=== PATIENT | female | born 1935 | race Caucasian/White ===

== ENCOUNTER → 2016-08-12 | Outpatient (CLI) | payer OTHER ==
[~2016-08-12] MED LIST: ALBINS/ INH; ALBUAER2 PO; ALPOPS1510 OPB; ASPEC81 PO; ATV/1 PO; BIOT50006 PO; BRIM0.1S OPB; CHOL100010 PO; CICL0.7718 TOP; DILT120C68 PO; DLCSR180 PO; FERR1TAB13 PO; FERR27TA5 PO; FLUO10TA3 PO; FLUT0.15; GLC/500 PO; LEVO1TAB33 PO; LOSA1TAB PO; LOSA50TA6 PO; OXYB5TAB74 PO; PLV75 PO; PRED10TA PO; RIVA1.5T PO; RIVA1TAB4 PO; SIMV40TA2 PO; SYMIN160 INH; TIMO0.2527 OPB; TMPXEOPS OPB; TRIA0.1O12 TOP; TRIA37.5 PO; TRMCR130WC TOP; VNTHFA/IN INH
[2016-08-13 06:30] LABS: ESTIMATED AVERAGE GLUCOSE 197 mg/dl; HA1C FLAG Normal (Normal)
== END | disposition home or self-care (01) ==
LOC: C.LABBFT 10:21
PROVIDERS: ATTEND Internal Medicine
DX: E11.9 Type 2 diabetes mellitus without complications (principal)

== ENCOUNTER → 2016-08-12 | Outpatient (CLI) | payer OTHER ==
--- NOTE | 2016-08-12 16:22 | DIAGNOSTIC IMAGING REPORT ---
CHEST 2 VIEWS ROUTINE CLINICAL HISTORY: Acute bronchitis. COMPARISON STUDY: Chest radiograph February 19, 2016. FINDINGS: Lung volumes are normal. There is no pneumothorax or pleural effusion. Mild bibasilar opacities favor atelectasis. There is no consolidation. There is no evidence of pulmonary edema. Mild cardiomegaly is unchanged. IMPRESSION: 1. No acute cardiopulmonary findings. 2. Mild bibasilar opacities which likely reflect atelectasis. 3. Stable mild cardiomegaly without evidence of pulmonary edema. Electronically signed by: Sergio Ferguson M.D. 08/12/2016 4:20 PM Dictated Date/Time: 08/12/2016 4:19 PM
== END | disposition home or self-care (01) ==
LOC: C.RAD1850 15:57
PROVIDERS: ATTEND Internal Medicine
DX: J20.9 Acute bronchitis, unspecified (principal); I51.7 Cardiomegaly; E11.9 Type 2 diabetes mellitus without complications

== ENCOUNTER → 2016-08-13 | Outpatient (CLI) | payer OTHER | END | disposition home or self-care (01) | LOC: C.LAB 09:04 | PROVIDERS: ATTEND Internal Medicine | DX: E11.9 Type 2 diabetes mellitus without complications (principal); J20.9 Acute bronchitis, unspecified ==

== ENCOUNTER 2016-08-22 18:35 | Inpatient (IN) | payer OTHER ==
[~2016-08-22] VITALS: Ht 160 cm; Wt 59.5 kg
[~2016-08-22 18:35] MED LIST changes: -ALBINS/ INH; -ASPEC81 PO; -BRIM0.1S OPB; -DILT120C68 PO; -FERR27TA5 PO; -LEVO1TAB33 PO; -LOSA1TAB PO; -PLV75 PO; -PRED10TA PO; -RIVA1.5T PO; -TMPXEOPS OPB; -TRIA37.5 PO; -TRMCR130WC TOP; -VNTHFA/IN INH
[2016-08-22] MEDS ORDERED: SODIUM CHLORIDE 0.9% 1000ML 1,000 ML IV STA (19:00)
[2016-08-22 19:23] LABS: HEMATOCRIT 37.9 % (37-47); MEAN CORPUSCULAR HEMOGLOBIN 31.5 pg (25-34); MEAN CORPUSCULAR HGB CONC 33.5 g/dl (32-36); MEAN PLATELET VOLUME 10.4 fL (7.4-10.4); PLATELET COUNT 204 K/uL (130-400); RED BLOOD COUNT 4.03 M/uL (4.2-5.4); WHITE BLOOD COUNT 22.82 K/uL (4.8-10.8)
[2016-08-22] MEDS ORDERED: LEVO1TAB33 PO (19:25)
[2016-08-22] MEDS ORDERED: PRED10TA PO (19:25)
[2016-08-22 19:32] LABS: INR 1.2 (0.9-1.1); PROTHROMBIN TIME (PATIENT) 12.6 SECONDS (9.0-12.0)
[2016-08-22 19:40] LABS: BUN/CREATININE RATIO 20.6 (10-20); CALCIUM 9.2 mg/dl (8.5-10.1); CREATININE 1.7 mg/dl (0.60-1.20); POTASSIUM 4.4 mmol/L (3.5-5.1)
[2016-08-22 19:42] LABS: ACANTHOCYTES 1+; BASO % 0.1 %; BASO ABS # 0.02 K/uL (0-0.2); COMPLETE YES; ECHINOCYTES 1+; IG% 0.9 %; LYMPH % 4.5 %; LYMPH ABS # 1.03 K/uL (1.2-3.4); MONO % 5.7 %; NEUT % 88.8 %
[2016-08-22 19:50] LABS: BETA-HYDROXYBUTYRATE 1.67 mg/dL (0.2-2.81); THYROID STIMULATING HORMONE 1.39 uIu/ml (0.300-4.500)
--- NOTE | 2016-08-22 19:50 | DIAGNOSTIC IMAGING REPORT ---
CT OF THE HEAD WITHOUT CONTRAST CLINICAL HISTORY: Fall with head injury. Anticoagulation. COMPARISON STUDY: Head CT May 04, 2016. CT DOSE: 1246.96 mGy.cm TECHNIQUE: Helical axial images of the head were obtained without IV contrast. Automated exposure control was utilized for the study. FINDINGS: No acute intracranial hemorrhage, midline shift or mass effect is present. Ventricular system is stable. The basilar cisterns are patent. There are no extra-axial collections. Encephalomalacia within the anterior medial left frontal lobe is unchanged. Scattered old infarcts are again noted. The appearance of the brain is unchanged. There are no findings to suggest acute dural sinus thrombosis or acute territorial infarct. There is no calvarial fracture. IMPRESSION: 1. No acute intracranial findings. No change in appearance of the brain. Multiple old infarcts. 2. No calvarial fracture. Electronically signed by: Sergio Ferguson M.D. 08/22/2016 7:48 PM Dictated Date/Time: 08/22/2016 7:44 PM
--- NOTE | 2016-08-22 20:10 | DIAGNOSTIC IMAGING REPORT ---
CHEST ONE VIEW PORTABLE CLINICAL HISTORY: Weakness. Fall. COMPARISON STUDY: Chest radiograph August 12, 2016. FINDINGS: Lung volumes are normal. There is no pneumothorax or pleural effusion. Mild cardiomegaly is unchanged. There is no evidence of pulmonary edema. The appearance of the chest is unchanged. There may be minimal bibasilar atelectasis. IMPRESSION: No acute cardiopulmonary findings. Electronically signed by: Sergio Ferguson M.D. 08/22/2016 8:08 PM Dictated Date/Time: 08/22/2016 8:07 PM
[2016-08-22 22:06] LABS: MANUAL MICROSCOPIC REQUIRED? NO; REVIEW REQ? NO; URINE APPEARANCE CLEAR (CLEAR); URINE BILIRUBIN NEG (NEG); URINE COLOR YELLOW; URINE EPITHELIAL CELL AUTO 20-30 /lpf (0-5); URINE NITRITE NEG (NEG); URINE PH 5.5 (4.5-7.5); URINE SPECIFIC GRAVITY 1.014 (1.000-1.030); UROBILINOGEN NEG (NEG)
[2016-08-23] MEDS ORDERED: PHARMACIST DISCHARGE MED REC CONSULT PRN (00:15)
[2016-08-23] MEDS ORDERED: TRIAMCINOLONE ACET 0.1% OINT 15 GM TUBE TOP PRN (00:15)
--- NOTE | 2016-08-23 00:23 | History and Physical ---
History & Physical Date & Time of Service: Aug 23, 2016 at 00:14 Chief Complaint: Fell,Hit Head,Rt Leg Not Working Primary Care Physician: Nathan Nance M.D. History of Present Illness Source: patient 80 y/o F w/Hx CAD, AF, HTN, COPD, DM. Pt fell earlier in the day sustaining mild trauma to the back of her head. She takes Xarelto for AF. She had a nap and then per her daughter woke up w/RLE weakness and slight slurring of her speech. She could not independently ambulate due to weakness and was brought into the hospital for evaluation. Her leg weakness persists at the time of admission although it may have improved. She denies a MILLER, visual changes, CP, SOB, N/V or fevers. She is currently being treated for a bronchitis and COPD with antibiotics and steroids. She has had a productive cough for over one week which has not improved. Initial CT head did not reveal a CVA or ICH. Labs are notable for ARF and leukocytosis (in the context of steroid use). She is clinically dehydrated and appears profoundly weak. Past Medical/Surgical History Medical Problems: (1) A-fib Status: Chronic (2) COPD (chronic obstructive pulmonary disease) Status: Chronic (3) Diabetes Status: Chronic (4) Heart disease Status: Chronic (5) HTN (hypertension) Status: Chronic 6) Psoriasis 7) Polyneuropathy 8) Hyperlipidemia 9) Pulmonary nodule Family History Diabetes mellitus FH: cancer FH: heart disease Hypertension Social History Smoking Status: Former Smoker Drug Use: none Marital Status: Housing status: lives with family Occupational Status: retired Immunizations History of Influenza Vaccine: Yes Influenza Vaccine Date: Apr 02, 2011 History of Tetanus Vaccine?: No History of Pneumococcal: 2009 History of Hepatitis B Vaccine: No Multi-Drug Resistant Organisms History of MDRO: No Allergies Coded Allergies: Tramadol (Unverified Allergy, Intermediate, LETHARGIC, 08/22/16) Aminothiols (Verified Allergy, Unknown, UNKNOWN, 08/22/16) Aztreonam (Verified Allergy, Unknown, UNKNOWN, 08/22/16) Carbapenems (Unverified Allergy, Unknown, UNKNOWN, 08/22/16) Cefazolin (Unverified Allergy, Unknown, UNKNOWN, 08/22/16) Cephalosporins (Verified Allergy, Unknown, UNKN, 08/22/16) Clindamycin (Verified Allergy, Unknown, UNKN, 08/22/16) Iodinated Diagnostic Agents (Verified Allergy, Unknown, "GET REAL COLD", ) Macrolides (Verified Allergy, Unknown, PER ROUTINE PCU ORDER SET 06/24/10 ADMISSION, 08/22/16) Macrolides and Ketolides (Verified Allergy, Unknown, UNKNOWN, 08/22/16) Penicillins (Verified Allergy, Unknown, `, 08/22/16) Home Medications Scheduled Albuterol (Ventolin Hfa), 1 PUFF PO BID Biotin (Biotin), 5,000 MCG PO DAILY Brimonidine Tartrate 0.15% Oph (Alphagan P 0.15% Oph *), 1 DROP OPB BID Budesonide/Formoterol Fumarate (Symbicort 160/4.5 Inhaler), 2 PUFFS INH BID Cholecalciferol (Vitamin D), 2,000 UNITS PO QAM Ciclopirox Olamine (Loprox Ts Topical Susp 0.77%), 1 APPLN TOP BID Diltiazem Hcl Ext Rel (Dilacor Xr *), 180 MG PO DAILY Fluoxetine Hcl (Fluoxetine Hcl), 10 MG PO QAM Fluticasone Propionate (Nasal) (Flonase Allergy Relief), 100 NA QD Levofloxacin (Levaquin), 500 MG PO DAILY Losartan Potassium (Cozaar), 100 MG PO DAILY Metformin Hcl (Glucophage), 500 MG PO TID Oxybutynin Chloride (Ditropan), 5 MG PO BID Prednisone (Prednisone), 0 PO UD Rivaroxaban (Xarelto), 15 TAB PO DAILY Simvastatin (Zocor), 40 MG PO QPM Timolol Gfs 0.25% Oph (Timoptic-Xe 0.25% Oph), 1 DROP OPB Q12 Scheduled PRN Lorazepam (Ativan), 1 MG PO HS PRN for if needed Triamcinolone Acet (Kenelog 0.1% ), TOP BID PRN for Itching Review of Systems Constitutional: No chills, No fever, No sweats Eyes: No eye pain, No worsening of vision ENT: No hearing loss, No nasal symptoms, No unusual epistaxis Respiratory: + cough, No shortness of breath, No sputum, No wheezing Cardiovascular: No PND, No chest pain, No orthopnea Abdomen: No pain Musculoskeletal: No joint pain, No muscle pain Genitourinary - Female: No dysuria, No urinary frequency Neurologic: + problem reported (RLE weakness - slurred speech reported), No memory loss Psychiatric: No depression symptoms Endocrine: No fatigue Hematologic / Lymphatic: No abnormal bleeding/bruising Integumentary: No rash Allergic / Immunologic: No environmental allergies Physical Exam Vital Signs Date Time Temp Pulse Resp B/P Pulse Ox O2 Delivery O2 Flow Rate FiO2 08/22/16 21:42 76 21 180/80 96 Room Air 08/22/16 21:00 71 18 179/91 91 08/22/16 20:00 81 18 173/100 96 08/22/16 19:43 85 08/22/16 19:38 85 24 174/97 98 Room Air 08/22/16 19:36 98 Room Air 08/22/16 18:39 36.5 86 20 178/76 95 Room Air General Appearance: WD/WN, no apparent distress Head: normocephalic Eyes: normal inspection, PERRL, EOMI ENT: normal ENT inspection, pharynx normal Neck: supple, no adenopathy, thyroid normal, no JVD Respiratory/Chest: chest non-tender, lungs clear, no accessory muscle use Cardiovascular: regular rate, rhythm, no edema Abdomen/GI: normal bowel sounds, non tender, soft Back: normal inspection, no CVA tenderness Extremities/Musculoskelatal: normal inspection, no calf tenderness, normal capillary refill, no pedal edema, normal range of motion Neurologic/Psych: + pertinent finding (AAO x 3 - lethargic and globally weak - focal finding is limited to weakness of the proximal RLE at present - she is unable to ambulate without considerable assistance and cannot support er weight on the R side) Skin: normal color, warm/dry, no rash Diagnostics Laboratory Results Results Past 24 Hours Test 08/22/16 19:05 08/23/16 00:02 Range/Units White Blood Count 22.82 4.8-10.8 K/uL Red Blood Count 4.03 4.2-5.4 M/uL Hemoglobin 12.7 12.0-16.0 g/dL Hematocrit 37.9 37-47 % Mean Corpuscular Volume 94.0 80-100 fL Mean Corpuscular Hemoglobin 31.5 25-34 pg Mean Corpuscular Hemoglobin Concent 33.5 32-36 g/dl Platelet Count 204 130-400 K/uL Mean Platelet Volume 10.4 7.4-10.4 fL Neutrophils (%) (Auto) 88.8 % Lymphocytes (%) (Auto) 4.5 % Monocytes (%) (Auto) 5.7 % Eosinophils (%) (Auto) 0.0 % Basophils (%) (Auto) 0.1 % Neutrophils # (Auto) 20.24 1.4-6.5 K/uL Lymphocytes # (Auto) 1.03 1.2-3.4 K/uL Monocytes # (Auto) 1.31 0.11-0.59 K/uL Eosinophils # (Auto) 0.01 0-0.5 K/uL Basophils # (Auto) 0.02 0-0.2 K/uL RDW Standard Deviation 50.2 36.4-46.3 fL RDW Coefficient of Variation 14.7 11.5-14.5 % Immature Granulocyte % (Auto) 0.9 % Immature Granulocyte # (Auto) 0.21 0.00-0.02 K/uL Echinocytes 1+ Acanthocytes 1+ Prothrombin Time 12.6 9.0-12.0 SECONDS Prothromb Time International Ratio 1.2 0.9-1.1 Activated Partial Thromboplast Time 25.2 21.0-31.0 SECONDS Partial Thromboplastin Ratio 1.0 Sodium Level 138 136-145 mmol/L Potassium Level 4.4 3.5-5.1 mmol/L Chloride Level 100 98-107 mmol/L Carbon Dioxide Level 24 21-32 mmol/L Anion Gap 14.0 3-11 mmol/L Blood Urea Nitrogen 35 7-18 mg/dl Creatinine 1.70 0.60-1.20 mg/dl Est Creatinine Clear Calc Drug Dose 21.8 ml/min Estimated GFR () 32.4 Estimated GFR (Non- 28.0 BUN/Creatinine Ratio 20.6 10-20 Random Glucose 335 70-99 mg/dl Calcium Level 9.2 8.5-10.1 mg/dl Total Bilirubin 0.4 0.2-1 mg/dl Direct Bilirubin 0.2 0-0.2 mg/dl Aspartate Amino Transf (AST/SGOT) 11 15-37 U/L Alanine Aminotransferase (ALT/SGPT) 11 12-78 U/L Alkaline Phosphatase 53 45-117 U/L Total Protein 6.7 6.4-8.2 gm/dl Albumin 3.1 3.4-5.0 gm/dl Beta-Hydroxybutyric Acid 1.67 0.2-2.81 mg/dL Thyroid Stimulating Hormone (TSH) 1.390 0.300-4.500 uIu/ml Diagnostic Radiology CT head No acute intracranial findings. No change in appearance of the brain. Multiple old infarcts. No calvarial fracture. Impression Assessment and Plan 80 y/o F w/Hx CAD, AF, HTN, COPD, DM. Pt fell earlier in the day sustaining mild trauma to the back of her head. She takes Xarelto for AF. She had a nap and then per her daughter woke up w/RLE weakness and slight slurring of her speech. She could not independently ambulate and was brought inti the hospital for evaluation. Her leg weakness persists at the time of admission although it may have improved. She denies a MILLER, visual changes, CP, SB, N/V or fevers. She is currently being treated for a COPD exacerbation with antibiotics and steroids. 1) Weakness, Acute RLE weakness - slurred speech also reported but may be more related to generalized weakness. Her weakness is proximal on examination and focally limited so may represent a musculoskeletal issue rather than a CVA. She additionally is dehydrated w/ARF and has a persistent upper respiratory infection. A troponin has been ordered as she has documented CAD and we would want to r/o a silent event. We have admitted her with a CVA protocol however we will focus also on underlying causes for her weakness. She is anticoagulated with Xarelto and receives daily Zocor. As she suffered a fall and head trauma and the diagnosis is not definitive we will hold off on addition of ASA. She will be evaluated by neurology. Antihypertensives held. MRI pending 2) ARF - will provide IVF and trend BMP - obtain lytes and a nephrology consult if there is no improvement. 3) Fall, head trauma - No evidence of ICH on CT - frequent neurochecks - repeat CT with any changes - Xarelto held pending AM reevaluation 4) COPD/productive cough - she is currently on Levaquin and prednisone which we will continue - we have no evidence of PNM on CXR - she has leukocytosis which may be slightly higher than expected for a low dose of prednisone. Would consider a CT chest if there is no improvement. She has multiple allergies so that we may need to consult ID for expanded coverage. She had apparently had a few days of a different antibiotic prior to Levaquin which may not have agreed with her. 5) AF - rate controlled - will need monitoring as Diltiazem temporarily held - anticoagulated with Xarelto. 6) DM - poorly controlled possibly due to prednisone - placed on a SS and Lantus HS Full code - No additional prophylaxis Total time for this admit including review of records - labs, imaging, EKG - med rec - discussion with ER MD , PT/Family - 40 min Level of Care Telemetry Resuscitation Status FULL RESUSCITATION VTE Prophylaxis Given or contraindicated: Other Anticoagulation
[2016-08-23] MEDS ORDERED: INSULIN GLARGINE PER UNIT 10 UNITS in SYRINGE 0 ML SC STA (00:32)
--- NOTE | 2016-08-23 01:40 | EMERGENCY ROOM VISIT NOTE ---
History Report prepared by Jose: Amelia Garcia Under the Supervision of: Dr. Yousuf Franklin M.D. First contact with patient: 18:50 Chief Complaint: FALL Stated Complaint: FELL,HIT HEAD,RT LEG NOT WORKING History of Present Illness The patient is an 80 year old female who presents to the Emergency Room via daughter to be evaluated for an episode of a fall that occurred seven hours ago. The patient's daughter notes that the patient has been ill for about two weeks. Tomorrow is the patient's last dose of prednisone as she is being treated for bronchitis. The patient's blood sugar was 549 several days ago. Today, about seven hours ago, the patient fell. Her daughter notes that the patient developed a small bump on the back of her head as a result of the fall. The patient denies any pain as a result of the fall. After the fall, the patient used her walker today; she does not usually use a walker. The patient took a short nap this afternoon. After the nap, about three hours ago, she could almost not stand up. The patient was very weak. The patient's daughter noticed 2.5 hours ago that the patient's right leg seemed to be much weaker. The patient's daughter notes that the patient's speech seems to be "off." The patient's daughter states that her jaw seems to be more droopy on the right side. The patient states that she is tired. Pt denies LOC, headache, fevers, chills, diaphoresis, visual changes, neck pain, chest pain, breathing difficulties, nausea, vomiting, abdominal pain, back pain, melena, hematochezia , urinary symptoms, numbness, lymphadenopathy, rash, or other complaints. Additionally, the patient has a history of mini strokes. The patient takes blood thinners. Source of History: patient, family Onset: 7 hours ago Position: other (global ) Quality: other (fall) Timing: other (episode) Associated Symptoms: + fatigue, + weakness Note: After the nap, about three hours ago, she could almost not stand up. The patient 's daughter noticed 2.5 hours ago that the patient's right leg seemed to be much weaker. The patient's daughter notes that the patient's speech seems to be "off." The patient's daughter states that her jaw seems to be more droopy on the right side. Review of Systems See HPI for pertinent positives and negatives. A total of ten systems were reviewed and were otherwise negative. Past Medical & Surgical Medical Problems: (1) A-fib (2) COPD (chronic obstructive pulmonary disease) (3) Diabetes (4) Heart disease (5) HTN (hypertension) Family History Diabetes mellitus FH: cancer FH: heart disease Hypertension Social History Smoking Status: Former Smoker Alcohol Use: none Drug Use: none Marital Status: Housing Status: lives with family Occupation Status: retired Current/Historical Medications Scheduled Albuterol (Ventolin Hfa), 1 PUFF PO BID Biotin (Biotin), 5,000 MCG PO DAILY Brimonidine Tartrate 0.15% Oph (Alphagan P 0.15% Oph *), 1 DROP OPB BID Budesonide/Formoterol Fumarate (Symbicort 160/4.5 Inhaler), 2 PUFFS INH BID Cholecalciferol (Vitamin D), 2,000 UNITS PO QAM Ciclopirox Olamine (Loprox Ts Topical Susp 0.77%), 1 APPLN TOP BID Diltiazem Hcl Ext Rel (Dilacor Xr *), 180 MG PO DAILY Fluoxetine Hcl (Fluoxetine Hcl), 10 MG PO QAM Fluticasone Propionate (Nasal) (Flonase Allergy Relief), 100 NA QD Levofloxacin (Levaquin), 500 MG PO DAILY Losartan Potassium (Cozaar), 100 MG PO DAILY Metformin Hcl (Glucophage), 500 MG PO TID Oxybutynin Chloride (Ditropan), 5 MG PO BID Prednisone (Prednisone), 0 PO UD Rivaroxaban (Xarelto), 15 TAB PO DAILY Simvastatin (Zocor), 40 MG PO QPM Timolol Gfs 0.25% Oph (Timoptic-Xe 0.25% Oph), 1 DROP OPB Q12 Scheduled PRN Lorazepam (Ativan), 1 MG PO HS PRN for if needed Triamcinolone Acet (Kenelog 0.1% ), TOP BID PRN for Itching Allergies Coded Allergies: Tramadol (Unverified Allergy, Intermediate, LETHARGIC, 08/22/16) Aminothiols (Verified Allergy, Unknown, UNKNOWN, 08/22/16) Aztreonam (Verified Allergy, Unknown, UNKNOWN, 08/22/16) Carbapenems (Unverified Allergy, Unknown, UNKNOWN, 08/22/16) Cefazolin (Unverified Allergy, Unknown, UNKNOWN, 08/22/16) Cephalosporins (Verified Allergy, Unknown, UNKN, 08/22/16) Clindamycin (Verified Allergy, Unknown, UNKN, 08/22/16) Iodinated Diagnostic Agents (Verified Allergy, Unknown, "GET REAL COLD", ) Macrolides (Verified Allergy, Unknown, PER ROUTINE PCU ORDER SET 06/24/10 ADMISSION, 08/22/16) Macrolides and Ketolides (Verified Allergy, Unknown, UNKNOWN, 08/22/16) Penicillins (Verified Allergy, Unknown, `, 08/22/16) Physical Exam Vital Signs Date Time Temp Pulse Resp B/P Pulse Ox O2 Delivery O2 Flow Rate FiO2 08/23/16 01:00 74 23 166/82 95 08/23/16 00:30 83 22 08/23/16 00:00 74 21 158/87 93 08/22/16 23:30 82 22 160/94 95 08/22/16 23:00 88 19 168/89 91 08/22/16 22:30 80 22 173/100 96 08/22/16 22:00 73 19 95 08/22/16 21:42 76 21 180/80 96 Room Air 08/22/16 21:00 71 18 179/91 91 08/22/16 20:00 81 18 173/100 96 08/22/16 19:43 85 08/22/16 19:38 85 24 174/97 98 Room Air 08/22/16 19:36 98 Room Air 08/22/16 18:39 36.5 86 20 178/76 95 Room Air Physical Exam GENERAL: Awake, alert, well-appearing, in no distress HENT: Normocephalic, atraumatic. Oropharynx unremarkable. Slight right sided facial drooping. EYES: Normal conjunctiva. Sclera non-icteric. NECK: Supple. No nuchal rigidity. FROM. No JVD. RESPIRATORY: Rhonchi bilaterally, coarse cough bilaterally. CARDIAC: Regular rate, normal rhythm. Extremities warm and well perfused. Pulses equal. ABDOMEN: Soft, non-distended. No tenderness to palpation. No rebound or guarding. No masses. RECTAL: Deferred. MUSCULOSKELETAL: Chest examination reveals no tenderness. The back is symmetrical on inspection without obvious abnormality. There is no CVA tenderness to palpation. No joint edema. LOWER EXTREMITIES: Calves are equal size bilaterally and non-tender. No edema. No discoloration. Right sided leg weakness in the hip flexors. NEURO: Normal sensorium. No sensory or motor deficits noted. SKIN: No rash or jaundice noted. Medical Decision & Procedures ER Provider Diagnostic Interpretation: X ray results as stated below per my interpretation and radiologist interpretation. Other radiology results as stated below per my review and radiologist interpretation CHEST ONE VIEW PORTABLE CLINICAL HISTORY: Weakness. Fall. COMPARISON STUDY: Chest radiograph August 12, 2016. FINDINGS: Lung volumes are normal. There is no pneumothorax or pleural effusion. Mild cardiomegaly is unchanged. There is no evidence of pulmonary edema. The appearance of the chest is unchanged. There may be minimal bibasilar atelectasis. IMPRESSION: No acute cardiopulmonary findings. Electronically signed by: Sergio Ferguson M.D. 08/22/2016 8:08 PM Dictated Date/Time: 08/22/2016 8:[address] OF THE HEAD WITHOUT CONTRAST CLINICAL HISTORY: Fall with head injury. Anticoagulation. COMPARISON STUDY: Head CT May 04, 2016. CT DOSE: 1246.96 mGy.cm TECHNIQUE: Helical axial images of the head were obtained without IV contrast. Automated exposure control was utilized for the study. FINDINGS: No acute intracranial hemorrhage, midline shift or mass effect is present. Ventricular system is stable. The basilar cisterns are patent. There are no extra-axial collections. Encephalomalacia within the anterior medial left frontal lobe is unchanged. Scattered old infarcts are again noted. The appearance of the brain is unchanged. There are no findings to suggest acute dural sinus thrombosis or acute territorial infarct. There is no calvarial fracture. IMPRESSION: 1. No acute intracranial findings. No change in appearance of the brain. Multiple old infarcts. 2. No calvarial fracture. Electronically signed by: Sergio Ferguson M.D. 08/22/2016 7:48 PM Dictated Date/Time: 08/22/2016 7:44 PM Laboratory Results 08/22/16 19:05 Red Blood Count 4.03, Mean Corpuscular Volume 94.0, Mean Corpuscular Hemoglobin 31.5, Mean Corpuscular Hemoglobin Concent 33.5, Mean Platelet Volume 10.4, Neutrophils (%) (Auto) 88.8, Lymphocytes (%) (Auto) 4.5, Monocytes (%) (Auto) 5.7, Eosinophils (%) (Auto) 0.0, Basophils (%) (Auto) 0.1, Neutrophils # (Auto) 20.24, Lymphocytes # (Auto) 1.03, Monocytes # (Auto) 1.31, Eosinophils # (Auto) 0.01, Basophils # (Auto) 0.02 08/22/16 19:05 Test 08/22/16 00:00 08/22/16 19:05 08/23/16 00:02 08/23/16 01:02 Urine Color YELLOW Urine Appearance CLEAR (CLEAR) Urine pH 5.5 (4.5-7.5) Urine Specific [place] 1.014 (1.000-1.030) Urine Protein NEG (NEG) Urine Glucose (UA) 2+ (NEG) Urine Ketones NEG (NEG) Urine Occult Blood NEG (NEG) Urine Nitrite NEG (NEG) Urine Bilirubin NEG (NEG) Urine Urobilinogen NEG (NEG) Urine Leukocyte Esterase TRACE (NEG) Urine WBC (Auto) 1-5 /hpf (0-5) Urine RBC (Auto) 0-4 /hpf (0-4) Urine Hyaline Casts (Auto) 1-5 /lpf (0-5) Urine Epithelial Cells (Auto) 20-30 /lpf (0-5) Urine Bacteria (Auto) NEG (NEG) White Blood Count 22.82 K/uL (4.8-10.8) Red Blood Count 4.03 M/uL (4.2-5.4) Hemoglobin 12.7 g/dL (12.0-16.0) Hematocrit 37.9 % (37-47) Mean Corpuscular Volume 94.0 fL (80-100) Mean Corpuscular Hemoglobin 31.5 pg (25-34) Mean Corpuscular Hemoglobin Concent 33.5 g/dl (32-36) Platelet Count 204 K/uL (130-400) Mean Platelet Volume 10.4 fL (7.4-10.4) Neutrophils (%) (Auto) 88.8 % Lymphocytes (%) (Auto) 4.5 % Monocytes (%) (Auto) 5.7 % Eosinophils (%) (Auto) 0.0 % Basophils (%) (Auto) 0.1 % Neutrophils # (Auto) 20.24 K/uL (1.4-6.5) Lymphocytes # (Auto) 1.03 K/uL (1.2-3.4) Monocytes # (Auto) 1.31 K/uL (0.11-0.59) Eosinophils # (Auto) 0.01 K/uL (0-0.5) Basophils # (Auto) 0.02 K/uL (0-0.2) RDW Standard Deviation 50.2 fL (36.4-46.3) RDW Coefficient of Variation 14.7 % (11.5-14.5) Immature Granulocyte % (Auto) 0.9 % Immature Granulocyte # (Auto) 0.21 K/uL (0.00-0.02) Echinocytes 1+ Acanthocytes 1+ Prothrombin Time 12.6 SECONDS (9.0-12.0) Prothromb Time International Ratio 1.2 (0.9-1.1) Activated Partial Thromboplast Time 25.2 SECONDS (21.0-31.0) Partial Thromboplastin Ratio 1.0 Anion Gap 14.0 mmol/L (3-11) Est Creatinine Clear Calc Drug Dose 21.8 ml/min Estimated GFR () 32.4 Estimated GFR (Non- 28.0 BUN/Creatinine Ratio 20.6 (10-20) Calcium Level 9.2 mg/dl (8.5-10.1) Total Bilirubin 0.4 mg/dl (0.2-1) Direct Bilirubin 0.2 mg/dl (0-0.2) Aspartate Amino Transf (AST/SGOT) 11 U/L (15-37) Alanine Aminotransferase (ALT/SGPT) 11 U/L (12-78) Alkaline Phosphatase 53 U/L (45-117) Total Protein 6.7 gm/dl (6.4-8.2) Albumin 3.1 gm/dl (3.4-5.0) Beta-Hydroxybutyric Acid 1.67 mg/dL (0.2-2.81) Thyroid Stimulating Hormone (TSH) 1.390 uIu/ml (0.300-4.500) Laboratory results reviewed by me Medications Administered Medications (Trade) Dose Ordered Sig/Jose Route Start Time Stop Time Status Last Admin Dose Admin Sodium Chloride (Nss 1000ml) 1,000 ml @ 125 mls/hr Q8H STAT IV 08/22/16 19:00 08/23/16 02:59 08/22/16 19:36 125 MLS/HR ED Course 185: The patient was evaluated in room A9. A complete history and physical exam was performed. 1900: Sodium Chloride 1000 ml @ 125 mls/hr IV 1944: CT imaging performed and was negative for acute bleed, fracture or stroke. On reassessment the patient was doing somewhat better. She still had weakness but light was improved. Her speech was better. She is anticoagulated and over 3 hours from the onset of symptoms. She is not a TPA candidate 0 : Patient was reevaluated. She is feeling better but still has some weakness in the right leg. Speech is better. Reviewed results with her family. She will need further workup in the hospital. 2314: I discussed the case with Dr. Burr ([facility]); he will further evaluate the patient. Medical Decision Triage Nursing notes reviewed. The patient's presentation and history were concerning for weakness and slurred speech. Etiologies such as metabolic, infection, hypo/hyperglycemia, electrolyte abnormalities, cardiac sources, intracerebral event, toxicologic, neurologic, as well as others were entertained. The patient was evaluated. She had some mild weakness in the right leg. She had blood work obtained. She had a significant leukocytosis. The patient is currently taking steroids and Levaquin. Chest x-ray performed and did not reveal any pneumonia. She had an unremarkable chemistry panel except for mild hyperglycemia. Cardiac negative. Urinalysis did not reveal any signs of infection. The patient is out of the window for thrombolytics and her symptoms are improving. The patient also is on anticoagulation. Given the strokelike symptoms further evaluation and management will be necessary. Consultation was made with internal medicine. The chart was completed utilizing [employer] voice recognition software. Grammatical errors, random word insertions, pronoun errors, and incomplete sentences are an occasional consequence of this system due to software limitations, ambient noise, and hardware issues. Any formal questions or concerns about the content, text, or information contained within the body of this dictation should be directly addressed to the physician for clarification. Consults Time Called: [id number] Consulting Physician: Dr. Burr ([facility]) Returned Call: [phone] I discussed the case with Dr. Burr ([facility]); he will further evaluate the patient. Impression Primary Impression: Right leg weakness Additional Impressions: Dysarthria Closed head injury Scribe Attestation The scribe's documentation has been prepared under my direction and personally reviewed by me in its entirety. I confirm that the note above accurately reflects all work, treatment, procedures, and medical decision making performed by me. Departure Information Dispostion Being Evaluated By Hospitalist Referrals Nathan Nance M.D. (PCP) Patient Instructions My [facility] Problem Qualifiers
[2016-08-23] MEDS ORDERED: DEXTROSE 50% 50 ML SYR IV PRN (03:30)
[2016-08-23] MEDS ORDERED: GLUCOSE 10 TABS/TUBE PO PRN (03:30)
[2016-08-23] MEDS ORDERED: GLUCAGON FOR INJ 1 MG VIAL SQ PRN (03:30)
[2016-08-23] MEDS ORDERED: GLUCOSE 40% GEL 15 GM TUBE PO PRN (03:30)
[2016-08-23 03:45] VITALS: BP 180/82; PULSE 78; TEMP 36.6; O2SAT 92; Ht 160 cm; Wt 59.5 kg
[2016-08-23] MEDS: FLUTICASONE PROPIONATE NA SPR 16 GM BTL SCH ×2 (04:07→21:32)
[2016-08-23] MEDS: SODIUM CHLORIDE 0.9% 1000ML 1,000 ML IV SCH ×2 (04:43→11:53)
[2016-08-23 07:09] LABS: MEAN CELL VOLUME 93.6 fL (80-100); MEAN CORPUSCULAR HGB CONC 33.2 g/dl (32-36); MEAN PLATELET VOLUME 10.6 fL (7.4-10.4); PLATELET COUNT 179 K/uL (130-400); RED BLOOD COUNT 4.06 M/uL (4.2-5.4); WHITE BLOOD COUNT 19.75 K/uL (4.8-10.8)
[2016-08-23] MEDS ORDERED: INFLUENZA ADMINISTRATION CHARGE ONE (07:15)
[2016-08-23] MEDS ORDERED: INFLUENZA VIRUS QUAD VACCINE 0.5 ML SYR IM. ONE (07:15)
[2016-08-23 07:29] VITALS: BP 160/73; PULSE 69; TEMP 36.7; O2SAT 95
[2016-08-23 07:57] LABS: BUN/CREATININE RATIO 24.4 (10-20); CALCIUM 8.4 mg/dl (8.5-10.1); CREATININE 1.2 mg/dl (0.60-1.20); MAGNESIUM 1.5 mg/dl (1.8-2.4); POTASSIUM 3.4 mmol/L (3.5-5.1)
--- NOTE | 2016-08-23 08:03 | DIAGNOSTIC IMAGING REPORT ---
ULTRASOUND OF THE CAROTID ARTERIES CLINICAL HISTORY: Stroke. COMPARISON STUDY: 04/21/2014 TECHNIQUE: Real-time, grayscale, and color Doppler sonography of the carotid arteries was performed. Imaging reviewed in the transverse and longitudinal planes. NASCET criteria was utilized for stenosis calcification. FINDINGS: There is mild atherosclerotic plaque present . The peak systolic velocity within the right internal carotid artery is 65 cm/sec. The systolic velocity ratio of right internal to common carotid artery is 1. The peak systolic velocity within the left internal carotid artery is 82 cm/sec. The systolic velocity ratio left internal to common carotid artery is 0.3. Antegrade flow is seen in the vertebral arteries. The external carotid arteries are patent. IMPRESSION: No evidence of hemodynamically significant carotid stenosis. Electronically signed by: Mars Albrecht M.D. 08/23/2016 8:01 AM Dictated Date/Time: 08/23/2016 8:00 AM
[2016-08-23] MEDS: INSULIN ASPART 100 UNITS/ML 3 ML PEN SC SCH ×4 (08:25→21:25)
[2016-08-23] MEDS: TIMOLOL GFS 0.25% OPH SOLN 74 DROPS/5 ML BTL OPB SCH ×2 (08:28→21:30)
[2016-08-23] MEDS: LEVOFLOXACIN 500 MG TAB PO SCH (08:28)
[2016-08-23] MEDS: BRIMONIDINE TARTRATE-P 0.15% 5 ML BTL OPB SCH ×2 (08:28→21:30)
[2016-08-23] MEDS: FLUOXETINE HCL 10 MG CAP PO SCH (08:29)
[2016-08-23] MEDS: CHOLECALCIFEROL 1000 INTER.UNIT TAB PO SCH (08:29)
[2016-08-23] MEDS: DILTIAZEM HCL 180 MG ER CAP PO SCH (08:29)
[2016-08-23] MEDS: OXYBUTYNIN CHLORIDE 5 MG TAB PO SCH ×2 (08:29→21:31)
[2016-08-23] MEDS: BUDESONIDE/FORMOTEROL FUMARATE 160/4.5 60 PUFFS/INHALER INH SCH ×2 (10:45→21:32)
[2016-08-23 11:36] VITALS: BP 127/70; PULSE 78; TEMP 36.8; O2SAT 93
--- NOTE | 2016-08-23 12:30 | Neurology Consultation ---
Neurology Consultation Date of Consultation: Aug 23, 2016. Attending Physician: Ashanti Collins MD Primary Care Physician: Nathan Nance M.D. Reason for Consultation: Weakness History of Present Illness Source: patient, hospital records The patient is an 80-year-old female who presented to the emergency department yesterday for further evaluation of persistent right-sided weakness that was noted after awakening from a nap. The patient has a history of chronic ambulatory dysfunction and fell and hit her head. She did not think she sustained any significant injuries and reports that she took a nap after this fall. However, upon awakening, the patient had difficulty walking due to right sided weakness, primarily the leg. A CT of the head was obtained which was negative for hemorrhage or other obvious acute process. 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 There reviewed the images and radiologist's interpretation. There is evidence of chronic encephalomalacia along the medial aspect of the left frontal lobe as well. Past medical history is notable for atrial fibrillation, diabetes mellitus, and hypertension. She is currently prescribed an anticoagulant. The patient was found to be significantly dehydrated at the time of presentation. Her blood glucose was significantly elevated as well, potentially related to recent treatment for bronchitis with prednisone. Currently, the patient denies any new or significant weakness of the right leg or elsewhere. She feels like she is back to her usual self. She denies headache, vision change, or dizziness. Past Medical/Surgical History Medical Problems: (1) Accidental drug ingestion Status: Acute (2) Closed head injury Status: Acute (3) COPD exacerbation Status: Acute (4) Dysarthria Status: Acute (5) PNA (pneumonia) Status: Acute (6) Right leg weakness Status: Acute Family History Family history positive for diabetes mellitus and hypertension Social History Smoking Status: Never smoker Drug Use: none Marital Status: Housing Status: lives with family Occupation Status: retired Allergies Coded Allergies: Tramadol (Unverified Allergy, Intermediate, LETHARGIC, 08/22/16) Aminothiols (Verified Allergy, Unknown, UNKNOWN, 08/22/16) Aztreonam (Verified Allergy, Unknown, UNKNOWN, 08/22/16) Carbapenems (Unverified Allergy, Unknown, UNKNOWN, 08/22/16) Cefazolin (Unverified Allergy, Unknown, UNKNOWN, 08/22/16) Cephalosporins (Verified Allergy, Unknown, UNKN, 08/22/16) Clindamycin (Verified Allergy, Unknown, UNKN, 08/22/16) Iodinated Diagnostic Agents (Verified Allergy, Unknown, "GET REAL COLD", ) Macrolides and Ketolides (Verified Allergy, Unknown, UNKNOWN, 08/22/16) Penicillins (Verified Allergy, Unknown, `, 08/22/16) Current Inpatient Medications Current Inpatient Medications Medications (Trade) Dose Ordered Sig/Jose Route Start Time Stop Time Status Last Admin Dose Admin Miscellaneous Information 1 ea 1 ea UD PRN N/A 08/23/16 00:15 09/22/16 00:14 Sodium Chloride (Nss 1000ml) 1,000 ml @ 125 mls/hr Q8H IV 08/23/16 04:00 08/23/16 19:59 08/23/16 04:43 125 MLS/HR Budesonide/ Formoterol Fumarate (Symbicort 160/ 4.5 Inh) 2 puffs BID INH 08/23/16 09:00 09/22/16 08:59 08/23/16 10:45 2 PUFFS Cholecalciferol (Vitamin D Tab) 2,000 inter.unit QAM PO 08/23/16 09:00 09/22/16 08:59 08/23/16 08:29 2,000 INTER.UNIT Diltiazem HCl (Dilacor Xr Cap) 180 mg DAILY PO 08/23/16 09:00 09/22/16 08:59 08/23/16 08:29 180 MG Fluticasone Propionate (Flonase Nasal [place]) 2 sprays QD NA 08/23/16 00:15 09/22/16 00:14 Levofloxacin (Levaquin Tab) 500 mg DAILY@1100 PO 08/23/16 11:00 08/26/16 11:01 08/23/16 08:28 500 MG Oxybutynin Chloride (Ditropan Tab) 5 mg BID PO 08/23/16 09:00 09/22/16 08:59 08/23/16 08:29 5 MG Simvastatin (Zocor Tab) 40 mg QPM PO 08/23/16 21:00 09/22/16 20:59 Timolol Maleate (Timoptic-Xe 0.25% Oph Soln) 1 drops Q12 OPB 1/22/17 09:00 09/22/16 08:59 08/23/16 08:28 1 DROPS Triamcinolone Acetonide (Kenalog 0.1% Oint) 1 appln BID PRN TOP 08/23/16 00:15 09/22/16 00:14 Brimonidine Tartrate (Alphagan-P 0.15% Oph Soln) 1 drops BID OPB 08/23/16 09:00 09/22/16 08:59 08/23/16 08:28 1 DROPS Fluoxetine HCl (Prozac Cap) 10 mg DAILY PO 08/23/16 09:00 09/22/16 08:59 08/23/16 08:29 10 MG Insulin Aspart (novoLOG ASPART) SLIDING SCALE G... Q6H SC 08/23/16 06:00 09/22/16 05:59 Glucose (Glucose 40% Gel) 15-30 GRAMS 15 GRAMS... UD PRN PO 08/23/16 03:30 09/22/16 03:29 Glucose (Glucose Chew Tab) 4-8 Tablets 4 Tabl... UD PRN PO 08/23/16 03:30 09/22/16 03:29 Dextrose (Dextrose 50% 50ML Syringe) 25-50ML OF 50% DW IV FOR... UD PRN IV 08/23/16 03:30 09/22/16 03:29 Glucagon (Glucagon Inj) 1 mg UD PRN SQ 08/23/16 03:30 09/22/16 03:29 Review of Systems The patient denies fever, chills, vision change, hearing change, chest pain, palpitations, shortness of breath, cough, abdominal pain, diarrhea, dysuria, incontinence, myalgia, rash, abnormal bleeding, swollen glands, depression, or anxiety. A full 10 point review of systems was obtained from this patient. Pertinent positives and negatives are described in the history of present illness and otherwise listed above. Physical Exam Vital Signs (Past 24 Hrs): Date Time Temp Pulse Resp B/P Pulse Ox O2 Delivery O2 Flow Rate FiO2 08/23/16 11:36 36.8 78 20 127/70 93 08/23/16 08:45 Room Air 08/23/16 07:29 36.7 69 20 160/73 95 08/23/16 03:45 36.6 78 20 180/82 92 Room Air 08/23/16 02:50 73 20 165/91 96 08/23/16 02:30 71 20 94 08/23/16 02:00 75 21 173/100 95 08/23/16 01:30 75 23 94 08/23/16 01:00 74 23 166/82 95 08/23/16 00:30 83 22 08/23/16 00:00 74 21 158/87 93 08/22/16 23:50 83 08/22/16 23:30 82 22 160/94 95 08/22/16 23:00 88 19 168/89 91 08/22/16 22:30 80 22 173/100 96 08/22/16 22:00 73 19 95 08/22/16 21:42 76 21 180/80 96 Room Air 08/22/16 21:00 71 18 179/91 91 08/22/16 20:00 81 18 173/100 96 08/22/16 19:43 85 08/22/16 19:38 85 24 174/97 98 Room Air 08/22/16 19:36 98 Room Air 08/22/16 18:39 36.5 86 20 178/76 95 Room Air The patient is a well-developed elderly female. No acute distress. She is pleasant and cooperative. She is alert and oriented to person place and time. Attention and concentration normal. Recent and remote memory intact. She is able to name objects and repeat phrases. She exhibits a normal spontaneous speech pattern. Vocabulary and fund of knowledge normal. Visual douglas full to confrontation. Visual acuity normal. Pupils equal round reactive to light and accommodation. Eye movements normal. There is no nystagmus. Facial sensation intact. There is no facial droop. Facial strength normal. Palate elevates to midline. Tongue protrudes to midline. Shoulder shrug and hearing intact. There is diminished sensation to vibration at both ankles. Proprioception, light touch , and temperature sensation is otherwise intact throughout. Deep tendon reflexes are 2+ for the upper extremities, 2+ at the patellar tendons, 1+ for the Achilles tendons. Plantar responses upgoing for the right, downgoing for the left. Patient performs finger to nose well bilaterally. There is slight dysmetria with [id number] on the right. Heel to aparicio for the left is normal. I 'm unable to adequately visualize any optic nerves and posterior segments with ophthalmoscopic examination. Carotid pulses normal to auscultation bilaterally, no bruits. Musculoskeletal examination reveals grossly intact strength for the upper and lower extremities. However, movement initiation of the right leg is slightly diminished compared to the left. Muscle tone and bulk normal throughout. No abnormal movements observed. Gait not tested due to safety concerns. Laboratory Results Past 24 Hours: 08/23/16 06:41 08/23/16 06:41 Test 08/22/16 19:05 08/23/16 01:43 08/23/16 06:41 08/23/16 11:42 Immature Granulocyte % (Auto) 0.9 % White Blood Count 22.82 K/uL (4.8-10.8) Red Blood Count 4.03 M/uL (4.2-5.4) 4.06 M/uL (4.2-5.4) Hemoglobin 12.7 g/dL (12.0-16.0) Hematocrit 37.9 % (37-47) Mean Corpuscular Volume 94.0 fL (80-100) 93.6 fL (80-100) Mean Corpuscular Hemoglobin 31.5 pg (25-34) 31.0 pg (25-34) Mean Corpuscular Hemoglobin Concent 33.5 g/dl (32-36) 33.2 g/dl (32-36) Platelet Count 204 K/uL (130-400) Mean Platelet Volume 10.4 fL (7.4-10.4) 10.6 fL (7.4-10.4) Neutrophils (%) (Auto) 88.8 % Lymphocytes (%) (Auto) 4.5 % Monocytes (%) (Auto) 5.7 % Eosinophils (%) (Auto) 0.0 % Basophils (%) (Auto) 0.1 % Neutrophils # (Auto) 20.24 K/uL (1.4-6.5) Lymphocytes # (Auto) 1.03 K/uL (1.2-3.4) Monocytes # (Auto) 1.31 K/uL (0.11-0.59) Eosinophils # (Auto) 0.01 K/uL (0-0.5) Basophils # (Auto) 0.02 K/uL (0-0.2) Immature Granulocyte # (Auto) 0.21 K/uL (0.00-0.02) Echinocytes 1+ Acanthocytes 1+ Prothrombin Time 12.6 SECONDS (9.0-12.0) Prothromb Time International Ratio 1.2 (0.9-1.1) Activated Partial Thromboplast Time 25.2 SECONDS (21.0-31.0) Partial Thromboplastin Ratio 1.0 Total Bilirubin 0.4 mg/dl (0.2-1) Direct Bilirubin 0.2 mg/dl (0-0.2) Aspartate Amino Transf (AST/SGOT) 11 U/L (15-37) Alanine Aminotransferase (ALT/SGPT) 11 U/L (12-78) Alkaline Phosphatase 53 U/L (45-117) Total Protein 6.7 gm/dl (6.4-8.2) Albumin 3.1 gm/dl (3.4-5.0) Beta-Hydroxybutyric Acid 1.67 mg/dL (0.2-2.81) Thyroid Stimulating Hormone (TSH) 1.390 uIu/ml (0.300-4.500) Troponin I < 0.015 ng/ml (0-0.045) RDW Standard Deviation 49.5 fL (36.4-46.3) RDW Coefficient of Variation 14.6 % (11.5-14.5) Anion Gap 10.0 mmol/L (3-11) Est Creatinine Clear Calc Drug Dose 30.9 ml/min Estimated GFR () 49.4 Estimated GFR (Non- 42.7 BUN/Creatinine Ratio 24.4 (10-20) Calcium Level 8.4 mg/dl (8.5-10.1) Magnesium Level 1.5 mg/dl (1.8-2.4) Bedside Glucose 168 mg/dl (70-90) Imaging A carotid ultrasound is negative for hemodynamically significant stenosis. Impression This patient's neurological examination does reveal mild weakness of the right lower extremity which could be chronic and related to a previous ischemic infarct. However, I'm unable to exclude an acute stroke at this time. It is possible that dehydration and hyperglycemia related to recent use of prednisone contributed to her neurological symptoms that have largely resolved at this time. Plan Would attempt to obtain a brain MRI which would be very useful to either exclude her diagnosis a recent infarct. Patient does report claustrophobia and may require a light sedative prior to MRI. If unable to obtain a brain MRI and order a follow-up noncontrast CT of the head which may be useful to diagnose and evolving infarct in further exclude intracranial hemorrhage. Would resume patient's anticoagulation if there is no evidence of hemorrhage on follow-up imaging. Continue to monitor patient's blood pressure which is a bit high. Systolic blood pressure goal 140-160 mmHg for the time being with further gentle lowering thereafter depending on her clinical status. PT/OT. Please contact me if I may be of further assistance
[2016-08-23 15:10] VITALS: BP 129/68; PULSE 64; TEMP 36.7; O2SAT 95
--- NOTE | 2016-08-23 15:57 | Hospitalist Progress Note ---
Hospitalist Progress Note Date of Service Aug 23, 2016. Subjective Pt evaluation today including: conversation w/ patient, conversation w/ family , physical exam, chart review, lab review, review of studies, review of inpatient medication list overnight doing ok, no acute event Objective Vital Signs Date Time Temp Pulse Resp B/P Pulse Ox O2 Delivery O2 Flow Rate FiO2 08/23/16 15:10 36.7 64 20 129/68 95 08/23/16 12:45 Room Air 08/23/16 11:36 36.8 78 20 127/70 93 08/23/16 08:45 Room Air 08/23/16 07:29 36.7 69 20 160/73 95 08/23/16 03:45 36.6 78 20 180/82 92 Room Air 08/23/16 02:50 73 20 165/91 96 08/23/16 02:30 71 20 94 08/23/16 02:00 75 21 173/100 95 08/23/16 01:30 75 23 94 08/23/16 01:00 74 23 166/82 95 08/23/16 00:30 83 22 08/23/16 00:00 74 21 158/87 93 08/22/16 23:50 83 08/22/16 23:30 82 22 160/94 95 08/22/16 23:00 88 19 168/89 91 08/22/16 22:30 80 22 173/100 96 08/22/16 22:00 73 19 95 08/22/16 21:42 76 21 180/80 96 Room Air 08/22/16 21:00 71 18 179/91 91 08/22/16 20:00 81 18 173/100 96 08/22/16 19:43 85 08/22/16 19:38 85 24 174/97 98 Room Air 08/22/16 19:36 98 Room Air 08/22/16 18:39 36.5 86 20 178/76 95 Room Air Physical Exam General Appearance: no apparent distress Eyes: normal inspection ENT: hearing grossly normal Neck: supple Respiratory/Chest: chest non-tender, normal breath sounds Cardiovascular: + irregularly irregular Abdomen: normal bowel sounds, non tender, soft Extremities: non-tender Neurologic/Psychiatric: tableau analyst II-XII nml as tested, + pertinent finding (right leg slightly weak comparing to left) Skin: normal color Laboratory Results Last 24 Hours Test 08/22/16 19:05 1/22/17 01:43 08/23/16 06:41 08/23/16 08:21 White Blood Count 22.82 K/uL 19.75 K/uL Red Blood Count 4.03 M/uL 4.06 M/uL Hemoglobin 12.7 g/dL 12.6 g/dL Hematocrit 37.9 % 38.0 % Mean Corpuscular Volume 94.0 fL 93.6 fL Mean Corpuscular Hemoglobin 31.5 pg 31.0 pg Mean Corpuscular Hemoglobin Concent 33.5 g/dl 33.2 g/dl Platelet Count 204 K/uL 179 K/uL Mean Platelet Volume 10.4 fL 10.6 fL Neutrophils (%) (Auto) 88.8 % Lymphocytes (%) (Auto) 4.5 % Monocytes (%) (Auto) 5.7 % Eosinophils (%) (Auto) 0.0 % Basophils (%) (Auto) 0.1 % Neutrophils # (Auto) 20.24 K/uL Lymphocytes # (Auto) 1.03 K/uL Monocytes # (Auto) 1.31 K/uL Eosinophils # (Auto) 0.01 K/uL Basophils # (Auto) 0.02 K/uL RDW Standard Deviation 50.2 fL 49.5 fL RDW Coefficient of Variation 14.7 % 14.6 % Immature Granulocyte % (Auto) 0.9 % Immature Granulocyte # (Auto) 0.21 K/uL Echinocytes 1+ Acanthocytes 1+ Prothrombin Time 12.6 SECONDS Prothromb Time International Ratio 1.2 Activated Partial Thromboplast Time 25.2 SECONDS Partial Thromboplastin Ratio 1.0 Sodium Level 138 mmol/L 145 mmol/L Potassium Level 4.4 mmol/L 3.4 mmol/L Chloride Level 100 mmol/L 105 mmol/L Carbon Dioxide Level 24 mmol/L 30 mmol/L Anion Gap 14.0 mmol/L 10.0 mmol/L Blood Urea Nitrogen 35 mg/dl 29 mg/dl Creatinine 1.70 mg/dl 1.20 mg/dl Est Creatinine Clear Calc Drug Dose 21.8 ml/min 30.9 ml/min Estimated GFR () 32.4 49.4 Estimated GFR (Non- 28.0 42.7 BUN/Creatinine Ratio 20.6 24.4 Random Glucose 335 mg/dl 101 mg/dl Calcium Level 9.2 mg/dl 8.4 mg/dl Total Bilirubin 0.4 mg/dl Direct Bilirubin 0.2 mg/dl Aspartate Amino Transf (AST/SGOT) 11 U/L Alanine Aminotransferase (ALT/SGPT) 11 U/L Alkaline Phosphatase 53 U/L Total Protein 6.7 gm/dl Albumin 3.1 gm/dl Beta-Hydroxybutyric Acid 1.67 mg/dL Thyroid Stimulating Hormone (TSH) 1.390 uIu/ml Troponin I < 0.015 ng/ml Magnesium Level 1.5 mg/dl Bedside Glucose 132 mg/dl Test 08/23/16 11:42 Bedside Glucose 168 mg/dl Assessment and Plan patient is an 80-year-old female with PMH of AF, HTN, DM who presented to the emergency department yesterday for further evaluation of persistent right-sided weakness that was noted after awakening from a nap. 1 right side weakness: may be related to generalized weakness. Neuro is consulted, need to rule out CVA. f/u brain MRI. f/u PT/OT 2 AF: Neuro recommended to hold anticoagulated now until rule out hemorrhage on image study. continue Diltiazem for rate control 3) ARF: kidney function is improving after IV fluid. most likely due to dehydration. monitor kidney function. 4) COPD/productive cough -continue her home medication Levaquin and prednisone. no evidence of PNM on CXR - consider a CT chest if there is no improvement. 5) DM - poorly controlled possibly due to prednisone - placed on a SS and Lantus HS. F/u A1C diet: diabetic diet DVT prophylaxis: heparin code:full
[2016-08-23] MEDS ORDERED: LORAZEPAM INJ 0.5 MG in SYRINGE 0.75 ML IV ONE (18:15)
--- NOTE | 2016-08-23 19:32 | DIAGNOSTIC IMAGING REPORT ---
MR ANGIOGRAPHY OF THE [place] NO CONTRAST CLINICAL HISTORY: Stroke. COMPARISON STUDY: None. A 3-D [id number] MR angiographic sequence of the [place] of [place] was performed. Both the source and projection images were reviewed. There is a 3 mm aneurysm arising from the cavernous portion left internal carotid artery. There is also fusiform dilatation of the left cavernous carotid. There is mild attenuation of the left middle cerebral artery, likely secondary to intracranial atherosclerotic disease. Flow voids within the intrapetrous carotid, likely artifactual. IMPRESSION: 1. Intracranial atherosclerotic disease involving the left middle cerebral artery 2. Fusiform dilatation of the left cavernous carotid 3. 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 08/23/2016 7:30 PM Dictated Date/Time: 08/23/2016 7:26 PM
[2016-08-23] MEDS ORDERED: NURSING VERBAL MED ORDER ONE (19:45)
--- NOTE | 2016-08-23 19:48 | DIAGNOSTIC IMAGING REPORT ---
MRI OF THE BRAIN WITHOUT CONTRAST CLINICAL HISTORY: Stroke COMPARISON STUDY: Head CT dated 08/22/2016 FINDINGS: Sagittal T1, axial diffusion, proton density and T2 weighted axial, coronal FLAIR, and axial T1-weighted images were acquired. No intra or extra-axial mass lesions are visualized There is a linear (10 x 3 mm) focus of restricted water diffusion at the junction of the lateral left thalamus and posterior limb of the internal capsule. The findings are consistent with acute/subacute infarct. There is no evidence of ventricular dilatation. Proton density T2-weighted and FLAIR images reveal there are scattered cerebellar, pontine, thalamic, and basal ganglial lacunar infarcts. There is an old left frontal lobe infarct. There are foci of increased T2 signal within the white matter likely on a small vessel basis. There are no abnormal flow voids. IMPRESSION: Normal study. 1. Acute/subacute infarct at the junction of the left lateral thalamus and posterior limb of the internal capsule 2. Old left frontal infarct, and scattered old bilateral lacunar infarcts 3. No evidence of intracranial mass Electronically signed by: Mars Albrecht M.D. 08/23/2016 7:46 PM Dictated Date/Time: 08/23/2016 7:41 PM
[2016-08-23 20:00] VITALS: BP 162/83; PULSE 78; TEMP 36.6; O2SAT 95
[2016-08-23] MEDS ORDERED: SIMVASTATIN 40 MG TAB PO SCH (21:00)
[2016-08-23] MEDS: HEPARIN SOD 5000 UNIT/0.5 ML CARP SQ SCH (21:54)
[2016-08-24] VITALS (8 sets, daily range): BP systolic 115–171; BP diastolic 73–101; PULSE 63–87; TEMP 36.4–36.9; O2SAT 94–96
[2016-08-24 05:56] LABS: COMPLETE YES; EOS % 0.7 %; HEMATOCRIT 35.4 % (37-47); IG% 0.5 %; LYMPH % 7.9 %; LYMPH ABS # 1.43 K/uL (1.2-3.4); MEAN CELL VOLUME 92.7 fL (80-100); MEAN CORPUSCULAR HEMOGLOBIN 30.9 pg (25-34); MEAN CORPUSCULAR HGB CONC 33.3 g/dl (32-36); MEAN PLATELET VOLUME 10.9 fL (7.4-10.4); MONO % 5.6 %; NEUT % 85.3 %; PLATELET COUNT 141 K/uL (130-400); RED BLOOD COUNT 3.82 M/uL (4.2-5.4); WHITE BLOOD COUNT 18.17 K/uL (4.8-10.8)
[2016-08-24] MEDS: HEPARIN SOD 5000 UNIT/0.5 ML CARP SQ SCH ×2 (06:10→12:21)
[2016-08-24 06:34] LABS: BUN/CREATININE RATIO 21.9 (10-20); CALCIUM 7.9 mg/dl (8.5-10.1); CREATININE 1.1 mg/dl (0.60-1.20); POTASSIUM 3.2 mmol/L (3.5-5.1)
[2016-08-24 06:48] LABS: ESTIMATED AVERAGE GLUCOSE 212 mg/dl; HA1C FLAG Normal (Normal)
[2016-08-24] MEDS: INSULIN ASPART 100 UNITS/ML 3 ML PEN SC SCH ×3 (07:44→17:05)
[2016-08-24] MEDS: DILTIAZEM HCL 180 MG ER CAP PO SCH (07:46)
[2016-08-24] MEDS: BUDESONIDE/FORMOTEROL FUMARATE 160/4.5 60 PUFFS/INHALER INH SCH (07:46)
[2016-08-24] MEDS: OXYBUTYNIN CHLORIDE 5 MG TAB PO SCH (07:46)
[2016-08-24] MEDS: CHOLECALCIFEROL 1000 INTER.UNIT TAB PO SCH (07:46)
[2016-08-24] MEDS: FLUOXETINE HCL 10 MG CAP PO SCH (07:46)
[2016-08-24] MEDS: BRIMONIDINE TARTRATE-P 0.15% 5 ML BTL OPB SCH (07:47)
[2016-08-24] MEDS: TIMOLOL GFS 0.25% OPH SOLN 74 DROPS/5 ML BTL OPB SCH (07:47)
--- NOTE | 2016-08-24 09:36 | Neurology Progress Notes ---
Neurology Progress Note Date of Service Aug 24, 2016. Subjective Patient has no complaint of pain or headache. She is not dizzy and has no vision problems. She feels well and feels like she wants to go home. She has no further weakness in her right leg. She has no pain or numbness in the leg either. Nursing reports no seizures or abnormal events or changes overnight or this morning MRI of the brain showed a small acute left posterior limb of the internal capsule infarct. There were old small vessel ischemic changes and an old lacunar infarct in the left thalamus also. Carotid ultrasound was unremarkable. 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 Objective Date Time Temp Pulse Resp B/P Pulse Ox O2 Delivery O2 Flow Rate FiO2 08/24/16 07:57 36.8 87 18 96 Room Air 08/24/16 07:40 87 171/101 08/24/16 04:00 Room Air 08/24/16 03:08 36.5 76 18 162/96 95 Room Air 08/24/16 00:11 36.7 63 20 135/80 95 Room Air 08/24/16 00:00 Room Air 08/23/16 20:00 36.6 78 18 162/83 95 Room Air 08/23/16 20:00 Room Air 08/23/16 16:45 Room Air 08/23/16 15:10 36.7 64 20 129/68 95 08/23/16 12:45 Room Air 08/23/16 11:36 36.8 78 20 127/70 93 Last 24 Hours Test 08/23/16 11:42 08/23/16 16:17 08/23/16 20:21 08/24/16 05:29 Bedside Glucose 168 mg/dl 247 mg/dl 228 mg/dl White Blood Count 18.17 K/uL Red Blood Count 3.82 M/uL Hemoglobin 11.8 g/dL Hematocrit 35.4 % Mean Corpuscular Volume 92.7 fL Mean Corpuscular Hemoglobin 30.9 pg Mean Corpuscular Hemoglobin Concent 33.3 g/dl Platelet Count 141 K/uL Mean Platelet Volume 10.9 fL Neutrophils (%) (Auto) 85.3 % Lymphocytes (%) (Auto) 7.9 % Monocytes (%) (Auto) 5.6 % Eosinophils (%) (Auto) 0.7 % Basophils (%) (Auto) 0.0 % Neutrophils # (Auto) 15.52 K/uL Lymphocytes # (Auto) 1.43 K/uL Monocytes # (Auto) 1.01 K/uL Eosinophils # (Auto) 0.12 K/uL Basophils # (Auto) 0.00 K/uL RDW Standard Deviation 48.8 fL RDW Coefficient of Variation 14.4 % Immature Granulocyte % (Auto) 0.5 % Immature Granulocyte # (Auto) 0.09 K/uL Sodium Level 143 mmol/L Potassium Level 3.2 mmol/L Chloride Level 105 mmol/L Carbon Dioxide Level 29 mmol/L Anion Gap 9.0 mmol/L Blood Urea Nitrogen 24 mg/dl Creatinine 1.10 mg/dl Est Creatinine Clear Calc Drug Dose 33.7 ml/min Estimated GFR () 54.9 Estimated GFR (Non- 47.4 BUN/Creatinine Ratio 21.9 Random Glucose 161 mg/dl Calcium Level 7.9 mg/dl Triglycerides Level 64 mg/dl Cholesterol Level 101 mg/dl HDL Cholesterol 50 mg/dl LDL Cholesterol, Calculated 38 mg/dl VLDL Cholesterol, Calculated 13 mg/dl Cholesterol/HDL Ratio 2.0 Test 08/24/16 07:42 Bedside Glucose 156 mg/dl Imaging: MRI OF THE BRAIN WITHOUT CONTRAST CLINICAL HISTORY: Stroke COMPARISON STUDY: Head CT dated 08/22/2016 FINDINGS: Sagittal T1, axial diffusion, proton density and T2 weighted axial, coronal FLAIR, and axial T1-weighted images were acquired. No intra or extra-axial mass lesions are visualized There is a linear (10 x 3 mm) focus of restricted water diffusion at the junction of the lateral left thalamus and posterior limb of the internal capsule. The findings are consistent with acute/subacute infarct. There is no evidence of ventricular dilatation. Proton density T2-weighted and FLAIR images reveal there are scattered cerebellar, pontine, thalamic, and basal ganglial lacunar infarcts. There is an old left frontal lobe infarct. There are foci of increased T2 signal within the white matter likely on a small vessel basis. There are no abnormal flow voids. IMPRESSION: Normal study. 1. Acute/subacute infarct at the junction of the left lateral thalamus and posterior limb of the internal capsule 2. Old left frontal infarct, and scattered old bilateral lacunar infarcts 3. No evidence of intracranial mass MR ANGIOGRAPHY OF THE [place] NO CONTRAST CLINICAL HISTORY: Stroke. COMPARISON STUDY: None. A 3-D [id number] MR angiographic sequence of the [place] was performed. Both the source and projection images were reviewed. There is a 3 mm aneurysm arising from the cavernous portion left internal carotid artery. There is also fusiform dilatation of the left cavernous carotid. There is mild attenuation of the left middle cerebral artery, likely secondary to intracranial atherosclerotic disease. Flow voids within the intrapetrous carotid, likely artifactual. IMPRESSION: 1. Intracranial atherosclerotic disease involving the left middle cerebral artery 2. Fusiform dilatation of the left cavernous carotid 3. 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 Her speech is normal without aphasia or dysarthria. Mood and affect are normal and appropriate. Thought processes seem intact and she is fully oriented to person place and time. She is pleasant and cooperative. Extraocular muscles are intact without nystagmus. Pupils are 3 mm bilaterally and reactive to light. There is no facial droop. Tongue is midline. Without discharge is no drift. There is no resting, postural, or action tremor. There is no ataxia with finger nose testing. There is good facility in the hands. Strength is 5/5 diffusely in the arms bilaterally both proximal and distally. In the left leg strength is diffusely normal both proximally and distally. In the right leg strength is 5/5 proximally but 4/5 in the tibialis anterior. Toes are downgoing to plantar stimulation on the left and equivocal on the right. Reflexes are symmetrical. Sensation is symmetrical and unremarkable as well. Current Inpatient Medications Medications (Trade) Dose Ordered Sig/Jose Route Start Time Stop Time Status Last Admin Dose Admin Miscellaneous Information (Pharmacist Discharge Med Rec Consult) 1 ea UD PRN N/A 08/23/16 00:15 09/22/16 00:14 Budesonide/ Formoterol Fumarate (Symbicort 160/ 4.5 Inh) 2 puffs BID INH 08/23/16 09:00 09/22/16 08:59 08/24/16 07:46 2 PUFFS Cholecalciferol (Vitamin D Tab) 2,000 inter.unit QAM PO 08/23/16 09:00 09/22/16 08:59 08/24/16 07:46 2,000 INTER.UNIT Diltiazem HCl (Dilacor Xr Cap) 180 mg DAILY PO 08/23/16 09:00 09/22/16 08:59 08/24/16 07:46 180 MG Fluticasone Propionate (Flonase Nasal [place]) 2 sprays QD NA 08/23/16 00:15 09/22/16 00:14 08/23/16 21:32 2 SPRAYS Levofloxacin (Levaquin Tab) 500 mg DAILY@1100 PO 08/23/16 11:00 08/26/16 11:01 08/23/16 08:28 500 MG Oxybutynin Chloride (Ditropan Tab) 5 mg BID PO 08/23/16 09:00 09/22/16 08:59 08/24/16 07:46 5 MG Simvastatin (Zocor Tab) 40 mg QPM PO 08/23/16 21:00 09/22/16 20:59 08/23/16 21:31 40 MG Timolol Maleate (Timoptic-Xe 0.25% Oph Soln) 1 drops Q12 OPB 08/23/16 09:00 09/22/16 08:59 08/24/16 07:47 1 DROPS Triamcinolone Acetonide (Kenalog 0.1% Oint) 1 appln BID PRN TOP 08/23/16 00:15 09/22/16 00:14 Brimonidine Tartrate (Alphagan-P 0.15% Oph Soln) 1 drops BID OPB 08/23/16 09:00 09/22/16 08:59 08/24/16 07:47 1 DROPS Fluoxetine HCl (Prozac Cap) 10 mg DAILY PO 08/23/16 09:00 09/22/16 08:59 08/24/16 07:46 10 MG Glucose (Glucose 40% Gel) 15-30 GRAMS 15 GRAMS... UD PRN PO 08/23/16 03:30 09/22/16 03:29 Glucose (Glucose Chew Tab) 4-8 Tablets 4 Tabl... UD PRN PO 08/23/16 03:30 09/22/16 03:29 Dextrose (Dextrose 50% 50ML Syringe) 25-50ML OF 50% DW IV FOR... UD PRN IV 08/23/16 03:30 09/22/16 03:29 Glucagon (Glucagon Inj) 1 mg UD PRN SQ 08/23/16 03:30 09/22/16 03:29 Heparin Sodium (Porcine) (Heparin Sq 5000 Unit/0.5ml) 5,000 unit Q8 SQ 08/23/16 22:00 09/22/16 21:59 08/24/16 06:10 5,000 UNIT Insulin Aspart (novoLOG ASPART) SLIDING SCALE G... ACHS SC 08/23/16 21:00 09/22/16 20:59 08/23/16 21:25 2 UNITS Impression 1. Acute motor lacunar infarct resulting in some right lower extremity weakness , improving. This was likely thrombotic from small vessel ischemic disease. Patient does have a history of atrial fibrillation on Xarelto although she is not getting in the hospital. Clinically, she has some very slight distal right lower extremity weakness but otherwise feels well and is much improved compared to admission. NIH stroke scale equals 1 2. Old chronic small vessel ischemic changes by MRI 3. Hypertension not adequately controlled currently. 4. History of diabetes. 5. 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 Because of her history of atrial fibrillation I would consider continuing Xarelto. Unfortunately, anti-coordination does not prevent small vessel ischemic changes particularly secondary to hypertension and aging. 2. Add 81 mg aspirin tablet daily. 3. Physical and occupational therapy 4. Control blood pressure and shear doing 5. Consider echocardiogram I will follow this patient while she is in hospital
[2016-08-24] MEDS: LEVOFLOXACIN 500 MG TAB PO SCH (12:18)
[2016-08-24] MEDS ORDERED: ASPEC81 PO (16:47)
--- NOTE | 2016-08-24 16:51 | Discharge Instructions ---
Discharge Instructions Admission Reason for Admission: CVA Discharge Discharge Diagnosis / Problem: Thalamic CVA with right sided weakness. Discharge Goals Goal(s): Improve function Activity Recommendations Activity Limitations: resume your previous activity . Instructions / Follow-Up Instructions / Follow-Up PCP in 5-[address] Ricci in 3-4 weeks. We recommended physical and occupational therapy. You reported that you did not feel you needed these services. Current Hospital Diet Patient's current hospital diet: AHA Diet (Heart Healthy), Diabetes Type 2 Diet Discharge Diet Recommended Diet: AHA Diet (Heart Healthy), Diabetes Type 2 Diet Pending Studies Studies pending at discharge: no Laboratory Results Hemoglobin A1c Test 08/22/16 19:05 Range/Units Estimated Average Glucose 212 mg/dl Hemoglobin A1c 9.0 H 4.5-5.6 % Lipid Panel Test 08/24/16 05:29 Range/Units Triglycerides Level 64 0-150 mg/dl Cholesterol Level 101 0-200 mg/dl HDL Cholesterol 50 mg/dl Cholesterol/HDL Ratio 2.0 LDL Cholesterol, Calculated 38 mg/dl Medical Emergencies . Who to Call and When: Medical Emergencies: If at any time you feel your situation is an emergency, please call 911 immediately. . Non-Emergent Contact Non-Emergency issues call your: Primary Care Provider . . "Provider Documentation" section prepared by Raymundo Stark. VTE Core Measure Inpt VTE Proph given/why not?: Other Anticoagulation
--- NOTE | 2016-08-24 17:06 | Discharge Summary ---
Discharge Summary Admission Date: Aug 23, 2016 at 02:09 Discharge Date: Aug 24, 2016 Discharge Disposition: Home with services Principal Diagnosis: Thalamic CVA with right sided weakness. Problems/Secondary Diagnoses: Type II Dm, Atrial Fibrillation, HTN. Immunizations: Have You Had Influenza Vaccine: Yes Influenza Vaccine Date: Apr 02, 2011 History of Tetanus Vaccine?: No History of Pneumococcal: 2009 History of Hepatitis B Vaccine: No Procedures: None. Consultations: Neurology, Dr.s Storey and Radhames. Medication Reconciliation New Medications: Aspirin (Aspirin EC Low Dose) 81 Mg Ectab 81 MG PO DAILY for 30 Days, #30 NS Continued Medications: Albuterol (Ventolin Hfa) Aers 1 PUFF PO BID, #18 Biotin (Biotin) 5,000 Mcg Sub 5000 MCG PO DAILY Brimonidine Tartrate 0.15% Oph (Alphagan P 0.15% Oph *) Soln 1 DROP OPB BID Budesonide/Formoterol Fumarate (Symbicort 160/4.5 Inhaler) 120 Puffs/ Aero 2 PUFFS INH BID Cholecalciferol (Vitamin D) 1,000 Unit Tab 2000 UNITS PO QAM Ciclopirox Olamine (Loprox Ts Topical Susp 0.77%) Susp 1 APPLN TOP BID, ML Diltiazem Hcl Ext Rel (Dilacor Xr *) 180 Mg Ercap 180 MG PO DAILY, 0 Refills Fluoxetine Hcl (Fluoxetine Hcl) 10 Mg Tab 10 MG PO QAM for 30 Days Fluticasone Propionate (Nasal) (Flonase Allergy Relief) 50 Mcg/Act Spr 100 NA QD Levofloxacin (Levaquin) 500 Mg Tab 500 MG PO DAILY for 7 Days, TAB Lorazepam (Ativan) 1 Mg Tab 1 MG PO HS PRN for if needed, TAB Losartan Potassium (Cozaar) 50 Mg Tab 100 MG PO DAILY for 30 Days, #60 TAB 5 Refills Metformin Hcl (Glucophage) 500 Mg Tab 500 MG PO TID, TAB Oxybutynin Chloride (Ditropan) 5 Mg Tab 5 MG PO BID, TAB Prednisone (Prednisone) 10 Mg Tab 0 PO UD, #1 PKT STERAPRED 10MG 12 DAY Rivaroxaban (Xarelto) 20 Mg Tab 15 TAB PO DAILY for 30 Days, #30 TAB 11 Refills Simvastatin (Zocor) 40 Mg Tab 40 MG PO QPM Timolol Gfs 0.25% Oph (Timoptic-Xe 0.25% Oph) Soln 1 DROP OPB Q12 Triamcinolone Acet (Kenelog 0.1% ) Oint TOP BID PRN for Itching Discharge Exam A 10 system review was performed and all were negative. Positives were placed in the subjective section. GEN: Awake, alert, and oriented x 3. Not in acute distress HEENT: Tm's intact, no inflammation, EOMI, PERRLA, MMM Neck: Soft, supple Lungs: CTA b/l, no r/r/w Heart: Irreg, nrl S1S2 without murmurs, rubs or gallops Abdomen: Soft, NT, ND, + BS EXT: No C/C/E NEURO: CN's II-XII grossly intact, minimal weakness right lower leg more so incoordination. Skin: warm, dry, no rashes PSYCH: pleasant, cooperative, no signs of significant anxiety or depression. Hospital Course Patient was admitted with right leg weakness which had caused the patient to have a ground level fall at home and subsequently strike her head. She was brought to the ED. CT scan of the head did not reveal any acute changes there was no bleeding noted. She underwent an MRI of the brain which indeed did show a left thalamic acute-subacute CVA. Neurology was consulted and was seen initially by Dr. Storey then in follow-up by Dr. iRcci. She was to continue Xarelto as she had been taking and add aspirin 81mg po Daily. There were no other medications changes. She was seen by physical and occupational therapy. When I asked if it would be ok to set this up as an outpatient, the patient declined these services stating that she knows what to do and that she has nurses in her family. Even so I asked that home health do an evaluation and encourage these services if deemed appropriate. The patient was discharged to home with her family. Total Time Spent: Greater than 30 minutes This includes examination of the patient, discharge planning, medication reconciliation, and communication with other providers. Discharge Instructions Please refer to the electronic Patient Visit Report (Discharge Instructions) for additional information. Follow-Up PCP in 5-[address] Storey or [address]. Ricci in 3-4 weeks.
--- NOTE | 2016-08-24 17:18 | Pharmacy Progress Note ---
Pharmacist Stroke Counseling Date of Service Aug 24, 2016. Scope Pharmacy has been consulted to provide medication discharge counseling for this patient admitted with ischemic stroke/hemorrhagic stroke/ transient ischemic attack as per the Pharmacist Discharge Counseling for Stroke Patients Protocol. Medications on Discharge New Medications: Aspirin (Aspirin EC Low Dose) 81 Mg Ectab 81 MG PO DAILY for 30 Days, #30 NS Continued Medications: Albuterol (Ventolin Hfa) Aers 1 PUFF PO BID, #18 Biotin (Biotin) 5,000 Mcg Sub 5000 MCG PO DAILY Brimonidine Tartrate 0.15% Oph (Alphagan P 0.15% Oph *) Soln 1 DROP OPB BID Budesonide/Formoterol Fumarate (Symbicort 160/4.5 Inhaler) 120 Puffs/ Aero 2 PUFFS INH BID Cholecalciferol (Vitamin D) 1,000 Unit Tab 2000 UNITS PO QAM Ciclopirox Olamine (Loprox Ts Topical Susp 0.77%) Susp 1 APPLN TOP BID, ML Diltiazem Hcl Ext Rel (Dilacor Xr *) 180 Mg Ercap 180 MG PO DAILY, 0 Refills Fluoxetine Hcl (Fluoxetine Hcl) 10 Mg Tab 10 MG PO QAM for 30 Days Fluticasone Propionate (Nasal) (Flonase Allergy Relief) 50 Mcg/Act Spr 100 NA QD Levofloxacin (Levaquin) 500 Mg Tab 500 MG PO DAILY for 7 Days, TAB Lorazepam (Ativan) 1 Mg Tab 1 MG PO HS PRN for if needed, TAB Losartan Potassium (Cozaar) 50 Mg Tab 100 MG PO DAILY for 30 Days, #60 TAB 5 Refills Metformin Hcl (Glucophage) 500 Mg Tab 500 MG PO TID, TAB Oxybutynin Chloride (Ditropan) 5 Mg Tab 5 MG PO BID, TAB Prednisone (Prednisone) 10 Mg Tab 0 PO UD, #1 PKT STERAPRED 10MG 12 DAY Rivaroxaban (Xarelto) 20 Mg Tab 15 TAB PO DAILY for 30 Days, #30 TAB 11 Refills Simvastatin (Zocor) 40 Mg Tab 40 MG PO QPM Timolol Gfs 0.25% Oph (Timoptic-Xe 0.25% Oph) Soln 1 DROP OPB Q12 Triamcinolone Acet (Kenelog 0.1% ) Oint TOP BID PRN for Itching Action The above medications, specifically ones for stroke treatment/prophylaxis, have been reviewed in detail with the patient and/or patient claim representative(s) prior to discharge. This includes indication, common adverse reactions, drug interactions, and medication administration. Medication counseling has been employed using the teach-back method to ensure understanding. Outcome The patient and/or patient claim representative(s) have demonstrated understanding of the medications. Please note, they are aware that the pharmacist will call them within 72 hours post-discharge to confirm that the appropriate medications are being taken and answer any further medication related questions the patient might have at that time. Contact information Individual to be contacted: Peg Relationship to patient (if applicable): daughter Phone number: [phone] Best time to call: around 1000 Additional comments: Thank you for allowing pharmacy to be involved in the care of this patient. Please call [phone] or [phone] with any additional questions
--- NOTE | 2016-08-27 11:38 | Pharmacy Progress Note ---
Pharmacist Post D/C Phone Note Date of phone call: Aug 27, 2016. Individual with whom pharmacist spoke to: Aubrie (patient's daughter) The following questions were reviewed during the phone call with responses listed below each: Can you tell me the medications that you are currently taking as well as when and how you take each medication? - I read the patient's med list to Aubrie and she was able to confirm. When have you missed any doses of your medications? - No What side effects are you having from your medications? - None What questions do you have about your medications? - None What problems are you having obtaining your medications? - None When is your next appointment with your primary care doctor? - Wednesday, 09/01. Additional comments: - Aubrie was very appreciative of the call and the care her mother received at [facility]. As per the Pharmacist Discharge Counseling for Stroke Patients Protocol, this phone call has been completed within 72 hours of discharge. Thank you for allowing us to be involved in the care of this patient. OR The patient and/or patient loss control representative(s) were unable to be reached for a follow-up phone call within the 72 hour time frame. Discharge counseling pharmacist contact information has already been provided to the patient should questions arise. Thank you for allowing us to be involved in the care of this patient.
== END 2016-08-24 17:50 | disposition home or self-care (01) | DRG 65 ==
LOC: ENRESERVTM → ENRESERVDT → C.EDB 18:36 → C.MED 08-23 02:09
PROVIDERS: ADMIT Internal Medicine; ATTEND Internal Medicine
DX: I63.8 Other cerebral infarction (principal); J44.1 Chronic obstructive pulmonary disease with (acute) exacerbation; J44.0 Chronic obstructive pulmonary disease with (acute) lower respiratory infection; G81.91 Hemiplegia, unspecified affecting right dominant side; N17.9 Acute kidney failure, unspecified; I48.91 Unspecified atrial fibrillation; E11.65 Type 2 diabetes mellitus with hyperglycemia; T38.0X5A Adverse effect of glucocorticoids and synthetic analogues, initial encounter; D72.829 Elevated white blood cell count, unspecified; E78.5 Hyperlipidemia, unspecified; I25.10 Atherosclerotic heart disease of native coronary artery without angina pectoris; I10 Essential (primary) hypertension; Z87.891 Personal history of nicotine dependence; E86.0 Dehydration; R26.89 Other abnormalities of gait and mobility; I72.0 Aneurysm of carotid artery; I67.82 Cerebral ischemia; R47.1 Dysarthria and anarthria; L40.9 Psoriasis, unspecified; W19.XXXA Unspecified fall, initial encounter; S09.90XA Unspecified injury of head, initial encounter; E11.42 Type 2 diabetes mellitus with diabetic polyneuropathy; Z79.899 Other long term (current) drug therapy; Z79.51 Long term (current) use of inhaled steroids; Z79.52 Long term (current) use of systemic steroids; Z79.84 Long term (current) use of oral hypoglycemic drugs; Z79.01 Long term (current) use of anticoagulants

== ENCOUNTER 2016-08-28 10:03 | Inpatient (IN) | payer OTHER ==
[~2016-08-28] VITALS: Ht 162.6 cm; Wt 61.4 kg
[~2016-08-28 10:03] MED LIST changes: +ASPEC81 PO; -FERR1TAB13 PO; +LEVO1TAB33 PO; +PRED10TA PO
--- NOTE | 2016-08-28 11:25 | EMERGENCY ROOM VISIT NOTE ---
History Report prepared by Jose: Martina Gonzales Under the Supervision of: Dr. Ari Guillory D.O. First contact with patient: 10:44 Chief Complaint: RESPIRATORY PROBLEMS Stated Complaint: WEAKNESS/LETHARGIC Nursing Triage Summary: PT RECENTLY HERE FOR CVA, DISCHARGED TWO DAYS AGO. PT WAS SENT HOME WITH SECOND DOSE OF PREDNISONE TAPER AND PO LEVAQUIN FOR DIAGNOSED BRONCHITIS. PT WAS FEELING WELL YESTERDAY. HOME HEALTH NURSE CAME TO CHECK ON PT TODAY AND FOUND PT TO BE IN RESPIRATORY DISTRESS WITH AN INCREASED MOIST COUGH AND SHORTNESS OF BREATH. PT ALSO NOTED TO BE WEAK, LETHARGIC, AND NAUSEATED WITH TWO EPISODES OF VOMITING LAST EVENING REPORTED BY PT. EMS ON SCENE NOTED PT TO BE 85% ON ROOM AIR, APPLIED 2L 02 NC, SATS 98%. PT HAS HX OF AFIB, ON XARELTO FOR A FEW YEARS. PT ALSO HAS HX OF COPD, DOES NOT WEAR O2 AT HOME BUT DOES HAVE PRESCRIBED NEBULIZER TREATMENTS WHICH HAVE NOT HELPED PT. PT PRESENTS TO ED ALERT AND ORIENTED BUT LETHARGIC, SLEEPING UNLESS ASKED QUESTIONS. LUNGS COARSE, WHEEZY, WITH A MOIST NONPRODUCTIVE COUGH, SATS 88% ON ROOM AIR. History of Present Illness The patient is an 80 year old female who presents to the Emergency Room with complaints of persistent respiratory problems that began prior to arrival. 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 They note that the patient was discharged two days ago on Levaquin and a prednisone taper, and additionally notes that the patient was in acute renal failure. The patient's family notes that the patient had a fall last Wednesday, but they are unsure if the patient fell first, or if it was due to the stroke. They note that the patient could not use her leg 4-5 hours later. Per the patient's family, the patient had been doing well, but notes that last evening the patient felt nauseous. Family notes that the patient began vomiting this morning. They note that the patient had bronchitis for two weeks prior to the CVA. The patient notes a moist productive cough, bringing up yellow mucous sputum. The patient does not wear supplemental oxygen at home, but her oxygen saturation has been 85-88% on room air. The patient denies getting a flu shot this year. The patient has a history of COPD and Atrial fibrillation. Source of History: patient, family, other (records) Onset: prior to arrival Position: other (global) Quality: other (respiratory problems) Timing: other (persistent) Associated Symptoms: + cough (productive ), + nausea, + vomiting Review of Systems See above for pertinent positives & negatives. A total of 10 systems reviewed and were otherwise negative. Past Medical & Surgical Medical Problems: (1) A-fib (2) COPD (chronic obstructive pulmonary disease) (3) CVA (cerebral vascular accident) (4) Diabetes (5) Heart disease (6) HTN (hypertension) Family History Diabetes mellitus FH: cancer FH: heart disease Hypertension Social History Smoking Status: Former Smoker Alcohol Use: none Drug Use: none Marital Status: Housing Status: lives with family Occupation Status: retired Current/Historical Medications Scheduled Albuterol (Ventolin Hfa), 1 PUFF PO BID Aspirin (Aspirin EC Low Dose), 81 MG PO DAILY Biotin (Biotin), 5,000 MCG PO DAILY Brimonidine Tartrate 0.15% Oph (Alphagan P 0.15% Oph *), 1 DROP OPB BID Budesonide/Formoterol Fumarate (Symbicort 160/4.5 Inhaler), 2 PUFFS INH BID Cholecalciferol (Vitamin D), 2,000 UNITS PO QAM Ciclopirox Olamine (Loprox Ts Topical Susp 0.77%), 1 APPLN TOP BID Diltiazem Hcl Ext Rel (Dilacor Xr *), 180 MG PO DAILY Fluoxetine Hcl (Fluoxetine Hcl), 10 MG PO QAM Fluticasone Propionate (Nasal) (Flonase Allergy Relief), 100 NA QD Losartan Potassium (Cozaar), 100 MG PO DAILY Metformin Hcl (Glucophage), 500 MG PO TID Oxybutynin Chloride (Ditropan), 5 MG PO BID Rivaroxaban (Xarelto), 15 TAB PO DAILY Simvastatin (Zocor), 40 MG PO QPM Timolol Gfs 0.25% Oph (Timoptic-Xe 0.25% Oph), 1 DROP OPB Q12 Scheduled PRN Lorazepam (Ativan), 1 MG PO HS PRN for if needed Triamcinolone Acet (Kenelog 0.1% ), TOP BID PRN for Itching Allergies Coded Allergies: Tramadol (Unverified Allergy, Intermediate, LETHARGIC, 08/28/16) Aminothiols (Verified Allergy, Unknown, UNKNOWN, 08/28/16) Aztreonam (Verified Allergy, Unknown, UNKNOWN, 08/28/16) Carbapenems (Unverified Allergy, Unknown, UNKNOWN, 08/28/16) Cefazolin (Unverified Allergy, Unknown, UNKNOWN, 08/28/16) Cephalosporins (Verified Allergy, Unknown, UNKN, 08/28/16) Clindamycin (Verified Allergy, Unknown, UNKN, 08/28/16) Iodinated Diagnostic Agents (Verified Allergy, Unknown, "GET REAL COLD", ) Macrolides and Ketolides (Verified Allergy, Unknown, UNKNOWN, 08/28/16) Penicillins (Verified Allergy, Unknown, `, 08/28/16) Physical Exam Vital Signs Date Time Temp Pulse Resp B/P Pulse Ox O2 Delivery O2 Flow Rate FiO2 08/28/16 13:22 90 96 Nasal Cannula 2.0 08/28/16 12:36 95 08/28/16 12:15 89 20 132/68 96 Nasal Cannula 2.0 08/28/16 10:19 95 08/28/16 10:15 97 Nasal Cannula 2.0 08/28/16 10:14 88 Room Air 08/28/16 10:14 37.1 103 22 121/58 88 Room Air 08/28/16 10:14 88 Room Air Physical Exam GENERAL: Patient is well appearing and in no acute distress. HEENT: No acute trauma, normocephalic atraumatic, mucous membranes moist, no nasal congestion, no scleral icterus. NECK: No stridor, no adenopathy, no meningismus, trachea is midline. LUNGS: Coarse sounds bilaterally. No dyspnea. equal bilaterally. No wheeze, no rhonchi. HEART: Irregularly, irregular rhythm. No murmurs, rubs, gallops appreciated. ABDOMEN: Soft, nontender, bowel sounds positive, no masses appreciated, no peritonitis. BACK: No midline tenderness, no CVA tenderness EXTREMITIES: Normal motion all extremities, no cyanosis, no edema. NEUROLOGIC: Alert and oriented, no acute motor or sensory deficits, no focal weakness, cranial nerves grossly intact. SKIN: No rash, no jaundice, no diaphoresis. Medical Decision & Procedures ER Provider Diagnostic Interpretation: X ray results and stated below per my interpretation and radiologist interpretation. Other radiology results and stated below per my review and radiologist interpretation: TWO VIEW CHEST CLINICAL HISTORY: Nausea and vomiting. FINDINGS: PA and lateral chest radiographs are compared to study dated 08/22/2016 and correlated with chest CT dated 05/21/2015. The PA view is degraded by patient rotation. The heart is enlarged and there is atherosclerotic calcification of the thoracic aorta. The pulmonary vasculature is noncongested. Enlargement of the central pulmonary vessels suggests pulmonary artery hypertension. Advanced emphysema and chronic interstitial thickening is similar to previous. There are minimal dependent airspace opacities. No pleural effusion is seen. There is no pneumothorax. The skeletal structures are osteopenic. Degenerative change is present throughout the thoracic spine. IMPRESSION: 1. Cardiomegaly and advanced emphysema. 2. There are dependent airspace opacities. This likely represents atelectasis. Correlate clinically for evidence of a superimposed infectious/inflammatory pneumonitis. Electronically signed by: Steven Perrin M.D. 08/28/2016 12:18 PM Dictated Date/Time: 08/28/2016 12:16 PM Laboratory Results 08/28/16 11:29 Red Blood Count 3.61, Mean Corpuscular Volume 93.6, Mean Corpuscular Hemoglobin 31.0, Mean Corpuscular Hemoglobin Concent 33.1, Mean Platelet Volume 11.2, Neutrophils (%) (Auto) 92.0, Lymphocytes (%) (Auto) 3.4, Monocytes (%) (Auto) 3.9, Eosinophils (%) (Auto) 0.3, Basophils (%) (Auto) 0.0, Neutrophils # (Auto) 21.26, Lymphocytes # (Auto) 0.78, Monocytes # (Auto) 0.90, Eosinophils # (Auto) 0.06, Basophils # (Auto) 0.01 08/28/16 11:29 Test 08/28/16 11:29 08/28/16 13:35 White Blood Count 23.10 K/uL (4.8-10.8) Red Blood Count 3.61 M/uL (4.2-5.4) Hemoglobin 11.2 g/dL (12.0-16.0) Hematocrit 33.8 % (37-47) Mean Corpuscular Volume 93.6 fL (80-100) Mean Corpuscular Hemoglobin 31.0 pg (25-34) Mean Corpuscular Hemoglobin Concent 33.1 g/dl (32-36) Platelet Count 102 K/uL (130-400) Mean Platelet Volume 11.2 fL (7.4-10.4) Neutrophils (%) (Auto) 92.0 % Lymphocytes (%) (Auto) 3.4 % Monocytes (%) (Auto) 3.9 % Eosinophils (%) (Auto) 0.3 % Basophils (%) (Auto) 0.0 % Neutrophils # (Auto) 21.26 K/uL (1.4-6.5) Lymphocytes # (Auto) 0.78 K/uL (1.2-3.4) Monocytes # (Auto) 0.90 K/uL (0.11-0.59) Eosinophils # (Auto) 0.06 K/uL (0-0.5) Basophils # (Auto) 0.01 K/uL (0-0.2) RDW Standard Deviation 49.2 fL (36.4-46.3) RDW Coefficient of Variation 14.4 % (11.5-14.5) Immature Granulocyte % (Auto) 0.4 % Immature Granulocyte # (Auto) 0.09 K/uL (0.00-0.02) Basophilic Stippling 1+ Schistocytes OCCASIONAL Prothrombin Time 15.6 SECONDS (9.0-12.0) Prothromb Time International Ratio 1.4 (0.9-1.1) Activated Partial Thromboplast Time 29.4 SECONDS (21.0-31.0) Partial Thromboplastin Ratio 1.1 Anion Gap 8.0 mmol/L (3-11) Est Creatinine Clear Calc Drug Dose 29.8 ml/min Estimated GFR () 44.9 Estimated GFR (Non- 38.7 BUN/Creatinine Ratio 17.9 (10-20) Calcium Level 7.7 mg/dl (8.5-10.1) Total Bilirubin 0.8 mg/dl (0.2-1) Direct Bilirubin 0.2 mg/dl (0-0.2) Aspartate Amino Transf (AST/SGOT) 11 U/L (15-37) Alanine Aminotransferase (ALT/SGPT) 10 U/L (12-78) Alkaline Phosphatase 44 U/L (45-117) Troponin I < 0.015 ng/ml (0-0.045) Pro-B-Type Natriuretic Peptide 5234 pg/ml (0-1800) Total Protein 5.6 gm/dl (6.4-8.2) Albumin 2.5 gm/dl (3.4-5.0) Lipase 104 U/L (73-393) Urine Color YELLOW Urine Appearance CLEAR (CLEAR) Urine pH 5.0 (4.5-7.5) Urine Specific Roberts 1.019 (1.000-1.030) Urine Protein TRACE (NEG) Urine Glucose (UA) NEG (NEG) Urine Ketones NEG (NEG) Urine Occult Blood 2+ (NEG) Urine Nitrite NEG (NEG) Urine Bilirubin NEG (NEG) Urine Urobilinogen NEG (NEG) Urine Leukocyte Esterase SMALL (NEG) Urine WBC (Auto) 1-5 /hpf (0-5) Urine RBC (Auto) 0-4 /hpf (0-4) Urine Hyaline Casts (Auto) 1-5 /lpf (0-5) Urine Epithelial Cells (Auto) >30 /lpf (0-5) Urine Bacteria (Auto) NEG (NEG) Laboratory results as reviewed by me. Medications Administered Medications (Trade) Dose Ordered Sig/Jose Route Start Time Stop Time Status Last Admin Dose Admin Furosemide (Lasix Inj) 40 mg NOW STAT IV 08/28/16 13:13 08/28/16 13:14 DC 08/28/16 13:22 40 MG ECG Indication: SOB/dyspnea Rate (beats per minute): 98 Rhythm: atrial fibrillation Findings: left axis deviation, other (incomplete right bundle branch block, QTC 490) ED Course 1101: The patient was evaluated in room B11B. A complete history and physical exam was performed. 1313: I reevaluated the patient and she is resting comfortably. I discussed the exam findings with her and I discussed the treatment plan. She verbalized complete understanding and agreement. She is going to be evaluated for further treatment. Ordered Lasix 40 mg IV. 1350: I discussed the patients case with Dr. Jarvis [facility] [place]. He is going to evaluate the patient for further treatment. Medical Decision Differential diagnosis: Etiologies such as infections, reactive airway disease, pneumonia, pneumothorax , COPD, CHF, cardiac ischemia, pulmonary embolism, musculoskeletal, gastrointestinal, as well as others were entertained. Patient is a 80-year-old female who was discharged 2 days ago for a CVA workup. She is currently on Zaroxolyn, was maintained on his relative during her entire stay and was noted to have a left thalamic stroke on MRI, subacute. In the last 24 hours the patient has increasing shortness of breath, was found to be hypoxic upon EMS arrival. Within a review of the prior medical records it appears the patient was initially started on Levaquin to equivalent to day doses prior to initial arrival with the stroke. Levaquin was continued through her entire hospital course. Upon discharge it appears that she was given another prescription for another 7 days of Levaquin. At minimum she has been on Levaquin for 7 days. In review of the x-ray today there is question will superimposed infection versus possible cardiogenic edema. The leukocytosis might represent a acute phase reactant, however is likely secondary to her prednisone use. Today she was found to have a elevated proBNP greater than 5000 , she has not had an echo since 2009 per my review of the records. At this point she'll be admitted to the [facility] hospitalist group for further evaluation of her hypoxia and possible/probable CHF. Patient is an prolonged QTC on EKG, I think this is secondary to her Levaquin which she has been taking. Consults Time Called: 1307 Consulting Physician: CLYDE Blue Returned Call: 1350 I discussed the patients case with CLYDE Blue. He is going to evaluate the patient for further treatment. Impression Primary Impression: CHF (congestive heart failure) Additional Impressions: Hypoxia Abnormal EKG prolonged QTC Leukocytosis Scribe Attestation The scribe's documentation has been prepared under my direction and personally reviewed by me in its entirety. I confirm that the note above accurately reflects all work, treatment, procedures, and medical decision making performed by me. Departure Information Dispostion Being Evaluated By Hospitalist Referrals Nathan Nance M.D. (PCP) Problem Qualifiers
[2016-08-28 11:42] LABS: HEMATOCRIT 33.8 % (37-47); MEAN CELL VOLUME 93.6 fL (80-100); MEAN CORPUSCULAR HGB CONC 33.1 g/dl (32-36); MEAN PLATELET VOLUME 11.2 fL (7.4-10.4); PLATELET COUNT 102 K/uL (130-400); RED BLOOD COUNT 3.61 M/uL (4.2-5.4)
[2016-08-28 12:00] LABS: INR 1.4 (0.9-1.1); PARTIAL THROMBOPLASTIN RATIO 1.1; PROTHROMBIN TIME (PATIENT) 15.6 SECONDS (9.0-12.0)
[2016-08-28 12:03] LABS: ALT/SGPT 10 U/L (12-78); AST/SGOT 11 U/L (15-37); BLOOD UREA NITROGEN 23 mg/dl (7-18); BUN/CREATININE RATIO 17.9 (10-20); CALCIUM 7.7 mg/dl (8.5-10.1); CARBON DIOXIDE 30 mmol/L (21-32); CHLORIDE 100 mmol/L (98-107); GLUCOSE 220 mg/dl (70-99); POTASSIUM 3.7 mmol/L (3.5-5.1); SODIUM 138 mmol/L (136-145)
[2016-08-28 12:08] LABS: ALKALINE PHOSPHATASE 44 U/L (45-117)
[2016-08-28 12:10] LABS: BASO ABS # 0.01 K/uL (0-0.2); COMPLETE YES; EOS % 0.3 %; IG% 0.4 %; LYMPH % 3.4 %; LYMPH ABS # 0.78 K/uL (1.2-3.4); MONO % 3.9 %; SCHISTOCYTES OCCASIONAL
--- NOTE | 2016-08-28 12:19 | DIAGNOSTIC IMAGING REPORT ---
TWO VIEW CHEST CLINICAL HISTORY: Nausea and vomiting. FINDINGS: PA and lateral chest radiographs are compared to study dated 08/22/2016 and correlated with chest CT dated 05/21/2015. The PA view is degraded by patient rotation. The heart is enlarged and there is atherosclerotic calcification of the thoracic aorta. The pulmonary vasculature is noncongested. Enlargement of the central pulmonary vessels suggests pulmonary artery hypertension. Advanced emphysema and chronic interstitial thickening is similar to previous. There are minimal dependent airspace opacities. No pleural effusion is seen. There is no pneumothorax. The skeletal structures are osteopenic. Degenerative change is present throughout the thoracic spine. IMPRESSION: 1. Cardiomegaly and advanced emphysema. 2. There are dependent airspace opacities. This likely represents atelectasis. Correlate clinically for evidence of a superimposed infectious/inflammatory pneumonitis. Electronically signed by: Steven Perrin M.D. 08/28/2016 12:18 PM Dictated Date/Time: 08/28/2016 12:16 PM
[2016-08-28] MEDS ORDERED: FUROSEMIDE 40 MG/4 ML VIAL IV STA (13:13)
[2016-08-28 13:53] LABS: URINE APPEARANCE CLEAR (CLEAR); URINE BILIRUBIN NEG (NEG); URINE COLOR YELLOW; URINE EPITHELIAL CELL AUTO >30 /lpf (0-5); URINE NITRITE NEG (NEG); URINE SPECIFIC GRAVITY 1.019 (1.000-1.030); UROBILINOGEN NEG (NEG); ZZUR CULT IF INDIC CLEAN CATCH NO
[2016-08-28 14:01] LABS: MANUAL MICROSCOPIC REQUIRED? NO; REVIEW REQ? NO
[2016-08-28] MEDS ORDERED: LORAZEPAM 1 MG TAB PO PRN (14:30)
[2016-08-28] MEDS ORDERED: TRIAMCINOLONE ACET 0.1% OINT 15 GM TUBE TOP PRN (14:30)
--- NOTE | 2016-08-28 14:59 | History and Physical ---
History & Physical Date & Time of Service: Aug 28, 2016 at 14:57 Chief Complaint: Weakness/Lethargic Primary Care Physician: Nathan Nance M.D. History of Present Illness Source: patient, family This is an 80 yo f with a h/o DM, HTn, A fibb, COPD that is presenting to us with generalized fatigue and N&V. Approximately 2 weeks ago the patient was evaluated in the outpt setting and found to have bronchitis. At this time she was started on Levaquin and prednisone for diffuse wheezing, rhonchi and crackles. On Aug 23, 2016 she was admitted to [facility] with a TIA where was evaluated and d/c on Aug 25, 2016. She continued her antibiotics and prednisone during that time. Her last dose of both medications was approx 4-5 days ago. According to the patient it really upset her stomach and she did not tolerate either medication well. After her d/c she felt well for a couple of days however two days ago she started to have increasing fatigue and nausea. This morning she had nausea and vomiting, yellow bile like substance. She has not vomited since arriving to the hospital. She also states she feels her nausea has resolved. She denies any abdominal pain or cramping, diarrhea or dysuria. According to the daughter, the patient is actually very independent and this is very unlike her. Upon chart review of the patient's COPD. She typically will run in the mid 90 sat on RA. She also had PFT done in Mar 2016 which revealed an FEV1 of approx 1. She also follows Dr Joshua for cardiology and her last echo was apparently December 2015. Results will be noted in assessment. She was evaluated in the ED and on admission her O2 sat was 88% and improved with 2 L of oxygen. Because she had an elevation in her BNP and cardiomegaly there was concern that patient was suffering from CHF exacerbation and received Lasix. She did not feel that this improved her symptoms. She denies having any worsening SOBOE/ SOB, chest pain, myalgias or fevers. Past Medical/Surgical History Medical Problems: (1) A-fib Status: Chronic (2) COPD (chronic obstructive pulmonary disease) Status: Chronic (3) Diabetes Status: Chronic (4) Heart disease Status: Chronic (5) HTN (hypertension) Status: Chronic Family History Diabetes mellitus FH: cancer FH: heart disease Hypertension Social History Smoking Status: Former Smoker Smokeless Tobacco Use: No Alcohol Use: none Drug Use: none Marital Status: Housing status: lives with family Occupational Status: retired Immunizations History of Influenza Vaccine: Yes Influenza Vaccine Date: Apr 02, 2011 History of Tetanus Vaccine?: No History of Pneumococcal: 2009 History of Hepatitis B Vaccine: No Multi-Drug Resistant Organisms History of MDRO: No Allergies Coded Allergies: Tramadol (Unverified Allergy, Intermediate, LETHARGIC, 08/28/16) Aminothiols (Verified Allergy, Unknown, UNKNOWN, 08/28/16) Aztreonam (Verified Allergy, Unknown, UNKNOWN, 08/28/16) Carbapenems (Unverified Allergy, Unknown, UNKNOWN, 08/28/16) Cefazolin (Unverified Allergy, Unknown, UNKNOWN, 08/28/16) Cephalosporins (Verified Allergy, Unknown, UNKN, 08/28/16) Clindamycin (Verified Allergy, Unknown, UNKN, 08/28/16) Iodinated Diagnostic Agents (Verified Allergy, Unknown, "GET REAL COLD", ) Macrolides and Ketolides (Verified Allergy, Unknown, UNKNOWN, 08/28/16) Penicillins (Verified Allergy, Unknown, `, 08/28/16) Home Medications Scheduled Albuterol (Ventolin Hfa), 1 PUFF PO BID Aspirin (Aspirin EC Low Dose), 81 MG PO DAILY Biotin (Biotin), 5,000 MCG PO DAILY Brimonidine Tartrate 0.15% Oph (Alphagan P 0.15% Oph *), 1 DROP OPB BID Budesonide/Formoterol Fumarate (Symbicort 160/4.5 Inhaler), 2 PUFFS INH BID Cholecalciferol (Vitamin D), 2,000 UNITS PO QAM Ciclopirox Olamine (Loprox Ts Topical Susp 0.77%), 1 APPLN TOP BID Diltiazem Hcl Ext Rel (Dilacor Xr *), 180 MG PO DAILY Fluoxetine Hcl (Fluoxetine Hcl), 10 MG PO QAM Fluticasone Propionate (Nasal) (Flonase Allergy Relief), 100 NA QD Losartan Potassium (Cozaar), 100 MG PO DAILY Metformin Hcl (Glucophage), 500 MG PO TID Oxybutynin Chloride (Ditropan), 5 MG PO BID Rivaroxaban (Xarelto), 15 MG PO QDD Simvastatin (Zocor), 40 MG PO QPM Timolol Gfs 0.25% Oph (Timoptic-Xe 0.25% Oph), 1 DROP OPB Q12 Scheduled PRN Lorazepam (Ativan), 1 MG PO HS PRN for if needed Triamcinolone Acet (Kenelog 0.1% ), TOP BID PRN for Itching Review of Systems Constitutional: No fever Eyes: No worsening of vision ENT: No hearing loss Respiratory: No cough, No dyspnea at rest, No dyspnea on exertion, No shortness of breath, No sputum, No wheezing Cardiovascular: No chest pain Abdomen: + nausea, + vomiting, No constipation, No diarrhea, No pain Musculoskeletal: No joint pain, No muscle pain Genitourinary - Female: No dysuria, No hematuria Neurologic: + weakness, No balance problems, No numbness/tingling Endocrine: + fatigue Integumentary: No rash Physical Exam Vital Signs Date Time Temp Pulse Resp B/P Pulse Ox O2 Delivery O2 Flow Rate FiO2 08/28/16 14:17 90 20 121/70 97 Nasal Cannula 2.0 08/28/16 13:22 90 96 Nasal Cannula 2.0 08/28/16 12:36 95 08/28/16 12:15 89 20 132/68 96 Nasal Cannula 2.0 08/28/16 10:19 95 08/28/16 10:15 97 Nasal Cannula 2.0 08/28/16 10:14 88 Room Air 08/28/16 10:14 37.1 103 22 121/58 88 Room Air 08/28/16 10:14 88 Room Air General Appearance: WD/WN, no apparent distress Head: normocephalic, atraumatic Eyes: normal inspection ENT: normal ENT inspection Neck: supple Respiratory/Chest: lungs clear, normal breath sounds, no respiratory distress, no accessory muscle use Cardiovascular: regular rate, rhythm, no murmur, + pertinent finding (no JVD) Abdomen/GI: normal bowel sounds, non tender, soft Back: normal inspection Extremities/Musculoskelatal: no calf tenderness, no pedal edema Neurologic/Psych: alert, normal mood/affect, oriented x 3 Skin: normal color, warm/dry, no rash Lymphatic: no adenopathy Diagnostics Laboratory Results Results Past 24 Hours Test 08/28/16 11:29 08/28/16 13:35 Range/Units White Blood Count 23.10 4.8-10.8 K/uL Red Blood Count 3.61 4.2-5.4 M/uL Hemoglobin 11.2 12.0-16.0 g/dL Hematocrit 33.8 37-47 % Mean Corpuscular Volume 93.6 80-100 fL Mean Corpuscular Hemoglobin 31.0 25-34 pg Mean Corpuscular Hemoglobin Concent 33.1 32-36 g/dl Platelet Count 102 130-400 K/uL Mean Platelet Volume 11.2 7.4-10.4 fL Neutrophils (%) (Auto) 92.0 % Lymphocytes (%) (Auto) 3.4 % Monocytes (%) (Auto) 3.9 % Eosinophils (%) (Auto) 0.3 % Basophils (%) (Auto) 0.0 % Neutrophils # (Auto) 21.26 1.4-6.5 K/uL Lymphocytes # (Auto) 0.78 1.2-3.4 K/uL Monocytes # (Auto) 0.90 0.11-0.59 K/uL Eosinophils # (Auto) 0.06 0-0.5 K/uL Basophils # (Auto) 0.01 0-0.2 K/uL RDW Standard Deviation 49.2 36.4-46.3 fL RDW Coefficient of Variation 14.4 11.5-14.5 % Immature Granulocyte % (Auto) 0.4 % Immature Granulocyte # (Auto) 0.09 0.00-0.02 K/uL Basophilic Stippling 1+ Schistocytes OCCASIONAL Prothrombin Time 15.6 9.0-12.0 SECONDS Prothromb Time International Ratio 1.4 0.9-1.1 Activated Partial Thromboplast Time 29.4 21.0-31.0 SECONDS Partial Thromboplastin Ratio 1.1 Sodium Level 138 136-145 mmol/L Potassium Level 3.7 3.5-5.1 mmol/L Chloride Level 100 98-107 mmol/L Carbon Dioxide Level 30 21-32 mmol/L Anion Gap 8.0 3-11 mmol/L Blood Urea Nitrogen 23 7-18 mg/dl Creatinine 1.30 0.60-1.20 mg/dl Est Creatinine Clear Calc Drug Dose 29.8 ml/min Estimated GFR () 44.9 Estimated GFR (Non- 38.7 BUN/Creatinine Ratio 17.9 10-20 Random Glucose 220 70-99 mg/dl Calcium Level 7.7 8.5-10.1 mg/dl Total Bilirubin 0.8 0.2-1 mg/dl Direct Bilirubin 0.2 0-0.2 mg/dl Aspartate Amino Transf (AST/SGOT) 11 15-37 U/L Alanine Aminotransferase (ALT/SGPT) 10 12-78 U/L Alkaline Phosphatase 44 45-117 U/L Troponin I < 0.015 0-0.045 ng/ml Pro-B-Type Natriuretic Peptide 5234 0-1800 pg/ml Total Protein 5.6 6.4-8.2 gm/dl Albumin 2.5 3.4-5.0 gm/dl Lipase 104 73-393 U/L Urine Color YELLOW Urine Appearance CLEAR CLEAR Urine pH 5.0 4.5-7.5 Urine Specific [place] 1.019 1.000-1.030 Urine Protein TRACE NEG Urine Glucose (UA) NEG NEG Urine Ketones NEG NEG Urine Occult Blood 2+ NEG Urine Nitrite NEG NEG Urine Bilirubin NEG NEG Urine Urobilinogen NEG NEG Urine Leukocyte Esterase SMALL NEG Urine WBC (Auto) 1-5 0-5 /hpf Urine RBC (Auto) 0-4 0-4 /hpf Urine Hyaline Casts (Auto) 1-5 0-5 /lpf Urine Epithelial Cells (Auto) >30 0-5 /lpf Urine Bacteria (Auto) NEG NEG Diagnostic Radiology TWO VIEW CHEST CLINICAL HISTORY: Nausea and vomiting. FINDINGS: PA and lateral chest radiographs are compared to study dated 08/22/2016 and correlated with chest CT dated 05/21/2015. The PA view is degraded by patient rotation. The heart is enlarged and there is atherosclerotic calcification of the thoracic aorta. The pulmonary vasculature is noncongested. Enlargement of the central pulmonary vessels suggests pulmonary artery hypertension. Advanced emphysema and chronic interstitial thickening is similar to previous. There are minimal dependent airspace opacities. No pleural effusion is seen. There is no pneumothorax. The skeletal structures are osteopenic. Degenerative change is present throughout the thoracic spine. IMPRESSION: 1. Cardiomegaly and advanced emphysema. 2. There are dependent airspace opacities. This likely represents atelectasis. Correlate clinically for evidence of a superimposed infectious/inflammatory pneumonitis. EKG bpm 98 Qtc 490 Afibb Impression Assessment and Plan This is an 80 yo f with a h/o Afibb, DM, COPD, TIA, HTN that is presenting to us with dehydration, N&V. RENEE secondary to dehydration from N&V - NSS 20 KCL @ 75 cc/h - recheck a bmp in the am - will try to avoid nephrotoxins Elevation in BNP with a h/o abnormal echo - Previous BNP was in 2014 and was 2638, today was 5234 - She did not have any congestion noted in her lungs or improvement for lasix so will hold for now considering her QTc is 490 - Echo in december 2015 - ef 55-60% - no wall motion abnormalities - mild concentric LVH - mild dil of RV - Mild aortic sclerosis without stenosis - Small secundum ASD vs PFO - recheck of echo in the am to r/o changes in heart function hypoxic respiratory failure secondary to worsening BL COPD vs ongoing pneumonia - continue Albuterol, symbicort - Her procalcitonin being 0.3 and considering how well her lungs sound is most likely elevated from the recent infection she was treating - will recheck in the am and continue to monitor the clinical picture and if improving, decreasing then will continue to hold antibiotics Leukocytosis most likely iatrogenic - based on chart review the patient had similar elevations in WBC while on the prednisone, this is most likely an extension - will continue to trend CBC DM - held metformin because of elevated cr - SS and lantus HTN - held home losartan but cont diltiazem Anxiety - cont xanex and fluoxetine Glaucoma - cont timolol A fibb - Cont diltiazem and xarelto ROXANNA considering her small atrial secundum DVT Prophylaxis Xarelto FULL CODE Resident Physician Supervision Note: I interviewed and examined the patient. Discussed with Dr. Heredia and agree with findings and plan as documented in the note. Any exceptions or clarifications are listed here: None Documented By: Manan Vanegas came to ER due to nausea/vomiting not at all sob. no new cough. no wheeze. no f/c/s. no chest pain. was on steroids and abx until ?wednesday or wednesday according to pt and dtr. no diarrhea vitals noted, nad. lungs cta b/l no r/r/w good effort, cardio reg no r/m/g. abd soft nd nt, although epigastric palp does increase nausea somewhat a/p nausea/vomiting - seems most likely lingering steroid related ADR, although with her long list of allergies and no epigastric tenderness, will treat with supportive care rather than aggressive interventions. possibly also viral GE given prevalent in community hypoxia - not sob. PFTs from march reviewed - FEV1 ~1L - strongly suspect her hypoxia is mostly CHRONIC given her total lack of feeling SOB, no new respiratory sx, clear lungs to auscultation and CXR. probably any degree of acuity is at the bottom of her baseline range, maybe with elements of atelectasis making things a little worse. CXR does show findings hinting towards atelectasis which would be consistent. see above regarding procalcitonin, and agree on holding off on further abx treatment at this time. ambulatory pulse ox. suspect on a "good day" she probably doesn't need O2, but on a "bad day" she likely does, at least with exertion. recent TIA - continue current treatment Level of Care Telemetry Resuscitation Status FULL RESUSCITATION VTE Prophylaxis VTE Risk Assessment Done? Y/N: Yes Risk Level: Moderate Given or contraindicated: Other Anticoagulation Social Service Consult None Apply Note Total Time: Critical Care 30 - 74 minutes Additional Copies To Nathan Nance M.D.
[2016-08-28 15:20] VITALS: O2SAT 96; Ht 162.6 cm; Wt 61.4 kg
[2016-08-28] MEDS ORDERED: RIVA1.5T PO (16:30)
[2016-08-28] MEDS ORDERED: INSULIN GLARGINE PER UNIT 5 UNITS in SYRINGE 0 ML SC STA (16:38)
[2016-08-28] MEDS ORDERED: DEXTROSE 50% 50 ML SYR IV PRN (17:00)
[2016-08-28] MEDS ORDERED: GLUCOSE 40% GEL 15 GM TUBE PO PRN (17:00)
[2016-08-28] MEDS ORDERED: GLUCOSE 10 TABS/TUBE PO PRN (17:00)
[2016-08-28] MEDS ORDERED: GLUCAGON FOR INJ 1 MG VIAL SQ PRN (17:00)
[2016-08-28] MEDS: RIVAROXABAN TAB 15 MG TAB PO SCH (17:03)
[2016-08-28] MEDS: NSS + 20MEQ KCL 1000ML 1,000 ML IV SCH (17:03)
[2016-08-28] MEDS: FLUTICASONE PROPIONATE NA SPR 16 GM BTL SCH (17:03)
[2016-08-28] MEDS: INSULIN GLARGINE SOLOSTAR 100 UNITS/ML 3 ML PEN SC SCH (17:32)
[2016-08-28 19:50] VITALS: BP 103/56; PULSE 93; TEMP 37; O2SAT 97
[2016-08-28 20:00] VITALS: O2SAT 97
[2016-08-28] MEDS ORDERED: IV FLUIDS COMPLETED PRN (20:15)
[2016-08-28] MEDS: INSULIN ASPART 100 UNITS/ML 3 ML PEN SC SCH (20:48)
[2016-08-28] MEDS: BUDESONIDE/FORMOTEROL FUMARATE 160/4.5 60 PUFFS/INHALER INH SCH (20:50)
[2016-08-28] MEDS: ALBUTEROL HFA 8 GM INHALER INH SCH (20:50)
[2016-08-28] MEDS: BRIMONIDINE TARTRATE-P 0.15% 5 ML BTL OP SCH (20:51)
[2016-08-28] MEDS: TIMOLOL GFS 0.25% OPH SOLN 74 DROPS/5 ML BTL OPB SCH (20:51)
[2016-08-28] MEDS: SIMVASTATIN 40 MG TAB PO SCH (20:52)
[2016-08-28] MEDS: OXYBUTYNIN CHLORIDE 5 MG TAB PO SCH (20:52)
[2016-08-28 23:42] VITALS: BP 104/61; PULSE 90; TEMP 36.9; O2SAT 96
[2016-08-28 23:59] VITALS: O2SAT 97
[2016-08-29] VITALS (12 sets, daily range): BP systolic 90–115; BP diastolic 40–65; PULSE 46–96; TEMP 36.3–37; O2SAT 94–98
[2016-08-29] MEDS: NSS + 20MEQ KCL 1000ML 1,000 ML IV SCH ×2 (05:29→20:42)
[2016-08-29 06:18] LABS: HEMATOCRIT 33.4 % (37-47); MEAN CELL VOLUME 93.3 fL (80-100); MEAN CORPUSCULAR HEMOGLOBIN 30.7 pg (25-34); MEAN CORPUSCULAR HGB CONC 32.9 g/dl (32-36); MEAN PLATELET VOLUME 11.7 fL (7.4-10.4); PLATELET COUNT 115 K/uL (130-400); RED BLOOD COUNT 3.58 M/uL (4.2-5.4); WHITE BLOOD COUNT 12.06 K/uL (4.8-10.8)
[2016-08-29 06:54] LABS: BUN/CREATININE RATIO 19.9 (10-20); CALCIUM 7.3 mg/dl (8.5-10.1); CREATININE 1.2 mg/dl (0.60-1.20); POTASSIUM 3.4 mmol/L (3.5-5.1)
[2016-08-29] MEDS: BUDESONIDE/FORMOTEROL FUMARATE 160/4.5 60 PUFFS/INHALER INH SCH ×2 (07:32→20:42)
[2016-08-29] MEDS: BRIMONIDINE TARTRATE-P 0.15% 5 ML BTL OP SCH ×2 (07:33→20:43)
[2016-08-29] MEDS: ALBUTEROL HFA 8 GM INHALER INH SCH ×2 (07:33→20:42)
[2016-08-29] MEDS: FLUTICASONE PROPIONATE NA SPR 16 GM BTL SCH (07:33)
[2016-08-29] MEDS: TIMOLOL GFS 0.25% OPH SOLN 74 DROPS/5 ML BTL OPB SCH ×2 (07:34→20:43)
[2016-08-29] MEDS: FLUOXETINE HCL 10 MG CAP PO SCH (07:34)
[2016-08-29] MEDS: OXYBUTYNIN CHLORIDE 5 MG TAB PO SCH ×2 (07:35→20:41)
[2016-08-29] MEDS: CHOLECALCIFEROL 1000 INTER.UNIT TAB PO SCH (07:35)
[2016-08-29] MEDS ORDERED: POTASSIUM CHLORIDE 10 MEQ TABCR PO STA (07:46)
[2016-08-29] MEDS: INSULIN ASPART 100 UNITS/ML 3 ML PEN SC SCH ×4 (08:33→20:40)
[2016-08-29] MEDS: INSULIN GLARGINE SOLOSTAR 100 UNITS/ML 3 ML PEN SC SCH ×2 (08:34→20:44)
[2016-08-29] MEDS ORDERED: NON-FORMULARY MEDICATION (Biotin 5,000 MCG) PO SCH (09:00)
[2016-08-29] MEDS ORDERED: DILTIAZEM HCL 180 MG ER CAP PO SCH (09:00)
[2016-08-29] MEDS ORDERED: ASPIRIN 81 MG ECTAB PO SCH (09:00)
[2016-08-29] MEDS ORDERED: CLOPIDOGREL BISULFATE 75 MG TAB PO ONE (13:00)
--- NOTE | 2016-08-29 13:09 | DIAGNOSTIC IMAGING REPORT ---
CT HEAD WITHOUT CONTRAST (CT) CLINICAL HISTORY: Right-sided weakness. Possible stroke. COMPARISON STUDY: No previous studies for comparison. TECHNIQUE: Axial CT of the brain is performed from the vertex to the skull base. IV contrast was not administered for this examination. CT DOSE: 709.48 mGy.cm FINDINGS: No intra or extra-axial mass lesions are visualized. There is no CT evidence of acute cortical infarction. There is no evidence of midline shift. There is no acute hemorrhage. No calvarial fractures are visualized. There are patchy white matter hypodensities likely on a small vessel basis. There is an old left frontal infarct. There are multiple lacunar infarcts involving both thalami as well as both basal ganglia. There is no evidence of pathologic ventricular dilatation. There is no evidence of acute sinusitis IMPRESSION: 1. 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 2. No evidence of acute hemorrhage. Electronically signed by: Mars Albrecht M.D. 08/29/2016 1:01 PM Dictated Date/Time: 08/29/2016 12:59 PM
[2016-08-29] MEDS ORDERED: SODIUM CHLORIDE 0.9% 1000ML 1,000 ML IV SCH (13:15)
--- NOTE | 2016-08-29 15:35 | ECHOCARDIOGRAM REPORT ---
*NOTICE TO RECEIVING DEMOCRAT AGENCY This information is strictly Confidential and protected under [place] law. [place] law prohibits you from making any further disclosure of this information unless further disclosure is expressly permitted by the written consent of the person to whom it pertains or is authorized by law. A general authorization for the release of medical or other information is not sufficient for this purpose. Hospital accepts no responsibility if the information is made available to any other person, INCLUDING THE PATIENT. Interpretation Summary * Name: DAWNA GARCIA Study Date: 08/29/2016 07:54 AM BP: 111/59 mmHg * Patient Location: C.2E\[id number]\E205\S\1 HR: 80 * : 1935 (M/d/yyy) Gender: Female Height: 64 in * Age: 80 yrs Ethnicity: [place] Weight: 134 lb * Ordering Physician: Jahaira Heredia * Referring Physician: Self, Referred * Performed By: Martina Carrillo RDCS * * Reason For Study: SOB * BSA: 1.7 m2 * History: SOB * -- Conclusions -- * 1. Normal LV size. Mild concentric LVH. * 2. Normal LV systolic function. LVEF 60-65%. No regional wall motion abnormalities. * 3. Normal RV size and function. * 4. Moderate biatrial enlargement * 5. No significant valvular pathology. * 6. Normal estimated PA and RA pressures. * 7. Compared with prior study on 12/24/2015: No color Doppler evidence of ASD/PFO Procedure Details * A complete two-dimensional transthoracic echocardiogram was performed (2D, M-mode, Doppler and color flow Doppler). Left Ventricle * The left ventricle is grossly normal size. * There is mild concentric left ventricular hypertrophy. * Ejection Fraction = 60-65%. Right Ventricle * The right ventricle is grossly normal size. * The right ventricular systolic function is normal as assessed by tricuspid annular plane systolic excursion (TAPSE) (normal >1.5 cm). Atria * The left atrium is moderately dilated. * The right atrium is moderately dilated. * No ASD detected; PFO is not assessed. Mitral Valve * There is mild mitral valve prolapse. * There is trace mitral regurgitation. Tricuspid Valve * The tricuspid valve is not well visualized, but is grossly normal. * There is no tricuspid stenosis. * There is trace tricuspid regurgitation. Aortic Valve * The aortic valve opens well. * The aortic valve is trileaflet. * No hemodynamically significant valvular aortic stenosis. * There is no significant aortic regurgitation. Pulmonic Valve * The pulmonary valve is inadequately visualized, but the Doppler data is adequate for interpretation. Great Vessels * The aortic root and proximal ascending aorta are normal sized. Pericardium/Pleural * There is no pericardial effusion. Great Vessels * Normal inferior vena cava size and collapsability with sniff indicates a normal right atrial pressure of 3 mmHg MMode 2D Measurements and Calculations IVSd 1.2 cm IVSs 1.7 cm LVIDd 3.9 cm LVIDs 2.8 cm LVPWd 1.6 cm LVPWs 1.8 cm IVS/LVPW 0.79 FS 28.4 % EDV(Teich) 64.5 ml ESV(Teich) 28.7 ml EF(Teich) 55.5 % EDV(cubed) 57.7 ml ESV(cubed) 21.2 ml EF(cubed) 63.3 % % IVS thick 43.3 % % LVPW thick 17.3 % LV mass(C)d 195.5 grams LV mass(C)dI 118.4 grams/m\S\2 LV mass(C)s 194.1 grams LV mass(C)sI 117.5 grams/m\S\2 SV(Teich) 35.8 ml SI(Teich) 21.7 ml/m\S\2 SV(cubed) 36.6 ml SI(cubed) 22.1 ml/m\S\2 Ao root diam 3.0 cm Ao root area 7.2 cm\S\2 LA dimension 3.7 cm LA/Ao 1.2 LVAd ap4 22.7 cm\S\2 LVLd ap4 7.7 cm EDV(MOD-sp4) 55.1 ml EDV(sp4-el) 56.6 ml LVAs ap4 12.6 cm\S\2 LVLs ap4 6.5 cm ESV(MOD-sp4) 21.9 ml ESV(sp4-el) 20.8 ml EF(MOD-sp4) 60.3 % EF(sp4-el) 63.3 % SV(MOD-sp4) 33.2 ml SI(MOD-sp4) 20.1 ml/m\S\2 SV(sp4-el) 35.9 ml SI(sp4-el) 21.7 ml/m\S\2 Doppler Measurements and Calculations MV E max glen 84.2 cm/sec MV dec time 0.28 sec Ao V2 max 117.4 cm/sec Ao max PG 5.5 mmHg Ao max PG (full) 3.6 mmHg LV V1 max PG 1.9 mmHg LV V1 max 68.7 cm/sec TR max glen 248.1 cm/sec
[2016-08-29] MEDS: RIVAROXABAN TAB 15 MG TAB PO SCH (16:30)
--- NOTE | 2016-08-29 16:31 | DIAGNOSTIC IMAGING REPORT ---
MRI OF THE BRAIN WITHOUT CONTRAST CLINICAL HISTORY: Recurrent right-sided weakness. Possible stroke. COMPARISON STUDY: CT scan dated 08/29/2016, MRI the brain dated 08/23/2016. FINDINGS: Sagittal T1, axial diffusion, proton density and T2 weighted axial, coronal FLAIR, and axial T1-weighted images were acquired. No intra or extra-axial mass lesions are visualized There is a persistent small focus of restricted water diffusion at the junction of the left lateral thalamus and posterior limb of the left internal capsule. The findings are consistent with a subacute infarct. There is no evidence of ventricular dilatation. Proton density T2-weighted and FLAIR images reveal moderate there is scattered colonic and basal ganglia lacunar infarcts. There is an old left Foci of increased T2 signal within the white matter, likely on a small vessel basis. There is an old left frontal infarct, an old left parietal lobe infarct. There is an equivocal aneurysm of the left supraclinoid internal carotid artery. IMPRESSION: 1. Subacute infarct at the junction of the left lateral thalamus and posterior limb internal capsule, similar to the prior study. 2. Old left frontal and parietal lobe infarcts. Scattered old bilateral lacunar infarcts 3. 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 Electronically signed by: Mars Albrecht M.D. 08/29/2016 4:29 PM Dictated Date/Time: 08/29/2016 4:25 PM
--- NOTE | 2016-08-29 18:46 | Progress Note ---
Subjective Date of Service: Aug 29, 2016. Subjective Pt evaluation today including: conversation w/ patient, conversation w/ family , physical exam, chart review, lab review, review of studies, conversation w/ managed services consultant, review of inpatient medication list called due to sudden R sided weakness. pt immediately seen and examined. family noted ~1130 (pt seen 1245 as soon as called) she had a bit of slurring speech, and clumsiness R hand when eating lunch - observed, then when nursing came to assess and noted R sided weakness stroke alert immediately called. i immediately assessed pt (see below) then she went to CT. d/w dr hale neurology, after d/w him also d/w jay neurology (see below) -- pt returned from CT - no bleed. reassessed - deficits resolved. reassessed again later - feeling back to baseline (actually talking to family about when she can go home) -family present throughout the day - answered all questions to the best of my ability and to pt's/family's satisfaction. ~90mins on care (at least) today, > 50% face to face, ~1hr critical care during stroke alert phase of her care also noted to be bradycardic - no lightheaded no weakness. eating well. stomach feeling better. has had green sputum today but no new sob no cp. breathing feelign reasonable Problem List Medical Problems: (1) Abnormal EKG Status: Acute (2) Accidental drug ingestion Status: Acute (3) CHF (congestive heart failure) Status: Acute (4) Closed head injury Status: Acute (5) COPD exacerbation Status: Acute (6) Dysarthria Status: Acute (7) Hypoxia Status: Acute (8) Leukocytosis Status: Acute (9) PNA (pneumonia) Status: Acute (10) Right leg weakness Status: Acute Review of Systems Constitutional: No fever Respiratory: + cough, + see HPI, + sputum, No shortness of breath Cardiac: No chest pain Abdomen: No nausea, No pain Neurologic: + see HPI, + weakness ros otherwise negative except for as above Objective Vital Signs Date Time Temp Pulse Resp B/P Pulse Ox O2 Delivery O2 Flow Rate FiO2 08/29/16 16:31 36.3 93 19 110/58 94 Nasal Cannula 2.0 08/29/16 16:30 96 Nasal Cannula 1.5 08/29/16 16:30 96 Nasal Cannula 1.5 08/29/16 11:54 36.5 60 20 90/51 97 2.0 08/29/16 11:30 96 Nasal Cannula 1.5 08/29/16 08:00 94 Nasal Cannula 2.0 08/29/16 08:00 36.4 96 18 115/58 94 Nasal Cannula 2.0 08/29/16 04:03 36.8 80 20 111/59 98 Nasal Cannula 2.0 08/29/16 04:00 97 Nasal Cannula 2.0 08/28/16 23:59 97 Nasal Cannula 2.0 08/28/16 23:42 36.9 90 18 104/61 96 Nasal Cannula 2.0 08/28/16 20:00 97 Nasal Cannula 2.0 08/28/16 19:50 37.0 93 16 103/56 97 Nasal Cannula 2.0 Physical Exam General Appearance: + pertinent finding (seen multiple times - initially appearing fearful, R face droop, no pain or respiratory dsitress, all follow up visits - fatigued but no distress) Eyes: EOMI ENT: hearing grossly normal, + pertinent finding (R mouth droop (that would correct voluntarily) then resolved) Neck: trachea midline Respiratory/Chest: lungs clear, normal breath sounds, no respiratory distress, no accessory muscle use Cardiovascular: no murmur, + irregularly irregular (bradycardia) Abdomen: non tender, soft Extremities: + pertinent finding (5/5 strength R hand even during TIA. clumsy range of motion. 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 R face droop that corrected, R hand discoordination that corrected, but even during discoordination she had equal and 5/5 strength. no other motor or ssensory deficits. all deficits resolved ( and stayed resolved) after CT head during multiple f/u assessments) Skin: normal color, warm/dry Laboratory Results Last 24 Hours Test 08/28/16 20:09 08/29/16 05:19 08/29/16 06:28 08/29/16 09:10 Bedside Glucose 145 mg/dl 94 mg/dl White Blood Count 12.06 K/uL Red Blood Count 3.58 M/uL Hemoglobin 11.0 g/dL Hematocrit 33.4 % Mean Corpuscular Volume 93.3 fL Mean Corpuscular Hemoglobin 30.7 pg Mean Corpuscular Hemoglobin Concent 32.9 g/dl RDW Standard Deviation 50.0 fL RDW Coefficient of Variation 14.6 % Platelet Count 115 K/uL Mean Platelet Volume 11.7 fL Sodium Level 144 mmol/L Potassium Level 3.4 mmol/L Chloride Level 106 mmol/L Carbon Dioxide Level 31 mmol/L Anion Gap 7.0 mmol/L Blood Urea Nitrogen 24 mg/dl Creatinine 1.20 mg/dl Est Creatinine Clear Calc Drug Dose 32.3 ml/min Estimated GFR () 49.4 Estimated GFR (Non- 42.7 BUN/Creatinine Ratio 19.9 Random Glucose 96 mg/dl Calcium Level 7.3 mg/dl Procalcitonin 1.72 ng/mL Test 08/29/16 11:28 08/29/16 12:35 08/29/16 16:26 Bedside Glucose 152 mg/dl 178 mg/dl 143 mg/dl Assessment and Plan TIA -ddx being aspirin failure vs watershed hypoperfusion -for now have changed to plavix due to inability to be clear that this was/wasn' t asa failure; will have ongoing neurology f/u and ongoing discussions with pt and family about risks/benefits of escalated antiplatelet therapy as her BP was ~90/50 at time of TIA -- and with no new stroke on MRI it's quite possible this was all watershed as well. discussed risks of escalated Rx (small but higher risk of bleed) vs risks of return to asa (can't be totally sure she's not an asa failure) and for now will continue on plavix -- but will be for ongoing discussions -IVF to bring up BP -reduce diltiazem RENEE secondary to dehydration from N&V - NSS 20 KCL @ 75 cc/h -improved chronic hypoxic respiratory failure - has severe underlying COPD w FEV1 ~1L - suspect current hypoxia mostly due to baseline lung disease +/- effects of recent exacerbation - change in sputum and elevation in procalcitonin warrant ongoing close f/u but still nothing clear to suggest need for abx, and with her allergies/adrs and recent hx, certainly risk of overtreatment is quite real - ongoing weaning of O2 as possible Leukocytosis - steroid effect likely in part - but with drop by so much, also quite likely demargination from vomiting - as above w respiratory illness, follow closely, but no clear infection bradycardia/ borderline low BP - likely in large part low BP from poor PO intake - continue fluids, but also low HR and low BP probalby relate to meds - EKG was afib brenda. reduce diltiazem to 120mg daily, continue to follow on monitor. DM - held metformin because of elevated cr - SS and lantus - sugars have been acceptable HTN - held home losartan but cont diltiazem Anxiety - cont xanex and fluoxetine Glaucoma - cont timolol A fib - Cont diltiazem (reduce dose as above) and xarelto DVT Prophylaxis Xarelto FULL CODE as above noted ~at least 90mins spent, at least ~1hr during critical care time of TIA / stroke eval / stroke alert, additional time spent re-evaluating, discussing with family, updating pt and family, and documenting
[2016-08-29] MEDS: SIMVASTATIN 40 MG TAB PO SCH (20:41)
[2016-08-30] VITALS (11 sets, daily range): BP systolic 110–144; BP diastolic 54–92; PULSE 67–81; TEMP 36.5–36.8; O2SAT 90–95
[2016-08-30 05:56] LABS: BASO % 0.1 %; BASO ABS # 0.01 K/uL (0-0.2); COMPLETE YES; EOS % 0.7 %; HEMATOCRIT 29.6 % (37-47); IG% 0.3 %; LYMPH % 10.6 %; MEAN CELL VOLUME 95.5 fL (80-100); MEAN CORPUSCULAR HEMOGLOBIN 31.3 pg (25-34); MEAN CORPUSCULAR HGB CONC 32.8 g/dl (32-36); MEAN PLATELET VOLUME 11.5 fL (7.4-10.4); NEUT % 79.3 %; PLATELET COUNT 124 K/uL (130-400)
[2016-08-30 06:30] LABS: BUN/CREATININE RATIO 18.8 (10-20); CALCIUM 6.8 mg/dl (8.5-10.1); CREATININE 1.1 mg/dl (0.60-1.20); POTASSIUM 4.2 mmol/L (3.5-5.1)
--- NOTE | 2016-08-30 07:50 | Progress Note ---
Subjective Date of Service: Aug 30, 2016. Subjective Pt evaluation today including: conversation w/ patient, physical exam, chart review, lab review, review of studies, conversation w/ air quality consultant, review of inpatient medication list feeling much better. no new numbness no new weakness. eating well. no hand clumsiness. walking well, no foot drop. cough improving again, no new sob. no f/c/s no belly pain Problem List Medical Problems: (1) Abnormal EKG Status: Acute (2) Accidental drug ingestion Status: Acute (3) CHF (congestive heart failure) Status: Acute (4) Closed head injury Status: Acute (5) COPD exacerbation Status: Acute (6) Dysarthria Status: Acute (7) Hypoxia Status: Acute (8) Leukocytosis Status: Acute (9) PNA (pneumonia) Status: Acute (10) Right leg weakness Status: Acute Review of Systems Respiratory: No see HPI, No shortness of breath Neurologic: No balance problems, No numbness/tingling ros otherwise negative except for as above Objective Vital Signs Date Time Temp Pulse Resp B/P Pulse Ox O2 Delivery O2 Flow Rate FiO2 08/30/16 07:46 36.8 68 18 125/79 94 Room Air 08/30/16 04:13 36.7 81 20 110/54 91 Room Air 08/30/16 04:00 Room Air 08/30/16 00:00 Nasal Cannula 1.0 08/29/16 23:59 37.0 63 20 111/65 98 Nasal Cannula 1.0 08/29/16 20:49 36.8 50 15 96/40 96 Nasal Cannula 1.0 08/29/16 20:00 96 Nasal Cannula 1.0 08/29/16 20:00 96 Nasal Cannula 1.0 08/29/16 16:31 36.3 93 19 110/58 94 Nasal Cannula 2.0 08/29/16 16:30 96 Nasal Cannula 1.5 08/29/16 16:30 96 Nasal Cannula 1.5 08/29/16 11:54 36.5 60 20 90/51 97 2.0 08/29/16 11:30 96 Nasal Cannula 1.5 08/29/16 08:00 94 Nasal Cannula 2.0 08/29/16 08:00 36.4 96 18 115/58 94 Nasal Cannula 2.0 Physical Exam General Appearance: no apparent distress Eyes: EOMI ENT: hearing grossly normal Neck: trachea midline Respiratory/Chest: no respiratory distress, no accessory muscle use Extremities: normal range of motion 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, alert, normal mood/affect Skin: normal color, warm/dry Laboratory Results Last 24 Hours Test 08/29/16 09:10 08/29/16 11:28 08/29/16 12:35 08/29/16 16:26 Procalcitonin 1.72 ng/mL Bedside Glucose 152 mg/dl 178 mg/dl 143 mg/dl Test 08/29/16 20:10 08/30/16 05:15 08/30/16 06:55 08/30/16 07:14 Bedside Glucose 131 mg/dl 117 mg/dl White Blood Count 11.30 K/uL Red Blood Count 3.10 M/uL Hemoglobin 9.7 g/dL Hematocrit 29.6 % Mean Corpuscular Volume 95.5 fL Mean Corpuscular Hemoglobin 31.3 pg Mean Corpuscular Hemoglobin Concent 32.8 g/dl Platelet Count 124 K/uL Mean Platelet Volume 11.5 fL Neutrophils (%) (Auto) 79.3 % Lymphocytes (%) (Auto) 10.6 % Monocytes (%) (Auto) 9.0 % Eosinophils (%) (Auto) 0.7 % Basophils (%) (Auto) 0.1 % Neutrophils # (Auto) 8.96 K/uL Lymphocytes # (Auto) 1.20 K/uL Monocytes # (Auto) 1.02 K/uL Eosinophils # (Auto) 0.08 K/uL Basophils # (Auto) 0.01 K/uL RDW Standard Deviation 51.9 fL RDW Coefficient of Variation 15.0 % Immature Granulocyte % (Auto) 0.3 % Immature Granulocyte # (Auto) 0.03 K/uL Sodium Level 144 mmol/L Potassium Level 4.2 mmol/L Chloride Level 111 mmol/L Carbon Dioxide Level 27 mmol/L Anion Gap 6.0 mmol/L Blood Urea Nitrogen 21 mg/dl Creatinine 1.10 mg/dl Est Creatinine Clear Calc Drug Dose 35.2 ml/min Estimated GFR () 54.9 Estimated GFR (Non- 47.4 BUN/Creatinine Ratio 18.8 Random Glucose 114 mg/dl Calcium Level 6.8 mg/dl Assessment and Plan TIA -ddx being aspirin failure vs watershed hypoperfusion -for now have changed to plavix due to inability to be clear that this was/wasn' t asa failure; after discussions with neurology - will continue plavix but forego any asa/plavix overlap to reduce risk of bleeding -IVF to bring up BP -reduced diltiazem -due to data suggested markedly suppressed lipids will raise risk of ICH in the elderly (80, needing antiplatelet, anticoagulation already raise risk) - will not escalate statin -despite A1c being 9, sugars are controlled here (see below) RENEE secondary to dehydration from N&V - NSS 20 KCL @ 75 cc/h -improved chronic hypoxic respiratory failure - has severe underlying COPD w FEV1 ~1L - suspect current hypoxia mostly due to baseline lung disease +/- effects of recent exacerbation - change in sputum and elevation in procalcitonin warrant ongoing close f/u but still nothing clear to suggest need for abx, and with her allergies/adrs and recent hx, certainly risk of overtreatment is quite real -- today she is clinically improving - ongoing weaning of O2 as possible Leukocytosis - steroid effect likely in part - but with drop by so much day 0 to day 1, also quite likely demargination from vomiting - as above w respiratory illness, follow closely, but no clear infection bradycardia/ borderline low BP - likely in large part low BP from poor PO intake - continue fluids, but also low HR and low BP probalby relate to meds - EKG was afib brenda. reduced diltiazem to 120mg daily, continue to follow on monitor. DM - despite A1c being 9, she's shown good control here only on lantus 5 BID, metformin being held due to RENEE on admission -- suggesting strong lifestyle/ eating habit component HTN - losartan held due to RENEE; diltiazem reduced due to borderline BP and low HR Anxiety - cont xanex and fluoxetine Glaucoma - cont timolol A fib - Cont diltiazem (reduced dose as above) and xarelto DVT Prophylaxis Xarelto FULL CODE
[2016-08-30] MEDS: BUDESONIDE/FORMOTEROL FUMARATE 160/4.5 60 PUFFS/INHALER INH SCH ×2 (08:30→20:46)
[2016-08-30] MEDS: ALBUTEROL HFA 8 GM INHALER INH SCH ×2 (08:30→20:45)
[2016-08-30] MEDS: FLUTICASONE PROPIONATE NA SPR 16 GM BTL SCH (08:31)
[2016-08-30] MEDS: NSS + 20MEQ KCL 1000ML 1,000 ML IV SCH ×2 (08:31→20:50)
[2016-08-30] MEDS: TIMOLOL GFS 0.25% OPH SOLN 74 DROPS/5 ML BTL OPB SCH ×2 (08:31→20:46)
[2016-08-30] MEDS: BRIMONIDINE TARTRATE-P 0.15% 5 ML BTL OP SCH ×2 (08:31→20:46)
[2016-08-30] MEDS: OXYBUTYNIN CHLORIDE 5 MG TAB PO SCH ×2 (08:32→20:44)
[2016-08-30] MEDS: CLOPIDOGREL BISULFATE 75 MG TAB PO SCH (08:32)
[2016-08-30] MEDS: CHOLECALCIFEROL 1000 INTER.UNIT TAB PO SCH (08:32)
[2016-08-30] MEDS: FLUOXETINE HCL 10 MG CAP PO SCH (08:32)
[2016-08-30] MEDS: INSULIN ASPART 100 UNITS/ML 3 ML PEN SC SCH ×4 (08:38→20:41)
[2016-08-30] MEDS: INSULIN GLARGINE SOLOSTAR 100 UNITS/ML 3 ML PEN SC SCH ×2 (08:39→20:50)
[2016-08-30] MEDS: DILTIAZEM HCL 120 MG ER CAP PO SCH (09:41)
--- NOTE | 2016-08-30 11:09 | Neurology Consultation ---
Neurology Consultation Date of Consultation: Aug 30, 2016. Attending Physician: Manan Vanegas D.O. Primary Care Physician: Nathan Nance M.D. Reason for Consultation: Patient is an 80-year-old, who was asked to see the request of Dr. Vanegas, for neurologic consultation regarding stroke History of Present Illness Source: patient, caregiver, hospital records I first saw this patient in August 24. She had had a stroke in August 22 involving the left lateral thalamus and posterior limb of the internal capsule. She had some right-sided weakness, dysarthria and fatigue. But the time I saw her she was improving and was discharged on August 25. She was discharged on 81 mg aspirin tablet daily, (she was not on antiplatelet therapy prior to admission and this was felt to be an ischemic stroke), as well as Xarelto for atrial fibrillation. She did well for a couple of days and then started having some increased fatigue, nausea, vomiting and return to the emergency room on February 25. At 1014 hours on August 23 with blood pressure was 121/58, temperature 37 1, pulse 103, respiratory 22, and O2 saturation 88%. She was admitted and yesterday morning was felt to be tired. Blood pressure was 115/58 at 0800 hours and later on in the morning was 90/40. Around 1130 hours she was very fatigued and was noted to be weaker on the right side with some slurred speech, right facial droop, and right arm drift. The right leg was weak as well. A stroke alert was called and a CT scan of the head at 1248 hours was unremarkable. MRI of the brain was then obtained and showed the subacute infarct as before. There is moderate old small vessel ischemic disease but no other new issues or extension of the stroke. Because her blood pressure was low as was her pulse, she was given fluids and by early afternoon she was back to baseline and remains so. She received a dose of Plavix. Today her blood pressure is improved and she feels back to her baseline poststroke. She does have a little bit of fatigue but no nausea or headache. She has no dizziness and no new weakness in the arm or leg. Past Medical/Surgical History Medical Problems: (1) Abnormal EKG Status: Acute (2) Accidental drug ingestion Status: Acute (3) CHF (congestive heart failure) Status: Acute (4) Closed head injury Status: Acute (5) COPD exacerbation Status: Acute (6) Dysarthria Status: Acute (7) Hypoxia Status: Acute (8) Leukocytosis Status: Acute (9) PNA (pneumonia) Status: Acute (10) Right leg weakness Status: Acute Diabetes Hypertension COPD Atrial fibrillation Family History Family history is currently noncontributory to the patient's problem Social History Smoking Status: Former smoker Smokeless Tobacco Use: No Alcohol Use: none Drug Use: none Marital Status: Housing Status: lives with family Occupation Status: retired Allergies Coded Allergies: Tramadol (Unverified Allergy, Intermediate, LETHARGIC, 08/28/16) Aminothiols (Verified Allergy, Unknown, UNKNOWN, 08/28/16) Aztreonam (Verified Allergy, Unknown, UNKNOWN, 08/28/16) Carbapenems (Unverified Allergy, Unknown, UNKNOWN, 08/28/16) Cefazolin (Unverified Allergy, Unknown, UNKNOWN, 08/28/16) Cephalosporins (Verified Allergy, Unknown, UNKN, 08/28/16) Clindamycin (Verified Allergy, Unknown, UNKN, 08/28/16) Iodinated Diagnostic Agents (Verified Allergy, Unknown, "GET REAL COLD", ) Macrolides and Ketolides (Verified Allergy, Unknown, UNKNOWN, 08/28/16) Penicillins (Verified Allergy, Unknown, `, 08/28/16) Current Inpatient Medications Current Inpatient Medications Medications (Trade) Dose Ordered Sig/Jose Route Start Time Stop Time Status Last Admin Dose Admin Albuterol (Ventolin Hfa Inhaler) 1 puffs BID INH 08/28/16 21:00 09/27/16 20:59 08/30/16 08:30 1 PUFFS Budesonide/ Formoterol Fumarate (Symbicort 160/ 4.5 Inh) 2 puffs BID INH 08/28/16 21:00 09/27/16 20:59 08/30/16 08:30 2 PUFFS Cholecalciferol (Vitamin D Tab) 2,000 inter.unit QAM PO 08/29/16 09:00 09/28/16 08:59 08/30/16 08:32 2,000 INTER.UNIT Fluticasone Propionate (Flonase Nasal [place]) 1 sprays DAILY NA 08/28/16 14:30 09/27/16 14:29 08/30/16 08:31 1 SPRAYS Lorazepam (Ativan Tab) 1 mg HS PRN PO 08/28/16 14:30 09/27/16 14:29 Oxybutynin Chloride (Ditropan Tab) 5 mg BID PO 08/28/16 21:00 09/27/16 20:59 08/30/16 08:32 5 MG Rivaroxaban (Xarelto Tab) 15 mg QDD PO 08/28/16 16:45 09/27/16 16:44 08/29/16 16:30 15 MG Simvastatin (Zocor Tab) 40 mg QPM PO 08/28/16 21:00 09/27/16 20:59 08/29/16 20:41 40 MG Timolol Maleate (Timoptic-Xe 0.25% Oph Soln) 1 drops Q12 OPB 08/28/16 21:00 09/27/16 20:59 08/30/16 08:31 1 DROPS Triamcinolone Acetonide (Kenalog 0.1% Oint) 1 appln BID PRN TOP 08/28/16 14:30 09/27/16 14:29 Brimonidine Tartrate (Alphagan-P 0.15% Oph Soln) 1 drops BID OP 08/28/16 21:00 09/27/16 20:59 08/30/16 08:31 1 DROPS Miscellaneous Information (Order Awaiting Action) 1 ea QS N/A 08/28/16 16:00 09/27/16 15:59 08/30/16 00:00 1 EA Fluoxetine HCl 10 mg 10 mg DAILY PO 08/29/16 09:00 09/28/16 08:59 08/30/16 08:32 10 MG Potassium Chloride/Sodium Chloride (Nss + 20meq KCl 1000ml) 1,000 ml @ 75 mls/hr [id number] IV 08/28/16 17:00 09/27/16 16:59 08/30/16 08:31 75 MLS/HR Insulin Aspart (novoLOG ASPART) SLIDING SCALE G... ACHS SC 08/28/16 21:00 09/27/16 20:59 08/30/16 08:38 3 UNITS Insulin Glargine (Lantus Solostar Pen) 5 unit BID SC 08/28/16 17:00 09/27/16 16:59 08/30/16 08:39 5 UNIT Glucose (Glucose 40% Gel) 15-30 GRAMS 15 GRAMS... UD PRN PO 08/28/16 17:00 09/27/16 16:59 Glucose (Glucose Chew Tab) 4-8 Tablets 4 Tabl... UD PRN PO 08/28/16 17:00 09/27/16 16:59 Dextrose (Dextrose 50% 50ML Syringe) 25-50ML OF 50% DW IV FOR... UD PRN IV 08/28/16 17:00 09/27/16 16:59 Glucagon (Glucagon Inj) 1 mg UD PRN SQ 08/28/16 17:00 09/27/16 16:59 Miscellaneous (Iv Fluids Completed) 1 ea PRN PRN N/A 08/28/16 20:15 08/28/17 20:14 Clopidogrel Bisulfate (plAVix TAB) 75 mg QAM PO 08/30/16 09:00 09/29/16 08:59 08/30/16 08:32 75 MG Diltiazem HCl (Dilacor Xr Cap) 120 mg DAILY PO 08/30/16 09:00 09/29/16 08:59 08/30/16 09:41 120 MG Review of Systems Constitutional: + fatigue, No fever, No weakness Eyes: No diplopia, No worsening of vision ENT: No hearing loss, No tinnitus Respiratory: No cough, No shortness of breath Cardiovascular: No chest pain, No palpitations Abdomen: No nausea, No pain Musculoskeletal: No joint pain, No muscle pain Genitourinary - Female: No dysuria, No urinary incontinence Neurologic: + balance problems, No memory loss, No numbness/tingling, No weakness Psychiatric: No anxiety, No depression symptoms Endocrine: + fatigue Hematologic / Lymphatic: No abnormal bleeding/bruising Integumentary: No rash Allergic / Immunologic: No hives Physical Exam Vital Signs (Past 24 Hrs): Date Time Temp Pulse Resp B/P Pulse Ox O2 Delivery O2 Flow Rate FiO2 08/30/16 07:46 36.8 68 18 125/79 94 Room Air 08/30/16 04:13 36.7 81 20 110/54 91 Room Air 08/30/16 04:00 Room Air 08/30/16 00:00 Nasal Cannula 1.0 08/29/16 23:59 37.0 63 20 111/65 98 Nasal Cannula 1.0 08/29/16 20:49 36.8 50 15 96/40 96 Nasal Cannula 1.0 08/29/16 20:00 96 Nasal Cannula 1.0 08/29/16 20:00 96 Nasal Cannula 1.0 08/29/16 18:00 36.7 46 18 110/58 94 Nasal Cannula 2.0 08/29/16 16:31 36.3 93 19 110/58 94 Nasal Cannula 2.0 08/29/16 16:30 96 Nasal Cannula 1.5 08/29/16 16:30 96 Nasal Cannula 1.5 08/29/16 11:54 36.5 60 20 90/51 97 2.0 08/29/16 11:45 36.5 48 18 90/51 96 Nasal Cannula 2.0 08/29/16 11:30 96 Nasal Cannula 1.5 Patient is right-handed. The patient is awake and alert. Speech is normal without aphasia or dysarthria. Mentation and thought processes are intact with orientation and normal fund of knowledge. Mood and affect are normal and appropriate. Appearance and grooming are normal. The discs are sharp with positive venous pulsations. There are no exudates, hemorrhages, or blood vessel changes seen. Pupils are 4mm bilaterally and reactive to light. Extraocular eye muscles are intact without nystagmus. Visual acuity and visual douglas seem normal grossly to confrontation. There are no deficits to sensation of the face bilaterally. Corneal reflexes are positive bilaterally. Facial strength and symmetry is normal bilaterally- there is no facial droop. Hearing is decreased bilaterally. Palate moves well without asymmetry. There is normal sternocleidomastoid and trapezius strength bilaterally. Tongue is midline with good strength bilaterally. Neck is with full range of motion without discomfort. There are no cervical bruits. There are no cranial or ocular bruits. Heart is without murmur. Cervical, thoracic, and lumbar spine are nontender to palpation. Gait is is not tested but stance sitting up in bed is good. With outstretched arms there is no drift. There are no resting, postural, or action tremors. There is no ataxia with [id number] testing. There is good facility in the hands. There are no abnormal involuntary movements noted. Motor strength is 5/5 diffusely in the arms bilaterally including deltoids, biceps, brachioradialis, wrist flexors and extensors, loading rack supervisor, and intrinsic hand muscles. Motor strength is 5/5 diffusely in the legs bilaterally including hip flexors, quadriceps, hamstring, gastrocnemius, tibialis anterior, tibialis posterior, and peroneii muscles bilaterally. Toe extensors are normal and there is good bulk in the extensor digitorum brevis muscle bilaterally. The limbs have good tone without rigidity or spasticity, and there is no atrophy noted. Muscle bulk is normal, there is no tenderness, no myotonia noted to percussion, and no fasciculations seen. Sensory examination is intact to pin and touch throughout all four limbs. Reflexes are 1/4 in the biceps, triceps, brachioradialis, quadriceps, and Achilles tendons bilaterally. Toes are downgoing with plantar stimulation bilaterally. Peripheral pulses are present and of normal quality distally in all four limbs. There is no peripheral edema noted. Laboratory Results Past 24 Hours: 08/30/16 05:15 Red Blood Count 3.10, Mean Corpuscular Volume 95.5, Mean Corpuscular Hemoglobin 31.3, Mean Corpuscular Hemoglobin Concent 32.8, Mean Platelet Volume 11.5, Neutrophils (%) (Auto) 79.3, Lymphocytes (%) (Auto) 10.6, Monocytes (%) (Auto) 9.0, Eosinophils (%) (Auto) 0.7, Basophils (%) (Auto) 0.1, Neutrophils # (Auto) 8.96, Lymphocytes # (Auto) 1.20, Monocytes # (Auto) 1.02, Eosinophils # (Auto) 0.08, Basophils # (Auto) 0.01 08/30/16 05:15 Test 08/30/16 05:15 08/30/16 06:55 08/30/16 08:15 White Blood Count 11.30 K/uL (4.8-10.8) Red Blood Count 3.10 M/uL (4.2-5.4) Hemoglobin 9.7 g/dL (12.0-16.0) Hematocrit 29.6 % (37-47) Mean Corpuscular Volume 95.5 fL (80-100) Mean Corpuscular Hemoglobin 31.3 pg (25-34) Mean Corpuscular Hemoglobin Concent 32.8 g/dl (32-36) Platelet Count 124 K/uL (130-400) Mean Platelet Volume 11.5 fL (7.4-10.4) Neutrophils (%) (Auto) 79.3 % Lymphocytes (%) (Auto) 10.6 % Monocytes (%) (Auto) 9.0 % Eosinophils (%) (Auto) 0.7 % Basophils (%) (Auto) 0.1 % Neutrophils # (Auto) 8.96 K/uL (1.4-6.5) Lymphocytes # (Auto) 1.20 K/uL (1.2-3.4) Monocytes # (Auto) 1.02 K/uL (0.11-0.59) Eosinophils # (Auto) 0.08 K/uL (0-0.5) Basophils # (Auto) 0.01 K/uL (0-0.2) RDW Standard Deviation 51.9 fL (36.4-46.3) RDW Coefficient of Variation 15.0 % (11.5-14.5) Immature Granulocyte % (Auto) 0.3 % Immature Granulocyte # (Auto) 0.03 K/uL (0.00-0.02) Anion Gap 6.0 mmol/L (3-11) Est Creatinine Clear Calc Drug Dose 35.2 ml/min Estimated GFR () 54.9 Estimated GFR (Non- 47.4 BUN/Creatinine Ratio 18.8 (10-20) Calcium Level 6.8 mg/dl (8.5-10.1) Bedside Glucose 117 mg/dl (70-90) 25-Hydroxy Vitamin D Total 35.2 ng/ml (30-100) Imaging MRI OF THE BRAIN WITHOUT CONTRAST CLINICAL HISTORY: Recurrent right-sided weakness. Possible stroke. COMPARISON STUDY: CT scan dated 08/29/2016, MRI the brain dated 08/23/2016. FINDINGS: Sagittal T1, axial diffusion, proton density and T2 weighted axial, coronal FLAIR, and axial T1-weighted images were acquired. No intra or extra-axial mass lesions are visualized There is a persistent small focus of restricted water diffusion at the junction of the left lateral thalamus and posterior limb of the left internal capsule. The findings are consistent with a subacute infarct. There is no evidence of ventricular dilatation. Proton density T2-weighted and FLAIR images reveal moderate there is scattered colonic and basal ganglia lacunar infarcts. There is an old left Foci of increased T2 signal within the white matter, likely on a small vessel basis. There is an old left frontal infarct, an old left parietal lobe infarct. There is an equivocal aneurysm of the left supraclinoid internal carotid artery. IMPRESSION: 1. Subacute infarct at the junction of the left lateral thalamus and posterior limb internal capsule, similar to the prior study. 2. Old left frontal and parietal lobe infarcts. Scattered old bilateral lacunar infarcts 3. 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 Electronically signed by: Mars Albrecht M.D. 08/29/2016 4:29 PM Dictated Date/Time: 08/29/2016 4:25 PM Impression 1. She acute ischemic stroke in August 22 in the posterior limb of the internal capsule and part of the lateral left thalamus. She is stable and has had no new stroke by MRI yesterday, or by exam today. Her NIH stroke scale is 0 today The events of yesterday were likely secondary to hypotension and bradycardia, bringing out her original stroke symptoms but not creating any new issues. 2. History of atrial fibrillation with controlled rate. She is on Xarelto 3. Moderate old small vessel ischemic disease noted on MRI 4. History of hypertension now tending towards hypotension 5. History of diabetes 6. 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 Continue Plavix 75 mg a day instead of aspirin 2. Keep blood pressure up with a mean arterial pressure of around 100. 3. Physical and occupational therapy 4. Continue Xarelto for atrial fibrillation I spoke with Dr. Vanegas regarding this case including differential diagnosis and treatment options. I have no further neurologic testing or treatment recommendations to make at this time. Please contact me if I can be of further assistance.
[2016-08-30] MEDS: RIVAROXABAN TAB 15 MG TAB PO SCH (17:36)
[2016-08-30] MEDS: SIMVASTATIN 40 MG TAB PO SCH (20:44)
[2016-08-31 03:56] VITALS: BP 155/84; PULSE 77; TEMP 36.6; O2SAT 94
[2016-08-31 06:33] LABS: BUN/CREATININE RATIO 17.7 (10-20); CALCIUM 7.1 mg/dl (8.5-10.1); CREATININE 0.91 mg/dl (0.60-1.20)
[2016-08-31 07:52] VITALS: BP 164/69; PULSE 73; TEMP 36.9; O2SAT 93
[2016-08-31] MEDS: INSULIN ASPART 100 UNITS/ML 3 ML PEN SC SCH ×3 (08:19→17:03)
[2016-08-31] MEDS: BUDESONIDE/FORMOTEROL FUMARATE 160/4.5 60 PUFFS/INHALER INH SCH (08:23)
[2016-08-31] MEDS: ALBUTEROL HFA 8 GM INHALER INH SCH (08:23)
[2016-08-31] MEDS: FLUTICASONE PROPIONATE NA SPR 16 GM BTL SCH (08:24)
[2016-08-31] MEDS: BRIMONIDINE TARTRATE-P 0.15% 5 ML BTL OP SCH (08:24)
[2016-08-31] MEDS: DILTIAZEM HCL 120 MG ER CAP PO SCH (08:25)
[2016-08-31] MEDS: TIMOLOL GFS 0.25% OPH SOLN 74 DROPS/5 ML BTL OPB SCH (08:25)
[2016-08-31] MEDS: OXYBUTYNIN CHLORIDE 5 MG TAB PO SCH (08:25)
[2016-08-31] MEDS: CLOPIDOGREL BISULFATE 75 MG TAB PO SCH (08:26)
[2016-08-31] MEDS: FLUOXETINE HCL 10 MG CAP PO SCH (08:26)
[2016-08-31] MEDS: CHOLECALCIFEROL 1000 INTER.UNIT TAB PO SCH (08:27)
[2016-08-31] MEDS: INSULIN GLARGINE SOLOSTAR 100 UNITS/ML 3 ML PEN SC SCH (08:28)
[2016-08-31 09:35] VITALS: O2SAT 91
[2016-08-31 12:14] VITALS: BP 131/67; PULSE 62; TEMP 36.9; O2SAT 90
[2016-08-31 12:41] VITALS: O2SAT 91
[2016-08-31 15:29] VITALS: BP 152/88; PULSE 64; TEMP 36.8; O2SAT 95
[2016-08-31] MEDS: RIVAROXABAN TAB 15 MG TAB PO SCH (17:01)
[2016-08-31] MEDS ORDERED: PLV75 PO (17:20)
[2016-08-31] MEDS ORDERED: DILT120C68 PO (17:20)
[2016-08-31] MEDS ORDERED: LOSA1TAB PO (17:20)
--- NOTE | 2016-08-31 17:31 | Discharge Summary ---
Discharge Summary Admission Date: Aug 28, 2016 at 20:48 Discharge Disposition: Home Principal Diagnosis: Dehydration 2/2 N/V, RENEE Problems/Secondary Diagnoses: Bradycardia Hypotension COPD exacerbation Immunizations: Have You Had Influenza Vaccine: Yes Influenza Vaccine Date: Apr 02, 2011 History of Tetanus Vaccine?: No History of Pneumococcal: 2009 History of Hepatitis B Vaccine: No Procedures: CT HEAD WITHOUT CONTRAST (CT) CLINICAL HISTORY: Right-sided weakness. Possible stroke. COMPARISON STUDY: No previous studies for comparison. TECHNIQUE: Axial CT of the brain is performed from the vertex to the skull base. IV contrast was not administered for this examination. CT DOSE: 709.48 mGy.cm FINDINGS: No intra or extra-axial mass lesions are visualized. There is no CT evidence of acute cortical infarction. There is no evidence of midline shift. There is no acute hemorrhage. No calvarial fractures are visualized. There are patchy white matter hypodensities likely on a small vessel basis. There is an old left frontal infarct. There are multiple lacunar infarcts involving both thalami as well as both basal ganglia. There is no evidence of pathologic ventricular dilatation. There is no evidence of acute sinusitis IMPRESSION: 1. 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 2. No evidence of acute hemorrhage. MRI OF THE BRAIN WITHOUT CONTRAST CLINICAL HISTORY: Recurrent right-sided weakness. Possible stroke. COMPARISON STUDY: CT scan dated 08/29/2016, MRI the brain dated 08/23/2016. FINDINGS: Sagittal T1, axial diffusion, proton density and T2 weighted axial, coronal FLAIR, and axial T1-weighted images were acquired. No intra or extra-axial mass lesions are visualized There is a persistent small focus of restricted water diffusion at the junction of the left lateral thalamus and posterior limb of the left internal capsule. The findings are consistent with a subacute infarct. There is no evidence of ventricular dilatation. Proton density T2-weighted and FLAIR images reveal moderate there is scattered colonic and basal ganglia lacunar infarcts. There is an old left Foci of increased T2 signal within the white matter, likely on a small vessel basis. There is an old left frontal infarct, an old left parietal lobe infarct. There is an equivocal aneurysm of the left supraclinoid internal carotid artery. IMPRESSION: 1. Subacute infarct at the junction of the left lateral thalamus and posterior limb internal capsule, similar to the prior study. 2. Old left frontal and parietal lobe infarcts. Scattered old bilateral lacunar infarcts 3. 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 Consultations: Neurology (Prerna Calderon MD) Medication Reconciliation New Medications: Diltiazem Hcl Ext Rel (Tiazac) 120 Mg Capcr 120 MG PO DAILY for 30 Days, #30 CAP Losartan Potassium (Cozaar) 25 Mg Tab 25 MG PO BID for 30 Days, #60 TAB Clopidogrel Bisulfate (Clopidogrel) 75 Mg Tab 75 MG PO QAM for 30 Days, #30 TAB Continued Medications: Albuterol (Ventolin Hfa) Aers 1 PUFF PO BID, #18 Biotin (Biotin) 5,000 Mcg Sub 5000 MCG PO DAILY Brimonidine Tartrate 0.15% Oph (Alphagan P 0.15% Oph *) Soln 1 DROP OPB BID Budesonide/Formoterol Fumarate (Symbicort 160/4.5 Inhaler) 120 Puffs/ Aero 2 PUFFS INH BID Cholecalciferol (Vitamin D) 1,000 Unit Tab 2000 UNITS PO QAM Ciclopirox Olamine (Loprox Ts Topical Susp 0.77%) Susp 1 APPLN TOP BID, ML Fluoxetine Hcl (Fluoxetine Hcl) 10 Mg Tab 10 MG PO QAM for 30 Days Fluticasone Propionate (Nasal) (Flonase Allergy Relief) 50 Mcg/Act Spr 100 NA QD Lorazepam (Ativan) 1 Mg Tab 1 MG PO HS PRN for if needed, TAB Metformin Hcl (Glucophage) 500 Mg Tab 500 MG PO TID, TAB Oxybutynin Chloride (Ditropan) 5 Mg Tab 5 MG PO BID, TAB Rivaroxaban (Xarelto) 15 Mg Tab 15 MG PO QDD Simvastatin (Zocor) 40 Mg Tab 40 MG PO QPM Timolol Gfs 0.25% Oph (Timoptic-Xe 0.25% Oph) Soln 1 DROP OPB Q12 Triamcinolone Acet (Kenelog 0.1% ) Oint TOP BID PRN for Itching Discontinued Medications: Aspirin (Aspirin EC Low Dose) 81 Mg Ectab 81 MG PO DAILY for 30 Days, #30 NS Diltiazem Hcl Ext Rel (Dilacor Xr *) 180 Mg Ercap 180 MG PO DAILY, 0 Refills Losartan Potassium (Cozaar) 50 Mg Tab 100 MG PO DAILY for 30 Days, #60 TAB 5 Refills Discharge Exam This is an 80 yo f with a h/o Afib, DM, COPD, TIA, HTN that presented with Dehydration 2/2 N/V and subsequent RENEE. She was treated IVF and her RENEE eventually resolved. However, in the Interim, she developed stroke like symptoms and had a stroke work up/tele neuro consult. Her symptoms were attributed to bradycardia/hypotension and resolved about an hour later. Neurology was consulted due to recent admission for CVA (1 week prior to this admission) and her aspirin was switched to Plavix. Imaging did not reveal a new CVA. Statin was not increased due to low LDL. Her Cardizem and Losartan were adjusted in light of her brief hemodynamic instability and she improved there after. She also did have exacerbation of her severe COPD that was treated with nebs/ inhalers. - this improved during her stay without need for antibiotics/ steroids. Her Oxygen requirement eventually subsided. Prior to discharge, she mentioned that she had some spotting; that she thought was coming from her vagina. A pelvic exam was done and there were no obvious signs of a bleed. There was minimal discharge. Cervical os was visualized without any abnormalities. She was noted to have an incidental finding of a black circular raised lesion on her right labia, about 3-4 mm. She was recommended outpatient eval to investigate this further. Hemoccult was negative. Repeat U/A was negative for blood. We suspect that she has atrophic vaginitis and together with the plavix/xarelto, she has minimal spotting. H/H stable. If this problem persists or worsens, she was recommended to be evaluated by her PCP. All other acute/chronic conditions were managed appropriately. She was ambulatory and tolerating PO intake; otherwise stable for discharge. Review of Systems: Constitutional: No chills, No fever, No weight loss Eyes: No worsening of vision ENT: No hearing loss Respiratory: No dyspnea at rest, No dyspnea on exertion, No shortness of breath, No sputum, No wheezing Cardiovascular: No chest pain Abdomen: No nausea, No pain, No vomiting Genitourinary - Female: No dysuria, No urinary frequency, No urinary urgency Neurologic: No numbness/tingling, No paralysis, No weakness Physical Exam: General Appearance: no apparent distress Eyes: PERRL, EOMI ENT: hearing grossly normal Neck: supple, no adenopathy Respiratory/Chest: lungs clear, normal breath sounds, no respiratory distress Cardiovascular: no edema, no murmur, normal peripheral pulses, + irregularly irregular Abdomen / GI: normal bowel sounds, non tender, soft, + pertinent finding ( PELVIC EXAM: Mild atrophy, pigmented lesion on right labia, vaginal vault without active bleeding, minimal physiological discharge, normal cervical OS, no odor. ) Extremities: normal inspection, no calf tenderness, no pedal edema Neurologic/Psychiatric: towel folder II-XII nml as tested, no motor/sensory deficits , alert, normal mood/affect, oriented x 3 (Prerna Calderon MD) Hospital Course Total Time Spent: Greater than 30 minutes This includes examination of the patient, discharge planning, medication reconciliation, and communication with other providers. (Prerna Calderon MD) Total Time Spent: Greater than 30 minutes (Nathan Samuel MD) Discharge Instructions Please refer to the electronic Patient Visit Report (Discharge Instructions) for additional information. (Prerna Calderon MD) Follow-Up PCP, 3-5 days If possible, Gynecology (Prerna Calderon MD) History Resident physician supervision note:I was present with Dr. Calderon during the history and exam. I discussed the case with the resident and agree with the findings and plan as documented in the note. Any exceptions or clarifications are listed here. Pt seen and examined at bedside. Complains of episodic spotting of unknown cause 1-2 drops daily for 1 wk - bright red, no blood while wiping or in underwear when examined. Reports no weakness, numbness, ambulatory disturbance, MILLER, vision/hearing changes, dizziness, CP/SOB, palpitations, fever, abd pain/ distention (Nathan Samuel MD) General Appearance: WD/WN, no apparent distress Respiratory: chest non-tender, lungs clear, normal breath sounds, no respiratory distress Cardiovascular: normal peripheral pulses, regular rate, rhythm, no edema, no murmur Gastrointestinal: normal bowel sounds, non tender, soft, no organomegaly Comments Vaginal speculum examination w/ small pigmented lesion of the labia with some atrophy (Nathan Samuel MD) Assessment/Plan 80 y/o female h/o atrial fibrillation, DMII, HTN, recent CVA p/w TIA, now with spotting Spotting - no apparent cause of bleeding on vaginal exam, guiac negative, hematuria on previous UA - monitor Vaginal lesion - would definitely pursue further evaluation as outpatient TIA - continue plavix, diltiazem (at reduced dose) RENEE - encourage good oral hydration, follow as outpatient Chronic hypoxic respiratory failure - monitor, wean O2 as tolerated Leukocytosis - would repeat as outpatient Bradycardia - encourage POI, dilt reduced inpatient DMII - encourage good dietary compensation as outpatient, continue medication HTN - resume losartan Anxiety - continue xanax and fluoxetine Glaucoma - continue timolol Atrial fibrillation - dilt and xarelto (Nathan Samuel MD)
--- NOTE | 2016-08-31 17:31 | Discharge Instructions ---
Discharge Instructions Admission Reason for Admission: Hypoxia Discharge Discharge Diagnosis / Problem: Acute kidney injury secondary to n/v, dehydration. & bradycardia/hypotensio Discharge Goals Goal(s): Decrease discomfort, Improve function, Diagnostic testing, Therapeutic intervention Activity Recommendations Activity Limitations: as noted below Lifting Limitations: gradually increase as tolerated Exercise/Sports Limitations: gradually increase as tolerated May Resume Sexual Activity: when tolerated Shower/Bathe: no limitations Driving or Machine Use: no limitations . Instructions / Follow-Up Instructions / Follow-Up Mrs. Wills, margot were admitted to the hospital due to dehydration from nausea /vomiting. You were treated with IV fluids. In the interim, you developed stroke like symptoms and had a neurology evaluation, however this was not a new stroke but instead from low heart rate and low blood pressure. We have adjusted your medications as below: Please stop aspirin and take Plavix 75 mg instead. Your dose of Diltazem has been changed to 120 mg and your dose of Losartan has been lowered to 25 mg twice daily. Please follow up with your PCP within 3-5 days for a recheck of your condition. Case Management will help facilitate this. You had mentioned that you had some spotting while wiping: There was no site of active bleeding on pelvic exam, however you were noted to have a lesion on the right labia. Please have this evaluated by your PCP or Gynecology within 1 week. If the spotting continues, you will need to be re-evaluated by your PCP because there is also concern for bleeding while on Plavix and Xarelto. If you experience further stroke like symptoms, shortness of breath or other medical concerns, please come back to the ER or call your PCP. Current Hospital Diet Patient's current hospital diet: AHA Diet (Heart Healthy), Low Sodium Diet (2gm Na), Diabetes Type 2 Diet Discharge Diet Recommended Diet: AHA Diet (Heart Healthy), Diabetes Type 2 Diet Fluid Restriction: None Pending Studies Studies pending at discharge: no Laboratory Results Hemoglobin A1c Test 08/22/16 19:05 Range/Units Estimated Average Glucose 212 mg/dl Hemoglobin A1c 9.0 H 4.5-5.6 % Lipid Panel Test 08/24/16 05:29 Range/Units Triglycerides Level 64 0-150 mg/dl Cholesterol Level 101 0-200 mg/dl HDL Cholesterol 50 mg/dl Cholesterol/HDL Ratio 2.0 LDL Cholesterol, Calculated 38 mg/dl Medical Emergencies . Who to Call and When: Medical Emergencies: If at any time you feel your situation is an emergency, please call 911 immediately. . Non-Emergent Contact Non-Emergency issues call your: Primary Care Provider, [employer] Facilitator . . "Provider Documentation" section prepared by Prerna Germain. VTE Core Measure Inpt VTE Proph given/why not?: Other Anticoagulation
[2016-08-31 18:10] LABS: MANUAL MICROSCOPIC REQUIRED? NO; REVIEW REQ? NO; URINE APPEARANCE CLEAR (CLEAR); URINE BILIRUBIN NEG (NEG); URINE COLOR YELLOW; URINE EPITHELIAL CELL AUTO >30 /lpf (0-5); URINE NITRITE NEG (NEG); URINE PH 5.5 (4.5-7.5); UROBILINOGEN NEG (NEG)
== END 2016-08-31 19:06 | disposition home health service (06) | DRG 683 ==
LOC: ENRESERVTM → ENRESERVDT → EDBD 10:03 → C.EDB 10:04 → C.2E 15:25 → OBSVTOIN 20:48
PROVIDERS: ADMIT Family Medicine; ATTEND Family Medicine
DX: N17.9 Acute kidney failure, unspecified (principal); J44.1 Chronic obstructive pulmonary disease with (acute) exacerbation; J96.11 Chronic respiratory failure with hypoxia; G45.9 Transient cerebral ischemic attack, unspecified; E86.0 Dehydration; A08.4 Viral intestinal infection, unspecified; D72.829 Elevated white blood cell count, unspecified; T38.0X5A Adverse effect of glucocorticoids and synthetic analogues, initial encounter; R53.1 Weakness; R47.81 Slurred speech; R00.1 Bradycardia, unspecified; I95.9 Hypotension, unspecified; N95.0 Postmenopausal bleeding; N89.8 Other specified noninflammatory disorders of vagina; I48.91 Unspecified atrial fibrillation; E11.9 Type 2 diabetes mellitus without complications; I10 Essential (primary) hypertension; F41.9 Anxiety disorder, unspecified; H40.9 Unspecified glaucoma; Z87.891 Personal history of nicotine dependence; Z79.82 Long term (current) use of aspirin; Z79.51 Long term (current) use of inhaled steroids; Z79.84 Long term (current) use of oral hypoglycemic drugs; Z79.01 Long term (current) use of anticoagulants; Z79.899 Other long term (current) drug therapy

== ENCOUNTER 2016-09-08 15:25 | Inpatient (IN) | payer OTHER ==
[~2016-09-08] VITALS: Ht 162.6 cm; Wt 66.8 kg
[~2016-09-08 15:25] MED LIST changes: -ASPEC81 PO; +DILT120C68 PO; -DLCSR180 PO; -LEVO1TAB33 PO; +LOSA1TAB PO; -LOSA50TA6 PO; +PLV75 PO; -PRED10TA PO; +RIVA1.5T PO; -RIVA1TAB4 PO
[2016-09-08] MEDS ORDERED: BRIM0.1S OPB (17:50)
[2016-09-08] MEDS ORDERED: TRMCR130WC TOP (17:50)
[2016-09-08] MEDS ORDERED: TRIA37.5 PO (17:50)
[2016-09-08] MEDS ORDERED: TMPXEOPS OPB (17:50)
[2016-09-08] MEDS ORDERED: FERR27TA5 PO (17:50)
[2016-09-08] MEDS ORDERED: ALBINS/ INH (17:50)
[2016-09-08] MEDS ORDERED: VNTHFA/IN INH (17:50)
--- NOTE | 2016-09-08 18:18 | EMERGENCY ROOM VISIT NOTE ---
History Report prepared by Jose: Cindy Abbasi Under the Supervision of: Dr. Steven Carney M.D. First contact with patient: 17:48 Chief Complaint: REFERRED BY DOCTOR Stated Complaint: SEVERE JAW PAIN, SHAKES-FRAGILE History of Present Illness The patient is a 80 year old female who presents to the Emergency Room with complaints of worsening left sided facial pain and swelling that began 5 days ago. She describes the pain as a tooth ache which is a 10/10 in severity. It radiates down her neck. She is having a hard time opening her mouth and eating secondary to her pain. The patient was referred to the ER by Dr. Nance. Denies visual or hearing changes. She has been using Tylenol for pain with little relief. Source of History: patient Onset: 5 days ago Position: other (left face) Symptom Intensity: 10/10 Quality: ache Timing: worsening Modifying Factors (Worsening): other (opening mouth) Review of Systems See HPI for pertinent positives & negatives. A total of 10 systems reviewed and were otherwise negative. Past Medical & Surgical Medical Problems: (1) A-fib (2) Bradycardia (3) COPD (chronic obstructive pulmonary disease) (4) CVA (cerebral vascular accident) (5) Diabetes (6) Heart disease (7) HTN (hypertension) (8) Hypoxia (9) Leukocytosis (10) Positive blood culture (11) SIRS (systemic inflammatory response syndrome) (12) TIA (transient ischemic attack) Family History Diabetes mellitus FH: cancer FH: heart disease Hypertension Social History Smoking Status: Former Smoker Alcohol Use: none Drug Use: none Marital Status: Housing Status: lives with family Occupation Status: retired Current/Historical Medications Scheduled Albuterol Hfa (Ventolin Hfa), 1 PUFF INH BID Biotin (Biotin), 5,000 MCG PO DAILY Brimonidine Tartrate (Alphagan P Oph), 1 DROPS OPB BID Budesonide/Formoterol Fumarate (Symbicort 160/4.5 Inhaler), 2 PUFFS INH BID Cholecalciferol (Vitamin D), 2,000 UNITS PO QAM Clopidogrel Bisulfate (Clopidogrel), 75 MG PO QAM Diltiazem Hcl Ext Rel (Tiazac), 120 MG PO DAILY Ferrous Gluconate (Iron), 27 MG PO DAILY Fluoxetine Hcl (Fluoxetine Hcl), 10 MG PO QAM Losartan Potassium (Cozaar), 25 MG PO BID Metformin Hcl (Glucophage), 500 MG PO TID Rivaroxaban (Xarelto), 15 MG PO QDD Simvastatin (Zocor), 40 MG PO QPM Timolol Maleate (Timolol Gfs 0.5% (Generic For Timoptic-Xe)), 1 DROP OPB Q12 Triamterene/Hctz (Dyazide 37.5MG/25MG), 1 TAB PO DAILY Scheduled PRN Albuterol Sulf (Proventil 0.083% 2.5MG/3ML), 1 VIAL INH BID PRN for SOB/Wheezing Lorazepam (Ativan), 1 MG PO HS PRN for if needed Triamcinolone Acet (Aristocort 0.1%), 1 APPLN TOP BID PRN for PRN Allergies Coded Allergies: Tramadol (Unverified Allergy, Intermediate, LETHARGIC, 08/28/16) Aminothiols (Verified Allergy, Unknown, UNKNOWN, 08/28/16) Aztreonam (Verified Allergy, Unknown, UNKNOWN, 08/28/16) Carbapenems (Unverified Allergy, Unknown, UNKNOWN, 08/28/16) Cefazolin (Unverified Allergy, Unknown, UNKNOWN, 08/28/16) Cephalosporins (Verified Allergy, Unknown, UNKN, 08/28/16) Clindamycin (Verified Allergy, Unknown, UNKN, 08/28/16) Iodinated Diagnostic Agents (Verified Allergy, Unknown, "GET REAL COLD", ) Macrolides and Ketolides (Verified Allergy, Unknown, UNKNOWN, 08/28/16) Penicillins (Verified Allergy, Unknown, `, 08/28/16) Physical Exam Vital Signs Date Time Temp Pulse Resp B/P Pulse Ox O2 Delivery O2 Flow Rate FiO2 09/08/16 20:28 176/131 09/08/16 20:13 101 25 09/08/16 19:58 151/103 09/08/16 19:46 104 09/08/16 19:43 100 26 09/08/16 19:38 168/97 09/08/16 18:55 112 25 97 09/08/16 17:53 181/130 09/08/16 17:53 92 20 181/130 93 Room Air 09/08/16 15:54 36.5 94 20 176/85 93 Physical Exam GENERAL: Patient is a healthy-appearing well-nourished 80 year old female HEAD: Normocephalic. No evidence of Ludwigs angina. Left parotid gland is grossly swollen. EYES: Ocular movements intact pupils equal and react to light OROPHARYNX mucous membranes are moist no exudates present no erythema or edema present. There is no abscess in the gums NECK: Supple no nuchal rigidity CHEST: Good equal expansion LUNGS: Clear and equal to auscultation CARDIAC: Normal S1 and S2 ABDOMEN: Soft nontender no guarding BACK: No CVA tenderness EXTREMITIES: No pain upon palpation normal muscle strength in all groups no clubbing cyanosis or edema NEURO: Patient is following commands is answering questions appropriately. Alert and oriented x3 Cranial Nerves 2-12 grossly intact Medical Decision & Procedures ER Provider Diagnostic Interpretation: Radiology results as stated below per my review and radiologist interpretation: MAXILLOFACIAL CT CT DOSE: 681.97 mGy.cm HISTORY: Pain. Infection. Pt c/o left facial cellulitis TECHNIQUE: Multiaxial CT images of the maxillofacial region were performed and reformatted in the coronal plane without the use of contrast. COMPARISON: 02/16/2009 FINDINGS: Diffuse left facial cellulitis. Inflammatory changes involve the left parotid, superficial as well as deep components of the masseter musculature, as well as a inferior extension to a location immediately posterior to the left submandibular gland. Moderate cervical adenopathy bilaterally. No evidence for a drainable abscess or collection. No evidence for significant airway compromise. No evidence for bony destructive process. Mastoid air cells appear well aerated. Degenerative changes of the cervical spine are present. Visualized components of the major sinuses are clear. IMPRESSION: 1. Diffuse left facial cellulitis involving the left parotid, masseter musculature, as well as extension to the left infra mandibular region. 2. No evidence for drainable abscess or collection. 3. Moderate cervical adenopathy bilaterally. 4. No evidence for bony destructive process or any component of airway compromise. Electronically signed by: Dimitri Payne M.D. 09/08/2016 7:21 PM Dictated Date/Time: 09/08/2016 7:17 PM Laboratory Results Test 09/08/16 18:41 09/08/16 18:54 Bedside Hemoglobin 14.3 g/dl (12.0-16.0) Bedside Hematocrit 42 % (37-47) Bedside Sodium 137 mEq/L (135-144) Bedside Potassium 3.7 mEq/L (3.3-5.0) Bedside Chloride 96 mEq/L (101-112) Bedside Total CO2 29 mEq/l (24-31) Bedside Blood Urea Nitrogen 19 mg/dl (7-18) Bedside Creatinine 0.9 mg/dl (0.6-1.3) Bedside Glucose (other) 157 mg/dl (70-99) Bedside Ionized Calcium (Joan) 1.01 mmol/l (1.12-1.32) Total Bilirubin 0.7 mg/dl (0.2-1) Direct Bilirubin 0.2 mg/dl (0-0.2) Aspartate Amino Transf (AST/SGOT) 10 U/L (15-37) Alanine Aminotransferase (ALT/SGPT) 11 U/L (12-78) Alkaline Phosphatase 72 U/L (45-117) Total Protein 7.0 gm/dl (6.4-8.2) Albumin 2.9 gm/dl (3.4-5.0) Lipase 98 U/L (73-393) Labs reviewed by ED physician. Medications Administered Medications (Trade) Dose Ordered Sig/Jose Route Start Time Stop Time Status Last Admin Dose Admin Morphine Sulfate (MoRPHine SULFATE INJ) 4 mg NOW STAT IV 09/08/16 18:22 09/08/16 18:23 DC 09/08/16 18:44 4 MG Ondansetron HCl (Zofran Inj) 4 mg NOW STAT IV 09/08/16 18:22 09/08/16 18:23 DC 09/08/16 18:44 4 MG Levofloxacin (Levaquin / D5W) 500 mg NOW STAT IV 09/08/16 18:33 09/08/16 18:35 DC 09/08/16 19:35 500 MG Metronidazole (Flagyl / Nss) 500 mg NOW STAT IV 09/08/16 18:33 09/08/16 18:35 DC 09/08/16 19:29 500 MG ED Course 1815: The patient was evaluated in room A2. A complete history and physical examination was performed. 1821: Ordered Zofran Inj 4 mg IV, Morphine Sulfate 4 mg IV. 1832: Ordered Flagyl/Nss 500 mg IV, Levofloxacin 500 mg IV. 1911: I reassessed the patient. She was more comfortable. 1941: I discussed the case with DrShena TANG Hospitalist. The patient will be evaluated for further management. 1942: Upon reexamination the patient is resting comfortably. I discussed results and treatment plan with the patient. She verbalizes agreement and understanding. Medical Decision Differential diagnosis: Etiologies such as cellulitis, abscess, MRSA infection, DVT, necrotizing fasciitis, dermatitis, drug eruption, as well as others were entertained. This is an 80-year-old female who presents emergency department complaining of left-sided facial pain. The patient appears to have a cellulitis in this area and I believe is most likely related to her parotid gland. For this reason the patient was sent for CAT scan of the face. This was concerning for facial cellulitis. The patient is allergic to a large number of antibiotics therefore was started on Levaquin as well as Flagyl. She was given morphine 2 in the emergency department. I did discuss the case with the hospitalist service who agreed to admit the patient. Patient was in agreement with the treatment plan. Consults Time Called: 1934 Consulting Physician: Dr. Portillo TANG Hospitalist Returned Call: 1941 I discussed the case with him. The patient will be evaluated for further management. Impression Primary Impression: Facial cellulitis Scribe Attestation The scribe's documentation has been prepared under my direction and personally reviewed by me in its entirety. I confirm that the note above accurately reflects all work, treatment, procedures, and medical decision making performed by me. Departure Information Dispostion Being Evaluated By Hospitalist Referrals No Doctor, Assigned (PCP) Patient Instructions My [facility]
[2016-09-08] MEDS ORDERED: MoRPHine SULFATE 4 MG/ML 1 ML CARP\\VIAL IV STA ×2 (18:22→20:47)
[2016-09-08] MEDS ORDERED: ONDANSETRON INJ 2 MG/ML 2 ML VIAL IV STA (18:22)
[2016-09-08] MEDS ORDERED: LEVAQUIN 500MG / 100ML D5W IV STA (18:33)
[2016-09-08] MEDS ORDERED: METRONIDAZOLE 500MG / 100ML NSS IV STA (18:33)
[2016-09-08 18:56] LABS: ISTAT CREATININE 0.9 mg/dl (0.6-1.3); ISTAT HEMOGLOBIN 14.3 g/dl (12.0-16.0); ISTAT IONIZED CALCIUM 1.01 mmol/l (1.12-1.32)
[2016-09-08 19:05] LABS: BASO % 0.1 %; BASO ABS # 0.01 K/uL (0-0.2); COMPLETE YES; EOS % 0.2 %; HEMATOCRIT 37.8 % (37-47); IG% 0.4 %; LYMPH % 4.4 %; LYMPH ABS # 0.86 K/uL (1.2-3.4); MEAN CELL VOLUME 95.2 fL (80-100); MEAN CORPUSCULAR HEMOGLOBIN 31.7 pg (25-34); MEAN CORPUSCULAR HGB CONC 33.3 g/dl (32-36); MEAN PLATELET VOLUME 10.5 fL (7.4-10.4); MONO % 7.1 %; NEUT % 87.8 %; PLATELET COUNT 321 K/uL (130-400); RED BLOOD COUNT 3.97 M/uL (4.2-5.4); WHITE BLOOD COUNT 19.33 K/uL (4.8-10.8)
--- NOTE | 2016-09-08 19:23 | DIAGNOSTIC IMAGING REPORT ---
MAXILLOFACIAL CT CT DOSE: 681.97 mGy.cm HISTORY: Pain. Infection. Pt c/o left facial cellulitis TECHNIQUE: Multiaxial CT images of the maxillofacial region were performed and reformatted in the coronal plane without the use of contrast. COMPARISON: 02/16/2009 FINDINGS: Diffuse left facial cellulitis. Inflammatory changes involve the left parotid, superficial as well as deep components of the masseter musculature, as well as a inferior extension to a location immediately posterior to the left submandibular gland. Moderate cervical adenopathy bilaterally. No evidence for a drainable abscess or collection. No evidence for significant airway compromise. No evidence for bony destructive process. Mastoid air cells appear well aerated. Degenerative changes of the cervical spine are present. Visualized components of the major sinuses are clear. IMPRESSION: 1. Diffuse left facial cellulitis involving the left parotid, masseter musculature, as well as extension to the left infra mandibular region. 2. No evidence for drainable abscess or collection. 3. Moderate cervical adenopathy bilaterally. 4. No evidence for bony destructive process or any component of airway compromise. Electronically signed by: Dimitri Payne M.D. 09/08/2016 7:21 PM Dictated Date/Time: 09/08/2016 7:17 PM
[2016-09-08 19:25] LABS: BUN/CREATININE RATIO 17.5 (10-20); CALCIUM 8.6 mg/dl (8.5-10.1); CREATININE 0.96 mg/dl (0.60-1.20); POTASSIUM 3.4 mmol/L (3.5-5.1)
[2016-09-08] MEDS ORDERED: GLUCOSE 40% GEL 15 GM TUBE PO PRN (20:45)
[2016-09-08] MEDS ORDERED: PROMETHAZINE HCL INJ 12.5 MG in SODIUM CHLORIDE 0.9% 50ML 50 ML IV PRN (20:45)
[2016-09-08] MEDS ORDERED: MAGNESIUM HYDROXIDE SUSP 30 ML UDC PO PRN (20:45)
[2016-09-08] MEDS ORDERED: ALUMINUM/MAGNESIUM/SIMETH (MAALOX MAX) 30 ML UDC PO PRN (20:45)
[2016-09-08] MEDS ORDERED: DEXTROSE 50% 50 ML SYR IV PRN (20:45)
[2016-09-08] MEDS ORDERED: ZOLPIDEM TARTRATE 5 MG TAB PO PRN (20:45)
[2016-09-08] MEDS ORDERED: GLUCAGON FOR INJ 1 MG VIAL SQ PRN (20:45)
[2016-09-08] MEDS ORDERED: GLUCOSE 10 TABS/TUBE PO PRN (20:45)
[2016-09-08] MEDS ORDERED: BISACODYL 10 MG SUPP PR PRN (20:45)
[2016-09-08] MEDS ORDERED: ONDANSETRON INJ 2 MG/ML 2 ML VIAL IV PRN (20:45)
[2016-09-08] MEDS ORDERED: METOCLOPRAMIDE HCL INJ 5 MG/ML 2 ML VIAL IV STA (20:47)
[2016-09-08] MEDS ORDERED: VANCOMYCIN CONSULT ACTIVE PRN (22:15)
[2016-09-08] MEDS ORDERED: LEVOFLOXACIN CONSULT ACTIVE PRN (22:15)
[2016-09-08] MEDS ORDERED: VANCOMYCIN INJ 1,300 MG in SODIUM CHLORIDE 0.9% 250ML 250 ML IV ONE (22:30)
[2016-09-08] MEDS ORDERED: MoRPHine SULFATE 4 MG/ML 1 ML CARP\\VIAL ONE (23:02)
[2016-09-08 23:30] LABS: URINE APPEARANCE CLEAR (CLEAR); URINE BILIRUBIN NEG (NEG); URINE COLOR DK YELLOW; URINE EPITHELIAL CELL AUTO >30 /lpf (0-5); URINE NITRITE NEG (NEG); URINE PH 5.5 (4.5-7.5); URINE SPECIFIC GRAVITY 1.029 (1.000-1.030); UROBILINOGEN NEG (NEG)
[2016-09-08 23:54] LABS: MANUAL MICROSCOPIC REQUIRED? NO; REVIEW REQ? NO
[2016-09-09] VITALS (7 sets, daily range): BP systolic 155–170; BP diastolic 82–95; PULSE 76–119; TEMP 36.3–37.4; O2SAT 88–96; BMI 21.4
--- NOTE | 2016-09-09 00:05 | History and Physical ---
History & Physical Date & Time of Service: Sep 08, 2016 at 23:54 Chief Complaint: Severe Jaw Pain, Shakes-Fragile Primary Care Physician: Nathan Nance M.D. History of Present Illness Source: patient, family The patient is an 80-year-old female who presents emergency department with family with complaint of worsening left-sided facial pain radiating down the left side of her neck, swelling and redness that began 5 days prior to arrival. Her family reports that she can only open her mouth a small amount due to the swelling and pain, and is therefore not been eating well over the past several days. She has tried Tylenol for pain relief with little improvement. Past Medical/Surgical History Medical Problems: (1) A-fib Status: Chronic (2) COPD (chronic obstructive pulmonary disease) Status: Chronic (3) Diabetes Status: Chronic (4) Heart disease Status: Chronic (5) HTN (hypertension) Status: Chronic Family History Diabetes mellitus FH: cancer FH: heart disease Hypertension Social History Smoking Status: Former Smoker Smokeless Tobacco Use: No Alcohol Use: none Drug Use: none Marital Status: Housing status: lives with family Occupational Status: retired Immunizations History of Influenza Vaccine: Yes Influenza Vaccine Date: Apr 02, 2011 History of Tetanus Vaccine?: No History of Pneumococcal: 2009 History of Hepatitis B Vaccine: No Multi-Drug Resistant Organisms History of MDRO: No Allergies Coded Allergies: Tramadol (Unverified Allergy, Intermediate, LETHARGIC, 08/28/16) Aminothiols (Verified Allergy, Unknown, UNKNOWN, 08/28/16) Aztreonam (Verified Allergy, Unknown, UNKNOWN, 08/28/16) Carbapenems (Unverified Allergy, Unknown, UNKNOWN, 08/28/16) Cefazolin (Unverified Allergy, Unknown, UNKNOWN, 08/28/16) Cephalosporins (Verified Allergy, Unknown, UNKN, 08/28/16) Clindamycin (Verified Allergy, Unknown, UNKN, 08/28/16) Iodinated Diagnostic Agents (Verified Allergy, Unknown, "GET REAL COLD", ) Macrolides and Ketolides (Verified Allergy, Unknown, UNKNOWN, 08/28/16) Penicillins (Verified Allergy, Unknown, `, 08/28/16) Home Medications Scheduled Albuterol Hfa (Ventolin Hfa), 1 PUFF INH BID Biotin (Biotin), 5,000 MCG PO DAILY Brimonidine Tartrate (Alphagan P Oph), 1 DROPS OPB BID Budesonide/Formoterol Fumarate (Symbicort 160/4.5 Inhaler), 2 PUFFS INH BID Cholecalciferol (Vitamin D), 2,000 UNITS PO QAM Clopidogrel Bisulfate (Clopidogrel), 75 MG PO QAM Diltiazem Hcl Ext Rel (Tiazac), 120 MG PO DAILY Ferrous Gluconate (Iron), 27 MG PO DAILY Fluoxetine Hcl (Fluoxetine Hcl), 10 MG PO QAM Losartan Potassium (Cozaar), 25 MG PO BID Metformin Hcl (Glucophage), 500 MG PO TID Rivaroxaban (Xarelto), 15 MG PO QDD Simvastatin (Zocor), 40 MG PO QPM Timolol Maleate (Timolol Gfs 0.5% (Generic For Timoptic-Xe)), 1 DROP OPB Q12 Triamterene/Hctz (Dyazide 37.5MG/25MG), 1 TAB PO DAILY Scheduled PRN Albuterol Sulf (Proventil 0.083% 2.5MG/3ML), 1 VIAL INH BID PRN for SOB/Wheezing Lorazepam (Ativan), 1 MG PO HS PRN for if needed Triamcinolone Acet (Aristocort 0.1%), 1 APPLN TOP BID PRN for PRN Review of Systems The patient denies chest pain, palpitations, shortness of breath, cough, lower extremity swelling, vision change, hearing change, sore throat, fevers, chills, sweats, weight change, nausea, vomiting, abdominal pain, pelvic pain, blood in urine or stool, dysuria, urinary frequency or urgency, memory loss, abnormal bruising or bleeding, imbalance, numbness or tingling in arms or legs, generalized arthralgias or myalgias, back or neck pain, night sweats, or allergy symptoms. The review of systems is otherwise negative other than for that already noted above, and at least 10 systems have been reviewed. Physical Exam Vital Signs Date Time Temp Pulse Resp B/P Pulse Ox O2 Delivery O2 Flow Rate FiO2 09/08/16 22:50 119 145/109 96 09/08/16 22:43 118 25 98 09/08/16 22:34 100 20 145/100 Nasal Cannula 2.0 09/08/16 22:31 145/109 09/08/16 22:13 111 24 95 09/08/16 21:58 149/86 09/08/16 21:43 101 24 94 09/08/16 21:28 149/87 09/08/16 21:13 107 0 97 09/08/16 20:58 150/120 09/08/16 20:43 119 28 09/08/16 20:28 176/131 09/08/16 20:13 101 25 09/08/16 19:58 151/103 09/08/16 19:46 104 09/08/16 19:43 100 26 09/08/16 19:38 168/97 09/08/16 18:55 112 25 97 09/08/16 17:53 181/130 09/08/16 17:53 92 20 181/130 93 Room Air 09/08/16 15:54 36.5 94 20 176/85 93 The patient is awake, well-developed and adequately nourished, alert and oriented 3, normocephalic and atraumatic, lying in bed and in mild to moderate acute distress secondary to facial pain. HEENT--PERRL, EOMI, mucous membranes and oropharynx dry. Neck--supple, no JVD or bruits, thyroid normal, trachea midline, no adenopathy. Heart--normal S1 and S2, no extra beats, no murmurs, rubs or gallops. Lungs--clear bilaterally, no respiratory distress, no accessory muscle use. Abdomen--normal bowel sounds and soft, nontender and nondistended, no hernias or masses, no organomegaly. Extremities--no cyanosis, clubbing or edema. There are good distal pulses b/l. Dermatologic--erythema, warmth and induration involving left temporal ,maxillary , mandibular and submandibular areas. Neurologic--cranial nerves II through XII grossly intact. Psychiatric--normal affect. Diagnostics Laboratory Results Results Past 24 Hours Test 09/08/16 18:41 09/08/16 18:54 09/08/16 21:05 09/08/16 23:20 Range/Units Bedside Hemoglobin 14.3 12.0-16.0 g/dl Bedside Hematocrit 42 37-47 % Bedside Sodium 137 135-144 mEq/L Bedside Potassium 3.7 3.3-5.0 mEq/L Bedside Chloride 96 101-112 mEq/L Bedside Total CO2 29 24-31 mEq/l Anion Gap 16.0 9.0 3-11 mmol/L Bedside Blood Urea Nitrogen 19 7-18 mg/dl Bedside Creatinine 0.9 0.6-1.3 mg/dl Bedside Glucose (other) 157 70-99 mg/dl Bedside Ionized Calcium (Joan) 1.01 1.12-1.32 mmol/l White Blood Count 19.33 4.8-10.8 K/uL Red Blood Count 3.97 4.2-5.4 M/uL Hemoglobin 12.6 12.0-16.0 g/dL Hematocrit 37.8 37-47 % Mean Corpuscular Volume 95.2 80-100 fL Mean Corpuscular Hemoglobin 31.7 25-34 pg Mean Corpuscular Hemoglobin Concent 33.3 32-36 g/dl Platelet Count 321 130-400 K/uL Mean Platelet Volume 10.5 7.4-10.4 fL Neutrophils (%) (Auto) 87.8 % Lymphocytes (%) (Auto) 4.4 % Monocytes (%) (Auto) 7.1 % Eosinophils (%) (Auto) 0.2 % Basophils (%) (Auto) 0.1 % Neutrophils # (Auto) 16.98 1.4-6.5 K/uL Lymphocytes # (Auto) 0.86 1.2-3.4 K/uL Monocytes # (Auto) 1.37 0.11-0.59 K/uL Eosinophils # (Auto) 0.03 0-0.5 K/uL Basophils # (Auto) 0.01 0-0.2 K/uL RDW Standard Deviation 52.5 36.4-46.3 fL RDW Coefficient of Variation 15.1 11.5-14.5 % Immature Granulocyte % (Auto) 0.4 % Immature Granulocyte # (Auto) 0.08 0.00-0.02 K/uL Sodium Level 137 136-145 mmol/L Potassium Level 3.4 3.5-5.1 mmol/L Chloride Level 98 98-107 mmol/L Carbon Dioxide Level 30 21-32 mmol/L Blood Urea Nitrogen 17 7-18 mg/dl Creatinine 0.96 0.60-1.20 mg/dl Est Creatinine Clear Calc Drug Dose 38.6 ml/min Estimated GFR () 64.7 Estimated GFR (Non- 55.9 BUN/Creatinine Ratio 17.5 10-20 Random Glucose 158 70-99 mg/dl Calcium Level 8.6 8.5-10.1 mg/dl Total Bilirubin 0.7 0.2-1 mg/dl Direct Bilirubin 0.2 0-0.2 mg/dl Aspartate Amino Transf (AST/SGOT) 10 15-37 U/L Alanine Aminotransferase (ALT/SGPT) 11 12-78 U/L Alkaline Phosphatase 72 45-117 U/L Total Protein 7.0 6.4-8.2 gm/dl Albumin 2.9 3.4-5.0 gm/dl Lipase 98 73-393 U/L Lactic Acid Level 1.2 0.4-2.0 mmol/L Diagnostic Radiology Patient Name: DAWNA GARCIA Unit Number: [id number] Dictated: 09/08/161916 Transcribed: 09/08/161916 MS Printed Date/Time: [~ rep prt dt]/[~ rep prt tm] [~ rep ct labl] - [~ rep ct ivnm] [facility] Radiology Department [place], [place] [id number] Dictated: 09/08/161916 Transcribed: 09/08/161916 MS Printed Date/Time: [~ rep prt dt]/[~ rep prt tm] [~ rep ct labl] - [~ rep ct ivnm] [~ rep ct add3]] MAXILLOFACIAL CT CT DOSE: 681.97 mGy.cm HISTORY: Pain. Infection. Pt c/o left facial cellulitis TECHNIQUE: Multiaxial CT images of the maxillofacial region were performed and reformatted in the coronal plane without the use of contrast. COMPARISON: 02/16/2009 FINDINGS: Diffuse left facial cellulitis. Inflammatory changes involve the left parotid, superficial as well as deep components of the masseter musculature, as well as a inferior extension to a location immediately posterior to the left submandibular gland. Moderate cervical adenopathy bilaterally. No evidence for a drainable abscess or collection. No evidence for significant airway compromise. No evidence for bony destructive process. Mastoid air cells appear well aerated. Degenerative changes of the cervical spine are present. Visualized components of the major sinuses are clear. IMPRESSION: 1. Diffuse left facial cellulitis involving the left parotid, masseter musculature, as well as extension to the left infra mandibular region. 2. No evidence for drainable abscess or collection. 3. Moderate cervical adenopathy bilaterally. 4. No evidence for bony destructive process or any component of airway compromise. Electronically signed by: Dimitri Payne M.D. 09/08/2016 7:21 PM Dictated Date/Time: 09/08/2016 7:17 PM The status of this report is Signed. Draft = Not yet reviewed or approved by Radiologist. Signed = Reviewed and approved by Radiologist. <AttendingPhy></AttendingPhy> <FamilyPhy>Nathan Nance M.D.</FamilyPhy > <PrimaryPhy>Nathan Nance M.D.</PrimaryPhy> <UnitNumber>[id number]</ UnitNumber> <VisitNumber>[id number]</VisitNumber> <PatientName>DAWNA GARCIA</PatientName> <DateOfBirth>1935</DateOfBirth> <Location>[facility]</ Location> <ServiceDate>09/08/16</ServiceDate> <MNE>ESINDI</MNE> <OrderingPhy> Cal Tyler MD</OrderingPhy> <OrderingPhyMNE>f rep ord dr gonzales</ OrderingPhyMNE> <DictatingPhyMNE>f rep dict dr gonzales</DictatingPhyMNE> <CCListMNE> f rep ct christian</CCListMNE> <AdmittingPhyMNE>f pt admit dr gonzales</AdmittingPhyMNE> < AttendingPhyMNE>f pt attend dr gonzales</AttendingPhyMNE> <ConsultingPhyMNE>f pt consult dr gonzales</ConsultingPhyMNE> <FamilyPhyMNE>f pt fam dr gonzales</FamilyPhyMNE> <OtherPhyMNE>f pt other dr gonzales</OtherPhyMNE> < PrimaryPhyMNE>f pt prim care dr gonzales</PrimaryPhyMNE> <ReferringPhyMNE>f pt referring dr gonzales</ReferringPhyMNE> Impression Assessment and Plan Left facial cellulitis/left parotitis/left masseter muscle infection/left inframandibular infection--the patient be admitted to the medical floor. She' ll be placed on vancomycin IV per renal dosing, and levofloxacin 500 mg IV daily. Probiotics flexion is somewhat limited due to significant number of allergies which are primarily reported as shaking. We'll consult infectious disease for follow-up. Will place a PICC line, as patient will likely need several days of IV antibiotics. She is unable to open her mouth very wide for oral intake due to degree of infection. She'll be placed on a full liquid diet. Atrial fibrillation/CAD/hypertension/TIA/CVA--continue clopidogrel 75 mg by mouth every morning, diltiazem extended release heart 20 mg by mouth daily, losartan 25 mg by mouth twice a day, Xarelto 15 mg by mouth daily. We'll hold triamterene/HCTZ 37.5/25 daily. Diabetes mellitus--hold metformin 500 mg by mouth 3 times a day, and place on Accu-Cheks before meals and at bedtime with NovoLog coverage. COPD--continue Symbicort 160/4.5 2 puffs twice a day, and will have Xopenex that for nebulizers available every 2 hours when necessary. Depression--continue fluoxetine 10 mg by mouth every morning. Hypercholesterolemia--continue simvastatin 40 mg by mouth every afternoon. Glaucoma--continue Alphagan P ophthalmic solution 1 drop OPB twice a day, and timolol GFS 0.5% one drop OPB every 12 hours. Level of Care Med/Surg Advanced Directives Existing Advance Directive: No Existing Living Will: No Existing Power of Education Spec: No Resuscitation Status FULL RESUSCITATION VTE Prophylaxis VTE Risk Assessment Done? Y/N: Yes Risk Level: Moderate Given or contraindicated: SCD's Social Service Consult None Apply
[2016-09-09] MEDS: SIMVASTATIN 40 MG TAB PO SCH ×2 (02:05→21:00)
[2016-09-09] MEDS: TIMOLOL GFS 0.5% OPH SOLN 74 DROPS/5 ML BTL OPB SCH ×3 (02:05→21:00)
[2016-09-09] MEDS: INSULIN ASPART 100 UNITS/ML 3 ML PEN SC SCH ×5 (02:06→20:34)
[2016-09-09] MEDS: MoRPHine SULFATE 4 MG/ML 1 ML CARP\\VIAL IV PRN ×3 (04:44→23:13)
[2016-09-09 06:48] LABS: BASO % 0.1 %; BASO ABS # 0.02 K/uL (0-0.2); COMPLETE YES; HEMATOCRIT 37.6 % (37-47); IG% 0.4 %; LYMPH % 2.7 %; LYMPH ABS # 0.59 K/uL (1.2-3.4); MEAN CELL VOLUME 96.4 fL (80-100); MEAN CORPUSCULAR HEMOGLOBIN 31.3 pg (25-34); MEAN CORPUSCULAR HGB CONC 32.4 g/dl (32-36); MEAN PLATELET VOLUME 10.4 fL (7.4-10.4); MONO % 7.9 %; NEUT % 88.9 %; PLATELET COUNT 312 K/uL (130-400); WHITE BLOOD COUNT 21.63 K/uL (4.8-10.8)
[2016-09-09 06:57] LABS: INR 1.2 (0.9-1.1); PARTIAL THROMBOPLASTIN RATIO 1.2; PROTHROMBIN TIME (PATIENT) 13.2 SECONDS (9.0-12.0)
[2016-09-09 07:16] LABS: BUN/CREATININE RATIO 19.3 (10-20); CALCIUM 8.2 mg/dl (8.5-10.1); CREATININE 0.89 mg/dl (0.60-1.20); MAGNESIUM 1.5 mg/dl (1.8-2.4); POTASSIUM 3.9 mmol/L (3.5-5.1)
[2016-09-09] MEDS ORDERED: POTASSIUM CHLORIDE 20 MEQ TABCR PO STA (07:41)
[2016-09-09] MEDS: FERROUS GLUCONATE 324 MG TAB PO SCH (08:56)
[2016-09-09] MEDS: CLOPIDOGREL BISULFATE 75 MG TAB PO SCH (08:56)
[2016-09-09] MEDS: MAGNESIUM SULFATE 1GM / D5W 1 GM in PREMIXED IN D5W 100 ML IV SCH ×3 (08:56→11:41)
[2016-09-09] MEDS: DILTIAZEM HCL (TIAzac) 180 MG CAPCR PO SCH (08:57)
[2016-09-09] MEDS: FLUOXETINE HCL 10 MG CAP PO SCH (08:58)
[2016-09-09] MEDS ORDERED: DILTIAZEM HCL 120 MG EXT REL CAP PO SCH (09:00)
[2016-09-09] MEDS ORDERED: NON-FORMULARY MEDICATION (Biotin 5,000 MCG) PO SCH (09:00)
--- NOTE | 2016-09-09 10:21 | Medical Student: [facility] ---
Med Student History & Physical Date & Time of Service: Sep 09, 2016 at 10:19 Chief Complaint: Facial Cellulitis, Sirs Primary Care Physician: Nathan Nance M.D. History of Present Illness Source: patient, clinic records, hospital records This is an 80 year old white female who came to the ER with increasing left sided facial pain/swelling for the past 5 days. She was referred by Dr. Nance. The pain is described as 10/10, radiating down the neck. It is incredibly painful for her to move her mouth to eat or speak, so interview was limited. She denies any recent dental work or facial trauma. She denies any recent ear aches. She denies changes in vision or difficulty breathing. She also complains of severe nausea, but no vomiting. History was collected per review of note from Dr. Nance. Patient has significant pmh including atrial fibrillation, COPD/bronchiectasis, pulmonary nodules, diabetes, hyperlipidemia, HTN, thyroid nodules, vitamin d deficiency and recent CVA. Patient has had multiple recent hospitalizations. 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 Patient was readmitted on 08/28-08/31 when she presented with nausea and vomiting. She was found to have a potential RENEE and was treated IV fluids to lower her creatinine from 1.3 to 0.91. However, her visit was complicated by multiple other comorbidities. Due to increased right sided weakness, a stroke alert was called, but it was found that she had no evidence of a new stroke. It was determined to be an exacerbation of stroke symptoms due to her hypotensive, dehydrated state. Her admission was further complicated by vaginal spotting, and a questionable labial lesion, which will require independent agent music education follow up in future. After discharge she was to follow up with Dr. Nance for transition of care, where she presented to his office with severe left sided pain, an inability to swallow water/food, and increasing weakness/fatigue. She was afebrile at visit but was noted to have visible mild rigors. Past Medical/Surgical History Medical Problems: (1) Abnormal EKG Status: Acute (2) Accidental drug ingestion Status: Acute (3) CHF (congestive heart failure) Status: Acute (4) Closed head injury Status: Acute (5) COPD exacerbation Status: Acute (6) Dysarthria Status: Acute (7) Facial cellulitis Status: Acute (8) Hypoxia Status: Acute (9) Leukocytosis Status: Acute (10) PNA (pneumonia) Status: Acute (11) Right leg weakness Status: Acute Social History Smoking Status: Former Smoker Smokeless Tobacco Use: No Alcohol Use: none Drug Use: none Marital Status: Housing status: lives with family Occupational Status: retired Immunizations History of Influenza Vaccine: Yes Influenza Vaccine Date: Apr 02, 2011 History of Tetanus Vaccine?: No History of Pneumococcal: 2009 History of Hepatitis B Vaccine: No Allergies Coded Allergies: Tramadol (Unverified Allergy, Intermediate, LETHARGIC, 08/28/16) Aminothiols (Verified Allergy, Unknown, UNKNOWN, 08/28/16) Aztreonam (Verified Allergy, Unknown, UNKNOWN, 08/28/16) Carbapenems (Unverified Allergy, Unknown, UNKNOWN, 08/28/16) Cefazolin (Unverified Allergy, Unknown, UNKNOWN, 08/28/16) Cephalosporins (Verified Allergy, Unknown, UNKN, 08/28/16) Clindamycin (Verified Allergy, Unknown, UNKN, 08/28/16) Iodinated Diagnostic Agents (Verified Allergy, Unknown, "GET REAL COLD", ) Macrolides and Ketolides (Verified Allergy, Unknown, UNKNOWN, 08/28/16) Penicillins (Verified Allergy, Unknown, `, 08/28/16) Medications Albuterol Hfa (Ventolin Hfa), 1 PUFF INH BID Albuterol Sulf (Proventil 0.083% 2.5MG/3ML), 1 VIAL INH BID PRN for SOB/Wheezing Biotin (Biotin), 5,000 MCG PO DAILY Brimonidine Tartrate (Alphagan P Oph), 1 DROPS OPB BID Budesonide/Formoterol Fumarate (Symbicort 160/4.5 Inhaler), 2 PUFFS INH BID Cholecalciferol (Vitamin D), 2,000 UNITS PO QAM Clopidogrel Bisulfate (Clopidogrel), 75 MG PO QAM Diltiazem Hcl Ext Rel (Tiazac), 120 MG PO DAILY Ferrous Gluconate (Iron), 27 MG PO DAILY Fluoxetine Hcl (Fluoxetine Hcl), 10 MG PO QAM Lorazepam (Ativan), 1 MG PO HS PRN for if needed Losartan Potassium (Cozaar), 25 MG PO BID Metformin Hcl (Glucophage), 500 MG PO TID Rivaroxaban (Xarelto), 15 MG PO QDD Simvastatin (Zocor), 40 MG PO QPM Timolol Maleate (Timolol Gfs 0.5% (Generic For Timoptic-Xe)), 1 DROP OPB Q12 Triamcinolone Acet (Aristocort 0.1%), 1 APPLN TOP BID PRN for PRN Triamterene/Hctz (Dyazide 37.5MG/25MG), 1 TAB PO DAILY Review of Systems Constitutional: No fever Eyes: No eye pain, No worsening of vision Respiratory: No cough, No sputum, No wheezing Cardiovascular: No chest pain Abdomen: + nausea, No vomiting Endocrine: + fatigue Physical Exam Vital Signs (24 Hours) Date Time Temp Pulse Resp B/P Pulse Ox O2 Delivery O2 Flow Rate FiO2 09/09/16 07:06 36.5 112 20 167/83 95 Nasal Cannula 2.0 09/09/16 04:18 36.5 117 20 164/95 94 Nasal Cannula 2.0 09/09/16 00:10 36.4 119 18 170/89 92 Nasal Cannula 2.0 09/08/16 22:50 119 145/109 96 09/08/16 22:43 118 25 98 09/08/16 22:34 100 20 145/100 Nasal Cannula 2.0 09/08/16 22:31 145/109 09/08/16 22:13 111 24 95 09/08/16 21:58 149/86 09/08/16 21:43 101 24 94 09/08/16 21:28 149/87 09/08/16 21:13 107 0 97 09/08/16 20:58 150/120 09/08/16 20:43 119 28 09/08/16 20:28 176/131 09/08/16 20:13 101 25 09/08/16 19:58 151/103 09/08/16 19:46 104 09/08/16 19:43 100 26 09/08/16 19:38 168/97 09/08/16 18:55 112 25 97 09/08/16 17:53 181/130 09/08/16 17:53 92 20 181/130 93 Room Air 09/08/16 15:54 36.5 94 20 176/85 93 General Appearance: + moderate distress, + severe distress Head: normocephalic, + pertinent finding (swelling of left side of face ranging from neck and ear extending to about 5cm from orbital. ) Eyes: PERRL, EOMI ENT: hearing grossly normal Neck: + adenopathy present (cervical adenopathy b/l) Respiratory/Chest: chest non-tender, lungs clear, normal breath sounds, no respiratory distress, no accessory muscle use Cardiovascular: regular rate, rhythm, no edema, no gallop, no JVD, no murmur Abdomen/GI: non tender, soft, no organomegaly Extremities/Musculoskelatal: normal inspection, no calf tenderness, normal capillary refill, no pedal edema Neurologic/Psych: alert, normal mood/affect, normal reflexes, oriented x 3 Skin: normal color, warm/dry, + pertinent finding (redness left side face) Diagnostics Laboratory Results Results Past 24 Hours Test 09/08/16 18:41 09/08/16 18:54 09/08/16 21:05 09/08/16 23:20 Range/Units Bedside Hemoglobin 14.3 12.0-16.0 g/dl Bedside Hematocrit 42 37-47 % Bedside Sodium 137 135-144 mEq/L Bedside Potassium 3.7 3.3-5.0 mEq/L Bedside Chloride 96 101-112 mEq/L Bedside Total CO2 29 24-31 mEq/l Anion Gap 16.0 9.0 3-11 mmol/L Bedside Blood Urea Nitrogen 19 7-18 mg/dl Bedside Creatinine 0.9 0.6-1.3 mg/dl Bedside Glucose (other) 157 70-99 mg/dl Bedside Ionized Calcium (Joan) 1.01 1.12-1.32 mmol/l White Blood Count 19.33 4.8-10.8 K/uL Red Blood Count 3.97 4.2-5.4 M/uL Hemoglobin 12.6 12.0-16.0 g/dL Hematocrit 37.8 37-47 % Mean Corpuscular Volume 95.2 80-100 fL Mean Corpuscular Hemoglobin 31.7 25-34 pg Mean Corpuscular Hemoglobin Concent 33.3 32-36 g/dl Platelet Count 321 130-400 K/uL Mean Platelet Volume 10.5 7.4-10.4 fL Neutrophils (%) (Auto) 87.8 % Lymphocytes (%) (Auto) 4.4 % Monocytes (%) (Auto) 7.1 % Eosinophils (%) (Auto) 0.2 % Basophils (%) (Auto) 0.1 % Neutrophils # (Auto) 16.98 1.4-6.5 K/uL Lymphocytes # (Auto) 0.86 1.2-3.4 K/uL Monocytes # (Auto) 1.37 0.11-0.59 K/uL Eosinophils # (Auto) 0.03 0-0.5 K/uL Basophils # (Auto) 0.01 0-0.2 K/uL RDW Standard Deviation 52.5 36.4-46.3 fL RDW Coefficient of Variation 15.1 11.5-14.5 % Immature Granulocyte % (Auto) 0.4 % Immature Granulocyte # (Auto) 0.08 0.00-0.02 K/uL Sodium Level 137 136-145 mmol/L Potassium Level 3.4 3.5-5.1 mmol/L Chloride Level 98 98-107 mmol/L Carbon Dioxide Level 30 21-32 mmol/L Blood Urea Nitrogen 17 7-18 mg/dl Creatinine 0.96 0.60-1.20 mg/dl Est Creatinine Clear Calc Drug Dose 38.6 ml/min Estimated GFR () 64.7 Estimated GFR (Non- 55.9 BUN/Creatinine Ratio 17.5 10-20 Random Glucose 158 70-99 mg/dl Calcium Level 8.6 8.5-10.1 mg/dl Total Bilirubin 0.7 0.2-1 mg/dl Direct Bilirubin 0.2 0-0.2 mg/dl Aspartate Amino Transf (AST/SGOT) 10 15-37 U/L Alanine Aminotransferase (ALT/SGPT) 11 12-78 U/L Alkaline Phosphatase 72 45-117 U/L Total Protein 7.0 6.4-8.2 gm/dl Albumin 2.9 3.4-5.0 gm/dl Lipase 98 73-393 U/L Lactic Acid Level 1.2 0.4-2.0 mmol/L Urine Color DK YELLOW Urine Appearance CLEAR CLEAR Urine pH 5.5 4.5-7.5 Urine Specific [place] 1.029 1.000-1.030 Urine Protein 2+ NEG Urine Glucose (UA) NEG NEG Urine Ketones 1+ NEG Urine Occult Blood NEG NEG Urine Nitrite NEG NEG Urine Bilirubin NEG NEG Urine Urobilinogen NEG NEG Urine Leukocyte Esterase TRACE NEG Urine WBC (Auto) 5-10 0-5 /hpf Urine RBC (Auto) 0-4 0-4 /hpf Urine Hyaline Casts (Auto) 5-10 0-5 /lpf Urine Epithelial Cells (Auto) >30 0-5 /lpf Urine Bacteria (Auto) NEG NEG Test 09/09/16 06:33 09/09/16 07:36 Range/Units White Blood Count 21.63 4.8-10.8 K/uL Red Blood Count 3.90 4.2-5.4 M/uL Hemoglobin 12.2 12.0-16.0 g/dL Hematocrit 37.6 37-47 % Mean Corpuscular Volume 96.4 80-100 fL Mean Corpuscular Hemoglobin 31.3 25-34 pg Mean Corpuscular Hemoglobin Concent 32.4 32-36 g/dl Platelet Count 312 130-400 K/uL Mean Platelet Volume 10.4 7.4-10.4 fL Neutrophils (%) (Auto) 88.9 % Lymphocytes (%) (Auto) 2.7 % Monocytes (%) (Auto) 7.9 % Eosinophils (%) (Auto) 0.0 % Basophils (%) (Auto) 0.1 % Neutrophils # (Auto) 19.22 1.4-6.5 K/uL Lymphocytes # (Auto) 0.59 1.2-3.4 K/uL Monocytes # (Auto) 1.70 0.11-0.59 K/uL Eosinophils # (Auto) 0.01 0-0.5 K/uL Basophils # (Auto) 0.02 0-0.2 K/uL RDW Standard Deviation 53.4 36.4-46.3 fL RDW Coefficient of Variation 15.3 11.5-14.5 % Immature Granulocyte % (Auto) 0.4 % Immature Granulocyte # (Auto) 0.09 0.00-0.02 K/uL Prothrombin Time 13.2 9.0-12.0 SECONDS Prothromb Time International Ratio 1.2 0.9-1.1 Activated Partial Thromboplast Time 30.0 21.0-31.0 SECONDS Partial Thromboplastin Ratio 1.2 Sodium Level 137 136-145 mmol/L Potassium Level 3.9 3.5-5.1 mmol/L Chloride Level 98 98-107 mmol/L Carbon Dioxide Level 28 21-32 mmol/L Anion Gap 11.0 3-11 mmol/L Blood Urea Nitrogen 17 7-18 mg/dl Creatinine 0.89 0.60-1.20 mg/dl Est Creatinine Clear Calc Drug Dose 43.6 ml/min Estimated GFR () 70.9 Estimated GFR (Non- 61.2 BUN/Creatinine Ratio 19.3 10-20 Random Glucose 172 70-99 mg/dl Calcium Level 8.2 8.5-10.1 mg/dl Magnesium Level 1.5 1.8-2.4 mg/dl Bedside Glucose 173 70-90 mg/dl Diagnostic Radiology Head CT 1. Diffuse left facial cellulitis involving the left parotid, masseter musculature, as well as extension to the left infra mandibular region. 2. No evidence for drainable abscess or collection. 3. Moderate cervical adenopathy bilaterally. 4. No evidence for bony destructive process or any component of airway compromise. Impression Assessment and Plan This is an 80 y/o female with complicated pmh who presented to ED with increasingly severe left sided facial pain consistent with facial cellulitis/ parotitis. Left facial cellulitis/left parotitis -admit to medical floor for IV medications -vancomycin IV per renal dosing, levofloxacin 500 mg IV daily. -PICC line placement as patient will require several days of IV abx. As she is limited in opening her mouth, there is concern with continuing all of her oral medications and may need to consider converting them to IV if possible. -Full liquid diet as per above, limited range of oral movement Atrial fibrillation/CVA -Xarelto 15 mg PO -continue clopidogrel 75 mg PO HTN -diltiazem extended release heart 20 mg PO -losartan 25 mg PO BID Diabetes mellitus- -hold metformin 500 mg PO TID - begin sliding scale NovoLog COPD -continue Symbicort 160/4.5 2 puffs twice a day -Xopenex PRN q2hrs . Depression -continue fluoxetine 10 mg PO every morning Hypercholesterolemia -continue simvastatin 40 mg PO Glaucoma -continue Alphagan P ophthalmic solution 1 drop OPB BID -timolol GFS 0.5% one drop OPB q12hrs Level of Care Med/Surg Advanced Directives Existing Advance Directive: No Existing Living Will: Yes Existing Power of Digital Strategy Director: Yes DVT Prophylaxis other (patient on xarelto and plavix)
--- NOTE | 2016-09-09 11:51 | Progress Note ---
Progress Note ID Consult Dictated #[id number] A/P: 1. Facial cellulitis 2. Leukocytosis -Continue current abx, multiple allergies, unknown reactions -check blood cultures -warm compress -will follow, thank you
--- NOTE | 2016-09-09 12:05 | DIAGNOSTIC IMAGING REPORT ---
SINGLE VIEW CHEST CLINICAL HISTORY: PICC placement. FINDINGS: An AP, portable, upright chest radiograph is compared to study dated 08/28/2016 and correlated with chest CT dated 05/21/2015. The examination is degraded by portable technique and patient rotation. A right PICC line has been placed. The tip of the catheter projects over the right atrium. The heart is enlarged and there is atherosclerotic calcification of the thoracic aorta. The pulmonary vasculature is noncongested. Enlargement of the central pulmonary vessels suggests pulmonary artery hypertension. Emphysema and chronic interstitial thickening is similar to previous. There is significant atelectasis at the right lung base, possibly lobar. A small right pleural effusion is not excluded. Minimal subsegmental atelectasis is seen at the left lung base. The left lung is otherwise clear. There is no pneumothorax. The skeletal structures are osteopenic. Degenerative change is present throughout the thoracic spine. IMPRESSION: 1. A right PICC line has been placed. The tip of the catheter projects over the right atrium. This should be pulled back approximately 5 cm. 2. Cardiomegaly and emphysema. 3. There is significant volume loss in the right lung with atelectasis at the right lung base. This may be lobar. Follow-up with a dedicated PA and lateral examination is recommended. 4. A right pleural effusion is not excluded. Electronically signed by: Steven Perrin M.D. 09/09/2016 12:03 PM Dictated Date/Time: 09/09/2016 12:00 PM
--- NOTE | 2016-09-09 12:20 | INFECT. DISEASE CONSULTATION ---
DATE OF CONSULTATION: 09/09/2016 REQUESTING PHYSICIAN: Dr. Nath. HISTORY OF PRESENT ILLNESS: This is an 80-year-old female who was admitted after she had worsening of left-sided facial pain. Her family is present during my examination and they state this began on Wednesday or Wednesday. She was having some difficulty swallowing and pain with eating. They were using warm compress at home without relief. Because the pain had increased, she was brought to the hospital. In the hospital, she did have a CAT scan of the face which showed diffuse cellulitis with involvement of the left parotid gland as well as the left masseter muscle, extending to the left submandibular gland. There was no evidence of collection or osteomyelitis. She has multiple drug allergies which her family states make her red and flushed. She was started on vancomycin and Levaquin and is tolerating these well. She has been afebrile since admission to the hospital. She initially had a leukocytosis of 19,000 but this has increased to 21.6. No micro has been obtained. On my examination, the patient is lethargic. She is complaining of pain on the left side of her face. Her voice is muffled but she states she is having no difficulty with breathing. She does admit to painful swallowing and poor appetite. She denies any fevers or chills. She denies any chest pain, cough or shortness of breath. She has no nausea, vomiting, diarrhea or abdominal pain. All remaining review of systems are reviewed and are negative except for as noted above. MEDICAL HISTORY: Significant for Afib, COPD, type 2 diabetes, coronary artery disease and hypertension. SURGICAL HISTORY: Unknown. FAMILY HISTORY: Noncontributory. SOCIAL HISTORY: Significant for history of tobacco use. She denies any alcohol or drug use. She lives with her family. They are present during my examination. ALLERGIES: SHE HAS MULTIPLE ALLERGIES INCLUDING TRAMADOL, AMINO AZTREONAM, CARBAPENEMS, ANCEF, CEPHALOSPORINS, CLINDAMYCIN, IODINE, MACROLIDES AND PENICILLIN. CURRENT MEDICATIONS: Include vancomycin, Levaquin, Xarelto, Plavix, iron, Prozac, diltiazem, morphine, Zocor, eyedrops, insulin, Ambien, Tylenol, Ativan, milk of magnesia, Dulcolax, Benadryl, Maalox, Zofran. PHYSICAL EXAMINATION: VITAL SIGNS: She has been afebrile since admission, pulse 112, respiratory rate 20, blood pressure 167/83, oxygen saturation is 95% on 2 liters nasal cannula. GENERAL: She is awake, lethargic, she answers questions appropriately. HEENT: Mucous membranes are dry. HEART: Without murmur. LUNGS: Clear with poor inspiratory effort bilaterally. ABDOMEN: Soft, nontender, nondistended. EXTREMITIES: There is no edema. SKIN: Without rash. FACE: Examination of the left face does reveal significant hardening and swelling with erythema. It is difficult to move her neck secondary to pain. This does extend down into the clavicular area. There is no associated warmth. There is no opening. She is unable to open her mouth fully secondary to pain. LABORATORY STUDIES: CBC today reveals a white blood cell count of 21.6, hemoglobin 12.2, hematocrit 37.6, the platelets are 312. Chemistry panel reveals a sodium of 137, potassium 3.9, chloride 98, bicarbonate 28, BUN 17, creatinine 0.8, glucose is 173. Urinalysis is 5-10 WBCs with no bacteria. There is no culture to review. CAT scan of the face is as above. Chest x-ray is pending. ASSESSMENT AND PLAN: 1. Left facial cellulitis with parotitis. 2. Leukocytosis. At this time, she should be continued on broad spectrum antibiotics. Options will be limited secondary to multiple allergies. I did discuss this with her family at the bedside and also with her family by phone. They do not wish to add any additional antibiotics at this time. Blood cultures will be obtained. If she does not have any clinical improvement, ENT consult will be recommended. We will follow along with you. Thank you for this consultation. ELICIA
--- NOTE | 2016-09-09 12:59 | DIAGNOSTIC IMAGING REPORT ---
CHEST ONE VIEW PORTABLE CLINICAL HISTORY: pic position PICC line COMPARISON STUDY: Same date at 11:40 AM FINDINGS: PICC catheter has been pulled back slightly. It is now in the mid superior vena cava in good position. IMPRESSION: PICC catheter now in good position. No evidence pneumothorax. Electronically signed by: Dimitri Payne M.D. 09/09/2016 12:57 PM Dictated Date/Time: 09/09/2016 12:56 PM
[2016-09-09] MEDS ORDERED: SODIUM CHLORIDE 0.9% 1000ML 1,000 ML IV SCH (13:00)
[2016-09-09] MEDS: SODIUM CHLOR 0.45% + 20MEQ KCL 1,000 ML IV SCH (14:00)
[2016-09-09] MEDS: RIVAROXABAN TAB 15 MG TAB PO SCH (17:04)
[2016-09-09] MEDS: ALBUT/IPRATROP 3MG/0.5MG NEB 3 ML VIAL INH SCH (19:59)
[2016-09-09] MEDS: LEVOFLOXACIN / D5W 250 MG in PREMIXED IN D5W 50 ML IV SCH (20:04)
--- NOTE | 2016-09-09 20:39 | Progress Note ---
Subjective Date of Service: Sep 09, 2016. Subjective Pt evaluation today including: conversation w/ patient, conversation w/ family , physical exam, chart review, lab review, review of studies, review of inpatient medication list feels about the same - definitely not worse but probably not better, can sip at water. face hurts. nursing later notes cough with difficulty getting up sputum answered all questions and all of family questions to the best of my ability Problem List Medical Problems: (1) Abnormal EKG Status: Acute (2) Accidental drug ingestion Status: Acute (3) CHF (congestive heart failure) Status: Acute (4) Closed head injury Status: Acute (5) COPD exacerbation Status: Acute (6) Dysarthria Status: Acute (7) Facial cellulitis Status: Acute (8) Hypoxia Status: Acute (9) Leukocytosis Status: Acute (10) PNA (pneumonia) Status: Acute (11) Right leg weakness Status: Acute Review of Systems ros otherwise negative except for as above Objective Vital Signs Date Time Temp Pulse Resp B/P Pulse Ox O2 Delivery O2 Flow Rate FiO2 09/09/16 19:59 87 18 88 Nasal Cannula 2.0 09/09/16 17:11 96 Nasal Cannula 2.0 09/09/16 15:53 36.3 76 16 155/85 96 2.0 76 09/09/16 11:54 Nasal Cannula 2.0 09/09/16 07:06 36.5 112 20 167/83 95 Nasal Cannula 2.0 09/09/16 04:18 36.5 117 20 164/95 94 Nasal Cannula 2.0 09/09/16 00:10 36.4 119 18 170/89 92 Nasal Cannula 2.0 09/08/16 22:50 119 145/109 96 09/08/16 22:43 118 25 98 09/08/16 22:34 100 20 145/100 Nasal Cannula 2.0 09/08/16 22:31 145/109 09/08/16 22:13 111 24 95 09/08/16 21:58 149/86 09/08/16 21:43 101 24 94 09/08/16 21:28 149/87 09/08/16 21:13 107 0 97 09/08/16 20:58 150/120 09/08/16 20:43 119 28 Physical Exam General Appearance: + pertinent finding (sitting still in bed appearing in a degree of pain but no respiratory distress) Eyes: EOMI ENT: hearing grossly normal, + pertinent finding (L side of face diffusely swollen centered around mid cheek/jawline, exquisitely tender, dull erythema) Neck: trachea midline Respiratory/Chest: no respiratory distress, no accessory muscle use Extremities: normal range of motion 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, alert, normal mood/affect Skin: normal color, warm/dry Laboratory Results Last 24 Hours Test 09/08/16 21:05 09/08/16 23:20 09/09/16 06:33 09/09/16 07:36 Lactic Acid Level 1.2 mmol/L Urine Color DK YELLOW Urine Appearance CLEAR Urine pH 5.5 Urine Specific [place] 1.029 Urine Protein 2+ Urine Glucose (UA) NEG Urine Ketones 1+ Urine Occult Blood NEG Urine Nitrite NEG Urine Bilirubin NEG Urine Urobilinogen NEG Urine Leukocyte Esterase TRACE Urine WBC (Auto) 5-10 /hpf Urine RBC (Auto) 0-4 /hpf Urine Hyaline Casts (Auto) 5-10 /lpf Urine Epithelial Cells (Auto) >30 /lpf Urine Bacteria (Auto) NEG White Blood Count 21.63 K/uL Red Blood Count 3.90 M/uL Hemoglobin 12.2 g/dL Hematocrit 37.6 % Mean Corpuscular Volume 96.4 fL Mean Corpuscular Hemoglobin 31.3 pg Mean Corpuscular Hemoglobin Concent 32.4 g/dl Platelet Count 312 K/uL Mean Platelet Volume 10.4 fL Neutrophils (%) (Auto) 88.9 % Lymphocytes (%) (Auto) 2.7 % Monocytes (%) (Auto) 7.9 % Eosinophils (%) (Auto) 0.0 % Basophils (%) (Auto) 0.1 % Neutrophils # (Auto) 19.22 K/uL Lymphocytes # (Auto) 0.59 K/uL Monocytes # (Auto) 1.70 K/uL Eosinophils # (Auto) 0.01 K/uL Basophils # (Auto) 0.02 K/uL RDW Standard Deviation 53.4 fL RDW Coefficient of Variation 15.3 % Immature Granulocyte % (Auto) 0.4 % Immature Granulocyte # (Auto) 0.09 K/uL Prothrombin Time 13.2 SECONDS Prothromb Time International Ratio 1.2 Activated Partial Thromboplast Time 30.0 SECONDS Partial Thromboplastin Ratio 1.2 Sodium Level 137 mmol/L Potassium Level 3.9 mmol/L Chloride Level 98 mmol/L Carbon Dioxide Level 28 mmol/L Anion Gap 11.0 mmol/L Blood Urea Nitrogen 17 mg/dl Creatinine 0.89 mg/dl Est Creatinine Clear Calc Drug Dose 43.6 ml/min Estimated GFR () 70.9 Estimated GFR (Non- 61.2 BUN/Creatinine Ratio 19.3 Random Glucose 172 mg/dl Calcium Level 8.2 mg/dl Magnesium Level 1.5 mg/dl Bedside Glucose 173 mg/dl Test 09/09/16 11:34 09/09/16 20:00 Bedside Glucose 219 mg/dl 147 mg/dl Assessment and Plan Left facial cellulitis/left parotitis/left masseter muscle infection/left inframandibular infection and sepsis (WBC, HR) present on admission -vanco and levaquin given bacteria requiring coverage and her allergies; if doesn't improve then consider adding flagyl -continued follow up - currently no abscess, if area coalesces will need to rescan or have ENT eval, but anticipate resolution w abx -PO intake as possible -IVF support Atrial fibrillation/CAD/hypertension/TIA/CVA--continue clopidogrel 75 mg by mouth every morning, diltiazem extended release heart (increased to 180) mg by mouth daily, losartan 25 mg by mouth twice a day, Xarelto 15 mg by mouth daily. hold triamterene/HCTZ 37.5/25 daily until PO intake improves, but follow BP Diabetes mellitus--hold metformin 500 mg by mouth 3 times a day, and place on Accu-Cheks before meals and at bedtime with NovoLog coverage. sugars overall reasonable COPD--continue Symbicort 160/4.5 2 puffs twice a day, nebs prn, including for cough Depression--continue fluoxetine 10 mg by mouth every morning. Hypercholesterolemia--continue simvastatin 40 mg by mouth every afternoon. Glaucoma--continue Alphagan P ophthalmic solution 1 drop OPB twice a day, and timolol GFS 0.5% one drop OPB every 12 hours. hypomagnesemia - replete, recheck DVT proph - xarelto
[2016-09-09] MEDS ORDERED: VANCOMYCIN INJ 900 MG in SODIUM CHLORIDE 0.9% 250ML 250 ML IV SCH (21:00)
[2016-09-10] VITALS (8 sets, daily range): BP systolic 125–147; BP diastolic 68–80; PULSE 58–100; TEMP 36.5–36.9; O2SAT 91–98
[2016-09-10] MEDS: MoRPHine SULFATE 4 MG/ML 1 ML CARP\\VIAL IV PRN ×4 (04:40→23:45)
[2016-09-10] MEDS: SODIUM CHLOR 0.45% + 20MEQ KCL 1,000 ML IV SCH ×2 (05:45→16:09)
--- NOTE | 2016-09-10 07:04 | DIAGNOSTIC IMAGING REPORT ---
Study: Venous Doppler left leg CLINICAL HISTORY: LLE pain, r/o dv pain. Edema. TECHNIQUE: Ultrasound COMPARISON STUDY: None FINDINGS: Normal study IMPRESSION: Normal study Electronically signed by: Dimitri Payne M.D. 09/10/2016 7:02 AM Dictated Date/Time: 09/10/2016 7:01 AM
[2016-09-10] MEDS: ALBUT/IPRATROP 3MG/0.5MG NEB 3 ML VIAL INH SCH ×4 (07:36→20:25)
[2016-09-10 08:17] LABS: MEAN CELL VOLUME 96.3 fL (80-100); MEAN CORPUSCULAR HEMOGLOBIN 30.9 pg (25-34); MEAN CORPUSCULAR HGB CONC 32.1 g/dl (32-36); MEAN PLATELET VOLUME 9.8 fL (7.4-10.4); PLATELET COUNT 293 K/uL (130-400); RED BLOOD COUNT 3.53 M/uL (4.2-5.4); WHITE BLOOD COUNT 25.37 K/uL (4.8-10.8)
[2016-09-10] MEDS: TIMOLOL GFS 0.5% OPH SOLN 74 DROPS/5 ML BTL OPB SCH ×2 (08:18→20:10)
[2016-09-10] MEDS: FLUOXETINE HCL 10 MG CAP PO SCH (08:19)
[2016-09-10] MEDS: CLOPIDOGREL BISULFATE 75 MG TAB PO SCH (08:19)
[2016-09-10] MEDS: FERROUS GLUCONATE 324 MG TAB PO SCH (08:19)
[2016-09-10] MEDS: DILTIAZEM HCL (TIAzac) 180 MG CAPCR PO SCH (08:19)
[2016-09-10] MEDS: INSULIN ASPART 100 UNITS/ML 3 ML PEN SC SCH ×4 (08:23→20:19)
[2016-09-10 08:41] LABS: BASO ABS # 0.01 K/uL (0-0.2); COMPLETE YES; IG% 0.5 %; LYMPH % 2.5 %; LYMPH ABS # 0.63 K/uL (1.2-3.4); MONO % 7.4 %; NEUT % 89.6 %; POLYCHROMASIA 1+
[2016-09-10 08:57] LABS: BUN/CREATININE RATIO 18.5 (10-20); CALCIUM 8.3 mg/dl (8.5-10.1); CREATININE 0.86 mg/dl (0.60-1.20)
[2016-09-10 08:58] LABS: POTASSIUM 5.2 mmol/L (3.5-5.1)
--- NOTE | 2016-09-10 09:24 | Medical Student: [facility] ---
Med Student Progress Note Date of Service Sep 10, 2016. Subjective This is an 80 year old female with complicated pmh who has been admitted for severe left sided facial cellulitis/parotitis. Patient reports no change in pain , swelling, symptoms since admission. Is not having difficulty breathing, but continues to have limited swallowing ability and pain with swallowing/speaking. She also is having difficulty with 'phlegm stuck in throat' and cough that has not improved with duoneb. She remained afebrile overnight, and denies nausea/ vomiting/diarrhea, chills, chest pain. She does acknowledge her hearing on side of cellulitis is decreased. Review of Systems Constitutional: No chills, No fever, No sweats Eyes: No eye pain, No worsening of vision Cardiac: No chest pain Abdomen: No diarrhea, No nausea, No vomiting Female : No dysuria Heme: No abnormal bleeding/bruising Objective Vital Signs Date Time Temp Pulse Resp B/P Pulse Ox O2 Delivery O2 Flow Rate FiO2 09/10/16 07:54 36.5 80 19 147/78 93 Nasal Cannula 4.0 09/10/16 07:36 100 18 91 Nasal Cannula 4.0 09/10/16 07:10 36.6 98 18 144/80 97 Nasal Cannula 4.0 09/09/16 23:18 37.4 115 22 156/82 91 Nasal Cannula 2.0 09/09/16 23:15 Nasal Cannula 2.0 09/09/16 19:59 87 18 88 Nasal Cannula 2.0 09/09/16 17:11 96 Nasal Cannula 2.0 09/09/16 15:53 36.3 76 16 155/85 96 2.0 76 09/09/16 11:54 Nasal Cannula 2.0 Physical Exam General Appearance: WD/WN, + mild distress Eyes: bilateral eyes normal inspection ENT: + pertinent finding (decreased hearing left side ) Neck: + adenopathy present (cervical adenopathy b/l ) Respiratory/Chest: chest non-tender, no respiratory distress, no accessory muscle use, + wheezing, + pertinent finding (repetitive clearing of throat/ lungs ) Cardiovascular: regular rate, rhythm, no edema, no gallop, no JVD, no murmur Abdomen: normal bowel sounds Neurologic/Psychiatric: alert, normal mood/affect, oriented x 3 Skin: normal color, + pertinent finding (significant swelling, erythema of left side of face extending downwards to chest midline. ) Laboratory Results Last 24 Hours Test 09/09/16 11:34 09/09/16 16:39 09/09/16 20:00 09/10/16 07:47 Bedside Glucose 219 mg/dl 164 mg/dl 147 mg/dl 157 mg/dl Test 09/10/16 08:07 White Blood Count 25.37 K/uL Red Blood Count 3.53 M/uL Hemoglobin 10.9 g/dL Hematocrit 34.0 % Mean Corpuscular Volume 96.3 fL Mean Corpuscular Hemoglobin 30.9 pg Mean Corpuscular Hemoglobin Concent 32.1 g/dl Platelet Count 293 K/uL Mean Platelet Volume 9.8 fL Neutrophils (%) (Auto) 89.6 % Lymphocytes (%) (Auto) 2.5 % Monocytes (%) (Auto) 7.4 % Eosinophils (%) (Auto) 0.0 % Basophils (%) (Auto) 0.0 % Neutrophils # (Auto) 22.74 K/uL Lymphocytes # (Auto) 0.63 K/uL Monocytes # (Auto) 1.87 K/uL Eosinophils # (Auto) 0.00 K/uL Basophils # (Auto) 0.01 K/uL RDW Standard Deviation 53.3 fL RDW Coefficient of Variation 15.3 % Immature Granulocyte % (Auto) 0.5 % Immature Granulocyte # (Auto) 0.12 K/uL Polychromasia 1+ Sodium Level 132 mmol/L Potassium Level 5.2 mmol/L Chloride Level 99 mmol/L Carbon Dioxide Level 24 mmol/L Anion Gap 9.0 mmol/L Blood Urea Nitrogen 16 mg/dl Creatinine 0.86 mg/dl Est Creatinine Clear Calc Drug Dose 45.1 ml/min Estimated GFR () 73.9 Estimated GFR (Non- 63.8 BUN/Creatinine Ratio 18.5 Random Glucose 172 mg/dl Calcium Level 8.3 mg/dl Magnesium Level 2.0 mg/dl Assessment and Plan Assessment and Plan: This is an 80 y/o female with complicated pmh who is being treated for left sided facial cellulitis/parotitis. Left facial cellulitis/left parotitis -vancomycin IV per renal dosing -levofloxacin 500 mg IV daily -metronidazole 500 mg IV added to cover for anaerobes -Oral diet as tolerated, with supplemental liquid diet if indicated -monitor spread or resolution of cellulitis. Consider ENT consult if does not improve. Cough -can consider adding mucinex Atrial fibrillation/CVA -Xarelto 15 mg PO -continue clopidogrel 75 mg PO HTN -diltiazem extended release heart 20 mg PO -losartan 25 mg PO BID Diabetes mellitus- -hold metformin 500 mg PO TID - begin sliding scale NovoLog COPD -continue Symbicort 160/4.5 2 puffs twice a day -Xopenex PRN q2hrs . Depression -continue fluoxetine 10 mg PO every morning Hypercholesterolemia -continue simvastatin 40 mg PO Glaucoma -continue Alphagan P ophthalmic solution 1 drop OPB BID -timolol GFS 0.5% one drop OPB q12hrs Continued [facility] stay due to: abnormal vital signs, multiple IV medications needed
[2016-09-10] MEDS: METRONIDAZOLE / NSS 500 MG in PREMIXED NSS 100 ML IV SCH ×2 (10:11→18:01)
--- NOTE | 2016-09-10 12:54 | Progress Note ---
Subjective Date of Service: Sep 10, 2016. Subjective Pt evaluation today including: conversation w/ patient, physical exam, chart review, lab review pt eating lunch on my exam, much more awake today. no f/c overnight. 1/2 sets blood cultures from ER with gpc. Still with pain on left side of face, able to eat soft foods. Tolerating abx. Able to swallow. Overall states she is feeling somewhat better today. All remaining ros reviewed and are negative, except as noted. wbc continues to increase, 25 today . Problem List Medical Problems: (1) Abnormal EKG Status: Acute (2) Accidental drug ingestion Status: Acute (3) CHF (congestive heart failure) Status: Acute (4) Closed head injury Status: Acute (5) COPD exacerbation Status: Acute (6) Dysarthria Status: Acute (7) Facial cellulitis Status: Acute (8) Hypoxia Status: Acute (9) Leukocytosis Status: Acute (10) PNA (pneumonia) Status: Acute (11) Right leg weakness Status: Acute Objective Vital Signs Date Time Temp Pulse Resp B/P Pulse Ox O2 Delivery O2 Flow Rate FiO2 09/10/16 11:43 Nasal Cannula 4.0 09/10/16 11:41 82 18 91 Nasal Cannula 4.0 09/10/16 07:54 36.5 80 19 147/78 93 Nasal Cannula 4.0 09/10/16 07:36 100 18 91 Nasal Cannula 4.0 09/10/16 07:10 36.6 98 18 144/80 97 Nasal Cannula 4.0 09/09/16 23:18 37.4 115 22 156/82 91 Nasal Cannula 2.0 09/09/16 23:15 Nasal Cannula 2.0 09/09/16 19:59 87 18 88 Nasal Cannula 2.0 09/09/16 17:11 96 Nasal Cannula 2.0 09/09/16 15:53 36.3 76 16 155/85 96 2.0 76 Physical Exam General Appearance: WD/WN, no apparent distress Eyes: EOMI Neck: supple Respiratory/Chest: lungs clear, normal breath sounds, no respiratory distress Cardiovascular: regular rate, rhythm, no edema Abdomen: soft Extremities: non-tender, normal inspection, no pedal edema Neurologic/Psychiatric: alert, oriented x 3 Skin: normal color Comments: left face less erythema today, still with pain and tenderness around ear/ parotid area. tender to light touch, erythema more concentrated to this area today. Laboratory Results Item Value Date Time Blood Culture - Preliminary Resulted 09/09/16 1215 Blood Gram Positive Cocci Last 24 Hours Test 09/09/16 16:39 09/09/16 20:00 09/10/16 07:47 09/10/16 08:07 Bedside Glucose 164 mg/dl 147 mg/dl 157 mg/dl White Blood Count 25.37 K/uL Red Blood Count 3.53 M/uL Hemoglobin 10.9 g/dL Hematocrit 34.0 % Mean Corpuscular Volume 96.3 fL Mean Corpuscular Hemoglobin 30.9 pg Mean Corpuscular Hemoglobin Concent 32.1 g/dl Platelet Count 293 K/uL Mean Platelet Volume 9.8 fL Neutrophils (%) (Auto) 89.6 % Lymphocytes (%) (Auto) 2.5 % Monocytes (%) (Auto) 7.4 % Eosinophils (%) (Auto) 0.0 % Basophils (%) (Auto) 0.0 % Neutrophils # (Auto) 22.74 K/uL Lymphocytes # (Auto) 0.63 K/uL Monocytes # (Auto) 1.87 K/uL Eosinophils # (Auto) 0.00 K/uL Basophils # (Auto) 0.01 K/uL RDW Standard Deviation 53.3 fL RDW Coefficient of Variation 15.3 % Immature Granulocyte % (Auto) 0.5 % Immature Granulocyte # (Auto) 0.12 K/uL Polychromasia 1+ Sodium Level 132 mmol/L Potassium Level 5.2 mmol/L Chloride Level 99 mmol/L Carbon Dioxide Level 24 mmol/L Anion Gap 9.0 mmol/L Blood Urea Nitrogen 16 mg/dl Creatinine 0.86 mg/dl Est Creatinine Clear Calc Drug Dose 45.1 ml/min Estimated GFR () 73.9 Estimated GFR (Non- 63.8 BUN/Creatinine Ratio 18.5 Random Glucose 172 mg/dl Calcium Level 8.3 mg/dl Magnesium Level 2.0 mg/dl Test 09/10/16 11:27 Bedside Glucose 181 mg/dl Assessment and Plan (1) Facial cellulitis Status: Acute Assessment & Plan: continue current abx, flagyl added overnight. many allergies make options limited. infection seems to be more concentrated today, may be forming collection/abscess. If worsens or wbc continues to increase of broad spectrum abx would consider re-imaging/ ENT eval. (2) Positive blood culture Assessment & Plan: ? pathogen vs contaminant. will follow ID and sensitivity. right now in one set only. will repeat blood cultures today and continue to follow. Continue vanco. (3) Leukocytosis Assessment & Plan: worse today, concerning for development of collection. wbc worse but pt clinically improved. will follow. Continued [facility] stay due to: abnormal vital signs, multiple IV medications needed
[2016-09-10] MEDS: MoRPHine SULFATE 2 MG/ML CARP IV PRN (13:50)
[2016-09-10] MEDS: VANCOMYCIN INJ 900 MG in SODIUM CHLORIDE 0.9% 250ML 250 ML IV SCH (14:21)
--- NOTE | 2016-09-10 15:54 | DIAGNOSTIC IMAGING REPORT ---
CT soft tissue neck SOFT TISSUE NECK WITHOUT CLINICAL HISTORY: L parotitis, ?abscess formation infection TECHNIQUE: Transaxial acquisition. COMPARISON STUDY: 09/08/2016 FINDINGS: Diffuse left facial cellulitis. This is in general similar in distribution as compared to the prior study. There is extension to the inferior aspect of the soft tissue neck at the level of clavicle. This area was not scanned in the prior study with Dr. Comparison therefore not possible. Inflammatory process again is diffuse and involves the left parotid, masseter musculature, and most likely left submandibular gland. There is significant reactive cervical adenopathy. Overall, shows no major change compared to the prior study. There is no bony destructive process. Evaluation for abscess is compromised due to the absence of contrast enhancement. Phlegmon formation is not excluded. There is no major airway compromise. There is partial mass effect upon the left lateral aspect of the hypopharynx unchanged. IMPRESSION: 1. Compromised exam due to the absence of intravenous contrast enhancement. 2. Diffuse left facial cellulitis and/or inflammatory change involving the left salivary gland system, masseter musculature, with inferior extension to the supraclavicular region. 3. Within the limits of an unenhanced scan a major abscess is not seen, although phlegmon formation is not excluded, and may most likely be present.. 4. Overall regional extent appears to be similar to perhaps minimally progressive from the prior study. 5. Considerable reactive cervical adenopathy throughout the cervical chains bilaterally. Electronically signed by: Dimitri Payne M.D. 09/10/2016 3:53 PM Dictated Date/Time: 09/10/2016 3:46 PM
[2016-09-10] MEDS ORDERED: DEXAMETHASONE INJ 10 MG in SYRINGE 0 ML IV ONE (17:00)
[2016-09-10] MEDS: RIVAROXABAN TAB 15 MG TAB PO SCH (18:02)
--- NOTE | 2016-09-10 19:37 | Progress Note ---
Subjective Date of Service: Sep 10, 2016. Subjective Pt evaluation today including: conversation w/ patient, conversation w/ family , physical exam, chart review, lab review, review of studies, conversation w/ jury consultant, review of inpatient medication list feeling about the same or maybe a little worse - ongoing pain - not taking pain meds very often though - doesn't want to bother people family notes that she's appearing to have airway congestion and difficulty bringing up mucous no fevers WBC went up again notes she doesn't remember what IV contrast allergy is other than "it was a severe reaction" Problem List Medical Problems: (1) Abnormal EKG Status: Acute (2) Accidental drug ingestion Status: Acute (3) CHF (congestive heart failure) Status: Acute (4) Closed head injury Status: Acute (5) COPD exacerbation Status: Acute (6) Dysarthria Status: Acute (7) Facial cellulitis Status: Acute (8) Hypoxia Status: Acute (9) Leukocytosis Status: Acute (10) PNA (pneumonia) Status: Acute (11) Right leg weakness Status: Acute Review of Systems ENT: + see HPI, No trouble swallowing (pain with movement of mouth but doesn't have choking) Respiratory: + cough, + see HPI, + sputum, No shortness of breath ros otherwise negative except for as above Objective Vital Signs Date Time Temp Pulse Resp B/P Pulse Ox O2 Delivery O2 Flow Rate FiO2 09/10/16 14:31 58 18 98 Nasal Cannula 4.0 09/10/16 11:43 Nasal Cannula 4.0 09/10/16 11:41 82 18 91 Nasal Cannula 4.0 09/10/16 07:54 36.5 80 19 147/78 93 Nasal Cannula 4.0 09/10/16 07:36 100 18 91 Nasal Cannula 4.0 09/10/16 07:10 36.6 98 18 144/80 97 Nasal Cannula 4.0 09/09/16 23:18 37.4 115 22 156/82 91 Nasal Cannula 2.0 09/09/16 23:15 Nasal Cannula 2.0 09/09/16 19:59 87 18 88 Nasal Cannula 2.0 Physical Exam General Appearance: + pertinent finding (fatigued appearing, somewhat uncomfortable. no respiratory distress) Eyes: EOMI ENT: hearing grossly normal, + pertinent finding (L facial swelling ongoing - - probably slightly progressed and slightly more pronounced on side of face around area of parotid gland and down side of jawline. neck laterally also swollen and tender. full ROM. no stridor. areas of tenderness also warm. area of redness outlined progresses down chest, but area of tenderness only to side of neck) Respiratory/Chest: lungs clear, normal breath sounds, no respiratory distress, no accessory muscle use Cardiovascular: regular rate, rhythm (rate controlled) Extremities: normal range of motion Neurologic/Psychiatric: sql data architect II-XII nml as tested, alert, normal mood/affect Skin: normal color, warm/dry Laboratory Results Last 24 Hours Test 09/09/16 20:00 09/10/16 07:47 09/10/16 08:07 09/10/16 11:27 Bedside Glucose 147 mg/dl 157 mg/dl 181 mg/dl White Blood Count 25.37 K/uL Red Blood Count 3.53 M/uL Hemoglobin 10.9 g/dL Hematocrit 34.0 % Mean Corpuscular Volume 96.3 fL Mean Corpuscular Hemoglobin 30.9 pg Mean Corpuscular Hemoglobin Concent 32.1 g/dl Platelet Count 293 K/uL Mean Platelet Volume 9.8 fL Neutrophils (%) (Auto) 89.6 % Lymphocytes (%) (Auto) 2.5 % Monocytes (%) (Auto) 7.4 % Eosinophils (%) (Auto) 0.0 % Basophils (%) (Auto) 0.0 % Neutrophils # (Auto) 22.74 K/uL Lymphocytes # (Auto) 0.63 K/uL Monocytes # (Auto) 1.87 K/uL Eosinophils # (Auto) 0.00 K/uL Basophils # (Auto) 0.01 K/uL RDW Standard Deviation 53.3 fL RDW Coefficient of Variation 15.3 % Immature Granulocyte % (Auto) 0.5 % Immature Granulocyte # (Auto) 0.12 K/uL Polychromasia 1+ Sodium Level 132 mmol/L Potassium Level 5.2 mmol/L Chloride Level 99 mmol/L Carbon Dioxide Level 24 mmol/L Anion Gap 9.0 mmol/L Blood Urea Nitrogen 16 mg/dl Creatinine 0.86 mg/dl Est Creatinine Clear Calc Drug Dose 45.1 ml/min Estimated GFR () 73.9 Estimated GFR (Non- 63.8 BUN/Creatinine Ratio 18.5 Random Glucose 172 mg/dl Calcium Level 8.3 mg/dl Magnesium Level 2.0 mg/dl Test 09/10/16 16:11 09/10/16 19:17 Bedside Glucose 191 mg/dl Assessment and Plan Left facial cellulitis/left parotitis/left masseter muscle infection/left inframandibular infection and sepsis (WBC, HR) present on admission -vanco and levaquin given bacteria requiring coverage and her allergies -definitely not improved, possibly a little worse, and WBCs went up further -d/w ENT - guidance appreciated - repeat CT done and nothing appearing drainable - also strongly recommended moist heat 20mins/hr, and encouraging salivation -----> sucking a lemon q1hr while awake, as well as keeping HOB elevated. add decadron. otherwise he noted nothing he could offer that we weren't already doing; noted colleague available if needed in any way, but will cancel formal consult for now -?requiring better anaerobe coverage - w clinda allergy added flagyl early today -highly doubt vanco resistant gram positives -possible fluoroquinolone resistant gram negatives - if doesn't start to improve over next ~24hrs or if clear ongoing worsening, will have to consider alternate gram negative coverage in spite of allergies (?maybe involving transfer to facility w in- house allergy/immunology) cough/sputum/slightly worse hypoxia -nothing appearing worrisome on lung exam (clear) and not showing respiratory distress throughout multiple visits today - suspect it's mostly difficulty clearing mucous from upper airway and difficulty w deep breathing (ie likely some atelectasis) due to pain with mouth opening/pain in overall situation. continue to follow closely, but no evidence of other acute pulmonary process ( although, admittedly, abx for parotid, steroids, and nebs for baseline COPD constitute solid pulmonary coverage anyway) Atrial fibrillation/CAD/hypertension/TIA/CVA--continue clopidogrel 75 mg by mouth every morning, diltiazem extended release heart (increased to 180) mg by mouth daily, losartan 25 mg by mouth twice a day, Xarelto 15 mg by mouth daily. hold triamterene/HCTZ 37.5/25 daily until PO intake improves, but follow BP Diabetes mellitus--hold metformin 500 mg by mouth 3 times a day, and place on Accu-Cheks before meals and at bedtime with NovoLog coverage. sugars overall reasonable (likely will have to tighten coverage w steroids) COPD--continue Symbicort 160/4.5 2 puffs twice a day, nebs prn, including for cough Depression--continue fluoxetine 10 mg by mouth every morning. Hypercholesterolemia--continue simvastatin 40 mg by mouth every afternoon. Glaucoma--continue Alphagan P ophthalmic solution 1 drop OPB twice a day, and timolol GFS 0.5% one drop OPB every 12 hours. hypomagnesemia - repleted, now mildly hyperkalemic, recheck hyponatremia - f/u. likely either acute fluid shifting or relating to Na content in 1/2nss w acute weakened state making it easier for her to "equilibrate" to IVFs DVT proph - xarelto Continued [facility] stay due to: abnormal vital signs, multiple IV medications needed
[2016-09-10] MEDS: LEVOFLOXACIN / D5W 250 MG in PREMIXED IN D5W 50 ML IV SCH (20:01)
[2016-09-10] MEDS: SIMVASTATIN 40 MG TAB PO SCH (20:07)
[2016-09-10 21:40] LABS: BUN/CREATININE RATIO 18.4 (10-20); CALCIUM 7.7 mg/dl (8.5-10.1); POTASSIUM 5.4 mmol/L (3.5-5.1)
[2016-09-11] VITALS (8 sets, daily range): BP systolic 142–155; BP diastolic 68–93; PULSE 68–104; TEMP 36.9–37; O2SAT 96–100
[2016-09-11] MEDS: METRONIDAZOLE / NSS 500 MG in PREMIXED NSS 100 ML IV SCH ×3 (04:17→17:52)
[2016-09-11] MEDS: SODIUM CHLOR 0.45% + 20MEQ KCL 1,000 ML IV SCH (04:17)
[2016-09-11 06:43] LABS: HEMATOCRIT 31.7 % (37-47); MEAN CELL VOLUME 96.1 fL (80-100); MEAN CORPUSCULAR HEMOGLOBIN 30.6 pg (25-34); MEAN CORPUSCULAR HGB CONC 31.9 g/dl (32-36); MEAN PLATELET VOLUME 10.1 fL (7.4-10.4); PLATELET COUNT 332 K/uL (130-400); WHITE BLOOD COUNT 22.86 K/uL (4.8-10.8)
[2016-09-11 07:15] LABS: BUN/CREATININE RATIO 20.4 (10-20); CREATININE 1.1 mg/dl (0.60-1.20)
[2016-09-11 07:19] LABS: ACANTHOCYTES 1+; BASO ABS # 0.01 K/uL (0-0.2); COMPLETE YES; IG% 0.6 %; LYMPH % 2.6 %; LYMPH ABS # 0.59 K/uL (1.2-3.4); MONO % 1.8 %; VACUOLIZATION 1+
[2016-09-11] MEDS: ALBUT/IPRATROP 3MG/0.5MG NEB 3 ML VIAL INH SCH ×4 (07:35→19:34)
[2016-09-11] MEDS: MoRPHine SULFATE 2 MG/ML CARP IV PRN ×2 (08:13→11:52)
[2016-09-11] MEDS ORDERED: VANCOMYCIN TROUGH SCH ×2 (08:30→20:30)
[2016-09-11] MEDS: VANCOMYCIN INJ 900 MG in SODIUM CHLORIDE 0.9% 250ML 250 ML IV SCH (09:11)
[2016-09-11] MEDS: INSULIN ASPART 100 UNITS/ML 3 ML PEN SC SCH ×4 (09:14→21:14)
--- NOTE | 2016-09-11 09:22 | Progress Note ---
Subjective Date of Service: Sep 11, 2016. Subjective Pt evaluation today including: conversation w/ patient, physical exam, chart review, lab review pt resting comfortably, no pain. No fevers overnight. continues on broad spectrum abx. Initial blood cultures now with 2/2 sets growing S. aureus, final pending. repeat cultures done yesterday, pending. Had repeat ct neck done yesterday, no contrast (due to reported allergy to IV dye), unchanged, no bone involvement but could not rule out abscess due to lack of contrast. had a one time dose of IV steroids yesterday. warm compress continues. Wbc slightly improved today, 22.8. No surgical intervention indication at this time per ENT. Eating, pain controlled. remaining negative. Problem List Medical Problems: (1) Abnormal EKG Status: Acute (2) Accidental drug ingestion Status: Acute (3) CHF (congestive heart failure) Status: Acute (4) Closed head injury Status: Acute (5) COPD exacerbation Status: Acute (6) Dysarthria Status: Acute (7) Facial cellulitis Status: Acute (8) Hypoxia Status: Acute (9) Leukocytosis Status: Acute (10) PNA (pneumonia) Status: Acute (11) Right leg weakness Status: Acute Objective Vital Signs Date Time Temp Pulse Resp B/P Pulse Ox O2 Delivery O2 Flow Rate FiO2 09/11/16 07:14 37.0 87 16 155/68 100 Nasal Cannula 3.0 09/11/16 00:00 Room Air 09/10/16 23:10 36.9 59 18 125/68 97 09/10/16 20:25 80 18 95 Nasal Cannula 4.0 09/10/16 16:00 98 Nasal Cannula 4.0 09/10/16 14:31 58 18 98 Nasal Cannula 4.0 09/10/16 11:43 Nasal Cannula 4.0 09/10/16 11:41 82 18 91 Nasal Cannula 4.0 Physical Exam General Appearance: WD/WN, no apparent distress Eyes: EOMI Neck: supple Respiratory/Chest: lungs clear, normal breath sounds, no respiratory distress Cardiovascular: regular rate, rhythm, no edema Abdomen: soft Skin: normal color Comments: left side of face still with swelling and erythema, most pronounced at ear/ parotid gland, essentially unchanged from yesterday. Erythema previously extending to neck has resolved. Laboratory Results Item Value Date Time Blood Culture - Preliminary Resulted 09/09/16 1210 Blood Staphylococcus Aureus Blood Culture - Preliminary Resulted 09/09/16 1215 Blood Staphylococcus Aureus Last 24 Hours Test 09/10/16 11:27 09/10/16 16:11 09/10/16 20:05 09/10/16 20:58 Bedside Glucose 181 mg/dl 191 mg/dl 160 mg/dl Sodium Level 131 mmol/L Potassium Level 5.4 mmol/L Chloride Level 99 mmol/L Carbon Dioxide Level 25 mmol/L Anion Gap 7.0 mmol/L Blood Urea Nitrogen 18 mg/dl Creatinine 1.00 mg/dl Est Creatinine Clear Calc Drug Dose 38.8 ml/min Estimated GFR () 61.6 Estimated GFR (Non- 53.2 BUN/Creatinine Ratio 18.4 Random Glucose 166 mg/dl Calcium Level 7.7 mg/dl Test 09/11/16 06:33 09/11/16 07:32 09/11/16 08:40 White Blood Count 22.86 K/uL Red Blood Count 3.30 M/uL Hemoglobin 10.1 g/dL Hematocrit 31.7 % Mean Corpuscular Volume 96.1 fL Mean Corpuscular Hemoglobin 30.6 pg Mean Corpuscular Hemoglobin Concent 31.9 g/dl Platelet Count 332 K/uL Mean Platelet Volume 10.1 fL Neutrophils (%) (Auto) 95.0 % Lymphocytes (%) (Auto) 2.6 % Monocytes (%) (Auto) 1.8 % Eosinophils (%) (Auto) 0.0 % Basophils (%) (Auto) 0.0 % Neutrophils # (Auto) 21.70 K/uL Lymphocytes # (Auto) 0.59 K/uL Monocytes # (Auto) 0.42 K/uL Eosinophils # (Auto) 0.00 K/uL Basophils # (Auto) 0.01 K/uL RDW Standard Deviation 53.3 fL RDW Coefficient of Variation 15.1 % Immature Granulocyte % (Auto) 0.6 % Immature Granulocyte # (Auto) 0.14 K/uL Nucleated RBC Absolute Count (auto) 0.02 K/uL Nucleated Red Blood Cells % 0.1 % Toxic Vacuolation 1+ Acanthocytes 1+ Sodium Level 129 mmol/L Potassium Level 6.0 mmol/L Chloride Level 98 mmol/L Carbon Dioxide Level 26 mmol/L Anion Gap 5.0 mmol/L Blood Urea Nitrogen 22 mg/dl Creatinine 1.10 mg/dl Est Creatinine Clear Calc Drug Dose 35.2 ml/min Estimated GFR () 54.9 Estimated GFR (Non- 47.4 BUN/Creatinine Ratio 20.4 Random Glucose 232 mg/dl Calcium Level 8.0 mg/dl Bedside Glucose 237 mg/dl Assessment and Plan (1) Staphylococcus aureus septicemia Assessment & Plan: will continue vanco, follow sensitivities and repeat blood cultures. will need echo r/o veg. will need min 21 days IV abx, await echo findings, no evidence of osteo on 2 ct scans. final recs will depend on above (2) Facial cellulitis Status: Acute Assessment & Plan: continue current abx, suspect S.aureus as cause but will continue gnr for now. no significant change on repeat ct. continue with warm compress and pain control. (3) Leukocytosis Assessment & Plan: somewhat better today, continue to trend. Continued [facility] stay due to: abnormal vital signs, multiple IV medications needed
[2016-09-11] MEDS: CLOPIDOGREL BISULFATE 75 MG TAB PO SCH (10:06)
[2016-09-11] MEDS: FERROUS GLUCONATE 324 MG TAB PO SCH (10:06)
[2016-09-11] MEDS: FLUOXETINE HCL 10 MG CAP PO SCH (10:06)
[2016-09-11] MEDS: SODIUM CHLORIDE 0.9% 1000ML 1,000 ML IV SCH ×2 (10:06→21:15)
[2016-09-11] MEDS: DILTIAZEM HCL (TIAzac) 180 MG CAPCR PO SCH (10:06)
[2016-09-11] MEDS: TIMOLOL GFS 0.5% OPH SOLN 74 DROPS/5 ML BTL OPB SCH ×2 (10:07→21:06)
[2016-09-11 13:36] LABS: BUN/CREATININE RATIO 19.7 (10-20); CALCIUM 8.1 mg/dl (8.5-10.1); CREATININE 1.2 mg/dl (0.60-1.20); POTASSIUM 5.7 mmol/L (3.5-5.1)
--- NOTE | 2016-09-11 14:41 | Pharmacy Progress Note ---
Pharmacy Antibiotic Prog Note Date of Service: Sep 11, 2016. Subjective: The patient is currently receiving vancomycin 900 mg IV every 18 hours. The patient is currently on day # 4 of vancomycin IV therapy. Objective: Height (Feet): 5 Height (Inches): 4.00 Weight (Kilograms): 56.500 Levels: Item Value Date Time Vancomycin Level Trough 12.8 mcg/ml 09/11/16 0840 Previous dose hung 09/10 @1421. Lab Results (24hrs): Laboratory Tests Test 09/10/16 20:58 09/11/16 06:33 09/11/16 12:28 BUN/Creatinine Ratio 18.4 20.4 19.7 Blood Urea Nitrogen 18 mg/dl 22 mg/dl 24 mg/dl Creatinine 1.00 mg/dl 1.10 mg/dl 1.20 mg/dl White Blood Count 22.86 K/uL Red Blood Count 3.30 M/uL Hemoglobin 10.1 g/dL Hematocrit 31.7 % Mean Corpuscular Volume 96.1 fL Mean Corpuscular Hemoglobin 30.6 pg Mean Corpuscular Hemoglobin Concent 31.9 g/dl Platelet Count 332 K/uL Mean Platelet Volume 10.1 fL Neutrophils (%) (Auto) 95.0 % Lymphocytes (%) (Auto) 2.6 % Monocytes (%) (Auto) 1.8 % Eosinophils (%) (Auto) 0.0 % Basophils (%) (Auto) 0.0 % Neutrophils # (Auto) 21.70 K/uL Lymphocytes # (Auto) 0.59 K/uL Monocytes # (Auto) 0.42 K/uL Eosinophils # (Auto) 0.00 K/uL Basophils # (Auto) 0.01 K/uL Micro Results: 09/09 blood x2 Staph aureus in both, sens pending 09/10 blood x2 pending Recent Pertinent Medications: Item Value Date Time Vancomycin HCl 265 ml @ 125 mls/hr 09/11/16 2200 750 mg/Sodium Q12H/IV Chloride Vancomycin HCl 268 ml @ 125 mls/hr 09/10/16 1500 900 mg/Sodium Q18H/IV 09/11/16 0911 Chloride Metronidazole 500 100 ml @ 100 mls/hr 09/10/16 1000 mg/Prmx Q8@0200,1000,1800/IV 09/11/16 1156 Levofloxacin 250 50 ml @ 50 mls/hr 09/09/16 2000 mg/Prmx DAILY@2000/IV 09/10/162000 Assessment & Plan: This drug level is Subtherapeutic. Will shorten dosing interval with about the same daily dose. Change to vancomycin 750 mg IV every 12 hours. Goal trough level estimate: between 15-20 mcg/mL. Trough has been ordered for: 09/13/16 before 1000 dose. Pharmacy will continue to follow and will adjust dose/frequency as necessary. Thank you
[2016-09-11] MEDS: MoRPHine SULFATE 4 MG/ML 1 ML CARP\\VIAL IV PRN ×3 (16:24→23:42)
[2016-09-11] MEDS: DiphenhydrAMINE HCL 50 MG/ML VIAL IV PRN (17:51)
[2016-09-11] MEDS: DAPTOmycin IV 350 MG in SODIUM CHLORIDE 0.9% 50ML 50 ML IV SCH (17:51)
--- NOTE | 2016-09-11 17:51 | Progress Note ---
Subjective Date of Service: Sep 11, 2016. Subjective Pt evaluation today including: conversation w/ patient, physical exam, chart review, lab review, review of inpatient medication list a little more confused today. doesn't reliably answer questions but loosely relates that she's feeling about the same, no new pain, thinks it's about the same not better not worse. ros otherwise negative except for as above revisited when family present - updated and answered all questions to the best of my ability other family came later in the day and requested updated - re-revisted and re- updated family to the best of my ability Problem List Medical Problems: (1) Abnormal EKG Status: Acute (2) Accidental drug ingestion Status: Acute (3) CHF (congestive heart failure) Status: Acute (4) Closed head injury Status: Acute (5) COPD exacerbation Status: Acute (6) Dysarthria Status: Acute (7) Facial cellulitis Status: Acute (8) Hypoxia Status: Acute (9) Leukocytosis Status: Acute (10) PNA (pneumonia) Status: Acute (11) Right leg weakness Status: Acute Review of Systems somewhat limited, but HPI and ROS essentially negative except for as above as best can be ascertained Objective Vital Signs Date Time Temp Pulse Resp B/P Pulse Ox O2 Delivery O2 Flow Rate FiO2 09/11/16 15:34 37.0 81 22 142/72 98 Nasal Cannula 2.0 09/11/16 15:15 70 18 96 Nasal Cannula 4.0 09/11/16 11:24 69 18 97 Nasal Cannula 4.0 09/11/16 10:49 Nasal Cannula 3.0 09/11/16 10:43 Nasal Cannula 3.0 09/11/16 07:35 69 18 97 Nasal Cannula 4.0 09/11/16 07:14 37.0 87 16 155/68 100 Nasal Cannula 3.0 09/11/16 00:00 Room Air 09/10/16 23:10 36.9 59 18 125/68 97 09/10/16 20:25 80 18 95 Nasal Cannula 4.0 Physical Exam General Appearance: + pertinent finding (fatigued appearing, somewhat confused) Eyes: EOMI ENT: hearing grossly normal, + pertinent finding (L face and neck still quite swollen - less hot, less tender (still very tender but can push ~3x harder than yesterday before eliciting pain)) Neck: trachea midline Respiratory/Chest: lungs clear, normal breath sounds, no respiratory distress, no accessory muscle use Cardiovascular: regular rate, rhythm Extremities: normal range of motion Neurologic/Psychiatric: video specialist II-XII nml as tested, alert, normal mood/affect Skin: normal color, warm/dry Laboratory Results Last 24 Hours Test 09/10/16 20:05 09/10/16 20:58 09/11/16 06:33 09/11/16 07:32 Bedside Glucose 160 mg/dl 237 mg/dl Sodium Level 131 mmol/L 129 mmol/L Potassium Level 5.4 mmol/L 6.0 mmol/L Chloride Level 99 mmol/L 98 mmol/L Carbon Dioxide Level 25 mmol/L 26 mmol/L Anion Gap 7.0 mmol/L 5.0 mmol/L Blood Urea Nitrogen 18 mg/dl 22 mg/dl Creatinine 1.00 mg/dl 1.10 mg/dl Est Creatinine Clear Calc Drug Dose 38.8 ml/min 35.2 ml/min Estimated GFR () 61.6 54.9 Estimated GFR (Non- 53.2 47.4 BUN/Creatinine Ratio 18.4 20.4 Random Glucose 166 mg/dl 232 mg/dl Calcium Level 7.7 mg/dl 8.0 mg/dl White Blood Count 22.86 K/uL Red Blood Count 3.30 M/uL Hemoglobin 10.1 g/dL Hematocrit 31.7 % Mean Corpuscular Volume 96.1 fL Mean Corpuscular Hemoglobin 30.6 pg Mean Corpuscular Hemoglobin Concent 31.9 g/dl Platelet Count 332 K/uL Mean Platelet Volume 10.1 fL Neutrophils (%) (Auto) 95.0 % Lymphocytes (%) (Auto) 2.6 % Monocytes (%) (Auto) 1.8 % Eosinophils (%) (Auto) 0.0 % Basophils (%) (Auto) 0.0 % Neutrophils # (Auto) 21.70 K/uL Lymphocytes # (Auto) 0.59 K/uL Monocytes # (Auto) 0.42 K/uL Eosinophils # (Auto) 0.00 K/uL Basophils # (Auto) 0.01 K/uL RDW Standard Deviation 53.3 fL RDW Coefficient of Variation 15.1 % Immature Granulocyte % (Auto) 0.6 % Immature Granulocyte # (Auto) 0.14 K/uL Nucleated RBC Absolute Count (auto) 0.02 K/uL Nucleated Red Blood Cells % 0.1 % Toxic Vacuolation 1+ Acanthocytes 1+ Test 09/11/16 08:40 09/11/16 12:28 Vancomycin Level Trough 12.8 mcg/ml Sodium Level 129 mmol/L Potassium Level 5.7 mmol/L Chloride Level 97 mmol/L Carbon Dioxide Level 22 mmol/L Anion Gap 10.0 mmol/L Blood Urea Nitrogen 24 mg/dl Creatinine 1.20 mg/dl Est Creatinine Clear Calc Drug Dose 32.3 ml/min Estimated GFR () 49.4 Estimated GFR (Non- 42.7 BUN/Creatinine Ratio 19.7 Random Glucose 255 mg/dl Calcium Level 8.1 mg/dl Assessment and Plan Left facial cellulitis/left parotitis/left masseter muscle infection/left inframandibular infection and sepsis (WBC, HR) present on admission -vanco, levaquin, and flagyl given bacteria requiring coverage and her allergies -appears slightly better, although certainly not markedly so. -see 09/10 note - d/w ENT extensively and multiple times - and repeat CT without collections then -will be changing abx to dapto for bacteremia - otherwise continue current care -due to DM will hold off on empiric further dosing of steroids, but will take day to day -lemon q1hr while awake -moist heat 20mins/hr staph bacteremia -persistent - d/w ID and will change to dapto given blood cultures positive even after being on vanco -repeat blood cultures sent again today PRIOR to starting dapto -echo to r/o vegetations. given persistent bacteremia despite vanco, will have low threshold for SADIE if TTE negative cough/sputum/slightly worse hypoxia -nothing appearing worrisome on lung exam (clear) and not showing respiratory distress throughout multiple visits today - suspect it's mostly difficulty clearing mucous from upper airway and difficulty w deep breathing (ie likely some atelectasis) - continue to follow metabolic encephalopathy / delirium -due to pain, meds, poor sleep, hospital environment -d/w family extensively -appears waxing/waning rather than dense delirium at this time hyponatremia -follow - ?related to sodium-hypotonicity in maintenance fluids - change to NSS , follow hyperkalemia -improving, stopped maintenance fluids w K. continue to follow Atrial fibrillation/CAD/hypertension/TIA/CVA--continue clopidogrel 75 mg by mouth every morning, diltiazem extended release heart (increased to 180) mg by mouth daily, losartan 25 mg by mouth twice a day, Xarelto 15 mg by mouth daily. hold triamterene/HCTZ 37.5/25 daily until PO intake improves, but follow BP Diabetes mellitus--hold metformin 500, sugars up somewhat (probably part from illness, part from steroids, part from not being on regular meds) - lantus 5 units HS in addition to novolog coverage COPD--continue Symbicort 160/4.5 2 puffs twice a day, nebs prn, including for cough Depression--continue fluoxetine 10 mg by mouth every morning. Hypercholesterolemia--continue simvastatin 40 mg by mouth every afternoon. Glaucoma--continue Alphagan P ophthalmic solution 1 drop OPB twice a day, and timolol GFS 0.5% one drop OPB every 12 hours. hypomagnesemia - repleted, now mildly hyperkalemic, recheck hyponatremia - f/u. likely either acute fluid shifting or relating to Na content in 1/2nss w acute weakened state making it easier for her to "equilibrate" to IVFs DVT proph - xarelto Continued [facility] stay due to: abnormal vital signs, multiple IV medications needed
[2016-09-11] MEDS: RIVAROXABAN TAB 15 MG TAB PO SCH (17:52)
[2016-09-11 19:17] LABS: CALCIUM 8.2 mg/dl (8.5-10.1); CREATININE 1.2 mg/dl (0.60-1.20); POTASSIUM 5.3 mmol/L (3.5-5.1)
[2016-09-11] MEDS ORDERED: INSULIN GLARGINE SOLOSTAR 100 UNITS/ML 3 ML PEN SC SCH (21:00)
[2016-09-11] MEDS: LEVOFLOXACIN / D5W 250 MG in PREMIXED IN D5W 50 ML IV SCH (21:05)
[2016-09-11] MEDS: SIMVASTATIN 40 MG TAB PO SCH (21:06)
[2016-09-11] MEDS ORDERED: VANCOMYCIN INJ 750 MG in SODIUM CHLORIDE 0.9% 250ML 250 ML IV SCH (22:00)
[2016-09-12] VITALS (18 sets, daily range): BP systolic 112–170; BP diastolic 83–124; PULSE 77–152; TEMP 36.3–36.9; O2SAT 94–98
[2016-09-12] MEDS: METRONIDAZOLE / NSS 500 MG in PREMIXED NSS 100 ML IV SCH ×3 (01:58→19:19)
[2016-09-12] MEDS: MoRPHine SULFATE 4 MG/ML 1 ML CARP\\VIAL IV PRN ×3 (03:16→12:27)
[2016-09-12] MEDS: ALBUT/IPRATROP 3MG/0.5MG NEB 3 ML VIAL INH SCH ×4 (07:27→19:16)
[2016-09-12] MEDS: CLOPIDOGREL BISULFATE 75 MG TAB PO SCH (08:21)
[2016-09-12] MEDS: FERROUS GLUCONATE 324 MG TAB PO SCH (08:21)
[2016-09-12] MEDS: TIMOLOL GFS 0.5% OPH SOLN 74 DROPS/5 ML BTL OPB SCH ×2 (08:21→21:17)
[2016-09-12] MEDS: FLUOXETINE HCL 10 MG CAP PO SCH (08:22)
[2016-09-12] MEDS: DILTIAZEM HCL (TIAzac) 180 MG CAPCR PO SCH (08:22)
[2016-09-12] MEDS: INSULIN ASPART 100 UNITS/ML 3 ML PEN SC SCH ×4 (08:29→20:34)
[2016-09-12] MEDS ORDERED: DILTIAZEM BOLUS / DRIP IV STA (10:05)
[2016-09-12 10:22] LABS: HEMATOCRIT 32.1 % (37-47); MEAN CELL VOLUME 94.4 fL (80-100); MEAN CORPUSCULAR HEMOGLOBIN 31.2 pg (25-34); MEAN PLATELET VOLUME 9.9 fL (7.4-10.4); PLATELET COUNT 374 K/uL (130-400); WHITE BLOOD COUNT 27.09 K/uL (4.8-10.8)
[2016-09-12 10:49] LABS: ACANTHOCYTES 1+; BASO ABS # 0.01 K/uL (0-0.2); COMPLETE YES; LYMPH % 2.1 %; LYMPH ABS # 0.58 K/uL (1.2-3.4); NEUT % 90.9 %
[2016-09-12 10:59] LABS: BUN/CREATININE RATIO 19.1 (10-20); CALCIUM 8.1 mg/dl (8.5-10.1); CREATININE 1.1 mg/dl (0.60-1.20); POTASSIUM 4.9 mmol/L (3.5-5.1)
[2016-09-12] MEDS ORDERED: DILTIAZEM HCL 5 MG/ML 5 ML VIAL IV SCH (11:20)
[2016-09-12] MEDS: DILTIAZEM HCL INJ 125 MG in DEXTROSE 5% 100ML IV PRN ×4 (11:32→22:28)
[2016-09-12] MEDS: SODIUM CHLORIDE 0.9% 1000ML 1,000 ML IV SCH (12:23)
[2016-09-12] MEDS: MoRPHine SULFATE 2 MG/ML CARP IV PRN ×2 (15:51→18:34)
[2016-09-12] MEDS: DAPTOmycin IV 350 MG in SODIUM CHLORIDE 0.9% 50ML 50 ML IV SCH (15:54)
[2016-09-12] MEDS: RIVAROXABAN TAB 15 MG TAB PO SCH (16:31)
[2016-09-12] MEDS: BOOST GLUCOSE CONTROL PO SCH (17:07)
[2016-09-12] MEDS ORDERED: PHARMACY GLYCEMIC MGMT CONSULT SCH (17:14)
[2016-09-12] MEDS ORDERED: DEXAMETHASONE INJ 10 MG in SYRINGE 0 ML IV ONE (17:30)
--- NOTE | 2016-09-12 17:33 | Progress Note ---
Subjective Date of Service: Sep 12, 2016. Subjective Pt evaluation today including: conversation w/ patient, conversation w/ family , physical exam, chart review, lab review, review of inpatient medication list more confused today. still awake and talks some, but not really able to give meaningful HPI or ROS family present - updated extensively afib -- RVR. has hx of afib Problem List Medical Problems: (1) Abnormal EKG Status: Acute (2) Accidental drug ingestion Status: Acute (3) CHF (congestive heart failure) Status: Acute (4) Closed head injury Status: Acute (5) COPD exacerbation Status: Acute (6) Dysarthria Status: Acute (7) Facial cellulitis Status: Acute (8) Hypoxia Status: Acute (9) Leukocytosis Status: Acute (10) PNA (pneumonia) Status: Acute (11) Right leg weakness Status: Acute Review of Systems see above, HPI and ROS difficult to ascertain, negative except for as above Objective Vital Signs Date Time Temp Pulse Resp B/P Pulse Ox O2 Delivery O2 Flow Rate FiO2 09/12/16 17:04 94 Nasal Cannula 2.0 09/12/16 16:57 36.9 100 16 138/85 95 Nasal Cannula 2.0 100 09/12/16 15:54 113 16 94 Nasal Cannula 2.0 09/12/16 12:00 36.9 123 20 146/111 97 Nasal Cannula 2.0 09/12/16 11:17 36.9 114 20 142/92 97 Nasal Cannula 2.0 09/12/16 10:50 36.4 152 23 97 3.0 09/12/16 10:08 142 165/124 152 09/12/16 09:15 97 Nasal Cannula 3.0 09/12/16 08:00 Nasal Cannula 3.0 09/12/16 08:00 36.4 130 23 170/96 97 Nasal Cannula 3.0 115 09/12/16 07:27 77 18 96 Nasal Cannula 2.0 09/12/16 04:00 Nasal Cannula 3.0 09/12/16 00:00 Nasal Cannula 3.0 09/12/16 00:00 79 169/88 09/11/16 23:29 36.9 104 20 151/93 97 Nasal Cannula 2.0 09/11/16 19:34 68 18 96 Nasal Cannula 2.0 Physical Exam General Appearance: + pertinent finding (somewhat sedate, but opens eyes, no distress) Eyes: EOMI ENT: hearing grossly normal, + pertinent finding (L cheek swelling similar maybe slightly smaller than yesterday, able to push harder, maybe softer) Neck: trachea midline Respiratory/Chest: lungs clear, normal breath sounds, no respiratory distress, no accessory muscle use Cardiovascular: + tachycardia, + irregularly irregular Extremities: normal range of motion 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, alert Skin: normal color, warm/dry Laboratory Results Last 24 Hours Test 09/11/16 18:19 09/11/16 20:07 09/12/16 10:04 09/12/16 16:01 Sodium Level 129 mmol/L 137 mmol/L Potassium Level 5.3 mmol/L 4.9 mmol/L Chloride Level 97 mmol/L 102 mmol/L Carbon Dioxide Level 22 mmol/L 25 mmol/L Anion Gap 10.0 mmol/L 10.0 mmol/L Blood Urea Nitrogen 24 mg/dl 21 mg/dl Creatinine 1.20 mg/dl 1.10 mg/dl Est Creatinine Clear Calc Drug Dose 32.3 ml/min 35.2 ml/min Estimated GFR () 49.4 54.9 Estimated GFR (Non- 42.7 47.4 BUN/Creatinine Ratio 20.0 19.1 Random Glucose 295 mg/dl 237 mg/dl Calcium Level 8.2 mg/dl 8.1 mg/dl Bedside Glucose 294 mg/dl 200 mg/dl White Blood Count 27.09 K/uL Red Blood Count 3.40 M/uL Hemoglobin 10.6 g/dL Hematocrit 32.1 % Mean Corpuscular Volume 94.4 fL Mean Corpuscular Hemoglobin 31.2 pg Mean Corpuscular Hemoglobin Concent 33.0 g/dl Platelet Count 374 K/uL Mean Platelet Volume 9.9 fL Neutrophils (%) (Auto) 90.9 % Lymphocytes (%) (Auto) 2.1 % Monocytes (%) (Auto) 6.0 % Eosinophils (%) (Auto) 0.0 % Basophils (%) (Auto) 0.0 % Neutrophils # (Auto) 24.61 K/uL Lymphocytes # (Auto) 0.58 K/uL Monocytes # (Auto) 1.63 K/uL Eosinophils # (Auto) 0.00 K/uL Basophils # (Auto) 0.01 K/uL RDW Standard Deviation 51.9 fL RDW Coefficient of Variation 15.2 % Immature Granulocyte % (Auto) 1.0 % Immature Granulocyte # (Auto) 0.26 K/uL Nucleated RBC Absolute Count (auto) 0.07 K/uL Nucleated Red Blood Cells % 0.3 % Acanthocytes 1+ Assessment and Plan Left facial cellulitis/left parotitis/left masseter muscle infection/left inframandibular infection and sepsis (WBC, HR) present on admission -dapto, levaquin, and flagyl given bacteria requiring coverage and her allergies -appears slightly better, although certainly not markedly so. -see 09/10 note - d/w ENT extensively and multiple times - and repeat CT without collections then, may need repeat CT -bacteremia - dapto - follow third cultures, await echo, ongoing ID input -lemon q1hr while awake -moist heat 20mins/hr staph bacteremia -persistent - d/w ID and changed to dapto given blood cultures positive even after being on vanco -repeat blood cultures sent 09/11 prior to starting dapto- thus far negative -echo to r/o vegetations. given persistent bacteremia despite vanco, will have low threshold for SADIE if TTE negative afib/RVR -telemetry for IV diltiazem given overall situation - to be able to titrate to tighter overall control -on xarelto rate control cough/sputum/slightly worse hypoxia -nothing appearing worrisome on lung exam (clear) and not showing respiratory distress throughout multiple visits today - suspect it's mostly difficulty clearing mucous from upper airway and difficulty w deep breathing (ie likely some atelectasis) - continue to follow metabolic encephalopathy / delirium -due to pain, meds, poor sleep, hospital environment -d/w family extensively -appears waxing/waning rather than dense delirium at this time hyponatremia -improved hyperkalemia -improved worsening leukocytosis -?clinically infection appears stable to slightly improved - ?steroid effect CAD/hypertension/TIA/CVA--continue clopidogrel 75 mg by mouth every morning, diltiazem extended release heart (increased to 180) mg by mouth daily, losartan 25 mg by mouth twice a day, Xarelto 15 mg by mouth daily. hold triamterene/ HCTZ 37.5/25 daily until PO intake improves, but follow BP Diabetes mellitus--hold metformin 500, sugars up somewhat (probably part from illness, part from steroids, part from not being on regular meds) - pharmacy glycemic consult given need for ongoing steroids COPD--continue Symbicort 160/4.5 2 puffs twice a day, nebs prn, including for cough Depression--continue fluoxetine 10 mg by mouth every morning. Hypercholesterolemia--continue simvastatin 40 mg by mouth every afternoon. Glaucoma--continue Alphagan P ophthalmic solution 1 drop OPB twice a day, and timolol GFS 0.5% one drop OPB every 12 hours. hypomagnesemia - repleted, recheck since afib now DVT proph - xarelto Continued [facility] stay due to: abnormal vital signs, multiple IV medications needed
--- NOTE | 2016-09-12 20:20 | Pharmacy Progress Note ---
Glycemic Control Intl Consult Date of Service Sep 12, 2016. Scope Glycemic Pharmacist consulted by Dr Vanegas on 09/12/16 for glycemic control and to write orders per [facility] inpatient glycemic control protocol Objective Weight (Kilograms): 56.500 Accuchecks BSG (last 24hrs): Test 09/12/16 10:04 09/12/16 16:01 Random Glucose 237 mg/dl (70-99) Bedside Glucose 200 mg/dl (70-90) Laboratory Data (last 24hrs) Test 09/12/16 10:04 Anion Gap 10.0 mmol/L BUN/Creatinine Ratio 19.1 Blood Urea Nitrogen 21 mg/dl Creatinine 1.10 mg/dl Potassium Level 4.9 mmol/L Sodium Level 137 mmol/L White Blood Count 27.09 K/uL Red Blood Count 3.40 M/uL Hemoglobin 10.6 g/dL Hematocrit 32.1 % Mean Corpuscular Volume 94.4 fL Mean Corpuscular Hemoglobin 31.2 pg Mean Corpuscular Hemoglobin Concent 33.0 g/dl Platelet Count 374 K/uL Mean Platelet Volume 9.9 fL Neutrophils (%) (Auto) 90.9 % Lymphocytes (%) (Auto) 2.1 % Monocytes (%) (Auto) 6.0 % Eosinophils (%) (Auto) 0.0 % Basophils (%) (Auto) 0.0 % Neutrophils # (Auto) 24.61 K/uL Lymphocytes # (Auto) 0.58 K/uL Monocytes # (Auto) 1.63 K/uL Eosinophils # (Auto) 0.00 K/uL Basophils # (Auto) 0.01 K/uL Recent Pertinent Medications Outpatient Anti-diabetic Regimen: * Metformin 500mg PO TID * A1c = 9.1 % 08/22/16 The patient is currently receiving: * Basal insulin: Lantus 5 units SQ HS * Correctional Insulin: Novolog Correction per scale ACHS Goal Range: Low 100 mg/dL - High 150 mg/dL Correction Factor: 30 mg/dL/unit * Prandial insulin: Per carb ratio of 1 unit per 10 grams CHO consumed Risk Factors for Insulin Resistance: * Steroids: Dexamethasone 10mg IV x1 dose on 09/10 and one dose today at 1700 * Infection: Left facial cellulitis, staph bacteremia, septic on admission, IV Levaquin, Flagyl, Daptomycin * IVF:Antibiotics mixed in dextrose * Diet: Full liquid Assessment & Plan ASSESSMENT: * 80 yo type 2 diabetic admitted with cellulitis and staph bacteremia, sepsis, receiving some IV dexamethasone doses, resulting in hyperglycemia. * BSGs remaining in 200s, despite adding Lantus last night, I will increase patient's Lantus and tighten CF and CR. * I will also add accuchecks overnight since we just received glycemic consult after patient had received 3 of her 4 insulin doses for the day. * ADA & AACE recommend a goal blood sugar range 140-180 mg/dl for the majority of critically ill & non-critically ill patients. However, more stringent targets may be selected in individual cases. PLAN FOR INPATIENT GLYCEMIC CONTROL: * Holding outpatient oral diabetes medications * INCREASE: Basal insulin with LANTUS 10 units SQ HS * Correctional Insulin with NOVOLOG per scale ACHS or Q6hrs while NPO and at 00: 00 and 04:00 overnight * Goal Range: Low 140 mg/dL - High 180 mg/dL * TIGHTEN: Correction Factor: 20 mg/dL/unit * TIGHTEN: Nutritional / Prandial insulin per carb ratio of 1 unit per 7 grams CHO consumed * Please note that the plan above was derived based on current level of insulin resistance and hospital stress. These recommendations are appropriate for inpatient admission only. Plan of care upon discharge will need to be reassessed to avoid potential outpatient hypo/hyperglycemia. Thank you.
[2016-09-12] MEDS ORDERED: INFLUENZA VIRUS QUAD VACCINE 0.5 ML SYR IM. ONE (20:30)
[2016-09-12] MEDS ORDERED: INFLUENZA ADMINISTRATION CHARGE ONE (20:30)
[2016-09-12] MEDS ORDERED: INSULIN GLARGINE SOLOSTAR 100 UNITS/ML 3 ML PEN SC SCH (21:00)
[2016-09-12] MEDS: SIMVASTATIN 40 MG TAB PO SCH (21:16)
[2016-09-12] MEDS: LEVOFLOXACIN / D5W 250 MG in PREMIXED IN D5W 50 ML IV SCH (21:16)
[2016-09-13] VITALS (11 sets, daily range): BP systolic 86–137; BP diastolic 57–90; PULSE 62–110; TEMP 36.3–36.8; O2SAT 93–97
[2016-09-13] MEDS: LORAZEPAM 2 MG/ML 1 ML VIAL IV PRN ×2 (01:10→07:52)
[2016-09-13] MEDS: SODIUM CHLORIDE 0.9% 1000ML 1,000 ML IV SCH ×2 (01:22→15:13)
[2016-09-13] MEDS ORDERED: INSULIN ASPART 100 UNITS/ML 3 ML PEN SC SCH ×2 (02:00)
[2016-09-13] MEDS: METRONIDAZOLE / NSS 500 MG in PREMIXED NSS 100 ML IV SCH ×3 (02:18→18:03)
[2016-09-13] MEDS ORDERED: NURSING VERBAL MED ORDER ONE (03:15)
[2016-09-13] MEDS: DILTIAZEM HCL INJ 125 MG in DEXTROSE 5% 100ML IV PRN (03:30)
[2016-09-13] MEDS ORDERED: VANCOMYCIN CONSULT ACTIVE PRN (03:45)
[2016-09-13] MEDS ORDERED: VANCOMYCIN INJ 1,400 MG in SODIUM CHLORIDE 0.9% 500ML 500 ML IV SCH (04:00)
[2016-09-13 05:52] LABS: HEMATOCRIT 30.1 % (37-47); MEAN CELL VOLUME 92.9 fL (80-100); MEAN CORPUSCULAR HEMOGLOBIN 30.6 pg (25-34); MEAN CORPUSCULAR HGB CONC 32.9 g/dl (32-36); MEAN PLATELET VOLUME 9.3 fL (7.4-10.4); PLATELET COUNT 343 K/uL (130-400); RED BLOOD COUNT 3.24 M/uL (4.2-5.4); WHITE BLOOD COUNT 24.12 K/uL (4.8-10.8)
[2016-09-13 06:16] LABS: BASO % 0.1 %; BASO ABS # 0.03 K/uL (0-0.2); COMPLETE YES; ECHINOCYTES 2+; IG% 1.5 %; LYMPH % 2.8 %; LYMPH ABS # 0.68 K/uL (1.2-3.4); MONO % 3.7 %; NEUT % 91.9 %; OVALOCYTES 1+
[2016-09-13 06:48] LABS: BUN/CREATININE RATIO 25.6 (10-20); CALCIUM 7.9 mg/dl (8.5-10.1); CREATININE 0.91 mg/dl (0.60-1.20); POTASSIUM 4.5 mmol/L (3.5-5.1)
[2016-09-13] MEDS: ALBUT/IPRATROP 3MG/0.5MG NEB 3 ML VIAL INH SCH ×4 (07:04→19:33)
[2016-09-13] MEDS: BOOST GLUCOSE CONTROL PO SCH ×3 (07:30→15:12)
[2016-09-13] MEDS: TIMOLOL GFS 0.5% OPH SOLN 74 DROPS/5 ML BTL OPB SCH ×2 (07:42→20:37)
[2016-09-13] MEDS: FLUOXETINE HCL 10 MG CAP PO SCH (07:43)
[2016-09-13] MEDS: CLOPIDOGREL BISULFATE 75 MG TAB PO SCH (07:43)
[2016-09-13] MEDS: FERROUS GLUCONATE 324 MG TAB PO SCH (07:43)
[2016-09-13] MEDS: INSULIN ASPART 100 UNITS/ML 3 ML PEN SC SCH ×4 (07:55→21:00)
[2016-09-13] MEDS ORDERED: DILTIAZEM HCL 60 MG TAB PO ONE (09:30)
[2016-09-13] MEDS ORDERED: VANCOMYCIN TROUGH SCH (09:30)
[2016-09-13] MEDS: DILTIAZEM HCL 60 MG TAB PO SCH ×3 (12:46→20:38)
[2016-09-13] MEDS: MoRPHine SULFATE 2 MG/ML CARP IV PRN ×3 (12:48→21:41)
--- NOTE | 2016-09-13 13:12 | ECHOCARDIOGRAM REPORT ---
*NOTICE TO RECEIVING DEMOCRAT AGENCY This information is strictly Confidential and protected under [place] law. [place] law prohibits you from making any further disclosure of this information unless further disclosure is expressly permitted by the written consent of the person to whom it pertains or is authorized by law. A general authorization for the release of medical or other information is not sufficient for this purpose. Hospital accepts no responsibility if the information is made available to any other person, INCLUDING THE PATIENT. Interpretation Summary * Name: DAWNA GARCIA Study Date: 09/13/2016 09:34 AM BP: 121/86 mmHg * Patient Location: C.2E\[id number]\E203\S\1 HR: 93 * : 1935 (M/d/yyy) Gender: Female Height: 64 in * Age: 80 yrs Ethnicity: CA Weight: 124 lb * Ordering Physician: Manan Vanegas * Referring Physician: Nathan Nance * Performed By: Roge Willingham RDCS * * Reason For Study: Endocarditis * BSA: 1.6 m2 * -- Conclusions -- * Compared with 08/29/16 study, LV systolic function markedly worse, extensive wall motion abnormlities are new, significant mitral regurgitation and tricuspid regurgitation with mild pulmonary hypertension now seen, small ASD noted (ASD was seen on some studies prior to 08/29). 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 * Left ventricular systolic function is moderate to severely reduced. * Ejection Fraction = 25-30%. * There are regional wall motion abnormalities as specified. * There is moderate to severe mitral regurgitation. * There is moderate tricuspid regurgitation. * Right ventricular systolic pressure is elevated at 30-40mmHg. * Mild pulmonic valvular regurgitation. * PA end diastolic velocity of 1.6 m/s is consistent with mildly elevated PA end diastolic pressure (15-20 mm Hg). * A secundum type atrial septal defect is present. * The atrial septal defect is small. Procedure Details * A complete two-dimensional transthoracic echocardiogram was performed (2D, M-mode, Doppler and color flow Doppler). * The study was technically adequate. Left Ventricle * The left ventricle is normal in size. * There is normal left ventricular wall thickness. * Left ventricular systolic function is moderate to severely reduced. * Ejection Fraction = 25-30%. * There are regional wall motion abnormalities as specified. Right Ventricle * The right ventricle is normal in size and function. * The right ventricular systolic function is normal. Atria * The left atrium is moderately dilated. * The right atrium is moderately dilated. * A secundum type atrial septal defect is present. * The atrial septal defect is small. Mitral Valve * The mitral valve is normal in structure and function. * There is moderate to severe mitral regurgitation. Tricuspid Valve * The tricuspid valve is normal in structure and function. * There is moderate tricuspid regurgitation. * Right ventricular systolic pressure is elevated at 30-40mmHg. Aortic Valve * The aortic valve is trileaflet. * No hemodynamically significant valvular aortic stenosis. * There is no significant aortic regurgitation. Pulmonic Valve * The pulmonary valve is not well seen, but the Doppler examination is normal without significant regurgitation or stenosis. * Mild pulmonic valvular regurgitation. * PA end diastolic velocity of 1.6 m/s is consistent with mildly elevated PA end diastolic pressure (15-20 mm Hg). Great Vessels * The aortic root is normal size. * No obvious dissection could be visualized. * The pulmonary artery is not well visualized, but is probably normal size. Pericardium/Pleural * There is no pericardial effusion. Great Vessels * The inferior vena cava is mildly dilated. MMode 2D Measurements and Calculations IVSd 1.1 cm IVSs 1.2 cm LVIDd 3.7 cm LVIDs 3.1 cm LVPWd 1.0 cm LVPWs 1.2 cm IVS/LVPW 1.1 FS 15.3 % EDV(Teich) 58.5 ml ESV(Teich) 39.3 ml EF(Teich) 32.9 % EDV(cubed) 51.1 ml ESV(cubed) 31.1 ml EF(cubed) 39.2 % % IVS thick 4.4 % % LVPW thick 16.2 % LV mass(C)d 126.4 grams LV mass(C)dI 79.2 grams/m\S\2 LV mass(C)s 114.6 grams LV mass(C)sI 71.8 grams/m\S\2 SV(Teich) 19.3 ml SI(Teich) 12.1 ml/m\S\2 SV(cubed) 20.0 ml SI(cubed) 12.5 ml/m\S\2 Ao root diam 2.5 cm Ao root area 4.7 cm\S\2 ACS 1.6 cm LA dimension 3.8 cm asc Aorta Diam 2.9 cm LA/Ao 1.5 LVOT diam 1.9 cm LVOT area 2.7 cm\S\2 LVAd ap4 21.6 cm\S\2 LVLd ap4 6.6 cm EDV(MOD-sp4) 58.0 ml LVAs ap4 18.1 cm\S\2 LVLs ap4 6.5 cm ESV(MOD-sp4) 40.0 ml EF(MOD-sp4) 31.0 % LVAd ap2 27.0 cm\S\2 LVLd ap2 7.8 cm EDV(MOD-sp2) 75.0 ml LVAs ap2 20.6 cm\S\2 LVLs ap2 6.9 cm ESV(MOD-sp2) 50.0 ml EF(MOD-sp2) 33.3 % SV(MOD-sp4) 18.0 ml SI(MOD-sp4) 11.3 ml/m\S\2 SV(MOD-sp2) 25.0 ml SI(MOD-sp2) 15.7 ml/m\S\2 Doppler Measurements and Calculations MV E max glen 76.2 cm/sec MV dec time 0.18 sec Ao V2 max 91.7 cm/sec Ao max PG 3.4 mmHg Ao max PG (full) 1.9 mmHg KIARA(V,A) 1.8 cm\S\2 KIARA(V,D) 1.8 cm\S\2 LV V1 max PG 1.4 mmHg LV V1 max 59.7 cm/sec PA V2 max 65.2 cm/sec PA max PG 1.7 mmHg PI end-d glen 165.1 cm/sec TR max glen 279.0 cm/sec
--- NOTE | 2016-09-13 13:13 | Pharmacy Progress Note ---
Glycemic Control: Progress Nt Date of Service Sep 13, 2016. Scope Glycemic Pharmacist consulted by Dr Vanegas on 09/12/16 for glycemic control and to write orders per [facility] inpatient glycemic control protocol. Objective Accuchecks BSG (last 24hrs): Test 09/12/16 16:01 09/12/16 20:29 09/13/16 02:05 09/13/16 05:36 Bedside Glucose 200 mg/dl (70-90) 186 mg/dl (70-90) 278 mg/dl (70-90) Random Glucose 205 mg/dl (70-99) Test 09/13/16 05:42 09/13/16 11:28 Bedside Glucose 244 mg/dl (70-90) 195 mg/dl (70-90) Laboratory Data (last 24hrs) Test 09/13/16 05:36 Anion Gap 10.0 mmol/L BUN/Creatinine Ratio 25.6 Blood Urea Nitrogen 23 mg/dl Creatinine 0.91 mg/dl Potassium Level 4.5 mmol/L Sodium Level 139 mmol/L White Blood Count 24.12 K/uL Red Blood Count 3.24 M/uL Hemoglobin 9.9 g/dL Hematocrit 30.1 % Mean Corpuscular Volume 92.9 fL Mean Corpuscular Hemoglobin 30.6 pg Mean Corpuscular Hemoglobin Concent 32.9 g/dl Platelet Count 343 K/uL Mean Platelet Volume 9.3 fL Neutrophils (%) (Auto) 91.9 % Lymphocytes (%) (Auto) 2.8 % Monocytes (%) (Auto) 3.7 % Eosinophils (%) (Auto) 0.0 % Basophils (%) (Auto) 0.1 % Neutrophils # (Auto) 22.14 K/uL Lymphocytes # (Auto) 0.68 K/uL Monocytes # (Auto) 0.90 K/uL Eosinophils # (Auto) 0.00 K/uL Basophils # (Auto) 0.03 K/uL HbA1c: 9% 08/22/16 Recent Pertinent Medications Outpatient Anti-diabetic Regimen: * Metformin 500mg TID * A1c = 9 % 08/22/16 The patient is currently receiving: * Basal insulin: Lantus 10 units every 24 hours -- dosed at bedtime * Correctional Insulin: Novolog Correction per scale ACHS and at 0200 Goal Range: Low 120 mg/dL - High 160 mg/dL Correction Factor: 20 mg/dL/unit * Prandial insulin: Per carb ratio of 1 unit per 7 grams CHO consumed * Oral Agents: None currently Risk Factors for Insulin Resistance: * Steroids: received dexamethasone 10mg IV 09/12 @1833 * Infection: facial cellulitis, staph bacteremia; receiving daptomycin + levofloxacin + metronidazole IV * Diet: ordered Full Liquid diet as well as Boost Glucose Control TID w/ meals ( 23gm CHO per serving); patient is refusing Boost and eating very little Assessment & Plan ASSESSMENT: 09/13/16 * BSGs did begin to rise after the dose of dexamethasone was given last evening , however BSGs are now trending down favorably - last BSG 195 * The insulin resistance induced by dexamethasone may last 24-48 hours; would expect improvement overnight into tomorrow * She is not eating well and refusing her nutritional supplements, thus the BSG checks are reflective of a fasting state. The BSG pattern suggests basal insulin deficiency. The basal insulin dose was doubled yesterday, and I am hesitant to increase it further today given this recent change, continued poor PO intake and there is a possibility that insulin resistance will decrease in the next 24 hrs. * Plan to continue the current insulin orders for another 24 hrs. * We can d/c the over night BSG check as glycemic control appears to be improving and there are no further steroid doses ordered. PLAN FOR INPATIENT GLYCEMIC CONTROL: * Continue Lantus 10 units Q HS; add parameter: "give 5 units if BSG 120 or less, 10 units if BGS greater than 120" * Continuing correction factor of 20 mg/dl/unit * Continuing carb ratio of 1 unit per 7 grams CHO consumed * Continuing goal range of Low 120 mg/dL - High 160 mg/dL * Please note that the plan above was derived based on current level of insulin resistance and hospital stress. These recommendations are appropriate for inpatient admission only. Plan of care upon discharge will need to be reassessed to avoid potential outpatient hypo/hyperglycemia. Thank you.
[2016-09-13] MEDS: DAPTOmycin IV 350 MG in SODIUM CHLORIDE 0.9% 50ML 50 ML IV SCH (15:49)
--- NOTE | 2016-09-13 17:07 | Progress Note ---
Subjective Date of Service: Sep 13, 2016. Subjective Pt evaluation today including: conversation w/ patient, conversation w/ family , physical exam, chart review, lab review, review of studies, review of inpatient medication list a little more confused this AM. no new complaints as best can be ascertained. appears to be in less pain. family pleased with progress Problem List Medical Problems: (1) Abnormal EKG Status: Acute (2) Accidental drug ingestion Status: Acute (3) CHF (congestive heart failure) Status: Acute (4) Closed head injury Status: Acute (5) COPD exacerbation Status: Acute (6) Dysarthria Status: Acute (7) Facial cellulitis Status: Acute (8) Hypoxia Status: Acute (9) Leukocytosis Status: Acute (10) PNA (pneumonia) Status: Acute (11) Right leg weakness Status: Acute Review of Systems ros otherwise negative except for as above as best can be ascertained Objective Vital Signs Date Time Temp Pulse Resp B/P Pulse Ox O2 Delivery O2 Flow Rate FiO2 09/13/16 15:17 76 16 93 Nasal Cannula 2.0 09/13/16 14:55 36.8 73 19 101/69 95 3.0 09/13/16 12:00 Nasal Cannula 2.0 09/13/16 11:34 36.3 80 16 103/72 95 Nasal Cannula 09/13/16 11:34 36.3 80 16 103/72 95 Nasal Cannula 09/13/16 11:27 62 16 97 Nasal Cannula 2.0 09/13/16 08:00 Nasal Cannula 2.0 09/13/16 08:00 36.4 110 28 137/66 96 2.0 09/13/16 07:49 103 16 95 Nasal Cannula 2.0 09/13/16 04:00 95 Nasal Cannula 2.0 09/13/16 04:00 36.6 104 24 121/86 96 Nasal Cannula 2.0 09/13/16 00:01 95 Nasal Cannula 2.0 09/12/16 23:29 36.3 108 30 123/88 94 Nasal Cannula 2.0 09/12/16 22:23 122 16 128/99 94 09/12/16 20:05 106 127/88 09/12/16 20:00 95 Nasal Cannula 2.0 09/12/16 19:44 95 118/88 09/12/16 19:30 36.4 102 17 112/83 95 Nasal Cannula 2.0 09/12/16 19:16 100 16 98 Nasal Cannula 2.0 09/12/16 17:04 94 Nasal Cannula 2.0 09/12/16 16:57 36.9 100 16 138/85 95 Nasal Cannula 2.0 100 Physical Exam General Appearance: no apparent distress Eyes: EOMI ENT: hearing grossly normal, + pertinent finding (L cheek swelling significantly improved. more a local area ~3cm wide by ~9cm long (re-outlined) of discrete swelling, tenderness (although less than yesterday) and maybe a slight degree of fluctuance - although mostly feels firm) Neck: trachea midline Respiratory/Chest: lungs clear, normal breath sounds, no respiratory distress, no accessory muscle use Cardiovascular: + irregularly irregular (rate controlled) Extremities: normal range of motion Neurologic/Psychiatric: road consultant II-XII nml as tested, alert, + pertinent finding ( answers questions some, falls asleep some, not really confused as much as sleepy ) Skin: normal color, warm/dry Laboratory Results Last 24 Hours Test 09/12/16 18:05 09/12/16 20:29 09/13/16 02:05 09/13/16 05:36 Magnesium Level 1.8 mg/dl Bedside Glucose 186 mg/dl 278 mg/dl White Blood Count 24.12 K/uL Red Blood Count 3.24 M/uL Hemoglobin 9.9 g/dL Hematocrit 30.1 % Mean Corpuscular Volume 92.9 fL Mean Corpuscular Hemoglobin 30.6 pg Mean Corpuscular Hemoglobin Concent 32.9 g/dl Platelet Count 343 K/uL Mean Platelet Volume 9.3 fL Neutrophils (%) (Auto) 91.9 % Lymphocytes (%) (Auto) 2.8 % Monocytes (%) (Auto) 3.7 % Eosinophils (%) (Auto) 0.0 % Basophils (%) (Auto) 0.1 % Neutrophils # (Auto) 22.14 K/uL Lymphocytes # (Auto) 0.68 K/uL Monocytes # (Auto) 0.90 K/uL Eosinophils # (Auto) 0.00 K/uL Basophils # (Auto) 0.03 K/uL RDW Standard Deviation 52.5 fL RDW Coefficient of Variation 15.4 % Immature Granulocyte % (Auto) 1.5 % Immature Granulocyte # (Auto) 0.37 K/uL Nucleated RBC Absolute Count (auto) 0.05 K/uL Nucleated Red Blood Cells % 0.2 % Ovalocytes 1+ Echinocytes 2+ Sodium Level 139 mmol/L Potassium Level 4.5 mmol/L Chloride Level 104 mmol/L Carbon Dioxide Level 25 mmol/L Anion Gap 10.0 mmol/L Blood Urea Nitrogen 23 mg/dl Creatinine 0.91 mg/dl Est Creatinine Clear Calc Drug Dose 42.6 ml/min Estimated GFR () 69.1 Estimated GFR (Non- 59.6 BUN/Creatinine Ratio 25.6 Random Glucose 205 mg/dl Calcium Level 7.9 mg/dl Test 09/13/16 05:42 09/13/16 11:28 Bedside Glucose 244 mg/dl 195 mg/dl Assessment and Plan Left facial cellulitis/left parotitis/left masseter muscle infection/left inframandibular infection and sepsis (WBC, HR) present on admission -dapto, levaquin, and flagyl given bacteria requiring coverage and her allergies -appears improving. d/w family concern would be newly consolidated area might be abscess - but for now continue to follow - if any worsening repeat CT, if fails to show ongoing significant improvement over next 48hrs, CT -see 09/10 note - d/w ENT extensively and multiple times - and repeat CT without collections then, may need repeat CT as above -bacteremia - dapto - follow third cultures, await echo, ongoing ID input -lemon q1hr while awake -moist heat 20mins/hr staph bacteremia -persistent - d/w ID and changed to dapto given blood cultures positive even after being on vanco -repeat blood cultures sent 09/11 prior to starting dapto- thus far negative -echo to r/o vegetations. given persistent bacteremia despite vanco, will have low threshold for SADIE systolic cardiomyopathy -appearance of takutsubo's - check troponin, follow. no s/s CHF, may need cardiology involvement but right now appearing stable afib/RVR -rate controlled- transition back from IV to PO dilt -on xarelto for stroke prophylaxis cough/sputum/slightl hypoxia -nothing appearing worrisome on lung exam (clear) and not showing respiratory distress throughout multiple visits today - suspect it's mostly difficulty clearing mucous from upper airway and difficulty w deep breathing (ie likely some atelectasis) - continue to follow metabolic encephalopathy / delirium -due to pain, meds, poor sleep, hospital environment -d/w family extensivelyand repeatedly -appears waxing/waning rather than dense delirium at this time hyponatremia -improved hyperkalemia -improved leukocytosis -?clinically infection appears stable to slightly improved - ?steroid effect CAD/hypertension/TIA/CVA--continue clopidogrel 75 mg by mouth every morning, diltiazem extended release heart (increased to 180) mg by mouth daily, losartan 25 mg by mouth twice a day, Xarelto 15 mg by mouth daily. hold triamterene/ HCTZ 37.5/25 daily until PO intake improves, but follow BP Diabetes mellitus--hold metformin 500, sugars up somewhat (probably part from illness, part from steroids, part from not being on regular meds) - pharmacy glycemic consult given need for ongoing steroids COPD--continue Symbicort 160/4.5 2 puffs twice a day, nebs prn, including for cough Depression--continue fluoxetine 10 mg by mouth every morning. Hypercholesterolemia--continue simvastatin 40 mg by mouth every afternoon. Glaucoma--continue Alphagan P ophthalmic solution 1 drop OPB twice a day, and timolol GFS 0.5% one drop OPB every 12 hours. hypomagnesemia - repleted DVT proph - xarelto Continued [facility] stay due to: abnormal vital signs, multiple IV medications needed
[2016-09-13] MEDS: RIVAROXABAN TAB 15 MG TAB PO SCH (18:05)
[2016-09-13] MEDS: LEVOFLOXACIN / D5W 250 MG in PREMIXED IN D5W 50 ML IV SCH (20:37)
[2016-09-13] MEDS: SIMVASTATIN 40 MG TAB PO SCH (20:38)
[2016-09-13] MEDS: INSULIN GLARGINE SOLOSTAR 100 UNITS/ML 3 ML PEN SC SCH (20:59)
[2016-09-13] MEDS: LORAZEPAM 1 MG TAB PO PRN (21:41)
--- NOTE | 2016-09-13 22:21 | Progress Note ---
Progress Note Paged by nurse stating the patient moaning and complaining "it hurts it hurts, take it out", referring to Guevara catheter. Tried giving Morphine and Ativan with minimal help. Guevara catheter was removed. Nursing asked patient whether she continued to be in pain which she denied by when nursing leaves the room she continues to moan. Patient noted to have history of dementia S: Patient denies any pain or discomfort at this time. O: Vital Signs Label Value Date Time Patient Temperature 36.8 C. 09/13/162013 Temperature Source Oral 09/13/162013 Pulse 82 09/13/162013 Location Left Brachial Respiratory Rate 19 09/13/162013 Blood Pressure Assessment 131/90 09/13/162013 Location Left Arm Source NIBP Position Supine Bedside Pulse Oximetry 96 % 09/13/162013 Item Value Date Time Oxygen Delivery Method Nasal Cannula 09/13/162013 Oxygen Flow Rate 3.0 L/min 09/13/162013 Patient moaning but denies any pain Alert and oriented x 3 S1 and S2 no added sounds or murmurs; lungs clear; abdomen [id number], non- distended A: 80 year old female with dementia. Non-specific moaning though denies pain and has benign examination P: 1-to-1 sitter for observation. Discussed this with patient who is amenable to this. Nurse noted that patient responded well to this measures; no other calls overnight
[2016-09-14] VITALS (10 sets, daily range): BP systolic 116–126; BP diastolic 76–86; PULSE 55–99; TEMP 36.4–36.8; O2SAT 90–99
[2016-09-14] MEDS: METRONIDAZOLE / NSS 500 MG in PREMIXED NSS 100 ML IV SCH ×3 (02:25→17:42)
[2016-09-14] MEDS: ALBUT/IPRATROP 3MG/0.5MG NEB 3 ML VIAL INH SCH ×4 (07:39→20:00)
[2016-09-14] MEDS: SODIUM CHLORIDE 0.9% 1000ML 1,000 ML IV SCH ×2 (08:56→17:42)
[2016-09-14] MEDS: DILTIAZEM HCL 60 MG TAB PO SCH ×4 (08:56→20:48)
[2016-09-14] MEDS: FERROUS GLUCONATE 324 MG TAB PO SCH (08:56)
[2016-09-14] MEDS: CLOPIDOGREL BISULFATE 75 MG TAB PO SCH (08:56)
[2016-09-14] MEDS: FLUOXETINE HCL 10 MG CAP PO SCH (08:56)
[2016-09-14] MEDS: MoRPHine SULFATE 2 MG/ML CARP IV PRN ×3 (08:57→19:43)
[2016-09-14] MEDS: TIMOLOL GFS 0.5% OPH SOLN 74 DROPS/5 ML BTL OPB SCH ×2 (09:00→20:47)
[2016-09-14] MEDS ORDERED: INSULIN GLARGINE SOLOSTAR 100 UNITS/ML 3 ML PEN SC SCH (09:00)
[2016-09-14] MEDS: INSULIN ASPART 100 UNITS/ML 3 ML PEN SC SCH ×4 (09:01→20:52)
[2016-09-14] MEDS: BOOST GLUCOSE CONTROL PO SCH ×3 (09:50→16:45)
--- NOTE | 2016-09-14 10:55 | Pharmacy Progress Note ---
Glycemic Control: Progress Nt Date of Service Sep 14, 2016. Scope Glycemic Pharmacist consulted by Dr Vanegas on 09/12/16 for glycemic control and to write orders per [facility] inpatient glycemic control protocol. Objective Accuchecks BSG (last 24hrs): Test 09/13/16 11:28 09/13/16 17:49 09/13/16 20:50 09/14/16 07:04 Bedside Glucose 195 mg/dl (70-90) 228 mg/dl (70-90) 204 mg/dl (70-90) 193 mg/dl (70-90) HbA1c: * A1c = 9 % 08/22/16 Recent Pertinent Medications Outpatient Anti-diabetic Regimen: * Metformin 500mg PO TIDM The patient is currently receiving: * Basal insulin: Lantus given at bedtime per HS BSG, * if BSG 120mg/dl or below --> 5 units given * if BSG 121mg/dl or above --> 10 units given * Correctional Insulin: Novolog Correction per scale ACHS Goal Range: Low 120 mg/dL - High 160 mg/dL Correction Factor: 20 mg/dL/unit * Prandial insulin: Per carb ratio of 1 unit per 7 grams CHO consumed Risk Factors for Insulin Resistance: * Infection * IVF/base soln of Abx is dextrose Assessment & Plan ASSESSMENT: * 80yo T2DM female with near-adequate outpatient glycemic control per recent A1c. Goal A1c is ~ 8.5% * Pt has received 29 units of insulin over the past 24hrs * Pt has had little to no PO intake therefore BSGs refect "fasting" BSGs * BSGs [phone] over the past 24hrs. All BSGs are above goal range. Elevated fasting BSGs indicate need for more basal insulin. Due to advanced age and poor PO intake will titrate basal insulin conservatively. * ADA & AACE recommend a goal blood sugar range 140-180 mg/dl for the majority of critically ill & non-critically ill patients. However, more stringent targets may be selected in individual cases. Will utilize a slightly more stringent target of 120-160mg/dl to facilitate infection healing. PLAN FOR INPATIENT GLYCEMIC CONTROL: * Continue to hold outpatient oral diabetes medications * Additional dose of basal insulin with Lantus 5 units SQ x 1 dose this AM for elevated AM fasting BSG. Continue Basal insulin with Lantus given at bedtime per HS BSG * if BSG 120mg/dl or below --> 5 units given * if BSG 121mg/dl or above --> 10 units given * Correctional Insulin with NOVOLOG per scale ACHS or Q6hrs while NPO * Goal Range: Low 120 mg/dL - High 160 mg/dL * Correction Factor: 20 mg/dL/unit * Nutritional / Prandial insulin per carb ratio of 1 unit per 7 grams CHO consumed * Please note that the plan above was derived based on current level of insulin resistance and hospital stress. These recommendations are appropriate for inpatient admission only. Plan of care upon discharge will need to be reassessed to avoid potential outpatient hypo/hyperglycemia. Thank you.
--- NOTE | 2016-09-14 14:29 | Progress Note ---
Subjective Date of Service: Sep 14, 2016. Subjective Pt evaluation today including: conversation w/ patient, conversation w/ family , physical exam, chart review, lab review pt lethargic, family at bedside. pt states she is still having pain on left neck /ear. remains on abx, initial cultures with MRSA, repeat cultures as well. most recent culture dated 09/11 negative so far. tolerating abx. no fevers, eating clears, some pain with swallowing, echo done yesterday, EF 25-30%, no veg seen. Her wbc remains elevated, 24 today, some what decreased. remaining ros limited but negative. Problem List Medical Problems: (1) Abnormal EKG Status: Acute (2) Accidental drug ingestion Status: Acute (3) CHF (congestive heart failure) Status: Acute (4) Closed head injury Status: Acute (5) COPD exacerbation Status: Acute (6) Dysarthria Status: Acute (7) Facial cellulitis Status: Acute (8) Hypoxia Status: Acute (9) Leukocytosis Status: Acute (10) PNA (pneumonia) Status: Acute (11) Right leg weakness Status: Acute Objective Vital Signs Date Time Temp Pulse Resp B/P Pulse Ox O2 Delivery O2 Flow Rate FiO2 09/14/16 12:00 Nasal Cannula 3.0 09/14/16 11:35 82 16 97 Nasal Cannula 2.0 09/14/16 11:30 36.4 55 20 121/83 96 Nasal Cannula 2.0 09/14/16 08:00 Nasal Cannula 3.0 09/14/16 07:44 99 16 93 Nasal Cannula 3.0 09/14/16 07:42 36.7 95 20 121/85 98 Nasal Cannula 3.0 09/14/16 04:00 Nasal Cannula 2.0 09/14/16 04:00 36.6 71 20 116/76 99 Nasal Cannula 3.0 09/14/16 00:01 Nasal Cannula 2.0 09/13/16 23:05 36.6 64 18 86/57 97 Nasal Cannula 3.0 09/13/16 20:14 36.8 82 19 131/90 96 Nasal Cannula 3.0 09/13/16 20:00 Nasal Cannula 2.0 09/13/16 19:33 76 16 96 Nasal Cannula 3.0 09/13/16 16:00 Nasal Cannula 2.0 09/13/16 16:00 Nasal Cannula 2.0 09/13/16 15:17 76 16 93 Nasal Cannula 2.0 09/13/16 14:55 36.8 73 19 101/69 95 3.0 Physical Exam General Appearance: WD/WN, + mild distress Neck: + pertinent finding (left neck swelling persists, no erythema, no warmth , this has improved) Respiratory/Chest: lungs clear Cardiovascular: regular rate, rhythm, no edema Abdomen: soft Extremities: non-tender, normal inspection, no pedal edema Neurologic/Psychiatric: + pertinent finding (lethargic, moaing, answeres some questions) Skin: normal color Laboratory Results Item Value Date Time Blood Culture - Preliminary Resulted 09/09/16 1210 Blood Staphylococcus Aureus Blood Culture - Final Complete 09/09/16 1215 Blood Staphylococcus Aureus Blood Culture - Preliminary Resulted 09/10/16 1319 Blood Staphylococcus Aureus Blood Culture - Final Complete 09/10/16 1328 Blood Staphylococcus Aureus Blood Culture - Preliminary Resulted 09/11/16 1619 Blood NO GROWTH TO DATE. Blood Culture - Preliminary Resulted 09/11/16 1637 Blood NO GROWTH TO DATE. Last 24 Hours Test 09/13/16 17:27 09/13/16 17:49 09/13/16 20:50 09/14/16 07:04 Troponin I 0.125 ng/ml Bedside Glucose 228 mg/dl 204 mg/dl 193 mg/dl Test 09/14/16 11:19 Bedside Glucose 198 mg/dl Assessment and Plan (1) Staphylococcus aureus septicemia Assessment & Plan: continue dapto, will stop levaquin flagyl. repeat cultures negative, will need prolonged course of IV abx. TTE negative. If no improvement and wbc remains elevated, would repeat ct neck (2) Facial cellulitis Status: Acute (3) Leukocytosis Continued [facility] stay due to: abnormal vital signs, multiple IV medications needed
[2016-09-14] MEDS: DAPTOmycin IV 350 MG in SODIUM CHLORIDE 0.9% 50ML 50 ML IV SCH (16:23)
[2016-09-14] MEDS: RIVAROXABAN TAB 15 MG TAB PO SCH (17:42)
[2016-09-14] MEDS: LEVOFLOXACIN / D5W 250 MG in PREMIXED IN D5W 50 ML IV SCH (20:46)
[2016-09-14] MEDS: SIMVASTATIN 40 MG TAB PO SCH (20:48)
--- NOTE | 2016-09-14 20:48 | Progress Note ---
Subjective Date of Service: Sep 14, 2016. Subjective Pt evaluation today including: conversation w/ patient, conversation w/ family , physical exam, chart review, lab review Problem List Medical Problems: (1) Abnormal EKG Status: Acute (2) Accidental drug ingestion Status: Acute (3) CHF (congestive heart failure) Status: Acute (4) Closed head injury Status: Acute (5) COPD exacerbation Status: Acute (6) Dysarthria Status: Acute (7) Facial cellulitis Status: Acute (8) Hypoxia Status: Acute (9) Leukocytosis Status: Acute (10) PNA (pneumonia) Status: Acute (11) Right leg weakness Status: Acute Review of Systems Constitutional: + fatigue, + weakness Eyes: No diplopia, No discharge, No eye pain, No problem reported, No redness, No see HPI, No worsening of vision ENT: No dental problems, No hearing loss, No nasal symptoms, No problem reported, No see HPI, No sore throat, No tinnitus, No trouble swallowing, No unusual epistaxis Respiratory: No cough, No dyspnea at rest, No dyspnea on exertion, No hemoptysis, No problem reported, No see HPI, No shortness of breath, No sputum, No wheezing Cardiac: No PND, No chest pain, No claudication, No edema, No orthopnea, No palpitations, No problem reported, No see HPI Abdomen: No GI bleeding, No constipation, No diarrhea, No nausea, No pain, No problem reported, No see HPI, No vomiting Musculoskeletal: No calf pain, No joint pain, No muscle pain, No problem reported, No see HPI, No swelling Neurologic: No balance problems, No memory loss, No numbness/tingling, No paralysis, No problem reported, No see HPI, No vertigo, No weakness Psychiatric: No anhedonism, No anxiety, No depression symptoms, No insomnia, No problem reported, No see HPI, No substance abuse Heme: No abnormal bleeding/bruising, No clotting problems, No night sweats, No problem reported, No see HPI, No swollen lymph nodes Skin: No bleeding, No color change, No itch, No new/changing skin lesions, No problem reported, No rash, No see HPI Medications Current Inpatient Medications Medications (Trade) Dose Ordered Sig/Jose Route Start Time Stop Time Status Last Admin Dose Admin Acetaminophen (Tylenol Tab) 650 mg Q4H PRN PO 09/08/16 20:45 10/08/16 20:44 Zolpidem Tartrate (Ambien Tab) 5 mg HSZ PRN PO 09/08/16 20:45 10/08/16 20:44 Clopidogrel Bisulfate (plAVix TAB) 75 mg QAM PO 09/09/16 09:00 10/09/16 08:59 09/14/16 08:56 75 MG Lorazepam (Ativan Tab) 1 mg HS PRN PO 09/08/16 20:45 10/08/16 20:44 09/13/16 21:41 1 MG Rivaroxaban (Xarelto Tab) 15 mg QDD PO 09/09/16 17:00 10/09/16 17:59 09/14/16 17:42 15 MG Simvastatin (Zocor Tab) 40 mg QPM PO 09/08/16 21:00 10/08/16 20:59 09/13/16 20:38 40 MG Timolol Maleate (Timoptic-Xe 0.5% Oph Soln) 1 drops Q12 OPB 09/08/16 21:00 10/08/16 20:59 09/14/16 09:00 1 DROPS Miscellaneous Information (Order Awaiting Action) 1 ea QS N/A 09/09/16 00:00 10/09/16 00:00 Ferrous Gluconate (Ferrous Gluconate Tab) 324 mg DAILY PO 09/09/16 09:00 10/09/16 08:59 09/14/16 08:56 324 MG Fluoxetine HCl 10 mg 10 mg QAM PO 09/09/16 09:00 10/09/16 08:59 09/14/16 08:56 10 MG Levofloxacin/Prmx (Levaquin / D5W/ Premixed D5W) 50 ml @ 50 mls/hr DAILY@1999 IV 09/09/16 20:00 09/18/16 19:59 09/13/16 20:37 50 MLS/HR Lorazepam (Ativan Inj) 0.5 mg Q4H PRN IV 09/08/16 20:45 10/08/16 20:44 09/13/16 07:52 0.5 MG Magnesium Hydroxide (Milk Of Magnesia Susp) 30 ml Q6H PRN PO 09/08/16 20:45 10/08/16 20:44 Bisacodyl (Dulcolax Supp) 10 mg DAILY PRN NE 09/08/16 20:45 10/08/16 20:44 Diphenhydramine HCl (Benadryl Inj) 25 mg Q4H PRN IV 09/08/16 20:45 10/08/16 20:44 Al Hydrox/Mg Hydrox/ Simethicone 15 ml 15 ml Q4H PRN PO 09/08/16 20:45 10/08/16 20:44 Promethazine HCl/ Sodium Chloride (Phenergan Inj/ Nss 50ml) 50.5 ml @ 202 mls/hr Q4H PRN IV 09/08/16 20:45 10/08/16 20:44 Ondansetron HCl (Zofran Inj) 4 mg Q6H PRN IV 09/08/16 20:45 10/08/16 20:44 09/09/16 04:50 4 MG Insulin Aspart (novoLOG ASPART) SLIDING SCALE If C... ACHS SC 09/08/16 21:00 10/08/16 20:59 09/14/16 13:14 2 UNITS Glucose (Glucose 40% Gel) UD PRN PO 09/08/16 20:45 10/08/16 20:44 Glucose (Glucose Chew Tab) 1 tabs UD PRN PO 09/08/16 20:45 10/08/16 20:44 Dextrose (Dextrose 50% 50ML Syringe) 50 ml UD PRN IV 09/08/16 20:45 10/08/16 20:44 Glucagon (Glucagon Inj) 1 mg UD PRN SQ 09/08/16 20:45 10/08/16 20:44 Levofloxacin (Consult) 1 ea UD PRN N/A 09/08/16 22:15 10/08/16 22:14 Morphine Sulfate (MoRPHine SULFATE INJ) 2 mg Q2H PRN IV 09/08/16 23:00 09/22/16 22:59 09/14/16 19:43 2 MG Morphine Sulfate (MoRPHine SULFATE INJ) 4 mg Q2H PRN IV 09/08/16 23:00 09/22/16 22:59 09/12/16 12:27 2 MG Heparin Sodium (Porcine) (Heparin 10 Unit/ ml 5 ml Flush) 5 ml PRN PRN FLUSH 09/09/16 12:45 10/09/16 12:44 09/10/16 15:27 5 ML Albuterol/ Ipratropium 3 ml 3 ml QIDR INH 09/09/16 20:00 10/09/16 19:59 09/14/16 15:15 3 ML Metronidazole 500 mg/Prmx 100 ml @ 100 mls/hr Q8@0200,1000,1800 IV 09/10/16 10:00 09/20/16 09:59 09/14/16 17:42 100 MLS/HR Sodium Chloride (Nss 1000ml) 1,000 ml @ 75 mls/hr [id number] IV 09/11/16 09:15 10/11/16 09:14 09/14/16 17:42 75 MLS/HR Miconazole Nitrate 1 appln 1 appln PRN PRN EXT 09/11/16 15:00 10/11/16 14:59 Daptomycin/Sodium Chloride (Cubicin IV/Nss 50ml) 57 ml @ 100 mls/hr DAILY@1600 IV 09/11/16 17:30 09/25/16 17:29 09/14/16 16:23 100 MLS/HR Enteral Nutritional Formula (Boost Glucose Control) 1 can TIDM PO 09/12/16 16:30 10/12/16 16:29 Miscellaneous Information (Consult Glycemic Management Pharmacy) 1 ea UD N/A 09/12/16 17:14 10/12/16 17:13 Diltiazem HCl (Cardizem Tab) 60 mg QID PO 09/13/16 13:00 10/13/16 12:59 09/14/16 17:42 60 MG Insulin Glargine (Lantus Solostar Pen) HS SC 09/13/16 21:00 10/12/16 20:59 09/13/16 20:59 10 UNIT Objective Vital Signs Date Time Temp Pulse Resp B/P Pulse Ox O2 Delivery O2 Flow Rate FiO2 09/14/16 19:41 36.7 88 18 126/81 95 09/14/16 16:02 36.8 95 18 119/86 96 09/14/16 16:00 Nasal Cannula 3.0 09/14/16 15:15 94 16 95 Nasal Cannula 2.0 09/14/16 12:00 Nasal Cannula 3.0 09/14/16 11:35 82 16 97 Nasal Cannula 2.0 09/14/16 11:30 36.4 55 20 121/83 96 Nasal Cannula 2.0 09/14/16 08:00 Nasal Cannula 3.0 09/14/16 07:44 99 16 93 Nasal Cannula 3.0 09/14/16 07:42 36.7 95 20 121/85 98 Nasal Cannula 3.0 09/14/16 04:00 Nasal Cannula 2.0 09/14/16 04:00 36.6 71 20 116/76 99 Nasal Cannula 3.0 09/14/16 00:01 Nasal Cannula 2.0 09/13/16 23:05 36.6 64 18 86/57 97 Nasal Cannula 3.0 Physical Exam General Appearance: + moderate distress Eyes: normal inspection, EOMI ENT: normal ENT inspection, hearing grossly normal Neck: supple, + adenopathy present, + pertinent finding (large left parotid 10X15 cm) Respiratory/Chest: chest non-tender, lungs clear, normal breath sounds, no respiratory distress, no accessory muscle use Cardiovascular: regular rate, rhythm, no edema, no gallop, no JVD Abdomen: normal bowel sounds, non tender, soft Extremities: normal range of motion, non-tender, normal inspection Neurologic/Psychiatric: color maker dyer II-XII nml as tested, no motor/sensory deficits, alert, normal mood/affect, oriented x 3 Skin: normal color, warm/dry, no rash Laboratory Results Last 24 Hours Test 09/13/16 20:50 09/14/16 07:04 09/14/16 11:19 09/14/16 16:25 Bedside Glucose 204 mg/dl 193 mg/dl 198 mg/dl 168 mg/dl Test 09/14/16 20:13 Bedside Glucose 155 mg/dl Assessment and Plan Left facial cellulitis/left parotitis/left masseter muscle infection/left inframandibular infection and sepsis (WBC, HR) present on admission -dapto, levaquin, and flagyl given bacteria requiring coverage and her allergies -S/P 2 CT neck without contrast that did not show an abscess (has anaphylactic allergy to contrast), ordered MRI neck with da. -ENT on bord -bacteremia - dapto - follow third cultures, await echo, ongoing ID input -lemon q1hr while awake -moist heat 20mins/hr staph bacteremia -persistent - d/w ID and changed to dapto given blood cultures positive even after being on vanco -repeat blood cultures sent 09/11 prior to starting dapto- thus far negative -echo to r/o vegetations. given persistent bacteremia despite vanco, will have low threshold for SADIE systolic cardiomyopathy -appearance of takutsubo's - check troponin, follow. no s/s CHF, may need cardiology involvement but right now appearing stable afib/RVR -rate controlled- transition back from IV to PO dilt -hold xarelto tonight for stroke prophylaxis metabolic encephalopathy / delirium -due to pain, meds, poor sleep, hospital environment, continue to monitor hyponatremia -improved hyperkalemia -improved leukocytosis -clinically infection appears stable to slightly improved - steroid effect CAD/hypertension/TIA/CVA-- hold clopidogrel / Xarelto for potential surgical I&D, continue diltiazem extended release heart (increased to 180) mg by mouth daily continue losartan 25 mg by mouth twice a day, y. hold triamterene/HCTZ 37.5/ 25 daily until PO intake improves, but follow BP Diabetes mellitus--hold metformin 500, pharmacy glycemic consult given need for ongoing steroids COPD--continue Symbicort 160/4.5 2 puffs twice a day, nebs prn, including for cough Depression--continue fluoxetine 10 mg by mouth every morning. Hypercholesterolemia--continue simvastatin 40 mg by mouth every afternoon. Glaucoma--continue Alphagan P ophthalmic solution 1 drop OPB twice a day, and timolol GFS 0.5% one drop OPB every 12 hours. hypomagnesemia - repleted DVT proph - hold xarelto, heparin SQ Continued [facility] stay due to: abnormal vital signs, multiple IV medications needed
[2016-09-14] MEDS: INSULIN GLARGINE SOLOSTAR 100 UNITS/ML 3 ML PEN SC SCH (20:50)
[2016-09-14] MEDS ORDERED: GADAVIST IV PRN (22:00)
--- NOTE | 2016-09-14 22:13 | DIAGNOSTIC IMAGING REPORT ---
MRI SOFT TISSUES NECK COMBO CLINICAL HISTORY: Left-sided neck swelling. COMPARISON STUDY: CT scan of the neck dated 09/10/2016 and 10/25/2009. TECHNIQUE: MRI of the soft tissues the neck is performed by the various T1 and T2-weighted sequences in the axial and sagittal planes. Contrast-enhanced sequences were acquired following the IV administration of 60 cc of Gadavist. Examination is significantly degraded by motion artifact. FINDINGS: Both parotid glands appear enlarged, with the left parotid gland asymmetrically enlarged as compared to the right. The left parotid gland demonstrates mild nonspecific patchy abnormal enhancement. The degree of surrounding inflammatory change appears significantly improved from 09/10/2016. No organized fluid collection is identified to suggest abscess. Prominent left cervical chain lymph nodes are likely on a reactive basis. These are not pathologically enlarged by size criteria. The pharyngeal soft tissues are grossly normal as imaged. The airway appears patent. The carotid arteries and jugular veins appear patent. The bony structures are grossly unremarkable. Senescent changes with advanced microangiopathic disease are noted in the partially imaged brain parenchyma. The orbital structures are normal in appearance noting bilateral ocular lens implants. There is a large left mastoid effusion. The paranasal sinuses are clear as visualized. IMPRESSION: 1. Significantly motion degraded examination. 2. The parotid glands appear significantly enlarged, left greater than right. 3. There is mild nonspecific patchy abnormal enhancement within the left parotid gland with overlying soft tissue edema. The appearance suggests parotitis. The degree of inflammation appears significantly improved from the 09/10/2016 examination. Continued clinical follow-up to resolution is recommended. 4. Mildly enlarged left cervical lymph nodes are likely on a reactive basis. 5. Left mastoid effusion. Dictated: 09/14/2016 9:57 PM Transcribed: 09/14/2016 10:13 PM Jorje Electronically signed by: Steven Perrin M.D. 09/15/2016 9:23 AM Dictated Date/Time: 09/14/2016 9:57 PM
[2016-09-14] MEDS ORDERED: HEPARIN SOD 5000 UNIT/0.5 ML CARP SQ SCH (23:00)
[2016-09-14] MEDS: LORAZEPAM 1 MG TAB PO PRN (23:24)
[2016-09-15] VITALS (11 sets, daily range): BP systolic 110–131; BP diastolic 63–82; PULSE 70–103; TEMP 36–37; O2SAT 94–99
[2016-09-15] MEDS: MoRPHine SULFATE 2 MG/ML CARP IV PRN ×2 (01:54→05:21)
[2016-09-15] MEDS: METRONIDAZOLE / NSS 500 MG in PREMIXED NSS 100 ML IV SCH ×2 (01:58→09:20)
[2016-09-15 05:50] LABS: URINE APPEARANCE CLEAR (CLEAR); URINE BILIRUBIN NEG (NEG); URINE COLOR DK YELLOW; URINE EPITHELIAL CELL AUTO >30 /lpf (0-5); URINE NITRITE NEG (NEG); URINE SPECIFIC GRAVITY 1.021 (1.000-1.030); UROBILINOGEN NEG (NEG); ZZURINE CULT IF INDIC CATH NO
[2016-09-15 05:54] LABS: MANUAL MICROSCOPIC REQUIRED? NO; REVIEW REQ? YES
[2016-09-15 06:17] LABS: INR 2.5 (0.9-1.1); PROTHROMBIN TIME (PATIENT) 27.7 SECONDS (9.0-12.0)
[2016-09-15 06:19] LABS: URINE MUCUS PRESENT (NONE PRSENT)
[2016-09-15 06:31] LABS: BASO % 0.2 %; BASO ABS # 0.06 K/uL (0-0.2); COMPLETE YES; ECHINOCYTES 1+; HEMATOCRIT 33.7 % (37-47); IG% 3.8 %; LYMPH % 1.6 %; LYMPH ABS # 0.53 K/uL (1.2-3.4); MEAN CELL VOLUME 93.4 fL (80-100); MEAN CORPUSCULAR HGB CONC 33.2 g/dl (32-36); MEAN PLATELET VOLUME 9.5 fL (7.4-10.4); MONO % 6.8 %; NEUT % 87.6 %; PLATELET COUNT 303 K/uL (130-400); POLYCHROMASIA 1+; RED BLOOD COUNT 3.61 M/uL (4.2-5.4)
[2016-09-15 06:41] LABS: BUN/CREATININE RATIO 29.9 (10-20); CALCIUM 7.5 mg/dl (8.5-10.1); CREATININE 1.1 mg/dl (0.60-1.20); MAGNESIUM 1.7 mg/dl (1.8-2.4); POTASSIUM 4.5 mmol/L (3.5-5.1)
[2016-09-15 06:43] LABS: ALB/GLOB RATIO 0.6 (0.9-2)
[2016-09-15] MEDS: INSULIN ASPART 100 UNITS/ML 3 ML PEN SC SCH ×4 (07:00→21:31)
[2016-09-15 07:05] LABS: WHITE BLOOD COUNT 34.04 K/uL (4.8-10.8)
[2016-09-15] MEDS: BOOST GLUCOSE CONTROL PO SCH ×2 (07:30→11:30)
[2016-09-15] MEDS: ALBUT/IPRATROP 3MG/0.5MG NEB 3 ML VIAL INH SCH ×4 (07:48→19:28)
[2016-09-15] MEDS: FERROUS GLUCONATE 324 MG TAB PO SCH (09:00)
[2016-09-15] MEDS: DILTIAZEM HCL 60 MG TAB PO SCH ×4 (09:00→19:59)
[2016-09-15] MEDS: TIMOLOL GFS 0.5% OPH SOLN 74 DROPS/5 ML BTL OPB SCH ×2 (09:20→20:01)
[2016-09-15] MEDS: SODIUM CHLORIDE 0.9% 1000ML 1,000 ML IV SCH ×2 (09:23→20:01)
--- NOTE | 2016-09-15 09:37 | Progress Note ---
Subjective Date of Service: Sep 15, 2016. Subjective Pt evaluation today including: conversation w/ patient, conversation w/ family , physical exam, chart review, lab review Voiding: no voiding problems Problem List Medical Problems: (1) Abnormal EKG Status: Acute (2) Accidental drug ingestion Status: Acute (3) CHF (congestive heart failure) Status: Acute (4) Closed head injury Status: Acute (5) COPD exacerbation Status: Acute (6) Dysarthria Status: Acute (7) Facial cellulitis Status: Acute (8) Hypoxia Status: Acute (9) Leukocytosis Status: Acute (10) PNA (pneumonia) Status: Acute (11) Right leg weakness Status: Acute Review of Systems ROS was unobtainable due to acuity of her situation Medications Current Inpatient Medications Medications (Trade) Dose Ordered Sig/Jose Route Start Time Stop Time Status Last Admin Dose Admin Acetaminophen (Tylenol Tab) 650 mg Q4H PRN PO 09/08/16 20:45 10/08/16 20:44 Zolpidem Tartrate (Ambien Tab) 5 mg HSZ PRN PO 09/08/16 20:45 10/08/16 20:44 Lorazepam (Ativan Tab) 1 mg HS PRN PO 09/08/16 20:45 10/08/16 20:44 09/14/16 23:24 1 MG Simvastatin (Zocor Tab) 40 mg QPM PO 09/08/16 21:00 10/08/16 20:59 09/14/16 20:48 40 MG Timolol Maleate (Timoptic-Xe 0.5% Oph Soln) 1 drops Q12 OPB 09/08/16 21:00 10/08/16 20:59 09/15/16 09:20 1 DROPS Miscellaneous Information (Order Awaiting Action) 1 ea QS N/A 09/09/16 00:00 10/09/16 00:00 Ferrous Gluconate (Ferrous Gluconate Tab) 324 mg DAILY PO 09/09/16 09:00 10/09/16 08:59 09/14/16 08:56 324 MG Fluoxetine HCl 10 mg 10 mg QAM PO 09/09/16 09:00 10/09/16 08:59 09/14/16 08:56 10 MG Levofloxacin/Prmx (Levaquin / D5W/ Premixed D5W) 50 ml @ 50 mls/hr DAILY@2000 IV 2/8/17 20:00 09/18/16 19:59 09/14/16 20:46 50 MLS/HR Lorazepam (Ativan Inj) 0.5 mg Q4H PRN IV 09/08/16 20:45 10/08/16 20:44 09/13/16 07:52 0.5 MG Magnesium Hydroxide (Milk Of Magnesia Susp) 30 ml Q6H PRN PO 09/08/16 20:45 10/08/16 20:44 Bisacodyl (Dulcolax Supp) 10 mg DAILY PRN MS 09/08/16 20:45 10/08/16 20:44 Diphenhydramine HCl (Benadryl Inj) 25 mg Q4H PRN IV 09/08/16 20:45 10/08/16 20:44 Al Hydrox/Mg Hydrox/ Simethicone 15 ml 15 ml Q4H PRN PO 09/08/16 20:45 10/08/16 20:44 Promethazine HCl/ Sodium Chloride (Phenergan Inj/ Nss 50ml) 50.5 ml @ 202 mls/hr Q4H PRN IV 09/08/16 20:45 10/08/16 20:44 Ondansetron HCl (Zofran Inj) 4 mg Q6H PRN IV 09/08/16 20:45 10/08/16 20:44 09/09/16 04:50 4 MG Insulin Aspart (novoLOG ASPART) SLIDING SCALE If C... ACHS SC 09/08/16 21:00 10/08/16 20:59 09/14/16 13:14 2 UNITS Glucose (Glucose 40% Gel) UD PRN PO 09/08/16 20:45 10/08/16 20:44 Glucose (Glucose Chew Tab) 1 tabs UD PRN PO 09/08/16 20:45 10/08/16 20:44 Dextrose (Dextrose 50% 50ML Syringe) 50 ml UD PRN IV 09/08/16 20:45 10/08/16 20:44 Glucagon (Glucagon Inj) 1 mg UD PRN SQ 09/08/16 20:45 10/08/16 20:44 Levofloxacin (Consult) 1 ea UD PRN N/A 09/08/16 22:15 10/08/16 22:14 Morphine Sulfate (MoRPHine SULFATE INJ) 2 mg Q2H PRN IV 09/08/16 23:00 09/22/16 22:59 09/15/16 05:21 2 MG Morphine Sulfate (MoRPHine SULFATE INJ) 4 mg Q2H PRN IV 09/08/16 23:00 09/22/16 22:59 09/12/16 12:27 2 MG Heparin Sodium (Porcine) (Heparin 10 Unit/ ml 5 ml Flush) 5 ml PRN PRN FLUSH 09/09/16 12:45 10/09/16 12:44 09/10/16 15:27 5 ML Albuterol/ Ipratropium 3 ml 3 ml QIDR INH 09/09/16 20:00 10/09/16 19:59 09/15/16 07:48 3 ML Metronidazole 500 mg/Prmx 100 ml @ 100 mls/hr Q8@0200,1000,1800 IV 09/10/16 10:00 09/20/16 09:59 09/15/16 09:20 100 MLS/HR Sodium Chloride (Nss 1000ml) 1,000 ml @ 75 mls/hr [id number] IV 09/11/16 09:15 10/11/16 09:14 09/15/16 09:23 75 MLS/HR Miconazole Nitrate 1 appln 1 appln PRN PRN EXT 09/11/16 15:00 10/11/16 14:59 Daptomycin/Sodium Chloride (Cubicin IV/Nss 50ml) 57 ml @ 100 mls/hr DAILY@1600 IV 09/11/16 17:30 09/25/16 17:29 09/14/16 16:23 100 MLS/HR Enteral Nutritional Formula (Boost Glucose Control) 1 can TIDM PO 09/12/16 16:30 10/12/16 16:29 Miscellaneous Information (Consult Glycemic Management Pharmacy) 1 ea UD N/A 09/12/16 17:14 10/12/16 17:13 Diltiazem HCl (Cardizem Tab) 60 mg QID PO 09/13/16 13:00 10/13/16 12:59 09/14/16 20:48 60 MG Gadobutrol (Gadavist) 6 mmol UD PRN IV 09/14/16 22:00 09/18/16 21:59 Insulin Glargine (Lantus Solostar Pen) SEE PROTOCOL TEXT HS SC 09/15/16 16:45 10/15/16 16:44 Clopidogrel Bisulfate (plAVix TAB) 75 mg QAM PO 09/16/16 09:00 10/16/16 08:59 UNV Rivaroxaban (Xarelto Tab) 15 mg DAILY PO 09/16/16 09:00 10/16/16 08:59 UNV Objective Vital Signs Date Time Temp Pulse Resp B/P Pulse Ox O2 Delivery O2 Flow Rate FiO2 09/15/16 08:06 36.8 93 18 124/80 98 09/15/16 07:25 85 18 98 Nasal Cannula 2.0 09/15/16 04:00 36.6 09/15/16 04:00 Nasal Cannula 2.0 09/15/16 03:48 36.0 70 22 119/81 99 Nasal Cannula 2.0 09/15/16 00:30 36.2 77 23 110/80 98 Nasal Cannula 09/14/16 23:59 Nasal Cannula 2.0 09/14/16 20:00 90 Room Air 09/14/16 19:41 36.7 88 18 126/81 95 09/14/16 18:45 88 18 94 Nasal Cannula 2.0 09/14/16 16:02 36.8 95 18 119/86 96 09/14/16 16:00 Nasal Cannula 3.0 09/14/16 15:15 94 16 95 Nasal Cannula 2.0 09/14/16 12:00 Nasal Cannula 3.0 09/14/16 11:35 82 16 97 Nasal Cannula 2.0 09/14/16 11:30 36.4 55 20 121/83 96 Nasal Cannula 2.0 Physical Exam General Appearance: + mild distress Eyes: normal inspection, EOMI ENT: normal ENT inspection, hearing grossly normal Neck: supple, + adenopathy present, + pertinent finding (severe parotid swelling L>R) Respiratory/Chest: chest non-tender, lungs clear, no respiratory distress, + crackles Cardiovascular: regular rate, rhythm, no edema, no gallop, no JVD, no murmur Abdomen: normal bowel sounds, non tender, soft Extremities: normal range of motion, non-tender, normal inspection, no pedal edema 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, no motor/sensory deficits, + pertinent finding (lethargic from the pain) Skin: normal color, warm/dry, no rash Laboratory Results Last 24 Hours Test 09/14/16 11:19 09/14/16 16:25 09/14/16 20:13 09/15/16 05:00 Bedside Glucose 198 mg/dl 168 mg/dl 155 mg/dl Urine Color DK YELLOW Urine Appearance CLEAR Urine pH 5.0 Urine Specific [place] 1.021 Urine Protein NEG Urine Glucose (UA) NEG Urine Ketones NEG Urine Occult Blood NEG Urine Nitrite NEG Urine Bilirubin NEG Urine Urobilinogen NEG Urine Leukocyte Esterase SMALL Urine WBC (Auto) 1-5 /hpf Urine RBC (Auto) 5-10 /hpf Urine Hyaline Casts (Auto) 5-10 /lpf Urine Epithelial Cells (Auto) >30 /lpf Urine Bacteria (Auto) NEG Urine Renal Epithelial Cells /lpf Urine Mucus PRESENT Test 09/15/16 05:55 09/15/16 06:28 White Blood Count 34.04 K/uL Red Blood Count 3.61 M/uL Hemoglobin 11.2 g/dL Hematocrit 33.7 % Mean Corpuscular Volume 93.4 fL Mean Corpuscular Hemoglobin 31.0 pg Mean Corpuscular Hemoglobin Concent 33.2 g/dl Platelet Count 303 K/uL Mean Platelet Volume 9.5 fL Neutrophils (%) (Auto) 87.6 % Lymphocytes (%) (Auto) 1.6 % Monocytes (%) (Auto) 6.8 % Eosinophils (%) (Auto) 0.0 % Basophils (%) (Auto) 0.2 % Neutrophils # (Auto) 29.84 K/uL Lymphocytes # (Auto) 0.53 K/uL Monocytes # (Auto) 2.30 K/uL Eosinophils # (Auto) 0.01 K/uL Basophils # (Auto) 0.06 K/uL RDW Standard Deviation 54.0 fL RDW Coefficient of Variation 16.0 % Immature Granulocyte % (Auto) 3.8 % Immature Granulocyte # (Auto) 1.30 K/uL Nucleated RBC Absolute Count (auto) 0.51 K/uL Nucleated Red Blood Cells % 1.5 % Polychromasia 1+ Echinocytes 1+ Prothrombin Time 27.7 SECONDS Prothromb Time International Ratio 2.5 Sodium Level 141 mmol/L Potassium Level 4.5 mmol/L Chloride Level 109 mmol/L Carbon Dioxide Level 22 mmol/L Anion Gap 10.0 mmol/L Blood Urea Nitrogen 33 mg/dl Creatinine 1.10 mg/dl Est Creatinine Clear Calc Drug Dose 35.2 ml/min Estimated GFR () 54.9 Estimated GFR (Non- 47.4 BUN/Creatinine Ratio 29.9 Random Glucose 136 mg/dl Lactic Acid Level 1.3 mmol/L Calcium Level 7.5 mg/dl Magnesium Level 1.7 mg/dl Total Bilirubin 0.5 mg/dl Aspartate Amino Transf (AST/SGOT) 12 U/L Alanine Aminotransferase (ALT/SGPT) 7 U/L Alkaline Phosphatase 64 U/L Total Protein 5.3 gm/dl Albumin 1.9 gm/dl Globulin 3.4 gm/dl Albumin/Globulin Ratio 0.6 Bedside Glucose 128 mg/dl Assessment and Plan Left facial cellulitis/left parotitis/left masseter muscle infection/left inframandibular infection and sepsis (WBC, HR) present on admission -dapto, levaquin, and flagyl given bacteria requiring coverage and her allergies -S/P 2 CT neck without contrast that did not show an abscess (has anaphylactic allergy to contrast), ordered MRI neck with da also showed no abscess or stone -continue Dapto/flagyl/Levofloxacin , add lactinex -bacteremia - dapto - follow third cultures, await echo, ongoing ID input -lemon q1hr while awake -moist heat 20mins/hr staph bacteremia -persistent - d/w ID and changed to dapto given blood cultures positive even after being on vanco -repeat blood cultures sent 09/11 prior to starting dapto- thus far negative -echo to r/o vegetations. given persistent bacteremia despite vanco, will have low threshold for SADIE systolic cardiomyopathy -appearance of takutsubo's - check troponin, follow. no s/s CHF, may need cardiology involvement but right now appearing stable afib/RVR -rate controlled- transition back from IV to PO dilt -restart xarelto tonight for stroke prophylaxis as no surgery is indicated metabolic encephalopathy / delirium -due to pain, meds, poor sleep, hospital environment, continue to monitor -Decrease morphine and ativan doses Dysphagia -possible aspiration, poor oral intake, painful swallowing -place NGT , start TF -D/W Daughter and next of Kin who is agreeable to the plan, also patient gave permission to discuss the case with her granddaughter leukocytosis -clinically infection appears stable to slightly improved - steroid effect CAD/hypertension/TIA/CVA-- restart clopidogrel / Xarelto continue diltiazem extended release heart (increased to 180) mg by mouth daily continue losartan 25 mg by mouth twice a day, y. hold triamterene/HCTZ 37.5/ 25 daily until PO intake improves, but follow BP Diabetes mellitus--hold metformin 500, pharmacy glycemic consult given need for ongoing steroids COPD--continue Symbicort 160/4.5 2 puffs twice a day, nebs prn, including for cough Depression--continue fluoxetine 10 mg by mouth every morning. Hypercholesterolemia--continue simvastatin 40 mg by mouth every afternoon. Glaucoma--continue Alphagan P ophthalmic solution 1 drop OPB twice a day, and timolol GFS 0.5% one drop OPB every 12 hours. hypomagnesemia - repleted DVT proph - hold xarelto, heparin SQ Continued [facility] stay due to: abnormal vital signs, multiple IV medications needed
--- NOTE | 2016-09-15 11:06 | DIAGNOSTIC IMAGING REPORT ---
KUB CLINICAL HISTORY: placement of left NG tube for tube feeds. Tube position COMPARISON STUDY: No previous studies for comparison. FINDINGS: Nonobstructive bowel pattern. Nasogastric tube placed in the distal stomach. IMPRESSION: Nasogastric tube position in the distal stomach. Electronically signed by: Dimitri Payne M.D. 09/15/2016 11:04 AM Dictated Date/Time: 09/15/2016 11:04 AM
[2016-09-15] MEDS ORDERED: FIBERSOURCE HN 1000ML BAG NG SCH ×2 (12:45)
[2016-09-15] MEDS: FLUOXETINE HCL 10 MG CAP PO SCH (12:53)
--- NOTE | 2016-09-15 14:44 | Pharmacy Progress Note ---
Glycemic Control: Progress Nt Date of Service Sep 15, 2016. Scope Glycemic Pharmacist consulted for glycemic control and to write orders per [facility] inpatient glycemic control protocol. Objective Accuchecks BSG (last 24hrs): Test 09/14/16 16:25 09/14/16 20:13 09/15/16 05:55 09/15/16 06:28 Bedside Glucose 168 mg/dl (70-90) 155 mg/dl (70-90) 128 mg/dl (70-90) Random Glucose 136 mg/dl (70-99) Test 09/15/16 11:14 Bedside Glucose 152 mg/dl (70-90) Laboratory Data (last 24hrs) Test 09/15/16 05:55 Anion Gap 10.0 mmol/L BUN/Creatinine Ratio 29.9 Blood Urea Nitrogen 33 mg/dl Creatinine 1.10 mg/dl Potassium Level 4.5 mmol/L Sodium Level 141 mmol/L White Blood Count 34.04 K/uL Red Blood Count 3.61 M/uL Hemoglobin 11.2 g/dL Hematocrit 33.7 % Mean Corpuscular Volume 93.4 fL Mean Corpuscular Hemoglobin 31.0 pg Mean Corpuscular Hemoglobin Concent 33.2 g/dl Platelet Count 303 K/uL Mean Platelet Volume 9.5 fL Neutrophils (%) (Auto) 87.6 % Lymphocytes (%) (Auto) 1.6 % Monocytes (%) (Auto) 6.8 % Eosinophils (%) (Auto) 0.0 % Basophils (%) (Auto) 0.2 % Neutrophils # (Auto) 29.84 K/uL Lymphocytes # (Auto) 0.53 K/uL Monocytes # (Auto) 2.30 K/uL Eosinophils # (Auto) 0.01 K/uL Basophils # (Auto) 0.06 K/uL Recent Pertinent Medications Outpatient Anti-diabetic Regimen: * Metformin 500mg PO TIDM The patient is currently receiving: * Basal insulin: Lantus given at bedtime per HS BSG, * if BSG 120mg/dl or below --> 5 units given * if BSG 121mg/dl or above --> 10 units given * Correctional Insulin: Novolog Correction per scale ACHS Goal Range: Low 120 mg/dL - High 160 mg/dL Correction Factor: 20 mg/dL/unit * Prandial insulin: Per carb ratio of 1 unit per 7 grams CHO consumed Risk Factors for Insulin Resistance: * Infection * IVF/base soln of Abx is dextrose Assessment & Plan ASSESSMENT: * 80yo T2DM female with near-adequate outpatient glycemic control per recent A1c. Goal A1c is ~ 8.5% * Pt has received 19 units of insulin over the past 24hrs * Pt has had little to no PO intake therefore BSGs refect "fasting" BSGs * BSGs [phone] over the past 24hrs. All BSGs are near goal range with current orders * ADA & AACE recommend a goal blood sugar range 140-180 mg/dl for the majority of critically ill & non-critically ill patients. However, more stringent targets may be selected in individual cases. Will utilize a slightly more stringent target of 120-160mg/dl to facilitate infection healing. PLAN FOR INPATIENT GLYCEMIC CONTROL: * Continue to hold outpatient oral diabetes medications * Continue Basal insulin with Lantus given at bedtime per HS BSG * if BSG below 120mg/dl --> Do not give Lantus * if BSG 121mg/dl to 179mg/dl --> Give Lantus 12 units * If BSG 180mg/dl or above --> Give Lantus 15 units * Correctional Insulin with NOVOLOG per scale ACHS or Q6hrs while NPO * Goal Range: Low 120 mg/dL - High 160 mg/dL * Correction Factor: 20 mg/dL/unit * Nutritional / Prandial insulin per carb ratio of 1 unit per 7 grams CHO consumed * Please note that the plan above was derived based on current level of insulin resistance and hospital stress. These recommendations are appropriate for inpatient admission only. Plan of care upon discharge will need to be reassessed to avoid potential outpatient hypo/hyperglycemia. Thank you.
[2016-09-15] MEDS: ACETAMINOPHEN 325 MG TAB PO PRN ×2 (15:11→20:00)
--- NOTE | 2016-09-15 15:31 | Progress Note ---
Subjective Date of Service: Sep 15, 2016. Subjective repeat blood cultures remain negative, initial cultures with MRSA. on dapto, tolerating well. afebrile. wbc continues to increase, 34 today. levaquin and flagyl stopped. MRI done today, still with swelling and parotitis, no collection , improved from ct scan on 09/10. ua negative. Problem List Medical Problems: (1) Abnormal EKG Status: Acute (2) Accidental drug ingestion Status: Acute (3) CHF (congestive heart failure) Status: Acute (4) Closed head injury Status: Acute (5) COPD exacerbation Status: Acute (6) Dysarthria Status: Acute (7) Facial cellulitis Status: Acute (8) Hypoxia Status: Acute (9) Leukocytosis Status: Acute (10) PNA (pneumonia) Status: Acute (11) Right leg weakness Status: Acute Objective Vital Signs Date Time Temp Pulse Resp B/P Pulse Ox O2 Delivery O2 Flow Rate FiO2 09/15/16 11:51 37.0 103 18 131/63 98 09/15/16 11:30 Nasal Cannula 2.0 09/15/16 11:29 98 18 96 Nasal Cannula 2.0 09/15/16 08:06 36.8 93 18 124/80 98 09/15/16 07:30 Nasal Cannula 2.0 09/15/16 07:25 85 18 98 Nasal Cannula 2.0 09/15/16 04:00 36.6 09/15/16 04:00 Nasal Cannula 2.0 09/15/16 03:48 36.0 70 22 119/81 99 Nasal Cannula 2.0 09/15/16 00:30 36.2 77 23 110/80 98 Nasal Cannula 09/14/16 23:59 Nasal Cannula 2.0 09/14/16 20:00 90 Room Air 09/14/16 19:41 36.7 88 18 126/81 95 09/14/16 18:45 88 18 94 Nasal Cannula 2.0 09/14/16 16:02 36.8 95 18 119/86 96 09/14/16 16:00 Nasal Cannula 3.0 Laboratory Results Item Value Date Time Blood Culture - Preliminary Resulted 09/09/16 1210 Blood Staphylococcus Aureus Blood Culture - Final Complete 09/09/16 1215 Blood Staphylococcus Aureus Blood Culture - Preliminary Resulted 09/10/16 1319 Blood Staphylococcus Aureus Blood Culture - Final Complete 09/10/16 1328 Blood Staphylococcus Aureus Blood Culture - Preliminary Resulted 09/11/16 1619 Blood NO GROWTH TO DATE. Blood Culture - Preliminary Resulted 09/11/16 1637 Blood NO GROWTH TO DATE. Blood Culture - Final Complete 09/09/16 1210 Blood Staphylococcus Aureus Last 24 Hours Test 09/14/16 16:25 09/14/16 20:13 09/15/16 05:00 09/15/16 05:55 Bedside Glucose 168 mg/dl 155 mg/dl Urine Color DK YELLOW Urine Appearance CLEAR Urine pH 5.0 Urine Specific [place] 1.021 Urine Protein NEG Urine Glucose (UA) NEG Urine Ketones NEG Urine Occult Blood NEG Urine Nitrite NEG Urine Bilirubin NEG Urine Urobilinogen NEG Urine Leukocyte Esterase SMALL Urine WBC (Auto) 1-5 /hpf Urine RBC (Auto) 5-10 /hpf Urine Hyaline Casts (Auto) 5-10 /lpf Urine Epithelial Cells (Auto) >30 /lpf Urine Bacteria (Auto) NEG Urine Renal Epithelial Cells /lpf Urine Mucus PRESENT White Blood Count 34.04 K/uL Red Blood Count 3.61 M/uL Hemoglobin 11.2 g/dL Hematocrit 33.7 % Mean Corpuscular Volume 93.4 fL Mean Corpuscular Hemoglobin 31.0 pg Mean Corpuscular Hemoglobin Concent 33.2 g/dl Platelet Count 303 K/uL Mean Platelet Volume 9.5 fL Neutrophils (%) (Auto) 87.6 % Lymphocytes (%) (Auto) 1.6 % Monocytes (%) (Auto) 6.8 % Eosinophils (%) (Auto) 0.0 % Basophils (%) (Auto) 0.2 % Neutrophils # (Auto) 29.84 K/uL Lymphocytes # (Auto) 0.53 K/uL Monocytes # (Auto) 2.30 K/uL Eosinophils # (Auto) 0.01 K/uL Basophils # (Auto) 0.06 K/uL RDW Standard Deviation 54.0 fL RDW Coefficient of Variation 16.0 % Immature Granulocyte % (Auto) 3.8 % Immature Granulocyte # (Auto) 1.30 K/uL Nucleated RBC Absolute Count (auto) 0.51 K/uL Nucleated Red Blood Cells % 1.5 % Polychromasia 1+ Echinocytes 1+ Prothrombin Time 27.7 SECONDS Prothromb Time International Ratio 2.5 Sodium Level 141 mmol/L Potassium Level 4.5 mmol/L Chloride Level 109 mmol/L Carbon Dioxide Level 22 mmol/L Anion Gap 10.0 mmol/L Blood Urea Nitrogen 33 mg/dl Creatinine 1.10 mg/dl Est Creatinine Clear Calc Drug Dose 35.2 ml/min Estimated GFR () 54.9 Estimated GFR (Non- 47.4 BUN/Creatinine Ratio 29.9 Random Glucose 136 mg/dl Lactic Acid Level 1.3 mmol/L Calcium Level 7.5 mg/dl Magnesium Level 1.7 mg/dl Total Bilirubin 0.5 mg/dl Aspartate Amino Transf (AST/SGOT) 12 U/L Alanine Aminotransferase (ALT/SGPT) 7 U/L Alkaline Phosphatase 64 U/L Total Protein 5.3 gm/dl Albumin 1.9 gm/dl Globulin 3.4 gm/dl Albumin/Globulin Ratio 0.6 Test 09/15/16 06:28 09/15/16 11:14 Bedside Glucose 128 mg/dl 152 mg/dl Assessment and Plan (1) Staphylococcus aureus septicemia Assessment & Plan: continue dapto, follow repeat cultures, negative to date, will need prolonged course of IV abx. no abscess on mri. if wbc increases and she has diarrhea, check c diff. levaquin stopped. will follow. warm compress. (2) Facial cellulitis Status: Acute (3) Leukocytosis Continued [facility] stay due to: abnormal vital signs, multiple IV medications needed
[2016-09-15] MEDS: DAPTOmycin IV 350 MG in SODIUM CHLORIDE 0.9% 50ML 50 ML IV SCH (17:12)
[2016-09-15] MEDS: INSULIN GLARGINE SOLOSTAR 100 UNITS/ML 3 ML PEN SC SCH (17:18)
[2016-09-15] MEDS: SIMVASTATIN 40 MG TAB PO SCH (19:59)
[2016-09-15] MEDS: DiphenhydrAMINE HCL 50 MG/ML VIAL IV PRN (20:00)
[2016-09-16] VITALS (15 sets, daily range): BP systolic 116–128; BP diastolic 76–98; PULSE 77–113; TEMP 36–36.7; O2SAT 93–98
[2016-09-16] MEDS: DiphenhydrAMINE HCL 50 MG/ML VIAL IV PRN (02:33)
[2016-09-16 06:48] LABS: HEMATOCRIT 36.1 % (37-47); MEAN CELL VOLUME 93.3 fL (80-100); MEAN CORPUSCULAR HGB CONC 33.2 g/dl (32-36); MEAN PLATELET VOLUME 9.6 fL (7.4-10.4); PLATELET COUNT 259 K/uL (130-400); RED BLOOD COUNT 3.87 M/uL (4.2-5.4); WHITE BLOOD COUNT 41.53 K/uL (4.8-10.8)
[2016-09-16 06:50] LABS: BUN/CREATININE RATIO 34.2 (10-20); CALCIUM 7.6 mg/dl (8.5-10.1); CREATININE 1.1 mg/dl (0.60-1.20); MAGNESIUM 1.8 mg/dl (1.8-2.4); POTASSIUM 4.7 mmol/L (3.5-5.1)
[2016-09-16] MEDS: ALBUT/IPRATROP 3MG/0.5MG NEB 3 ML VIAL INH SCH ×4 (06:50→20:02)
[2016-09-16 06:53] LABS: ALB/GLOB RATIO 0.5 (0.9-2); PHOSPHORUS 2.6 mg/dl (2.5-4.9)
[2016-09-16] MEDS: INSULIN ASPART 100 UNITS/ML 3 ML PEN SC SCH (07:00)
[2016-09-16 07:01] LABS: BASO % 0.2 %; BASO ABS # 0.08 K/uL (0-0.2); COMPLETE YES; ECHINOCYTES 2+; IG% 3.4 %; LYMPH % 2.1 %; LYMPH ABS # 0.87 K/uL (1.2-3.4); MONO % 3.9 %; NEUT % 90.4 %
--- NOTE | 2016-09-16 08:07 | DIAGNOSTIC IMAGING REPORT ---
KUB HISTORY: confirm NT tube placement COMPARISON: Abdominal series 09/16/2016. FINDINGS: The endotracheal tube is unchanged in position and likely terminates in the distal stomach. Bilateral pleural effusions persist. Multiple dilated gas-filled loops of bowel are again noted. Multiple pelvic phleboliths. No renal calculi. No ureteral calculi. No pneumoperitoneum or pneumatosis. IMPRESSION: 1. Nasogastric tube terminates in the expected location of distal stomach. 2. Bilateral pleural effusions persist. 3. Multiple mildly dilated gas-filled loops of bowel are again noted within the abdomen. Electronically signed by: Jeanmarie Santiago M.D. 09/16/2016 8:06 AM Dictated Date/Time: 09/16/2016 8:04 AM
--- NOTE | 2016-09-16 08:08 | DIAGNOSTIC IMAGING REPORT ---
KUB HISTORY: verify NG tube placement COMPARISON: Abdominal series 09/15/2016. FINDINGS: The endotracheal tube is unchanged in position and likely terminates in the distal stomach. Bilateral pleural effusions persist. Multiple dilated gas-filled loops of bowel are again noted. Multiple pelvic phleboliths. No renal calculi. No ureteral calculi. No pneumoperitoneum or pneumatosis. IMPRESSION: 1. Nasogastric tube terminates in the expected location of the distal stomach. 2. Bilateral pleural effusions persist. 3. Multiple mildly dilated gas-filled loops of bowel are again noted within the abdomen. Electronically signed by: Jeanmarie Santiago M.D. 09/16/2016 8:07 AM Dictated Date/Time: 09/16/2016 8:06 AM
[2016-09-16] MEDS: TIMOLOL GFS 0.5% OPH SOLN 74 DROPS/5 ML BTL OPB SCH ×2 (09:21→21:27)
[2016-09-16] MEDS: CLOPIDOGREL BISULFATE 75 MG TAB PO SCH (09:22)
[2016-09-16] MEDS: DILTIAZEM HCL 60 MG TAB PO SCH ×4 (09:22→21:27)
[2016-09-16] MEDS: FLUOXETINE HCL 10 MG CAP PO SCH (09:23)
[2016-09-16] MEDS: FERROUS GLUCONATE 324 MG TAB PO SCH (09:23)
--- NOTE | 2016-09-16 10:04 | DIAGNOSTIC IMAGING REPORT ---
CHEST ONE VIEW PORTABLE HISTORY: Short of breath. COMPARISON: Chest 09/09/2016. FINDINGS: Nasogastric tube terminates below the diaphragm. The tip is not included on this study. A right PICC terminates within the expected location of the SVC. No pneumothorax. Small to moderate bilateral pleural effusions have increased in size. The heart is mildly enlarged. This remains unchanged. Bibasilar hazy densities. Progressive perihilar interstitial vascular thickening suggestive of developing pulmonary edema. IMPRESSION: 1. Small to moderate bilateral pleural effusions have increased in size. 2. Bibasilar hazy densities favor compressive atelectasis from the pleural fluid. 3. Perihilar interstitial and vascular thickening progressed. This favors developing pulmonary edema. 4. Satisfactory support line placement. Electronically signed by: Jeanmarie Santiago M.D. 09/16/2016 10:03 AM Dictated Date/Time: 09/16/2016 10:01 AM
--- NOTE | 2016-09-16 10:53 | Progress Note ---
Subjective Date of Service: Sep 16, 2016. Subjective Pt evaluation today including: conversation w/ patient, physical exam, chart review, lab review pt lethargic but more appropriate today. wbc continues to increase, no w 41. s/ p picc today. now with ngt and tube feeds as well. denies abd pain or diarrhea. blood cultures ordered today, pending, previous negative. remains on dapto, afebrile. levaquin and mohr stopped yesterday. mri done, no abscess found. still with pain at ear and remains with facial swelling. remaining ros reviewed, limited but negative. Problem List Medical Problems: (1) Abnormal EKG Status: Acute (2) Accidental drug ingestion Status: Acute (3) CHF (congestive heart failure) Status: Acute (4) Closed head injury Status: Acute (5) COPD exacerbation Status: Acute (6) Dysarthria Status: Acute (7) Facial cellulitis Status: Acute (8) Hypoxia Status: Acute (9) Leukocytosis Status: Acute (10) PNA (pneumonia) Status: Acute (11) Right leg weakness Status: Acute Objective Vital Signs Date Time Temp Pulse Resp B/P Pulse Ox O2 Delivery O2 Flow Rate FiO2 09/16/16 08:00 98 Nasal Cannula 2.0 09/16/16 07:08 36.6 110 30 122/89 98 Nasal Cannula 3.0 09/16/16 06:50 113 28 96 Nasal Cannula 2.0 09/16/16 04:00 95 Nasal Cannula 2.0 09/16/16 03:04 36.6 98 24 128/98 95 Nasal Cannula 2.0 09/16/16 00:00 36.0 79 20 124/82 96 Nasal Cannula 2.0 09/16/16 00:00 96 Nasal Cannula 2.0 09/15/16 20:00 98 Nasal Cannula 2.0 09/15/16 19:28 100 18 94 Nasal Cannula 2.0 09/15/16 16:00 Nasal Cannula 2.0 09/15/16 15:59 36.9 97 20 129/82 99 09/15/16 15:44 93 18 97 Nasal Cannula 2.0 09/15/16 11:51 37.0 103 18 131/63 98 09/15/16 11:30 Nasal Cannula 2.0 09/15/16 11:29 98 18 96 Nasal Cannula 2.0 Physical Exam General Appearance: WD/WN, + pertinent finding (lethargic) Neck: supple, + pertinent finding (still with swelling at left ear/cheek, erythema and warmth have resolved) Respiratory/Chest: + pertinent finding (course bs b/l) Cardiovascular: regular rate, rhythm Abdomen: non tender, soft Extremities: non-tender Neurologic/Psychiatric: alert Skin: normal color Laboratory Results Item Value Date Time Blood Culture - Preliminary Resulted 09/11/16 1637 Blood NO GROWTH TO DATE. Blood Culture - Preliminary Resulted 09/11/16 1619 Blood NO GROWTH TO DATE. Blood Culture - Final Complete 09/09/16 1215 Blood Staphylococcus Aureus Blood Culture - Final Complete 09/10/16 1328 Blood Staphylococcus Aureus Last 24 Hours Test 09/15/16 11:14 09/15/16 16:48 09/15/16 20:29 09/16/16 05:53 Bedside Glucose 152 mg/dl 124 mg/dl 186 mg/dl White Blood Count 41.53 K/uL Red Blood Count 3.87 M/uL Hemoglobin 12.0 g/dL Hematocrit 36.1 % Mean Corpuscular Volume 93.3 fL Mean Corpuscular Hemoglobin 31.0 pg Mean Corpuscular Hemoglobin Concent 33.2 g/dl Platelet Count 259 K/uL Mean Platelet Volume 9.6 fL Neutrophils (%) (Auto) 90.4 % Lymphocytes (%) (Auto) 2.1 % Monocytes (%) (Auto) 3.9 % Eosinophils (%) (Auto) 0.0 % Basophils (%) (Auto) 0.2 % Neutrophils # (Auto) 37.52 K/uL Lymphocytes # (Auto) 0.87 K/uL Monocytes # (Auto) 1.63 K/uL Eosinophils # (Auto) 0.00 K/uL Basophils # (Auto) 0.08 K/uL RDW Standard Deviation 55.3 fL RDW Coefficient of Variation 16.5 % Immature Granulocyte % (Auto) 3.4 % Immature Granulocyte # (Auto) 1.43 K/uL Nucleated RBC Absolute Count (auto) 0.68 K/uL Nucleated Red Blood Cells % 1.6 % Echinocytes 2+ Sodium Level 143 mmol/L Potassium Level 4.7 mmol/L Chloride Level 111 mmol/L Carbon Dioxide Level 22 mmol/L Anion Gap 10.0 mmol/L Blood Urea Nitrogen 38 mg/dl Creatinine 1.10 mg/dl Est Creatinine Clear Calc Drug Dose 38.5 ml/min Estimated GFR () 54.9 Estimated GFR (Non- 47.4 BUN/Creatinine Ratio 34.2 Random Glucose 175 mg/dl Lactic Acid Level 1.6 mmol/L Calcium Level 7.6 mg/dl Phosphorus Level 2.6 mg/dl Magnesium Level 1.8 mg/dl Total Bilirubin 0.5 mg/dl Aspartate Amino Transf (AST/SGOT) 11 U/L Alanine Aminotransferase (ALT/SGPT) 7 U/L Alkaline Phosphatase 65 U/L Total Protein 5.2 gm/dl Albumin 1.7 gm/dl Globulin 3.5 gm/dl Albumin/Globulin Ratio 0.5 Test 09/16/16 06:50 Bedside Glucose 174 mg/dl Assessment and Plan (1) Staphylococcus aureus septicemia Assessment & Plan: continue dapto, follow repeat cultures, negative to date, will need prolonged course of IV abx. no abscess on mri. if wbc increases and she has diarrhea, check c diff. levaquin stopped. will follow. warm compress. Wbc continues to increase, no evidence of ongoing staph infection, repeat blood cultures have been negative, ordered again today. multiple ct scans and one mri neck negative for collection/abscess/osteo. ? heme eval, no diarrhea (2) Facial cellulitis Status: Acute (3) Leukocytosis Continued [facility] stay due to: abnormal vital signs, multiple IV medications needed
--- NOTE | 2016-09-16 11:28 | Pharmacy Progress Note ---
Glycemic Control: Progress Nt Date of Service Sep 16, 2016. Scope Glycemic Pharmacist consulted by for glycemic control and to write orders per [facility] inpatient glycemic control protocol. Objective Accuchecks BSG (last 24hrs): Test 09/15/16 16:48 09/15/16 20:29 09/16/16 05:53 09/16/16 06:50 Bedside Glucose 124 mg/dl (70-90) 186 mg/dl (70-90) 174 mg/dl (70-90) Random Glucose 175 mg/dl (70-99) Laboratory Data (last 24hrs) Test 09/16/16 05:53 Anion Gap 10.0 mmol/L BUN/Creatinine Ratio 34.2 Blood Urea Nitrogen 38 mg/dl Creatinine 1.10 mg/dl Potassium Level 4.7 mmol/L Sodium Level 143 mmol/L White Blood Count 41.53 K/uL Red Blood Count 3.87 M/uL Hemoglobin 12.0 g/dL Hematocrit 36.1 % Mean Corpuscular Volume 93.3 fL Mean Corpuscular Hemoglobin 31.0 pg Mean Corpuscular Hemoglobin Concent 33.2 g/dl Platelet Count 259 K/uL Mean Platelet Volume 9.6 fL Neutrophils (%) (Auto) 90.4 % Lymphocytes (%) (Auto) 2.1 % Monocytes (%) (Auto) 3.9 % Eosinophils (%) (Auto) 0.0 % Basophils (%) (Auto) 0.2 % Neutrophils # (Auto) 37.52 K/uL Lymphocytes # (Auto) 0.87 K/uL Monocytes # (Auto) 1.63 K/uL Eosinophils # (Auto) 0.00 K/uL Basophils # (Auto) 0.08 K/uL HbA1c: 9% on 08/22/16 Recent Pertinent Medications Outpatient Anti-diabetic Regimen: * Metformin 500mg PO TIDM The patient is currently receiving: * Basal insulin: Lantus given at bedtime per HS BSG, * if BSG below 120mg/dl --> 0 units given * if BSG 120-179mg/dl--> 12 units given * if BSG 180mg/dl or above --> 15 units given * Correctional Insulin: Novolog Correction per scale ACHS Goal Range: Low 120 mg/dL - High 160 mg/dL Correction Factor: 30 mg/dL/unit * Prandial insulin: Per carb ratio of 1 unit per 10 grams CHO consumed Assessment & Plan ASSESSMENT: * daily insulin requirement has been fluctuating daily based on PO intake and Lantus steady state. * Pt has been receiving ~ 15 units of insulin for the past 2 days. Basically all of this is basal insulin d/t no PO intake. * Pt started fibersource yesterday but pulled out NGT x 2. Have not seen the rise in BSGs from CHO w/o prandial insulin coverage since the tube feedings have been so sporadic. * NGT re-placed today and is intact. RN to start tube feedings around lunch time today. Will initiate ASPEN recommended orders for continuous tube feedings to prevent post-prandial hyperglycemia. * ASPEN recommends administering bolus [carbohydrate] coverage as REGULAR insulin (not aspart) at ~12.5% of estimated total insulin needs given as a fixed dose of insulin every 6hrs. This coverage is to be HELD if tube feedings are held or interrupted. The dose of insulin will be calculated based on pt specific carb ratio and the amount of carbs to be delivered over the next 6 hrs. * Will continue bolus [correctional] insulin with REGULAR insulin every 6 hrs to be given when BSG is above goal range. This dosing will be administered even when tube feeds are held as it is only covering stress hyperglycemia. * ADA & AACE recommend a goal blood sugar range 140-180 mg/dl for the majority of critically ill & non-critically ill patients. However, more stringent targets may be selected in individual cases. Will utilize a slightly more stringent target of 120-160mg/dl to facilitate infection healing. PLAN FOR INPATIENT GLYCEMIC CONTROL: * Continue to hold outpatient oral diabetes medications * Continue Basal insulin with Lantus given at bedtime per HS BSG * if BSG below 120mg/dl --> Do not give Lantus * if BSG 121mg/dl to 179mg/dl --> Give Lantus 12 units * If BSG 180mg/dl or above --> Give Lantus 15 units * Correctional Insulin, change from Novolog to REGULAR per scale ACHS or Q6hrs while NPO * Goal Range: Low 120 mg/dL - High 160 mg/dL * Correction Factor: 20 mg/dL/unit * Use REGULAR insulin for Nutritional / Prandial insulin per carb ratio of 1 unit per ~ 11grams. Only administer CHO coverage Q6hrs when TF is at 50% of goal rate or above. This equates to: * Fibersource running at 20ml/hr --> give 0 units * Fibersource running at 40ml/hr --> give 3 units * Fibersource running at 60ml/hr --> give 5 units * Please note that the plan above was derived based on current level of insulin resistance and hospital stress. These recommendations are appropriate for inpatient admission only. Plan of care upon discharge will need to be reassessed to avoid potential outpatient hypo/hyperglycemia. Thank you.
[2016-09-16] MEDS: INSULIN HUMAN REGULAR SC SCH ×4 (12:00→18:26)
[2016-09-16] MEDS: MoRPHine SULFATE 2 MG/ML CARP IV PRN ×3 (14:35→23:54)
[2016-09-16] MEDS: SODIUM CHLORIDE 0.9% 1000ML 1,000 ML IV SCH (14:36)
[2016-09-16] MEDS: RIVAROXABAN TAB 15 MG TAB PO SCH (16:26)
[2016-09-16] MEDS: DAPTOmycin IV 350 MG in SODIUM CHLORIDE 0.9% 50ML 50 ML IV SCH (16:28)
--- NOTE | 2016-09-16 16:59 | Progress Note ---
Subjective Date of Service: Sep 16, 2016. Subjective Pt evaluation today including: conversation w/ patient, conversation w/ family , physical exam, chart review, lab review, review of studies Problem List Medical Problems: (1) Abnormal EKG Status: Acute (2) Accidental drug ingestion Status: Acute (3) CHF (congestive heart failure) Status: Acute (4) Closed head injury Status: Acute (5) COPD exacerbation Status: Acute (6) Dysarthria Status: Acute (7) Facial cellulitis Status: Acute (8) Hypoxia Status: Acute (9) Leukocytosis Status: Acute (10) PNA (pneumonia) Status: Acute (11) Right leg weakness Status: Acute Review of Systems Constitutional: No chills, No fatigue, No fever, No problem reported, No see HPI, No sweats, No weakness, No weight loss Eyes: No diplopia, No discharge, No eye pain, No problem reported, No redness, No see HPI, No worsening of vision ENT: No dental problems, No hearing loss, No nasal symptoms, No problem reported, No see HPI, No sore throat, No tinnitus, No trouble swallowing, No unusual epistaxis Respiratory: + shortness of breath Cardiac: No PND, No chest pain, No claudication, No edema, No orthopnea, No palpitations, No problem reported, No see HPI Abdomen: No GI bleeding, No constipation, No diarrhea, No nausea, No pain, No problem reported, No see HPI, No vomiting Musculoskeletal: No calf pain, No joint pain, No muscle pain, No problem reported, No see HPI, No swelling Psychiatric: No anhedonism, No anxiety, No depression symptoms, No insomnia, No problem reported, No see HPI, No substance abuse Heme: No abnormal bleeding/bruising, No clotting problems, No night sweats, No problem reported, No see HPI, No swollen lymph nodes Endo: No excessive thirst, No excessive urination, No fatigue, No problem reported, No see HPI Skin: No bleeding, No color change, No itch, No new/changing skin lesions, No problem reported, No rash, No see HPI Medications Current Inpatient Medications Medications (Trade) Dose Ordered Sig/Jose Route Start Time Stop Time Status Last Admin Dose Admin Acetaminophen (Tylenol Tab) 650 mg Q4H PRN PO 09/08/16 20:45 10/08/16 20:44 09/15/16 20:00 650 MG Zolpidem Tartrate (Ambien Tab) 5 mg HSZ PRN PO 09/08/16 20:45 10/08/16 20:44 Simvastatin (Zocor Tab) 40 mg QPM PO 09/08/16 21:00 10/08/16 20:59 09/15/16 19:59 40 MG Timolol Maleate (Timoptic-Xe 0.5% Oph Soln) 1 drops Q12 OPB 09/08/16 21:00 10/08/16 20:59 09/16/16 09:21 1 DROPS Ferrous Gluconate (Ferrous Gluconate Tab) 324 mg DAILY PO 09/09/16 09:00 10/09/16 08:59 09/16/16 09:23 324 MG Fluoxetine HCl (Prozac Cap) 10 mg QAM PO 09/09/16 09:00 10/09/16 08:59 09/16/16 09:23 10 MG Lorazepam (Ativan Inj) 0.5 mg Q4H PRN IV 09/08/16 20:45 10/08/16 20:44 09/13/16 07:52 0.5 MG Magnesium Hydroxide (Milk Of Magnesia Susp) 30 ml Q6H PRN PO 09/08/16 20:45 10/08/16 20:44 Bisacodyl (Dulcolax Supp) 10 mg DAILY PRN IN 09/08/16 20:45 10/08/16 20:44 Diphenhydramine HCl (Benadryl Inj) 25 mg Q4H PRN IV 09/08/16 20:45 10/08/16 20:44 09/16/16 02:33 25 MG Al Hydrox/Mg Hydrox/ Simethicone 15 ml 15 ml Q4H PRN PO 09/08/16 20:45 10/08/16 20:44 Promethazine HCl/ Sodium Chloride (Phenergan Inj/ Nss 50ml) 50.5 ml @ 202 mls/hr Q4H PRN IV 09/08/16 20:45 10/08/16 20:44 Ondansetron HCl (Zofran Inj) 4 mg Q6H PRN IV 09/08/16 20:45 10/08/16 20:44 09/09/16 04:50 4 MG Glucose (Glucose 40% Gel) UD PRN PO 09/08/16 20:45 10/08/16 20:44 Glucose (Glucose Chew Tab) 1 tabs UD PRN PO 09/08/16 20:45 10/08/16 20:44 Dextrose (Dextrose 50% 50ML Syringe) 50 ml UD PRN IV 09/08/16 20:45 10/08/16 20:44 Glucagon (Glucagon Inj) 1 mg UD PRN SQ 09/08/16 20:45 10/08/16 20:44 Heparin Sodium (Porcine) (Heparin 10 Unit/ ml 5 ml Flush) 5 ml PRN PRN FLUSH 09/09/16 12:45 10/09/16 12:44 09/10/16 15:27 5 ML Albuterol/ Ipratropium 3 ml 3 ml QIDR INH 09/09/16 20:00 10/09/16 19:59 09/16/16 11:15 3 ML Sodium Chloride (Nss 1000ml) 1,000 ml @ 75 mls/hr [id number] IV 09/11/16 09:15 10/11/16 09:14 09/16/16 14:36 75 MLS/HR Miconazole Nitrate 1 appln 1 appln PRN PRN EXT 09/11/16 15:00 10/11/16 14:59 Daptomycin/Sodium Chloride (Cubicin IV/Nss 50ml) 57 ml @ 100 mls/hr DAILY@1600 IV 09/11/16 17:30 09/25/16 17:29 09/16/16 16:28 100 MLS/HR Miscellaneous Information (Consult Glycemic Management Pharmacy) 1 ea UD N/A 09/12/16 17:14 10/12/16 17:13 Diltiazem HCl (Cardizem Tab) 60 mg QID PO 09/13/16 13:00 10/13/16 12:59 09/16/16 16:26 60 MG Gadobutrol (Gadavist) 6 mmol UD PRN IV 09/14/16 22:00 09/18/16 21:59 Insulin Glargine (Lantus Solostar Pen) SEE PROTOCOL TEXT HS SC 09/15/16 16:45 10/15/16 16:44 09/15/16 17:18 12 UNIT Clopidogrel Bisulfate (plAVix TAB) 75 mg QAM PO 09/16/16 09:00 10/16/16 08:59 09/16/16 09:22 75 MG Rivaroxaban (Xarelto Tab) 15 mg DAILYBD PO 09/16/16 16:15 10/16/16 16:14 09/16/16 16:26 15 MG Morphine Sulfate (MoRPHine SULFATE INJ) 1 mg Q4H PRN IV 09/15/16 09:30 09/29/16 09:29 09/16/16 14:35 1 MG Enteral Nutritional Formula (Fibersource HN) 1,000 ml UD NG 09/15/16 12:45 10/15/16 12:44 09/15/16 15:10 1,000 ML Insulin Human Regular (novoLIN-R) SLIDING SCALE Q6 SC 09/16/16 12:00 10/16/16 11:59 09/16/16 12:40 2 UNITS Insulin Human Regular (novoLIN-R) This entry serves as c... Q6 SC 09/16/16 12:00 10/16/16 11:59 Enteral Nutritional Formula (Fibersource HN) 1,265 ml UD NG 09/16/16 15:45 10/16/16 15:44 Brimonidine Tartrate (Alphagan-P 0.15% Oph Soln) 1 drops BID OPB 09/16/16 21:00 10/16/16 20:59 Objective Vital Signs Date Time Temp Pulse Resp B/P Pulse Ox O2 Delivery O2 Flow Rate FiO2 09/16/16 12:00 95 Nasal Cannula 2.0 09/16/16 11:15 113 28 93 Nasal Cannula 2.0 09/16/16 11:05 36.4 95 25 123/83 95 Nasal Cannula 2.0 09/16/16 08:00 95 Nasal Cannula 2.0 09/16/16 08:00 98 Nasal Cannula 2.0 09/16/16 07:08 36.6 110 30 122/89 98 Nasal Cannula 3.0 09/16/16 06:50 113 28 96 Nasal Cannula 2.0 09/16/16 04:00 95 Nasal Cannula 2.0 09/16/16 03:04 36.6 98 24 128/98 95 Nasal Cannula 2.0 09/16/16 00:00 36.0 79 20 124/82 96 Nasal Cannula 2.0 09/16/16 00:00 96 Nasal Cannula 2.0 09/15/16 20:00 98 Nasal Cannula 2.0 09/15/16 19:28 100 18 94 Nasal Cannula 2.0 Physical Exam General Appearance: + mild distress Eyes: normal inspection, EOMI ENT: normal ENT inspection, hearing grossly normal Neck: supple Respiratory/Chest: chest non-tender, + decreased breath sounds, + rales Cardiovascular: regular rate, rhythm, no edema, no gallop, no JVD, no murmur Abdomen: normal bowel sounds, non tender, soft, no organomegaly Extremities: normal range of motion, non-tender, normal inspection, no pedal edema Neurologic/Psychiatric: manager life II-XII nml as tested, no motor/sensory deficits, alert, normal mood/affect, + pertinent finding (slightly confused) Skin: normal color, warm/dry Laboratory Results Last 24 Hours Test 09/15/16 16:48 09/15/16 20:29 09/16/16 05:53 09/16/16 06:50 Bedside Glucose 124 mg/dl 186 mg/dl 174 mg/dl White Blood Count 41.53 K/uL Red Blood Count 3.87 M/uL Hemoglobin 12.0 g/dL Hematocrit 36.1 % Mean Corpuscular Volume 93.3 fL Mean Corpuscular Hemoglobin 31.0 pg Mean Corpuscular Hemoglobin Concent 33.2 g/dl Platelet Count 259 K/uL Mean Platelet Volume 9.6 fL Neutrophils (%) (Auto) 90.4 % Lymphocytes (%) (Auto) 2.1 % Monocytes (%) (Auto) 3.9 % Eosinophils (%) (Auto) 0.0 % Basophils (%) (Auto) 0.2 % Neutrophils # (Auto) 37.52 K/uL Lymphocytes # (Auto) 0.87 K/uL Monocytes # (Auto) 1.63 K/uL Eosinophils # (Auto) 0.00 K/uL Basophils # (Auto) 0.08 K/uL RDW Standard Deviation 55.3 fL RDW Coefficient of Variation 16.5 % Immature Granulocyte % (Auto) 3.4 % Immature Granulocyte # (Auto) 1.43 K/uL Nucleated RBC Absolute Count (auto) 0.68 K/uL Nucleated Red Blood Cells % 1.6 % Echinocytes 2+ Sodium Level 143 mmol/L Potassium Level 4.7 mmol/L Chloride Level 111 mmol/L Carbon Dioxide Level 22 mmol/L Anion Gap 10.0 mmol/L Blood Urea Nitrogen 38 mg/dl Creatinine 1.10 mg/dl Est Creatinine Clear Calc Drug Dose 38.5 ml/min Estimated GFR () 54.9 Estimated GFR (Non- 47.4 BUN/Creatinine Ratio 34.2 Random Glucose 175 mg/dl Lactic Acid Level 1.6 mmol/L Calcium Level 7.6 mg/dl Phosphorus Level 2.6 mg/dl Magnesium Level 1.8 mg/dl Total Bilirubin 0.5 mg/dl Aspartate Amino Transf (AST/SGOT) 11 U/L Alanine Aminotransferase (ALT/SGPT) 7 U/L Alkaline Phosphatase 65 U/L Total Protein 5.2 gm/dl Albumin 1.7 gm/dl Globulin 3.5 gm/dl Albumin/Globulin Ratio 0.5 Test 09/16/16 11:03 Bedside Glucose 177 mg/dl Assessment and Plan Left facial cellulitis/left parotitis/left masseter muscle infection/left inframandibular infection and sepsis (WBC, HR) present on admission leukocytosis, worsening (new blood Cx sent from the PICC line and peripherally, also fungal cultures were sent, no diarrhea ) -clinically infection appears stable -currently on dapto S/P levaquin, and flagyl S/P 2 CT neck without contrast and MRI neck with da also showed no abscess or stone continue Dapto add lactinex bacteremia - dapto - follow third cultures, await echo, ongoing ID input lemon q1hr while awake moist heat 20mins/hr staph bacteremia -surveillance blood cultures sent 09/11 are negative -echo to r/o vegetations. given persistent bacteremia despite vanco, will have low threshold for SADIE systolic cardiomyopathy with CHF exacerbation -appearance of takutsubo's - check troponin, follow. no s/s CHF, may need cardiology involvement but right now appearing stable DC IVF, start lasix 20mg IV BID afib/RVR -rate controlled- transition back from IV to PO dilt -restart xarelto tonight for stroke prophylaxis as no surgery is indicated metabolic encephalopathy / delirium, improved -due to pain, meds, poor sleep, hospital environment, continue to monitor -Decrease morphine and ativan doses Dysphagia -possible aspiration, poor oral intake, painful swallowing -place NGT , start TF -D/W Daughter and next of Kin who is agreeable to the plan, also patient gave permission to discuss the case with her granddaughter CAD/hypertension/TIA/CVA-- continue clopidogrel / Xarelto continue diltiazem extended release heart (increased to 180) mg by mouth daily continue losartan 25 mg by mouth twice a day, y. hold triamterene/HCTZ 37.5/ 25 daily until PO intake improves, but follow BP Diabetes mellitus--hold metformin 500, pharmacy glycemic consult given need for ongoing steroids COPD--continue Symbicort 160/4.5 2 puffs twice a day, nebs prn, including for cough Depression--continue fluoxetine 10 mg by mouth every morning. Hypercholesterolemia--continue simvastatin 40 mg by mouth every afternoon. Glaucoma--continue Alphagan P ophthalmic solution 1 drop OPB twice a day, and timolol GFS 0.5% one drop OPB every 12 hours. Continued [facility] stay due to: abnormal vital signs, multiple IV medications needed
[2016-09-16] MEDS: FUROSEMIDE INJ 20 MG in SYRINGE 0 ML IV SCH (18:21)
[2016-09-16 19:11] LABS: URINE APPEARANCE CLEAR (CLEAR); URINE BILIRUBIN NEG (NEG); URINE COLOR YELLOW; URINE NITRITE NEG (NEG); UROBILINOGEN NEG (NEG); ZZURINE CULT IF INDIC CATH NO
[2016-09-16 19:17] LABS: MANUAL MICROSCOPIC REQUIRED? NO; REVIEW REQ? NO
[2016-09-16] MEDS: SIMVASTATIN 40 MG TAB PO SCH (21:27)
[2016-09-16] MEDS: INSULIN GLARGINE SOLOSTAR 100 UNITS/ML 3 ML PEN SC SCH (21:29)
[2016-09-16] MEDS: BRIMONIDINE TARTRATE-P 0.15% 5 ML BTL OPB SCH (21:29)
[2016-09-17] VITALS (14 sets, daily range): BP systolic 125–145; BP diastolic 74–90; PULSE 68–96; TEMP 35.5–36.5; O2SAT 25–97
[2016-09-17] MEDS: INSULIN HUMAN REGULAR SC SCH ×7 (00:09→18:53)
[2016-09-17] MEDS: MoRPHine SULFATE 2 MG/ML CARP IV PRN ×3 (03:44→16:15)
[2016-09-17 06:37] LABS: BUN/CREATININE RATIO 36.6 (10-20); CALCIUM 7.3 mg/dl (8.5-10.1); MAGNESIUM 1.6 mg/dl (1.8-2.4); POTASSIUM 4.5 mmol/L (3.5-5.1)
[2016-09-17 06:45] LABS: ALB/GLOB RATIO 0.5 (0.9-2); PHOSPHORUS 1.9 mg/dl (2.5-4.9)
[2016-09-17 06:47] LABS: BETA-HYDROXYBUTYRATE 1.15 mg/dL (0.2-2.81)
[2016-09-17 06:49] LABS: HEMATOCRIT 32.7 % (37-47); MEAN CELL VOLUME 94.2 fL (80-100); MEAN CORPUSCULAR HEMOGLOBIN 30.8 pg (25-34); MEAN CORPUSCULAR HGB CONC 32.7 g/dl (32-36); MEAN PLATELET VOLUME 9.8 fL (7.4-10.4); PLATELET COUNT 169 K/uL (130-400); RED BLOOD COUNT 3.47 M/uL (4.2-5.4); WHITE BLOOD COUNT 41.48 K/uL (4.8-10.8)
[2016-09-17] MEDS: FIBERSOURCE HN 1000ML BAG NG SCH ×2 (06:49)
[2016-09-17 06:56] LABS: BASO % 0.2 %; BASO ABS # 0.07 K/uL (0-0.2); COMPLETE YES; ECHINOCYTES 2+; IG% 2.8 %; LYMPH % 1.6 %; LYMPH ABS # 0.67 K/uL (1.2-3.4); MONO % 4.4 %
[2016-09-17] MEDS: ALBUT/IPRATROP 3MG/0.5MG NEB 3 ML VIAL INH SCH ×4 (07:04→18:55)
[2016-09-17] MEDS ORDERED: INSULIN REGULAR 5 UNITS in SYRINGE 0 ML IV ONE ×2 (08:00→14:00)
[2016-09-17] MEDS: TIMOLOL GFS 0.5% OPH SOLN 74 DROPS/5 ML BTL OPB SCH ×2 (08:56→19:49)
[2016-09-17] MEDS: BRIMONIDINE TARTRATE-P 0.15% 5 ML BTL OPB SCH ×2 (08:56→19:50)
[2016-09-17] MEDS: DILTIAZEM HCL 60 MG TAB PO SCH ×4 (08:57→19:50)
[2016-09-17] MEDS: CLOPIDOGREL BISULFATE 75 MG TAB PO SCH (08:59)
[2016-09-17] MEDS: FUROSEMIDE INJ 20 MG in SYRINGE 0 ML IV SCH ×2 (09:00→16:14)
--- NOTE | 2016-09-17 09:18 | Progress Note ---
Subjective Date of Service: Sep 17, 2016. Subjective Pt evaluation today including: conversation w/ patient, conversation w/ family , physical exam, chart review, lab review, conversation w/ e business consultant, review of inpatient medication list Voiding: no voiding problems Problem List Medical Problems: (1) Abnormal EKG Status: Acute (2) Accidental drug ingestion Status: Acute (3) CHF (congestive heart failure) Status: Acute (4) Closed head injury Status: Acute (5) COPD exacerbation Status: Acute (6) Dysarthria Status: Acute (7) Facial cellulitis Status: Acute (8) Hypoxia Status: Acute (9) Leukocytosis Status: Acute (10) PNA (pneumonia) Status: Acute (11) Right leg weakness Status: Acute Review of Systems Constitutional: + fatigue, + weakness, No chills, No fever, No problem reported , No see HPI, No sweats, No weight loss Eyes: No diplopia, No discharge, No eye pain, No problem reported, No redness, No see HPI, No worsening of vision ENT: + problem reported (swelling parotid), + sore throat, + trouble swallowing , No dental problems, No hearing loss, No nasal symptoms, No see HPI, No tinnitus, No unusual epistaxis Respiratory: No cough, No dyspnea at rest, No dyspnea on exertion, No hemoptysis, No problem reported, No see HPI, No shortness of breath, No sputum, No wheezing Cardiac: No PND, No chest pain, No claudication, No edema, No orthopnea, No palpitations, No problem reported, No see HPI Abdomen: No GI bleeding, No constipation, No diarrhea, No nausea, No pain, No problem reported, No see HPI, No vomiting Musculoskeletal: No calf pain, No joint pain, No muscle pain, No problem reported, No see HPI, No swelling Neurologic: No balance problems, No memory loss, No numbness/tingling, No paralysis, No problem reported, No see HPI, No vertigo, No weakness Psychiatric: No anhedonism, No anxiety, No depression symptoms, No insomnia, No problem reported, No see HPI, No substance abuse Heme: No abnormal bleeding/bruising, No clotting problems, No night sweats, No problem reported, No see HPI, No swollen lymph nodes Endo: No excessive thirst, No excessive urination, No fatigue, No problem reported, No see HPI Skin: No bleeding, No color change, No itch, No new/changing skin lesions, No problem reported, No rash, No see HPI Medications Current Inpatient Medications Medications (Trade) Dose Ordered Sig/Jose Route Start Time Stop Time Status Last Admin Dose Admin Acetaminophen (Tylenol Tab) 650 mg Q4H PRN PO 09/08/16 20:45 10/08/16 20:44 09/15/16 20:00 650 MG Zolpidem Tartrate (Ambien Tab) 5 mg HSZ PRN PO 09/08/16 20:45 10/08/16 20:44 Simvastatin (Zocor Tab) 40 mg QPM PO 09/08/16 21:00 10/08/16 20:59 09/16/16 21:27 40 MG Timolol Maleate (Timoptic-Xe 0.5% Oph Soln) 1 drops Q12 OPB 09/08/16 21:00 10/08/16 20:59 09/16/16 21:27 1 DROPS Ferrous Gluconate (Ferrous Gluconate Tab) 324 mg DAILY PO 09/09/16 09:00 10/09/16 08:59 09/16/16 09:23 324 MG Fluoxetine HCl (Prozac Cap) 10 mg QAM PO 09/09/16 09:00 10/09/16 08:59 09/16/16 09:23 10 MG Lorazepam (Ativan Inj) 0.5 mg Q4H PRN IV 09/08/16 20:45 10/08/16 20:44 09/13/16 07:52 0.5 MG Magnesium Hydroxide (Milk Of Magnesia Susp) 30 ml Q6H PRN PO 09/08/16 20:45 10/08/16 20:44 Bisacodyl (Dulcolax Supp) 10 mg DAILY PRN AR 09/08/16 20:45 10/08/16 20:44 Diphenhydramine HCl (Benadryl Inj) 25 mg Q4H PRN IV 09/08/16 20:45 10/08/16 20:44 09/16/16 02:33 25 MG Al Hydrox/Mg Hydrox/ Simethicone 15 ml 15 ml Q4H PRN PO 09/08/16 20:45 10/08/16 20:44 Promethazine HCl/ Sodium Chloride (Phenergan Inj/ Nss 50ml) 50.5 ml @ 202 mls/hr Q4H PRN IV 09/08/16 20:45 10/08/16 20:44 Ondansetron HCl (Zofran Inj) 4 mg Q6H PRN IV 09/08/16 20:45 10/08/16 20:44 09/09/16 04:50 4 MG Glucose (Glucose 40% Gel) UD PRN PO 09/08/16 20:45 10/08/16 20:44 Glucose (Glucose Chew Tab) 1 tabs UD PRN PO 09/08/16 20:45 10/08/16 20:44 Dextrose (Dextrose 50% 50ML Syringe) 50 ml UD PRN IV 09/08/16 20:45 10/08/16 20:44 Glucagon (Glucagon Inj) 1 mg UD PRN SQ 09/08/16 20:45 10/08/16 20:44 Heparin Sodium (Porcine) (Heparin 10 Unit/ ml 5 ml Flush) 5 ml PRN PRN FLUSH 09/09/16 12:45 10/09/16 12:44 09/10/16 15:27 5 ML Albuterol/ Ipratropium (Duoneb) 3 ml QIDR INH 09/09/16 20:00 10/09/16 19:59 09/17/16 07:04 3 ML Miconazole Nitrate 1 appln 1 appln PRN PRN EXT 09/11/16 15:00 10/11/16 14:59 Daptomycin/Sodium Chloride (Cubicin IV/Nss 50ml) 57 ml @ 100 mls/hr DAILY@1600 IV 09/11/16 17:30 09/25/16 17:29 09/16/16 16:28 100 MLS/HR Miscellaneous Information (Consult Glycemic Management Pharmacy) 1 ea UD N/A 09/12/16 17:14 10/12/16 17:13 Diltiazem HCl (Cardizem Tab) 60 mg QID PO 09/13/16 13:00 10/13/16 12:59 09/16/16 21:27 60 MG Gadobutrol (Gadavist) 6 mmol UD PRN IV 09/14/16 22:00 09/18/16 21:59 Insulin Glargine (Lantus Solostar Pen) SEE PROTOCOL TEXT HS SC 09/15/16 16:45 10/15/16 16:44 09/16/16 21:29 12 UNIT Clopidogrel Bisulfate (plAVix TAB) 75 mg QAM PO 09/16/16 09:00 10/16/16 08:59 09/16/16 09:22 75 MG Rivaroxaban (Xarelto Tab) 15 mg DAILYBD PO 09/16/16 16:15 10/16/16 16:14 09/16/16 16:26 15 MG Morphine Sulfate (MoRPHine SULFATE INJ) 1 mg Q4H PRN IV 09/15/16 09:30 09/29/16 09:29 09/17/16 03:44 1 MG Insulin Human Regular (novoLIN-R) SLIDING SCALE Q6 SC 09/16/16 12:00 10/16/16 11:59 09/17/16 06:32 5 UNITS Insulin Human Regular (novoLIN-R) This entry serves as c... Q6 SC 09/16/16 12:00 10/16/16 11:59 09/17/16 06:34 5 UNITS Enteral Nutritional Formula (Fibersource HN) 1,265 ml UD NG 09/16/16 15:45 10/16/16 15:44 09/17/16 06:49 1,000 ML Brimonidine Tartrate 1 drops 1 drops BID OPB 09/16/16 21:00 10/16/16 20:59 09/16/16 21:29 1 DROPS Furosemide/Syringe (Lasix Inj/ Syringe) 2 ml @ 4 mls/min BID17 IV 09/16/16 17:00 10/16/16 16:59 09/16/16 18:21 4 MLS/MIN Objective Vital Signs Date Time Temp Pulse Resp B/P Pulse Ox O2 Delivery O2 Flow Rate FiO2 09/17/16 08:29 Nasal Cannula 2.0 09/17/16 07:04 96 22 96 Nasal Cannula 2.0 09/17/16 07:00 35.5 84 22 143/90 95 Nasal Cannula 2.0 09/17/16 04:10 95 Nasal Cannula 2.0 09/17/16 03:41 36.3 89 20 131/84 94 Nasal Cannula 2.0 09/17/16 00:10 96 Nasal Cannula 2.0 09/16/16 23:28 36.5 77 20 118/76 95 Nasal Cannula 2.0 09/16/16 21:16 36.7 79 18 125/77 97 09/16/16 20:30 97 Nasal Cannula 2.0 09/16/16 20:05 90 18 98 Nasal Cannula 2.0 09/16/16 16:18 36.5 86 22 116/78 97 Nasal Cannula 2.0 09/16/16 16:00 Nasal Cannula 2.0 09/16/16 15:15 81 26 97 Nasal Cannula 2.0 09/16/16 12:00 95 Nasal Cannula 2.0 09/16/16 11:15 113 28 93 Nasal Cannula 2.0 09/16/16 11:05 36.4 95 25 123/83 95 Nasal Cannula 2.0 Physical Exam General Appearance: + mild distress Eyes: normal inspection, EOMI ENT: normal ENT inspection, hearing grossly normal, + pertinent finding ( parotid swelling is improving) Neck: supple Respiratory/Chest: chest non-tender, lungs clear, no respiratory distress, no accessory muscle use Cardiovascular: regular rate, rhythm, no edema, no gallop, no JVD, no murmur Abdomen: normal bowel sounds, non tender, soft Extremities: normal range of motion, non-tender, normal inspection, no pedal edema Neurologic/Psychiatric: pin drafter II-XII nml as tested, no motor/sensory deficits, alert, normal mood/affect, oriented x 3 Skin: normal color, warm/dry, no rash Laboratory Results Last 24 Hours Test 09/16/16 11:03 09/16/16 18:02 09/16/16 18:08 09/16/16 21:20 Bedside Glucose 177 mg/dl 246 mg/dl 306 mg/dl Urine Color YELLOW Urine Appearance CLEAR Urine pH 5.0 Urine Specific [place] 1.010 Urine Protein NEG Urine Glucose (UA) NEG Urine Ketones NEG Urine Occult Blood 1+ Urine Nitrite NEG Urine Bilirubin NEG Urine Urobilinogen NEG Urine Leukocyte Esterase TRACE Urine WBC (Auto) 1-5 /hpf Urine RBC (Auto) 5-10 /hpf Urine Hyaline Casts (Auto) 1-5 /lpf Urine Epithelial Cells (Auto) 10-20 /lpf Urine Bacteria (Auto) NEG Test 09/16/16 23:58 09/17/16 05:45 09/17/16 05:59 09/17/16 08:52 Bedside Glucose 287 mg/dl 343 mg/dl White Blood Count 41.48 K/uL Red Blood Count 3.47 M/uL Hemoglobin 10.7 g/dL Hematocrit 32.7 % Mean Corpuscular Volume 94.2 fL Mean Corpuscular Hemoglobin 30.8 pg Mean Corpuscular Hemoglobin Concent 32.7 g/dl Platelet Count 169 K/uL Mean Platelet Volume 9.8 fL Neutrophils (%) (Auto) 91.0 % Lymphocytes (%) (Auto) 1.6 % Monocytes (%) (Auto) 4.4 % Eosinophils (%) (Auto) 0.0 % Basophils (%) (Auto) 0.2 % Neutrophils # (Auto) 37.75 K/uL Lymphocytes # (Auto) 0.67 K/uL Monocytes # (Auto) 1.83 K/uL Eosinophils # (Auto) 0.00 K/uL Basophils # (Auto) 0.07 K/uL RDW Standard Deviation 56.0 fL RDW Coefficient of Variation 16.7 % Immature Granulocyte % (Auto) 2.8 % Immature Granulocyte # (Auto) 1.16 K/uL Nucleated RBC Absolute Count (auto) 0.60 K/uL Nucleated Red Blood Cells % 1.5 % Echinocytes 2+ Sodium Level 143 mmol/L Potassium Level 4.5 mmol/L Chloride Level 110 mmol/L Carbon Dioxide Level 26 mmol/L Anion Gap 7.0 mmol/L Blood Urea Nitrogen 37 mg/dl Creatinine 1.00 mg/dl Est Creatinine Clear Calc Drug Dose 42.2 ml/min Estimated GFR () 61.6 Estimated GFR (Non- 53.2 BUN/Creatinine Ratio 36.6 Random Glucose 350 mg/dl Lactic Acid Level 1.2 mmol/L Calcium Level 7.3 mg/dl Phosphorus Level 1.9 mg/dl Magnesium Level 1.6 mg/dl Total Bilirubin 0.4 mg/dl Aspartate Amino Transf (AST/SGOT) 8 U/L Alanine Aminotransferase (ALT/SGPT) 7 U/L Alkaline Phosphatase 74 U/L Total Protein 4.9 gm/dl Albumin 1.6 gm/dl Globulin 3.3 gm/dl Albumin/Globulin Ratio 0.5 Beta-Hydroxybutyric Acid 1.15 mg/dL Assessment and Plan staph bacteremia / Cx remains positive -leukocytosis, worsening (new blood Cx sent from the PICC line and peripherally are both positive in less than 24 hours, also fungal cultures were sent, no diarrhea ) -D/W Dr. Ornelas; check base line CPK and increase dapto to 8mg/kg, add zyvox for synergistic effect , change PICC line with a temporarely midline, CT chest/ abd and pelvis, and while awaiting on fungal blood Cx sent 09/16, will empirically initiate caspofungin -echo to r/o vegetations. given persistent bacteremia despite vanco, will have low threshold for SADIE when stable or at least repeat TTE in one week Left facial cellulitis/left parotitis/left masseter muscle infection/left inframandibular infection and sepsis/ persistent bacteremia (WBC, HR) present on admission S/P 2 CT neck without contrast and MRI neck with da also showed no abscess or stone continue lactinex lemon q1hr while awake moist heat 20mins/hr systolic cardiomyopathy with CHF exacerbation -appearance of takutsubo's - check troponin, follow. no s/s CHF, may need cardiology involvement but right now appearing stable DC IVF, start lasix 20mg IV BID afib/RVR -rate controlled- transition back from IV to PO dilt -restart xarelto tonight for stroke prophylaxis as no surgery is indicated metabolic encephalopathy / delirium, improved -due to pain, meds, poor sleep, hospital environment, continue to monitor -Decrease morphine and ativan doses Dysphagia -possible aspiration, poor oral intake, painful swallowing -place NGT , start TF -D/W Daughter and next of Kin who is agreeable to the plan, also patient gave permission to discuss the case with her granddaughter CAD/hypertension/TIA/CVA-- continue clopidogrel / Xarelto continue diltiazem extended release heart (increased to 180) mg by mouth daily continue losartan 25 mg by mouth twice a day, y. hold triamterene/HCTZ 37.5/ 25 daily until PO intake improves, but follow BP Diabetes mellitus--hold metformin 500, pharmacy glycemic consult given need for ongoing steroids COPD--continue Symbicort 160/4.5 2 puffs twice a day, nebs prn, including for cough Depression--continue fluoxetine 10 mg by mouth every morning. Hypercholesterolemia--continue simvastatin 40 mg by mouth every afternoon. Glaucoma--continue Alphagan P ophthalmic solution 1 drop OPB twice a day, and timolol GFS 0.5% one drop OPB every 12 hours. Continued [facility] stay due to: abnormal vital signs, multiple IV medications needed
[2016-09-17] MEDS ORDERED: CASPOFUNGIN INJ 70 MG in SODIUM CHLORIDE 0.9% 250ML 250 ML IV ONE (09:30)
[2016-09-17] MEDS: FLUOXETINE HCL 20 MG/5 ML PO SCH (11:33)
[2016-09-17] MEDS: RASPBERRY SYRUP 5 ML UDP PO SCH ×4 (11:33→19:50)
[2016-09-17] MEDS: VANCOMYCIN HCL 500 MG/10ML SOLN PO SCH ×4 (11:35→19:50)
--- NOTE | 2016-09-17 11:37 | Pharmacy Progress Note ---
Glycemic Control: Progress Nt Date of Service Sep 17, 2016. Scope Glycemic Pharmacist consulted for glycemic control and to write orders per [facility] inpatient glycemic control protocol. Objective Accuchecks BSG (last 24hrs): Test 09/16/16 18:08 09/16/16 21:20 09/16/16 23:58 09/17/16 05:45 Bedside Glucose 246 mg/dl (70-90) 306 mg/dl (70-90) 287 mg/dl (70-90) Random Glucose 350 mg/dl (70-99) Test 09/17/16 05:59 Bedside Glucose 343 mg/dl (70-90) Laboratory Data (last 24hrs) Test 09/17/16 05:45 Anion Gap 7.0 mmol/L BUN/Creatinine Ratio 36.6 Blood Urea Nitrogen 37 mg/dl Creatinine 1.00 mg/dl Potassium Level 4.5 mmol/L Sodium Level 143 mmol/L White Blood Count 41.48 K/uL Red Blood Count 3.47 M/uL Hemoglobin 10.7 g/dL Hematocrit 32.7 % Mean Corpuscular Volume 94.2 fL Mean Corpuscular Hemoglobin 30.8 pg Mean Corpuscular Hemoglobin Concent 32.7 g/dl Platelet Count 169 K/uL Mean Platelet Volume 9.8 fL Neutrophils (%) (Auto) 91.0 % Lymphocytes (%) (Auto) 1.6 % Monocytes (%) (Auto) 4.4 % Eosinophils (%) (Auto) 0.0 % Basophils (%) (Auto) 0.2 % Neutrophils # (Auto) 37.75 K/uL Lymphocytes # (Auto) 0.67 K/uL Monocytes # (Auto) 1.83 K/uL Eosinophils # (Auto) 0.00 K/uL Basophils # (Auto) 0.07 K/uL Recent Pertinent Medications Outpatient Anti-diabetic Regimen: * Metformin 500mg PO TIDM The patient is currently receiving: * Basal insulin with Lantus given at bedtime per HS BSG * if BSG below 120mg/dl --> Do not give Lantus * if BSG 121mg/dl to 179mg/dl --> Give Lantus 10 units * If BSG 180mg/dl or above --> Give Lantus 12 units * Correctional Insulin, REGULAR per scale ACHS or Q6hrs while NPO * Goal Range: Low 120 mg/dL - High 160 mg/dL * Correction Factor: 40 mg/dL/unit * REGULAR insulin for Nutritional / Prandial insulin per carb ratio of 1 unit per ~ 11-12 grams when TF is at 50% of goal rate or above. This equates to: * Fibersource running at 20ml/hr --> give 0 units * Fibersource running at 40ml/hr --> give 3 units * Fibersource running at 60ml/hr --> give 5 units Assessment & Plan ASSESSMENT: 09/16/16 * daily insulin requirement has been fluctuating daily based on PO intake and Lantus steady state. * Pt has been receiving ~ 15 units of insulin for the past 2 days. Basically all of this is basal insulin d/t no PO intake. * Pt started fibersource yesterday but pulled out NGT x 2. Have not seen the rise in BSGs from CHO w/o prandial insulin coverage since the tube feedings have been so sporadic. * NGT re-placed today and is intact. RN to start tube feedings around lunch time today. Will initiate ASPEN recommended orders for continuous tube feedings to prevent post-prandial hyperglycemia. * ASPEN recommends administering bolus [carbohydrate] coverage as REGULAR insulin (not aspart) at ~12.5% of estimated total insulin needs given as a fixed dose of insulin every 6hrs. This coverage is to be HELD if tube feedings are held or interrupted. The dose of insulin will be calculated based on pt specific carb ratio and the amount of carbs to be delivered over the next 6 hrs. * Will continue bolus [correctional] insulin with REGULAR insulin every 6 hrs to be given when BSG is above goal range. This dosing will be administered even when tube feeds are held as it is only covering stress hyperglycemia. * ADA & AACE recommend a goal blood sugar range 140-180 mg/dl for the majority of critically ill & non-critically ill patients. However, more stringent targets may be selected in individual cases. Will utilize a slightly more stringent target of 120-160mg/dl to facilitate infection healing. 09/17/16 * Patient is clinically worsening with increasing WBC to 41.5 with persistently positive blood cultures * BSG's trended up significantly and quickly after initiation of fibersource. Now running at goal 55 mL/hr. Will change "CHO ratio" from about 1 unit insulin per 11-12 g CHO to 9-10 g CHO, starting at 1200 today. * Will also tighten correction factor to maintain ratio at about 1:3 with respect to carb ratio * Patient can likely tolerate at least 15 units of Lantus based on history - will increase Lantus dose * BSG's to 343 mg/dL this AM. Will give one-time IV insulin at slightly less than 0.1 units/kg to decrease down as alteration of tubefeed carb ratio will not take effect until 1200 check. * BSG persistently elevated to 359 mg/dL at 1200 - likely 2nd both tubefeeds and clinical worsening / increased stress / increased insulin resistance * Will give another IV insulin dose. Will give same as before (despite BSG's not decreasing) as this one will be in conjunction with SQ insulin which will help to decrease BSG's further * Patient may require transition to insulin drip if cannot get BSG's under better control. * Will also order a PRP 2nd significantly elevated BSG's x2 to help desk manager in determination of whether patient requires insulin drip PLAN FOR INPATIENT GLYCEMIC CONTROL: * Continue to hold outpatient oral diabetes medications * Increase Basal insulin with Lantus given at bedtime per HS BSG * if BSG below 120mg/dl --> Give Lantus 6 units * if BSG 121mg/dl to 179mg/dl --> Give Lantus 15 units * If BSG 180mg/dl or above --> Give Lantus 20 units * Correctional Insulin, with REGULAR per scale ACHS or Q6hrs while NPO * Goal Range: Low 120 mg/dL - High 160 mg/dL * Tighten Correction Factor: 30 mg/dL/unit * Tighten REGULAR insulin for Nutritional / Prandial insulin per carb ratio of 1 unit per ~ 9-10 grams. Only administer CHO coverage Q6hrs when TF is at 50% of goal rate or above. This equates to: * Fibersource running at 0-20 ml/hr --> give 0 units * Fibersource running at 21-40 ml/hr --> give 4 units * Fibersource running at 41 ml/hr or more --> give 6 units * Add Regular insulin IV bolus * 5 units @ 0900 for BSG of 343 mg/dL * 5 units @ 1400 for BSG of 359 mg/dL * Consider insulin drip if BSG > 250 mg/dL @1800 or if pt exhibits anion gap / metabolic acidosis * Would suggest severe stress protocol with goal 140-180 mg/dL * Will order PRP @ 1700 to aid assessment of whether drip will be needed starting at 1800 * Please note that the plan above was derived based on current level of insulin resistance and hospital stress. These recommendations are appropriate for inpatient admission only. Plan of care upon discharge will need to be reassessed to avoid potential outpatient hypo/hyperglycemia. Thank you.
[2016-09-17] MEDS: LINEZOLID / D5W 600 MG in PREMIXED IN D5W 300 ML IV SCH (12:57)
--- NOTE | 2016-09-17 13:45 | DIAGNOSTIC IMAGING REPORT ---
CHEST CT WITHOUT CONTRAST CT DOSE: 1390.95 mGy.cm HISTORY: Bacteremia TECHNIQUE: Multiaxial CT images of the chest were performed without contrast. COMPARISON: Chest CT 05/21/2015. FINDINGS: Nasogastric tube terminates below the diaphragm. Mucoid material within the mid trachea. Fluid-filled right lower lobe bronchi. No pneumothorax. Motion artifact within the lungs resulting in suboptimal evaluation. Mild interstitial thickening at the lung apices which may be due to mild pulmonary edema. There are few small patchy groundglass airspace opacities within the left upper lobe. This may be due to the suspected pulmonary edema. Moderate to large bilateral pleural effusions, right greater than left. Complete compressive atelectasis of the bilateral lower lobes. No mediastinal or hilar lymphadenopathy. The heart is enlarged. Please refer to the dedicated abdomen and pelvis CT performed the same day for further evaluation of the abdominal structures. Diffuse body wall edema. Normal caliber thoracic aorta. IMPRESSION: 1. Moderate to large bilateral pleural effusions, right greater than left. These result in complete compressive atelectasis of the bilateral lower lobes. There is also mucoid opacification of the right lower lobe bronchi and mucoid material within the mid trachea. This raises the possibility of aspiration. 2. Nasogastric tube terminates below the diaphragm. 3. Cardiomegaly. Probable mild interstitial pulmonary edema. 4. Diffuse body wall edema. Electronically signed by: Jeanmarie Santiago M.D. 09/17/2016 11:26 AM Dictated Date/Time: 09/17/2016 11:15 AM
--- NOTE | 2016-09-17 13:46 | DIAGNOSTIC IMAGING REPORT ---
CT SCAN OF THE ABDOMEN AND PELVIS WITHOUT IV CONTRAST CLINICAL HISTORY: Bacteremia. COMPARISON STUDY: Abdominal CT dated 05/07/2011. TECHNIQUE: CT scan of the abdomen and pelvis is performed from the lung bases to the proximal femora. Images are reviewed in the axial, sagittal, and coronal planes. IV contrast was not administered for this examination as per the referring clinician. Note that the examination was performed in significantly suboptimal fashion without oral and IV contrast for the reported clinical history. The examination is also degraded by motion artifact as well as streak artifact from the patient's arms which could not be elevated above the abdomen. Automated dose control exposure was utilized. FINDINGS: Lung bases: The heart is enlarged and without pericardial effusion. The coronary arteries are densely calcified. There are moderate to large pleural effusions with dense bibasilar consolidation. Liver: Evaluation of the liver is degraded by streak and motion artifact. The unenhanced liver is normal in size, contour, and attenuation. There is no intrahepatic biliary ductal dilatation. Gallbladder: Unremarkable. Spleen: Atrophic. Pancreas: The unenhanced pancreas is markedly atrophic and grossly unremarkable. Adrenal glands: Nodular thickening of both adrenal glands is similar to the 2011 examination. Kidneys: The unenhanced kidneys are atrophic and without hydronephrosis. There are no renal calculi identified. There is no evidence of contour deforming renal mass lesion. Abdominal vasculature: The abdominal aorta is normal in course and caliber noting advanced atherosclerotic calcification. Stomach and bowel: An enteric tube terminates in the distal stomach. The stomach is decompressed, and the duodenum is normal in configuration. The small bowel and colon are normal in course and caliber. There is mild sigmoid diverticulosis without CT evidence of acute diverticulitis. The appendix is not visualized. Peritoneum: There is no intraperitoneal free air. There is a small volume of pelvic ascites. No evidence of organized fluid collection is seen on this unenhanced examination. Lymphadenopathy: None. Pelvic viscera: The letter is decompressed and a Guevara catheter and not well evaluated. The uterus and adnexa are normal as visualized. Skeletal structures: The skeletal structures are osteopenic. Moderate lumbosacral spondylosis is observed. No lytic or blastic lesions are seen. Soft tissues: There is body wall edema. IMPRESSION: 1. Significantly suboptimal examination without oral and IV contrast. The examination is also degraded by streak and motion artifact. 2. Moderate to large pleural effusions with dense bibasilar consolidation. Correlate clinically for evidence of pneumonia. 3. Cardiomegaly. 4. There is evidence of fluid overload including anasarca of the body wall as well as a small volume of pelvic ascites. 5. Mild sigmoid diverticulosis without CT evidence of acute diverticulitis. 6. Additional findings as above. Electronically signed by: Steven Perrin M.D. 09/17/2016 11:31 AM Dictated Date/Time: 09/17/2016 11:24 AM
--- NOTE | 2016-09-17 15:00 | Progress Note ---
Subjective Date of Service: Sep 17, 2016. Subjective pt remains with elevated wbc, 41 again today. cultures from 09/09 and 09/10 with MRSA, repeat cultures from 09/11 negative and final. Cultures repeated yesterday with increased wbc and are now growing gpc in 2/2 sets again. repeated today, results pending. remains afebrile. spoke with primary service, has been started on zyvox for synergy today (tried previously to start clinda but pt cynthias unknown allergy, family did not wish to challange), dapto increased to 8 mg/kg and caspo added as she has been on multiple abx and now tube feeds as well. Picc was placed earlier, removal warranted with persistent bacteremia. 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 Several ct/mri of neck have not shown a drainable focus but all noncontrast due to pt allergy. She did have ct abd/pelvis today, again limited due to lack of contrast but negative. remains with tube feeds. Problem List Medical Problems: (1) Abnormal EKG Status: Acute (2) Accidental drug ingestion Status: Acute (3) CHF (congestive heart failure) Status: Acute (4) Closed head injury Status: Acute (5) COPD exacerbation Status: Acute (6) Dysarthria Status: Acute (7) Facial cellulitis Status: Acute (8) Hypoxia Status: Acute (9) Leukocytosis Status: Acute (10) PNA (pneumonia) Status: Acute (11) Right leg weakness Status: Acute Objective Vital Signs Date Time Temp Pulse Resp B/P Pulse Ox O2 Delivery O2 Flow Rate FiO2 09/17/16 13:29 76 18 96 Nasal Cannula 2.0 09/17/16 12:00 95 Nasal Cannula 2.0 09/17/16 11:31 36.5 83 18 125/85 95 Nasal Cannula 2.0 09/17/16 08:29 Nasal Cannula 2.0 09/17/16 08:00 95 Nasal Cannula 2.0 09/17/16 07:04 96 22 96 Nasal Cannula 2.0 09/17/16 07:00 35.5 84 22 143/90 95 Nasal Cannula 2.0 09/17/16 04:10 95 Nasal Cannula 2.0 09/17/16 03:41 36.3 89 20 131/84 94 Nasal Cannula 2.0 09/17/16 00:10 96 Nasal Cannula 2.0 09/16/16 23:28 36.5 77 20 118/76 95 Nasal Cannula 2.0 09/16/16 21:16 36.7 79 18 125/77 97 09/16/16 20:30 97 Nasal Cannula 2.0 09/16/16 20:05 90 18 98 Nasal Cannula 2.0 09/16/16 16:18 36.5 86 22 116/78 97 Nasal Cannula 2.0 09/16/16 16:00 Nasal Cannula 2.0 09/16/16 15:15 81 26 97 Nasal Cannula 2.0 Laboratory Results Item Value Date Time Blood Culture - Preliminary Resulted 09/16/16 0841 Blood Gram Positive Cocci Blood Culture - Preliminary Resulted 09/16/16 0830 Blood Gram Positive Cocci Blood Culture - Final Complete 09/11/16 1637 Blood NO GROWTH Blood Culture - Final Complete 09/11/16 1619 Blood NO GROWTH Blood Culture - Final Complete 09/10/16 1328 Blood Staphylococcus Aureus Blood Culture - Final Complete 09/10/16 1319 Blood Staphylococcus Aureus Blood Culture - Final Complete 09/09/16 1215 Blood Staphylococcus Aureus Blood Culture - Final Complete 09/09/16 1210 Blood Staphylococcus Aureus Last 24 Hours Test 09/16/16 18:02 09/16/16 18:08 09/16/16 21:20 09/16/16 23:58 Urine Color YELLOW Urine Appearance CLEAR Urine pH 5.0 Urine Specific [place] 1.010 Urine Protein NEG Urine Glucose (UA) NEG Urine Ketones NEG Urine Occult Blood 1+ Urine Nitrite NEG Urine Bilirubin NEG Urine Urobilinogen NEG Urine Leukocyte Esterase TRACE Urine WBC (Auto) 1-5 /hpf Urine RBC (Auto) 5-10 /hpf Urine Hyaline Casts (Auto) 1-5 /lpf Urine Epithelial Cells (Auto) 10-20 /lpf Urine Bacteria (Auto) NEG Bedside Glucose 246 mg/dl 306 mg/dl 287 mg/dl Test 09/17/16 05:45 09/17/16 05:59 09/17/16 09:51 09/17/16 11:53 White Blood Count 41.48 K/uL Red Blood Count 3.47 M/uL Hemoglobin 10.7 g/dL Hematocrit 32.7 % Mean Corpuscular Volume 94.2 fL Mean Corpuscular Hemoglobin 30.8 pg Mean Corpuscular Hemoglobin Concent 32.7 g/dl Platelet Count 169 K/uL Mean Platelet Volume 9.8 fL Neutrophils (%) (Auto) 91.0 % Lymphocytes (%) (Auto) 1.6 % Monocytes (%) (Auto) 4.4 % Eosinophils (%) (Auto) 0.0 % Basophils (%) (Auto) 0.2 % Neutrophils # (Auto) 37.75 K/uL Lymphocytes # (Auto) 0.67 K/uL Monocytes # (Auto) 1.83 K/uL Eosinophils # (Auto) 0.00 K/uL Basophils # (Auto) 0.07 K/uL RDW Standard Deviation 56.0 fL RDW Coefficient of Variation 16.7 % Immature Granulocyte % (Auto) 2.8 % Immature Granulocyte # (Auto) 1.16 K/uL Nucleated RBC Absolute Count (auto) 0.60 K/uL Nucleated Red Blood Cells % 1.5 % Echinocytes 2+ Sodium Level 143 mmol/L Potassium Level 4.5 mmol/L Chloride Level 110 mmol/L Carbon Dioxide Level 26 mmol/L Anion Gap 7.0 mmol/L Blood Urea Nitrogen 37 mg/dl Creatinine 1.00 mg/dl Est Creatinine Clear Calc Drug Dose 42.2 ml/min Estimated GFR () 61.6 Estimated GFR (Non- 53.2 BUN/Creatinine Ratio 36.6 Random Glucose 350 mg/dl Lactic Acid Level 1.2 mmol/L Calcium Level 7.3 mg/dl Phosphorus Level 1.9 mg/dl Magnesium Level 1.6 mg/dl Total Bilirubin 0.4 mg/dl Aspartate Amino Transf (AST/SGOT) 8 U/L Alanine Aminotransferase (ALT/SGPT) 7 U/L Alkaline Phosphatase 74 U/L Total Protein 4.9 gm/dl Albumin 1.6 gm/dl Globulin 3.3 gm/dl Albumin/Globulin Ratio 0.5 Beta-Hydroxybutyric Acid 1.15 mg/dL Bedside Glucose 343 mg/dl 359 mg/dl Total Creatine Kinase 29 U/L Assessment and Plan (1) Staphylococcus aureus septicemia Assessment & Plan: repeats from 09/16 + again, ? MRSA. abx broadened, ct reviewed, no abd collections, has pleural effusions. ? benefit from surgical exploration of neck. no collections seen on ct/mri (noncontrast) but remains with swelling, increasing wbc despite multiple broad spectrum abx, and no other obvious source of infection. Agree she is high risk for IFI, agree with addition of caspo pending additional culture results. No diarrhea, no signs of colitis on ct, doubt c diff. (2) Facial cellulitis Status: Acute (3) Leukocytosis Continued [facility] stay due to: abnormal vital signs, multiple IV medications needed
[2016-09-17] MEDS: RIVAROXABAN TAB 15 MG TAB PO SCH (16:14)
[2016-09-17] MEDS: DAPTOmycin IV 550 MG in SODIUM CHLORIDE 0.9% 50ML 50 ML IV SCH (16:52)
[2016-09-17 17:58] LABS: BUN/CREATININE RATIO 30.7 (10-20); CALCIUM 7.3 mg/dl (8.5-10.1); CREATININE 1.1 mg/dl (0.60-1.20); POTASSIUM 3.9 mmol/L (3.5-5.1)
[2016-09-17] MEDS ORDERED: INSULIN HUMAN REGULAR IV BOLUS 7 UNIT in SYRINGE 0 ML IV SCH (18:30)
[2016-09-17 18:39] LABS: BETA-HYDROXYBUTYRATE 0.71 mg/dL (0.2-2.81)
[2016-09-17] MEDS: INSULIN REGULAR 250 UNITS in SODIUM CHLORIDE 0.9% 250ML 250 ML IV SCH ×2 (19:02→20:40)
[2016-09-17] MEDS: SIMVASTATIN 40 MG TAB PO SCH (19:50)
[2016-09-17] MEDS: INSULIN GLARGINE SOLOSTAR 100 UNITS/ML 3 ML PEN SC SCH (19:56)
[2016-09-18] VITALS (14 sets, daily range): BP systolic 105–119; BP diastolic 62–86; PULSE 72–89; TEMP 36.4–37; O2SAT 94–100; Ht 162.6 cm; Wt 66.8 kg
[2016-09-18] MEDS: LINEZOLID / D5W 600 MG in PREMIXED IN D5W 300 ML IV SCH ×2 (00:10→10:53)
[2016-09-18] MEDS: INSULIN HUMAN REGULAR SC SCH ×5 (00:14→18:09)
[2016-09-18] MEDS: ALBUT/IPRATROP 3MG/0.5MG NEB 3 ML VIAL INH SCH ×9 (02:25→19:22)
[2016-09-18] MEDS: INSULIN REGULAR 250 UNITS in SODIUM CHLORIDE 0.9% 250ML 250 ML IV SCH ×6 (03:15→11:14)
[2016-09-18 06:05] LABS: HEMATOCRIT 32.3 % (37-47); MEAN CORPUSCULAR HEMOGLOBIN 30.9 pg (25-34); MEAN CORPUSCULAR HGB CONC 31.9 g/dl (32-36); MEAN PLATELET VOLUME 10.7 fL (7.4-10.4); PLATELET COUNT 107 K/uL (130-400); RED BLOOD COUNT 3.33 M/uL (4.2-5.4); WHITE BLOOD COUNT 39.29 K/uL (4.8-10.8)
[2016-09-18 06:32] LABS: BASO % 0.1 %; BASO ABS # 0.03 K/uL (0-0.2); COMPLETE YES; ECHINOCYTES 1+; IG% 2.1 %; LYMPH % 1.4 %; LYMPH ABS # 0.56 K/uL (1.2-3.4); MONO % 4.8 %; NEUT % 91.6 %; POLYCHROMASIA 1+
[2016-09-18 06:44] LABS: BUN/CREATININE RATIO 33.7 (10-20); CALCIUM 7.2 mg/dl (8.5-10.1); CREATININE 0.79 mg/dl (0.60-1.20); MAGNESIUM 1.4 mg/dl (1.8-2.4); POTASSIUM 3.3 mmol/L (3.5-5.1)
[2016-09-18 06:52] LABS: ALB/GLOB RATIO 0.5 (0.9-2); PHOSPHORUS 1.4 mg/dl (2.5-4.9)
[2016-09-18] MEDS ORDERED: POTASSIUM PHOS 3 MMOL/1 ML INFUSION IV STA (07:23)
[2016-09-18] MEDS: CLOPIDOGREL BISULFATE 75 MG TAB PO SCH (07:39)
[2016-09-18] MEDS: DILTIAZEM HCL 60 MG TAB PO SCH ×4 (07:39→20:57)
[2016-09-18] MEDS: RASPBERRY SYRUP 5 ML UDP PO SCH ×4 (07:39→20:57)
[2016-09-18] MEDS: VANCOMYCIN HCL 500 MG/10ML SOLN PO SCH ×4 (07:39→20:57)
[2016-09-18] MEDS: TIMOLOL GFS 0.5% OPH SOLN 74 DROPS/5 ML BTL OPB SCH ×2 (07:40→19:29)
--- NOTE | 2016-09-18 07:59 | DIAGNOSTIC IMAGING REPORT ---
SINGLE VIEW CHEST CLINICAL HISTORY: Hypoxia. FINDINGS: An AP, portable, upright chest radiograph is compared to study dated 09/16/2016 and correlated with chest CT dated 09/17/2016. The examination is degraded by portable technique and patient rotation. An enteric tube is unchanged in position. A right PICC line has been removed. A PICC line is noted in the left upper extremity. The heart is enlarged. There is pulmonary vascular congestion. Emphysema is noted. There are moderate layering pleural effusions with bibasilar consolidation. No pneumothorax is seen. The skeletal structures are osteopenic. The bony thorax is grossly intact. IMPRESSION: 1. Cardiomegaly with evidence of congestive failure. Findings are similar in appearance to yesterday. 2. Moderate layering pleural effusions with bibasilar consolidation. 3. Emphysema. 4. The right-sided PICC line has been removed. A PICC line is noted in the left upper extremity. Electronically signed by: Steven Perrin M.D. 09/18/2016 7:58 AM Dictated Date/Time: 09/18/2016 7:56 AM
[2016-09-18] MEDS: CASPOFUNGIN INJ 50 MG in SODIUM CHLORIDE 0.9% 250ML 250 ML IV SCH (08:00)
[2016-09-18] MEDS ORDERED: POTASSIUM PHOSPHATE INJ 21 MMOL in SODIUM CHLORIDE 0.9% 500ML 500 ML IV ONE (08:00)
[2016-09-18] MEDS: MAGNESIUM SULFATE 1GM / D5W 1 GM in PREMIXED IN D5W 100 ML IV SCH ×2 (08:29→09:23)
[2016-09-18] MEDS: BRIMONIDINE TARTRATE-P 0.15% 5 ML BTL OPB SCH ×2 (08:32→19:29)
[2016-09-18] MEDS: FLUOXETINE HCL 20 MG/5 ML PO SCH (09:23)
[2016-09-18] MEDS: FUROSEMIDE INJ 20 MG in SYRINGE 0 ML IV SCH ×2 (09:45→16:31)
--- NOTE | 2016-09-18 10:35 | Progress Note ---
Subjective Date of Service: Sep 18, 2016. Subjective Pt evaluation today including: conversation w/ patient, physical exam, chart review pt seen, lethargic. spoke with nursing, has been lethargic all morning. 09/16 blood cultures now with staph species, 09/17 cultures with gpc, just updated. She is now on high dose dapto and zyvox, caspo added yesterday by primary as concern for IFI with abx and tube feeds and picc line with high wbc. She had ct abd pelvis yesterday, unrevealing for additional source of infection but all studies to date have been noncontrast. She has less erythema of face but no appreciable difference in size. She appears to be tolerating abx, no diarrhea. wbc remains in 40's. echo negative on admission. uto ros. new picc placed yesterday in [facility], right picc removed, cath tip culture pending. afebrile overnight. Problem List Medical Problems: (1) Abnormal EKG Status: Acute (2) Accidental drug ingestion Status: Acute (3) CHF (congestive heart failure) Status: Acute (4) Closed head injury Status: Acute (5) COPD exacerbation Status: Acute (6) Dysarthria Status: Acute (7) Facial cellulitis Status: Acute (8) Hypoxia Status: Acute (9) Leukocytosis Status: Acute (10) PNA (pneumonia) Status: Acute (11) Right leg weakness Status: Acute Objective Vital Signs Date Time Temp Pulse Resp B/P Pulse Ox O2 Delivery O2 Flow Rate FiO2 09/18/16 08:00 97 Nasal Cannula 3.0 09/18/16 07:58 37.0 89 18 108/69 96 09/18/16 07:01 83 18 94 Nasal Cannula 4.0 09/18/16 04:05 36.4 76 20 105/62 100 Nasal Cannula 4.0 09/18/16 04:00 98 Nasal Cannula 3.0 09/18/16 02:20 84 18 98 Nasal Cannula 4.0 09/18/16 02:12 36.4 78 22 113/68 98 Venturi Mask 09/18/16 00:31 95 Nasal Cannula 2.0 09/17/16 23:20 36.4 68 22 136/74 97 Nasal Cannula 09/17/16 20:01 95 Nasal Cannula 2.0 09/17/16 18:55 86 18 96 Nasal Cannula 2.0 09/17/16 16:01 95 Nasal Cannula 2.0 09/17/16 15:29 86 25 145/84 25 Nasal Cannula 3.0 09/17/16 13:29 76 18 96 Nasal Cannula 2.0 09/17/16 12:00 95 Nasal Cannula 2.0 09/17/16 11:31 36.5 83 18 125/85 95 Nasal Cannula 2.0 Physical Exam General Appearance: + pertinent finding (lethargic, does not answer questions) Neck: supple, + pertinent finding (still with significant hardenss/swelling left face/ear/parotid, less erythema) Respiratory/Chest: + pertinent finding (course breath sounds throughout) Cardiovascular: regular rate, rhythm Abdomen: non tender, soft Extremities: non-tender, no pedal edema Skin: normal color Laboratory Results Item Value Date Time Blood Culture - Preliminary Resulted 09/17/16 1150 Blood Gram Positive Cocci Blood Culture - Preliminary Resulted 09/16/16 0841 Blood Staph Species Blood Culture - Preliminary Resulted 09/16/16 0830 Blood Gram Positive Cocci Blood Culture - Final Complete 09/10/16 1328 Blood Staphylococcus Aureus Blood Culture - Final Complete 09/10/16 1319 Blood Staphylococcus Aureus Blood Culture - Final Complete 09/09/16 1215 Blood Staphylococcus Aureus Blood Culture - Final Complete 09/09/16 1210 Blood Staphylococcus Aureus Last 24 Hours Test 09/17/16 11:53 09/17/16 17:20 09/17/16 18:42 09/17/16 19:41 Bedside Glucose 359 mg/dl 415 mg/dl 399 mg/dl Sodium Level 141 mmol/L Potassium Level 3.9 mmol/L Chloride Level 104 mmol/L Carbon Dioxide Level 28 mmol/L Anion Gap 9.0 mmol/L Blood Urea Nitrogen 34 mg/dl Creatinine 1.10 mg/dl Est Creatinine Clear Calc Drug Dose 38.4 ml/min Estimated GFR () 54.9 Estimated GFR (Non- 47.4 BUN/Creatinine Ratio 30.7 Random Glucose 403 mg/dl Calcium Level 7.3 mg/dl Beta-Hydroxybutyric Acid 0.71 mg/dL Test 09/17/16 20:38 09/17/16 21:43 09/17/16 22:52 09/17/16 23:35 Bedside Glucose 374 mg/dl 355 mg/dl 359 mg/dl 332 mg/dl Test 09/18/16 00:49 09/18/16 01:41 09/18/16 03:15 09/18/16 04:10 Bedside Glucose 320 mg/dl 312 mg/dl 279 mg/dl 302 mg/dl Test 09/18/16 05:12 09/18/16 05:47 09/18/16 06:11 09/18/16 07:19 Bedside Glucose 223 mg/dl 218 mg/dl 218 mg/dl White Blood Count 39.29 K/uL Red Blood Count 3.33 M/uL Hemoglobin 10.3 g/dL Hematocrit 32.3 % Mean Corpuscular Volume 97.0 fL Mean Corpuscular Hemoglobin 30.9 pg Mean Corpuscular Hemoglobin Concent 31.9 g/dl Platelet Count 107 K/uL Mean Platelet Volume 10.7 fL Neutrophils (%) (Auto) 91.6 % Lymphocytes (%) (Auto) 1.4 % Monocytes (%) (Auto) 4.8 % Eosinophils (%) (Auto) 0.0 % Basophils (%) (Auto) 0.1 % Neutrophils # (Auto) 36.01 K/uL Lymphocytes # (Auto) 0.56 K/uL Monocytes # (Auto) 1.88 K/uL Eosinophils # (Auto) 0.00 K/uL Basophils # (Auto) 0.03 K/uL RDW Standard Deviation 58.3 fL RDW Coefficient of Variation 17.5 % Immature Granulocyte % (Auto) 2.1 % Immature Granulocyte # (Auto) 0.81 K/uL Nucleated RBC Absolute Count (auto) 0.21 K/uL Nucleated Red Blood Cells % 0.5 % Polychromasia 1+ Basophilic Stippling 1+ Echinocytes 1+ Sodium Level 143 mmol/L Potassium Level 3.3 mmol/L Chloride Level 106 mmol/L Carbon Dioxide Level 29 mmol/L Anion Gap 8.0 mmol/L Blood Urea Nitrogen 27 mg/dl Creatinine 0.79 mg/dl Est Creatinine Clear Calc Drug Dose 53.5 ml/min Estimated GFR () 81.9 Estimated GFR (Non- 70.7 BUN/Creatinine Ratio 33.7 Random Glucose 215 mg/dl Lactic Acid Level 1.4 mmol/L Calcium Level 7.2 mg/dl Phosphorus Level 1.4 mg/dl Magnesium Level 1.4 mg/dl Total Bilirubin 0.4 mg/dl Aspartate Amino Transf (AST/SGOT) 9 U/L Alanine Aminotransferase (ALT/SGPT) 8 U/L Alkaline Phosphatase 72 U/L Total Protein 5.1 gm/dl Albumin 1.6 gm/dl Globulin 3.5 gm/dl Albumin/Globulin Ratio 0.5 Test 09/18/16 08:20 09/18/16 09:28 09/18/16 09:56 Bedside Glucose 144 mg/dl 113 mg/dl 151 mg/dl Assessment and Plan (1) Staphylococcus aureus septicemia Assessment & Plan: She remains with + blood cultures with gpc, likely persistent MRSA despite increased abx, picc removal. Highly concerned for neck as persistent source. She has not had a scan showing drainable collection but all scans have been noncontrast. She has had no appreciable improvement in the appearance of her left face/neck. highly concerning as source for ongoing infection, all additional workup has been negative. would suggest re-eval by ENT , suspect she will need surgical debridement. If unable to perform here, would consider transfer. She has all gpc growing from blood cultures. will repeat today. If no yeast isolated, can stop caspo. she will require prolonged course of abx. (2) Facial cellulitis Status: Acute (3) Leukocytosis Continued [facility] stay due to: abnormal vital signs, multiple IV medications needed
[2016-09-18] MEDS: ACETAMINOPHEN 325 MG TAB PO PRN ×2 (13:53→19:12)
--- NOTE | 2016-09-18 14:36 | Pharmacy Progress Note ---
Glycemic Control: Progress Nt Date of Service Sep 18, 2016. Scope Glycemic Pharmacist consulted for glycemic control and to write orders per [facility] inpatient glycemic control protocol. Objective Accuchecks BSG (last 24hrs): Test 09/17/16 17:20 09/17/16 18:42 09/17/16 19:41 09/17/16 20:38 Random Glucose 403 mg/dl (70-99) Bedside Glucose 415 mg/dl (70-90) 399 mg/dl (70-90) 374 mg/dl (70-90) Test 09/17/16 21:43 09/17/16 22:52 09/17/16 23:35 09/18/16 00:49 Bedside Glucose 355 mg/dl (70-90) 359 mg/dl (70-90) 332 mg/dl (70-90) 320 mg/dl (70-90) Test 09/18/16 01:41 09/18/16 03:15 09/18/16 04:10 09/18/16 05:12 Bedside Glucose 312 mg/dl (70-90) 279 mg/dl (70-90) 302 mg/dl (70-90) 223 mg/dl (70-90) Test 09/18/16 05:47 09/18/16 06:11 09/18/16 07:19 09/18/16 08:20 Random Glucose 215 mg/dl (70-99) Bedside Glucose 218 mg/dl (70-90) 218 mg/dl (70-90) 144 mg/dl (70-90) Test 09/18/16 09:28 09/18/16 09:56 09/18/16 11:13 09/18/16 12:18 Bedside Glucose 113 mg/dl (70-90) 151 mg/dl (70-90) 115 mg/dl (70-90) 124 mg/dl (70-90) Test 09/18/16 13:16 09/18/16 14:00 Bedside Glucose 94 mg/dl (70-90) Laboratory Data (last 24hrs) Test 09/17/16 17:20 09/18/16 05:47 09/18/16 14:00 Anion Gap 9.0 mmol/L 8.0 mmol/L BUN/Creatinine Ratio 30.7 33.7 Blood Urea Nitrogen 34 mg/dl 27 mg/dl Creatinine 1.10 mg/dl 0.79 mg/dl Potassium Level 3.9 mmol/L 3.3 mmol/L Sodium Level 141 mmol/L 143 mmol/L White Blood Count 39.29 K/uL Red Blood Count 3.33 M/uL Hemoglobin 10.3 g/dL Hematocrit 32.3 % Mean Corpuscular Volume 97.0 fL Mean Corpuscular Hemoglobin 30.9 pg Mean Corpuscular Hemoglobin Concent 31.9 g/dl Platelet Count 107 K/uL Mean Platelet Volume 10.7 fL Neutrophils (%) (Auto) 91.6 % Lymphocytes (%) (Auto) 1.4 % Monocytes (%) (Auto) 4.8 % Eosinophils (%) (Auto) 0.0 % Basophils (%) (Auto) 0.1 % Neutrophils # (Auto) 36.01 K/uL Lymphocytes # (Auto) 0.56 K/uL Monocytes # (Auto) 1.88 K/uL Eosinophils # (Auto) 0.00 K/uL Basophils # (Auto) 0.03 K/uL HbA1c: 9% on 08/22/16 Recent Pertinent Medications Outpatient Anti-diabetic Regimen: * Metformin 500mg PO TIDM The patient is currently receiving: * Basal insulin with Lantus given at bedtime per HS BSG * if BSG below 120mg/dl --> Give Lantus 6 units * if BSG 121mg/dl to 179mg/dl --> Give Lantus 15 units * If BSG 180mg/dl or above --> Give Lantus 20 units * REGULAR insulin for Nutritional / Prandial insulin per carb ratio of 1 unit per ~ 11-12 grams when TF is at 50% of goal rate or above. This equates to: * Fibersource running at 20ml/hr --> give 0 units * Fibersource running at 40ml/hr --> give 4 units * Fibersource running at 60ml/hr --> give 6 units * Insulin drip * Severe stress, goal 140-180 mg/dL * Rate increased up to 17.8 units/hr overnight * BSG's trended down to 94 mg/dL on 6.8 mL/hr - currently holding gtt and checking BSG's hourly Assessment & Plan ASSESSMENT: 09/17/16 * Patient is clinically worsening with increasing WBC to 41.5 with persistently positive blood cultures * BSG's trended up significantly and quickly after initiation of fibersource. Now running at goal 55 mL/hr. Will change "CHO ratio" from about 1 unit insulin per 11-12 g CHO to 9-10 g CHO, starting at 1200 today. * Will also tighten correction factor to maintain ratio at about 1:3 with respect to carb ratio * Patient can likely tolerate at least 15 units of Lantus based on history - will increase Lantus dose * BSG's to 343 mg/dL this AM. Will give one-time IV insulin at slightly less than 0.1 units/kg to decrease down as alteration of tubefeed carb ratio will not take effect until 1200 check. * BSG persistently elevated to 359 mg/dL at 1200 - likely 2nd both tubefeeds and clinical worsening / increased stress / increased insulin resistance * Will give another IV insulin dose. Will give same as before (despite BSG's not decreasing) as this one will be in conjunction with SQ insulin which will help to decrease BSG's further * Patient may require transition to insulin drip if cannot get BSG's under better control. * Will also order a PRP 2nd significantly elevated BSG's x2 to iron molder helper in determination of whether patient requires insulin drip 09/18/16 * Noted pt on insulin gtt this AM (goal 140-180 mg/dL) with persistent BSG's > 200 mg/dL despite rate up to 17.8 mL/hr * Spoke w provider r/e electrolyte abnormalities - thought to be 2nd to re- feeding. Cut tubefeed rate by ~ 1/2 to 30 mL/hr. After this, BSG's rapidly decreased to 113 mg/dL. Gtt therefore went from 14.2 mL/hr to hold x ~ 1hr then resume at 8.5 mL/hr (when BSG 151 mg/dL). BSG's trended down as low as 94 mg/dL while gtt running at 6.8 mL/hr. Gtt held again @ ~ 1330, and will check BSG's hourly until > 140 mg/dL. Plan for further management of gtt dependent on how long it takes BSG's to be > 140 mg/dL (as below) * Increased regular SQ insulin for tubefeed CHO coverage starting this AM as previous parameters insufficient to manage BSG's (as evidenced by need for significant IV insulin). This equates to a CHO ratio of about 1 unit for every 7 g CHO consumed * Do not anticipate will need to be on the drip much longer * Adjusting Lantus so patient does not receive more than 15 units, but also ensuring patient does receive some Lantus * Appreciate superb management of insulin gtt by RN (Ga) PLAN FOR INPATIENT GLYCEMIC CONTROL: * Continue to hold outpatient oral diabetes medications * Hold insulin gtt for BSG of 94 mg/dL. Repeat BSG q1h until BSG > 140 mg/dL * Will resume at lower rate if it takes 1-2 hr for BSG to increase above 140 mg /dL * Will d/c insulin gtt if it takes 3+ hr for BSG to increase above 140 mg/dL * Correctional Insulin, with REGULAR per scale q6h on hold for now - being managed by insulin gtt. * Will resume correction factor only if it takes 3 hr or more for BSG to increase from 94 to >140 mg/dL * Decrease Basal insulin with Lantus given at bedtime per HS BSG * If BSG below 100mg/dl --> Give Lantus 8 units * If BSG 100 mg/dl or above --> Give Lantus 15 units * Tighten REGULAR insulin for Nutritional / Prandial insulin q6h - HOLD for BSG < 100 mg/dL * Fibersource running at 20-29 ml/hr --> give 3 units * Fibersource running at 30-39 ml/hr --> give 4 units * Fibersource running at 40-49 ml/hr --> give 5 units * Fibersource running at 50-59 ml/hr --> give 7 units * Fibersource running at 60 ml/hr or more --> give 8 units * Please note that the plan above was derived based on current level of insulin resistance and hospital stress. These recommendations are appropriate for inpatient admission only. Plan of care upon discharge will need to be reassessed to avoid potential outpatient hypo/hyperglycemia. Thank you.
[2016-09-18 15:10] LABS: CREATININE 0.73 mg/dl (0.60-1.20)
[2016-09-18 15:11] LABS: BUN/CREATININE RATIO 34.9 (10-20); CALCIUM 7.3 mg/dl (8.5-10.1); PHOSPHORUS 2.5 mg/dl (2.5-4.9); POTASSIUM 3.6 mmol/L (3.5-5.1)
--- NOTE | 2016-09-18 16:22 | Progress Note ---
Subjective Date of Service: Sep 18, 2016. Subjective Pt evaluation today including: conversation w/ patient, conversation w/ family , physical exam, chart review, lab review, review of studies, conversation w/ moving consultant (conversation with Dr. Morrison and Dr. Ornelas), review of inpatient medication list Problem List Medical Problems: (1) Abnormal EKG Status: Acute (2) Accidental drug ingestion Status: Acute (3) CHF (congestive heart failure) Status: Acute (4) Closed head injury Status: Acute (5) COPD exacerbation Status: Acute (6) Dysarthria Status: Acute (7) Facial cellulitis Status: Acute (8) Hypoxia Status: Acute (9) Leukocytosis Status: Acute (10) PNA (pneumonia) Status: Acute (11) Right leg weakness Status: Acute Review of Systems Extremely tired, fatigues and weak ROS was unobtainable Medications Current Inpatient Medications Medications (Trade) Dose Ordered Sig/Jose Route Start Time Stop Time Status Last Admin Dose Admin Acetaminophen (Tylenol Tab) 650 mg Q4H PRN PO 09/08/16 20:45 10/08/16 20:44 09/18/16 13:53 650 MG Zolpidem Tartrate (Ambien Tab) 5 mg HSZ PRN PO 09/08/16 20:45 10/08/16 20:44 Simvastatin (Zocor Tab) 40 mg QPM PO 09/08/16 21:00 10/08/16 20:59 09/17/16 19:50 40 MG Timolol Maleate (Timoptic-Xe 0.5% Oph Soln) 1 drops Q12 OPB 09/08/16 21:00 10/08/16 20:59 09/18/16 07:40 1 DROPS Lorazepam (Ativan Inj) 0.5 mg Q4H PRN IV 09/08/16 20:45 10/08/16 20:44 09/13/16 07:52 0.5 MG Magnesium Hydroxide (Milk Of Magnesia Susp) 30 ml Q6H PRN PO 09/08/16 20:45 10/08/16 20:44 Bisacodyl (Dulcolax Supp) 10 mg DAILY PRN OR 09/08/16 20:45 10/08/16 20:44 Diphenhydramine HCl (Benadryl Inj) 25 mg Q4H PRN IV 09/08/16 20:45 10/08/16 20:44 09/16/16 02:33 25 MG Al Hydrox/Mg Hydrox/ Simethicone 15 ml 15 ml Q4H PRN PO 09/08/16 20:45 10/08/16 20:44 Promethazine HCl/ Sodium Chloride (Phenergan Inj/ Nss 50ml) 50.5 ml @ 202 mls/hr Q4H PRN IV 09/08/16 20:45 10/08/16 20:44 Ondansetron HCl (Zofran Inj) 4 mg Q6H PRN IV 09/08/16 20:45 10/08/16 20:44 09/09/16 04:50 4 MG Glucose (Glucose 40% Gel) UD PRN PO 09/08/16 20:45 10/08/16 20:44 Glucose (Glucose Chew Tab) 1 tabs UD PRN PO 09/08/16 20:45 10/08/16 20:44 Dextrose (Dextrose 50% 50ML Syringe) 50 ml UD PRN IV 09/08/16 20:45 10/08/16 20:44 Glucagon (Glucagon Inj) 1 mg UD PRN SQ 09/08/16 20:45 10/08/16 20:44 Heparin Sodium (Porcine) (Heparin 10 Unit/ ml 5 ml Flush) 5 ml PRN PRN FLUSH 09/09/16 12:45 10/09/16 12:44 09/10/16 15:27 5 ML Albuterol/ Ipratropium (Duoneb) 3 ml QIDR INH 09/09/16 20:00 10/09/16 19:59 09/18/16 16:07 3 ML Miconazole Nitrate (Desenex Powder) 1 appln PRN PRN EXT 09/11/16 15:00 10/11/16 14:59 Miscellaneous Information (Consult Glycemic Management Pharmacy) 1 ea UD N/A 09/12/16 17:14 10/12/16 17:13 Diltiazem HCl (Cardizem Tab) 60 mg QID PO 09/13/16 13:00 10/13/16 12:59 09/18/16 13:52 60 MG Gadobutrol (Gadavist) 6 mmol UD PRN IV 09/14/16 22:00 09/18/16 21:59 Insulin Glargine (Lantus Solostar Pen) SEE PROTOCOL TEXT HS SC 09/15/16 16:45 10/15/16 16:44 09/17/16 19:56 20 UNIT Clopidogrel Bisulfate (plAVix TAB) 75 mg QAM PO 09/16/16 09:00 10/16/16 08:59 09/18/16 07:39 75 MG Rivaroxaban (Xarelto Tab) 15 mg DAILYBD PO 09/16/16 16:15 10/16/16 16:14 09/17/16 16:14 15 MG Morphine Sulfate (MoRPHine SULFATE INJ) 1 mg Q4H PRN IV 09/15/16 09:30 09/29/16 09:29 09/17/16 16:15 1 MG Insulin Human Regular (novoLIN-R) This entry serves as c... Q6 SC 09/16/16 12:00 10/16/16 11:59 09/18/16 12:44 5 UNITS Enteral Nutritional Formula (Fibersource HN) 1,265 ml UD NG 09/16/16 15:45 10/16/16 15:44 09/17/16 06:49 1,000 ML Brimonidine Tartrate 1 drops 1 drops BID OPB 09/16/16 21:00 10/16/16 20:59 09/18/16 08:32 1 DROPS Furosemide 20 mg/ Syringe 2 ml @ 4 mls/min BID17 IV 09/16/16 17:00 10/16/16 16:59 09/18/16 09:45 4 MLS/MIN Daptomycin 550 mg/ Sodium Chloride 61 ml @ 100 mls/hr DAILY@1600 IV 09/17/16 16:00 09/24/16 16:37 09/17/16 16:52 100 MLS/HR Caspofungin 50 mg/ Sodium Chloride 260 ml @ 250 mls/hr DAILY@0900 IV 09/18/16 09:00 09/27/16 08:59 09/18/16 08:00 250 MLS/HR Linezolid/Prmx (Zyvox / D5W/ Premixed D5W) 300 ml @ 300 mls/hr Q12H IV 09/17/16 12:00 10/01/16 11:59 09/18/16 10:53 300 MLS/HR Vancomycin HCl (Vancomycin Oral Soln) 500 mg QID PO 09/17/16 10:15 09/27/16 10:14 09/18/16 13:52 500 MG Fluoxetine HCl (Prozac Soln) 10 mg QAM PO 09/17/16 10:30 10/17/16 10:29 09/18/16 09:23 10 MG Raspberry (Raspberry Syrup 5ml Cup) 5 ml QID PO 09/17/16 10:15 10/01/16 10:14 09/17/16 19:50 5 ML Albuterol/ Ipratropium (Duoneb) 3 ml Q4R INH 09/18/16 04:00 10/18/16 03:59 09/18/16 02:25 3 ML Insulin Human Regular (novoLIN-R) SLIDING SCALE Q6 SC 09/18/16 18:00 10/18/16 17:59 Miscellaneous 1 ea 1 ea Q6R INH 09/18/16 21:00 10/18/16 20:59 UNV Levofloxacin/Prmx (Levaquin / D5W/ Premixed D5W) 150 ml @ 100 mls/hr Q24H IV 09/18/16 16:00 09/25/16 15:59 UNV Objective Vital Signs Date Time Temp Pulse Resp B/P Pulse Ox O2 Delivery O2 Flow Rate FiO2 09/18/16 15:58 74 24 119/68 98 Nasal Cannula 2.0 09/18/16 12:00 97 Nasal Cannula 3.0 09/18/16 11:43 36.8 81 18 118/86 96 09/18/16 11:05 78 18 94 Nasal Cannula 4.0 09/18/16 08:00 97 Nasal Cannula 3.0 09/18/16 07:58 37.0 89 18 108/69 96 09/18/16 07:01 83 18 94 Nasal Cannula 4.0 09/18/16 04:05 36.4 76 20 105/62 100 Nasal Cannula 4.0 09/18/16 04:00 98 Nasal Cannula 3.0 09/18/16 02:20 84 18 98 Nasal Cannula 4.0 09/18/16 02:12 36.4 78 22 113/68 98 Venturi Mask 09/18/16 00:31 95 Nasal Cannula 2.0 09/17/16 23:20 36.4 68 22 136/74 97 Nasal Cannula 09/17/16 20:01 95 Nasal Cannula 2.0 09/17/16 18:55 86 18 96 Nasal Cannula 2.0 Physical Exam General Appearance: + moderate distress Eyes: normal inspection, EOMI ENT: normal ENT inspection, hearing grossly normal Neck: supple, + pertinent finding (large B/L parotid) Respiratory/Chest: + decreased breath sounds, + crackles Cardiovascular: regular rate, rhythm, no edema, no gallop, no murmur Abdomen: non tender, soft, no organomegaly Extremities: normal range of motion, non-tender, normal inspection, no pedal edema Neurologic/Psychiatric: foreman/project manager II-XII nml as tested, no motor/sensory deficits, + pertinent finding (lethargic) Skin: normal color, warm/dry, no rash Laboratory Results Last 24 Hours Test 09/17/16 17:20 09/17/16 18:42 09/17/16 19:41 09/17/16 20:38 Sodium Level 141 mmol/L Potassium Level 3.9 mmol/L Chloride Level 104 mmol/L Carbon Dioxide Level 28 mmol/L Anion Gap 9.0 mmol/L Blood Urea Nitrogen 34 mg/dl Creatinine 1.10 mg/dl Est Creatinine Clear Calc Drug Dose 38.4 ml/min Estimated GFR () 54.9 Estimated GFR (Non- 47.4 BUN/Creatinine Ratio 30.7 Random Glucose 403 mg/dl Calcium Level 7.3 mg/dl Beta-Hydroxybutyric Acid 0.71 mg/dL Bedside Glucose 415 mg/dl 399 mg/dl 374 mg/dl Test 09/17/16 21:43 09/17/16 22:52 09/17/16 23:35 09/18/16 00:49 Bedside Glucose 355 mg/dl 359 mg/dl 332 mg/dl 320 mg/dl Test 09/18/16 01:41 09/18/16 03:15 09/18/16 04:10 09/18/16 05:12 Bedside Glucose 312 mg/dl 279 mg/dl 302 mg/dl 223 mg/dl Test 09/18/16 05:47 09/18/16 06:11 09/18/16 07:19 09/18/16 08:20 White Blood Count 39.29 K/uL Red Blood Count 3.33 M/uL Hemoglobin 10.3 g/dL Hematocrit 32.3 % Mean Corpuscular Volume 97.0 fL Mean Corpuscular Hemoglobin 30.9 pg Mean Corpuscular Hemoglobin Concent 31.9 g/dl Platelet Count 107 K/uL Mean Platelet Volume 10.7 fL Neutrophils (%) (Auto) 91.6 % Lymphocytes (%) (Auto) 1.4 % Monocytes (%) (Auto) 4.8 % Eosinophils (%) (Auto) 0.0 % Basophils (%) (Auto) 0.1 % Neutrophils # (Auto) 36.01 K/uL Lymphocytes # (Auto) 0.56 K/uL Monocytes # (Auto) 1.88 K/uL Eosinophils # (Auto) 0.00 K/uL Basophils # (Auto) 0.03 K/uL RDW Standard Deviation 58.3 fL RDW Coefficient of Variation 17.5 % Immature Granulocyte % (Auto) 2.1 % Immature Granulocyte # (Auto) 0.81 K/uL Nucleated RBC Absolute Count (auto) 0.21 K/uL Nucleated Red Blood Cells % 0.5 % Polychromasia 1+ Basophilic Stippling 1+ Echinocytes 1+ Sodium Level 143 mmol/L Potassium Level 3.3 mmol/L Chloride Level 106 mmol/L Carbon Dioxide Level 29 mmol/L Anion Gap 8.0 mmol/L Blood Urea Nitrogen 27 mg/dl Creatinine 0.79 mg/dl Est Creatinine Clear Calc Drug Dose 53.5 ml/min Estimated GFR () 81.9 Estimated GFR (Non- 70.7 BUN/Creatinine Ratio 33.7 Random Glucose 215 mg/dl Lactic Acid Level 1.4 mmol/L Calcium Level 7.2 mg/dl Phosphorus Level 1.4 mg/dl Magnesium Level 1.4 mg/dl Total Bilirubin 0.4 mg/dl Aspartate Amino Transf (AST/SGOT) 9 U/L Alanine Aminotransferase (ALT/SGPT) 8 U/L Alkaline Phosphatase 72 U/L Total Protein 5.1 gm/dl Albumin 1.6 gm/dl Globulin 3.5 gm/dl Albumin/Globulin Ratio 0.5 Bedside Glucose 218 mg/dl 218 mg/dl 144 mg/dl Test 09/18/16 09:28 09/18/16 09:56 09/18/16 11:13 09/18/16 12:18 Bedside Glucose 113 mg/dl 151 mg/dl 115 mg/dl 124 mg/dl Test 09/18/16 13:16 09/18/16 14:00 09/18/16 14:23 09/18/16 15:30 Bedside Glucose 94 mg/dl 86 mg/dl 91 mg/dl Sodium Level 143 mmol/L Potassium Level 3.6 mmol/L Chloride Level 105 mmol/L Carbon Dioxide Level 30 mmol/L Anion Gap 8.0 mmol/L Blood Urea Nitrogen 26 mg/dl Creatinine 0.73 mg/dl Est Creatinine Clear Calc Drug Dose 57.9 ml/min Estimated GFR () 90.2 Estimated GFR (Non- 77.8 BUN/Creatinine Ratio 34.9 Random Glucose 74 mg/dl Calcium Level 7.3 mg/dl Phosphorus Level 2.5 mg/dl Magnesium Level 2.0 mg/dl Assessment and Plan MRSA bacteremia / Cx remains positive -leukocytosis, stable -D/W Dr. Ornelas; baseline CPK is 26 dapto to 8mg/kg / zyvox for synergistic effect , changed PICC line 09/17 CT chest/abd and pelvis, showed B/L pneumonia, large pleural effusion ? empyema , consult basketball assembler, consider thoracocentesis fungal blood Cx sent 09/16, empirically on caspofungin -echo to r/o vegetations. not stable for SADIE , consider repeat TTE in one week Left facial cellulitis/left parotitis/left masseter muscle infection/left inframandibular infection and sepsis/ persistent bacteremia (WBC, HR) present on admission S/P 2 CT neck without contrast and MRI neck with da also showed no abscess or stone currently on dapto/zyvox continue lactinex lemon q1hr while awake moist heat 20mins/hr Acute hypoxic respiratory failure, Aspiration / pneumonia (HCAP versus Aspiration) / large pleural effusion consult basketball assembler initiate bronchodilators chest PT systolic cardiomyopathy with CHF exacerbation -appearance of takutsubo's - check troponin, follow. no s/s CHF, may need cardiology involvement but right now appearing stable DC IVF, start lasix 20mg IV BID afib/RVR -rate controlled- transition back from IV to PO dilt -hold xarelto, heparin drip from tomorrow metabolic encephalopathy / delirium, improved -due to pain, meds, poor sleep, hospital environment, continue to monitor -Decrease morphine and ativan doses Dysphagia -possible aspiration, poor oral intake, painful swallowing -place NGT , lower rate of TF, has refeeding syndrome -D/W Daughter and next of Kin who is agreeable to the plan, also patient gave permission to discuss the case with her granddaughter CAD/hypertension/TIA/CVA-- continue clopidogrel / Xarelto continue diltiazem extended release heart (increased to 180) mg by mouth daily continue losartan 25 mg by mouth twice a day, y. hold triamterene/HCTZ 37.5/ 25 daily until PO intake improves, but follow BP Diabetes mellitus--hold metformin 500, pharmacy glycemic consult given need for ongoing steroids (currently on drip) COPD--continue Symbicort 160/4.5 2 puffs twice a day, nebs prn, including for cough Depression--continue fluoxetine 10 mg by mouth every morning. Hypercholesterolemia--continue simvastatin 40 mg by mouth every afternoon. Glaucoma--continue Alphagan P ophthalmic solution 1 drop OPB twice a day, and timolol GFS 0.5% one drop OPB every 12 hours. Continued [facility] stay due to: abnormal vital signs, multiple IV medications needed
[2016-09-18] MEDS: DAPTOmycin IV 550 MG in SODIUM CHLORIDE 0.9% 50ML 50 ML IV SCH (16:32)
[2016-09-18] MEDS: MoRPHine SULFATE 2 MG/ML CARP IV PRN (16:44)
[2016-09-18] MEDS: LEVOFLOXACIN / D5W 750 MG in PREMIXED IN D5W 150 ML IV SCH (18:05)
[2016-09-18] MEDS: FIBERSOURCE HN 1000ML BAG NG SCH ×2 (18:19)
[2016-09-18 19:18] LABS: INR 1.3 (0.9-1.1); PARTIAL THROMBOPLASTIN RATIO 1.1; PROTHROMBIN TIME (PATIENT) 14.3 SECONDS (9.0-12.0)
[2016-09-18] MEDS: LEVALBUTEROL 1.25MG/0.5ML NEB INH SCH (19:22)
[2016-09-18] MEDS: IPRATROPIUM BROMIDE NEB SOLN 0.02% 2.5 ML VIAL INH SCH (19:22)
[2016-09-18] MEDS: HEPARIN 25,000 UNIT/500ML D5W 500 ML IV PRN (19:27)
[2016-09-18] MEDS: LORAZEPAM 2 MG/ML 1 ML VIAL IV PRN (19:41)
[2016-09-18 20:41] LABS: HEMATOCRIT 33.4 % (37-47); MEAN CELL VOLUME 97.9 fL (80-100); MEAN CORPUSCULAR HEMOGLOBIN 30.8 pg (25-34); MEAN CORPUSCULAR HGB CONC 31.4 g/dl (32-36); RED BLOOD COUNT 3.41 M/uL (4.2-5.4); WHITE BLOOD COUNT 42.83 K/uL (4.8-10.8)
[2016-09-18] MEDS: SIMVASTATIN 40 MG TAB PO SCH (20:57)
[2016-09-18] MEDS: INSULIN GLARGINE SOLOSTAR 100 UNITS/ML 3 ML PEN SC SCH (20:58)
[2016-09-18] MEDS ORDERED: LEVALBUTEROL/IPRATROPIUM NEB INH SCH (21:00)
[2016-09-19] VITALS (13 sets, daily range): BP systolic 107–140; BP diastolic 60–77; PULSE 69–98; TEMP 35.9–36.8; O2SAT 94–100
[2016-09-19] MEDS: LINEZOLID / D5W 600 MG in PREMIXED IN D5W 300 ML IV SCH ×2 (00:26→12:45)
[2016-09-19] MEDS: INSULIN HUMAN REGULAR SC SCH ×8 (00:31→17:32)
[2016-09-19] MEDS: IPRATROPIUM BROMIDE NEB SOLN 0.02% 2.5 ML VIAL INH SCH ×4 (01:53→19:05)
[2016-09-19] MEDS: ALBUT/IPRATROP 3MG/0.5MG NEB 3 ML VIAL INH SCH ×6 (01:53→19:05)
[2016-09-19] MEDS: LEVALBUTEROL 1.25MG/0.5ML NEB INH SCH ×4 (01:53→19:05)
--- NOTE | 2016-09-19 02:39 | PULMONARY CONSULTATION ---
DATE OF CONSULTATION: 09/18/2016 TIME: 5:55 p.m. HISTORY OF PRESENT ILLNESS: The patient was seen in room 203. She is an 80-year-old female who was admitted on September 08 with swelling of the left side of her face. She also had jaw pain. She could barely open her mouth. This swelling began approximately 4 days before admission. I had seen her in my office on September 04. She noticed this swelling with mild tenderness at that time. The left parotid gland was mildly enlarged and slightly tender. I did suggest to her that she contact Dr. Nance for followup regarding this. Over the next several days, she began to develop worsening of the facial discomfort with increased swelling. This ultimately prompted her to come to the Emergency Room. She had recently been hospitalized from August 23 to the with CVA. She was readmitted on the until the with congestive heart failure. As noted, she has been in the hospital for about 10 days. In the past 2 days she has had a marked worsening in her status. At the present time, the patient is very lethargic and unable to answer any questions. Two daughters were present during this exam. They indicate that she has had noisy respirations for 2 or 3 days. Her oxygen saturations have been a little lower than normal. Aspiration has been suspected. She has had trouble swallowing. No one has seen her vomit, however. She has been immensely weak. She has developed a severe leukocytosis. This has been for quite a few days. Even at the time of admission, the white count was 19.33 and it has gotten progressively higher. Yesterday it was as high as 41.48. She has had blood cultures positive for Staph aureus. This has been almost from the time of admission. She has been cared for by the ID department. THE PATIENT IS ALLERGIC TO NUMEROUS ANTIBIOTICS, which has made choices somewhat limited. A feeding tube was placed. All information was obtained from reviewing the records and from speaking with the patient's daughters. PAST MEDICAL HISTORY: 1. Bronchiectasis. 2. History of Pseudomonas infections. 3. COPD. 4. Atrial fibrillation. 5. Hypertension. 6. Diabetes. 7. Coronary artery disease. 8. Prior CVA. SOCIAL HISTORY: The patient is a former smoker. She quit 10-15 years ago, but was a smoker for much of her lifetime. Alcohol use is reportedly none. FAMILY HISTORY: Positive for diabetes, cancer, heart disease and hypertension. MEDICATIONS: Pulmonary medications at home include Ventolin HFA, Symbicort 160/4.5 two puffs b.i.d., and nebulizer treatments with albuterol p.r.n. Other medicines at home include Biotin, Alphagan, vitamin D, clopidogrel 75 mg daily, diltiazem 120 mg daily, ferrous gluconate, fluoxetine 10 mg daily, losartan 25 mg b.i.d., metformin 500 mg t.i.d., Xarelto 15 mg daily, Zocor 40 mg daily, Timolol, Dyazide. ALLERGIES: INCLUDE TRAMADOL, AZTREONAM, CARBAPENEM, CEFAZOLIN, CEPHALOSPORINS, CLINDAMYCIN, IODINE DYE, MACROLIDES, PENICILLINS. REVIEW OF SYSTEMS: Unobtainable. PHYSICAL EXAMINATION: GENERAL: The patient is an 80-year-old female who appears acutely ill. She is almost unresponsive. She is obviously weak. VITAL SIGNS: Her temperature is 36.8. HEENT: When I would try to examine the patient's eyes she would roll them up. She has a nasogastric tube in place for feedings. Her face is markedly swollen. There is a large swelling in the area of the left parotid, which extends downward and also the right parotid is also involved. I cannot determine if this goes directly into the neck. HEART: The patient's heart rate currently is 90 per minute. The rhythm is irregularly irregular. The blood pressure is 119/68. LUNGS: The respiratory rate is 24 breaths per minute. Audible rhonchi were heard without stethoscope. The patient was so weak I could not sit her forward at all. The breath sounds are diminished somewhat at the bases. Oxygen saturation was 98% on 2 liters and 90% on room air. ABDOMEN: Soft. It did not seem to be tender. Bowel sounds were present. EXTREMITIES: Showed no cyanosis or clubbing. The patient was not noted to move at all during the exam. DIAGNOSTIC DATA: I have reviewed numerous chest x-rays from admission up to the current date and I have also reviewed some from prior. There has been a gradual progression in the bibasilar opacities. A PICC line was noted on the x-ray from September 09. Cardiomegaly was present as well as emphysema. There appeared to be volume loss of the right lung. Some of this appears chronic even from the older x-rays. She did have a CAT scan of the chest done on the . This showed moderate to large bilateral pleural effusions, right greater than left. There is compressive atelectasis of both lower lobes. Some mucus was noted in the right lower bronchus and within the mid trachea raising the possibility of aspiration. Diffuse body wall edema was noted. CAT scan of the abdomen and pelvis showed anasarca of the body wall as well as some ascites. Mild sigmoid diverticulosis was noted. White count today is 39.29. Hemoglobin 10.3. Platelets are 107,000. They have been gradually decreasing. On the the platelets were 303,000. The neutrophil count is 91.6. Electrolytes today show sodium 143, potassium 3.6, chloride 105, bicarb 30. BUN was 26 with a creatinine of 0.73. Blood sugar today is 119. Phosphorus was 2.5 and magnesium was 2.0. Several blood cultures were positive. Curiously they were positive from the date of admission and the day after, but on the they showed no growth. Once again on the the cultures are positive and from the as well. IMPRESSION: 1. Staph septicemia. 2. Facial cellulitis. 3. Large pleural effusions, right and left. 4. Atelectasis bilaterally. 5. Chronic obstructive pulmonary disease. 6. Bronchiectasis. 7. Thrombocytopenia. COMMENTS AND RECOMMENDATIONS: The patient's status is very poor. From a respiratory perspective things that could be considered might include thoracentesis. Doing any procedure on her would be difficult. She also is on Plavix. Therapeutic bronchoscopy could be considered. She is not, however, the greatest candidate. Surprisingly, her oxygenation is remaining fairly good. I had discussed the case with Dr. Plata. I suggested some nebulizer treatments, which he has started. All the antibiotics are being cared for by infectious disease. The Xarelto was discontinued for now. Dr. Barrett is on the weekend. He will assess the patient and see what he thinks at that point in time. I did speak with the patient's 2 daughters and asked if their mother had a preference as to life supports or not. They indicated they think she does not want life supports. They were going to discuss this with their other siblings and with their dad as well. The patient as of now has been a full code. I believe her prognosis is poor. Thank you for asking me to assist in her care. ELICIA
[2016-09-19 03:01] LABS: PARTIAL THROMBOPLASTIN RATIO 10.2
[2016-09-19 04:11] LABS: PARTIAL THROMBOPLASTIN RATIO 1.2
[2016-09-19] MEDS ORDERED: HEPARIN IV BOLUS 4,000 UNIT in SYRINGE 0 ML IV ONE ×2 (04:30→19:00)
[2016-09-19] MEDS: HEPARIN 25,000 UNIT/500ML D5W 500 ML IV PRN ×3 (04:50→19:17)
[2016-09-19] MEDS: LORAZEPAM 2 MG/ML 1 ML VIAL IV PRN ×2 (04:50→19:39)
[2016-09-19 07:01] LABS: BUN/CREATININE RATIO 29.6 (10-20); CALCIUM 7.4 mg/dl (8.5-10.1); CREATININE 0.7 mg/dl (0.60-1.20); MAGNESIUM 1.7 mg/dl (1.8-2.4); POTASSIUM 3.5 mmol/L (3.5-5.1)
[2016-09-19 07:04] LABS: ALB/GLOB RATIO 0.4 (0.9-2); PHOSPHORUS 2.1 mg/dl (2.5-4.9)
[2016-09-19 07:09] LABS: HEMATOCRIT 31.9 % (37-47); MEAN CELL VOLUME 98.2 fL (80-100); MEAN CORPUSCULAR HEMOGLOBIN 31.1 pg (25-34); MEAN CORPUSCULAR HGB CONC 31.7 g/dl (32-36); MEAN PLATELET VOLUME 10.8 fL (7.4-10.4); PLATELET COUNT 84 K/uL (130-400); RED BLOOD COUNT 3.25 M/uL (4.2-5.4); WHITE BLOOD COUNT 37.49 K/uL (4.8-10.8)
[2016-09-19 07:11] LABS: ANISOCYTOSIS PRESENT; BASO % 0.1 %; BASO ABS # 0.02 K/uL (0-0.2); COMPLETE YES; EOS % 0.1 %; IG% 1.5 %; LYMPH % 4.6 %; LYMPH ABS # 1.71 K/uL (1.2-3.4); MONO % 3.6 %; NEUT % 90.1 %; PLT ESTIMATE DECREASED
[2016-09-19] MEDS ORDERED: POTASSIUM PHOS 3 MMOL/1 ML INFUSION IV STA (07:13)
[2016-09-19] MEDS ORDERED: MAGNESIUM SULFATE 1GM / D5W 1 GM in PREMIXED IN D5W 100 ML IV STA (07:21)
[2016-09-19] MEDS: FLUOXETINE HCL 20 MG/5 ML PO SCH (07:55)
[2016-09-19] MEDS: CLOPIDOGREL BISULFATE 75 MG TAB PO SCH (07:56)
[2016-09-19] MEDS: DILTIAZEM HCL 60 MG TAB PO SCH ×4 (07:56→20:46)
[2016-09-19] MEDS: RASPBERRY SYRUP 5 ML UDP PO SCH ×4 (07:57→20:46)
[2016-09-19] MEDS ORDERED: POTASSIUM PHOSPHATE INJ 9 MMOL in SODIUM CHLORIDE 0.9% 250ML 250 ML IV ONE (08:00)
[2016-09-19] MEDS: BRIMONIDINE TARTRATE-P 0.15% 5 ML BTL OPB SCH ×2 (08:05→20:46)
[2016-09-19] MEDS: TIMOLOL GFS 0.5% OPH SOLN 74 DROPS/5 ML BTL OPB SCH ×2 (08:05→20:45)
[2016-09-19] MEDS: FUROSEMIDE INJ 20 MG in SYRINGE 0 ML IV SCH ×2 (08:06→17:16)
[2016-09-19] MEDS: VANCOMYCIN HCL 250 MG/5 ML SOLN PO SCH ×4 (08:06→20:46)
[2016-09-19 08:24] LABS: PARTIAL THROMBOPLASTIN RATIO > 11.0
[2016-09-19] MEDS ORDERED: VANCOMYCIN HCL 500 MG/10ML SOLN PO SCH (09:00)
[2016-09-19 09:14] LABS: PARTIAL THROMBOPLASTIN RATIO 2.7
[2016-09-19] MEDS: MoRPHine SULFATE 2 MG/ML CARP IV PRN ×3 (10:46→19:39)
[2016-09-19] MEDS: CASPOFUNGIN INJ 50 MG in SODIUM CHLORIDE 0.9% 250ML 250 ML IV SCH (11:37)
--- NOTE | 2016-09-19 15:29 | Pulmonology Progress Note ---
Pulmonary Progress Note Date of Service Sep 19, 2016. Attending Matheus Barrett Subjective Patient has decreased orientation but does note fatigue and facial pain. Most my evaluation is performed through the electronic medical record system as well as family member at the bedside. Objective Patient is notably uncomfortable but no signs of tachypnea or increased work of breathing are noted. Physical exam: Reviewed and stable Respiratory: Bilaterally clear to auscultation anteriorly with decreased breath sounds at the bases bilaterally and dullness to percussion Neck: No stridor noted Cardiac: S1-S2 regular rate and rhythm unable to auscultate for murmurs rubs or gallops Skin: No tissue breakdown noted Abdomen: Positive bowel sounds soft nontender PAST MEDICAL HISTORY: 1. Bronchiectasis. 2. Pseudomonas infections: 3. Sever COPD: FEV1: 1.01/53% 4. Atrial fibrillation (Xarelto/diltiazem) 5. Hypertension. 6. Diabetes. 7. Coronary artery disease. 8. CVA 9. TOB >30ppd hx quite 10-15 years prior 10. Lung nodule 11. 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 Echocardiogram 09/08/2016--compared to 08/29/2016 -Left ventricular systolic function markedly worse, significant mitral regurgitation and tricuspid regurgitation with associated elevated pulmonary arterial pressures, small ASD -LV: EF=25-30% -MR: Moderate to severe -TR: Moderate to severe -RVSP: 30-40mmHg 13. CT abdomen and pelvis 09/17/2016 -Bilateral pleural effusions right greater than left 14. CXR 09/18/2015 -NG tube, bilateral costophrenic blunting right greater than left, bilateral cephalization with parabronchial cuffing 15. Noncontrast CT the thorax 09/17/2016 -Bilateral large pleural effusions right greater than left Assessment & Plan 80-year-old female admitted with parotitis, MS rate bacteremia and bilateral pleural effusions: #1 Pleural Effusion's: Patient's pleural effusions most likely a combination of : Bacteremia, congestive heart failure, severe MR and notable malnourishment with an albumin of 1.4. Patient with chronic atrial fibrillation and CVA treated with Xarelto and Plavix. At this time I discussed with the hospitalist to hold the medication and 5 days if patient still requires will perform thoracentesis for therapeutic and possible clinical evaluation. Data Medications: Current Inpatient Medications Medications (Trade) Dose Ordered Sig/Jose Route Start Time Stop Time Status Last Admin Dose Admin Acetaminophen (Tylenol Tab) 650 mg Q4H PRN PO 09/08/16 20:45 10/08/16 20:44 09/18/16 19:12 650 MG Zolpidem Tartrate (Ambien Tab) 5 mg HSZ PRN PO 09/08/16 20:45 10/08/16 20:44 Simvastatin (Zocor Tab) 40 mg QPM PO 09/08/16 21:00 10/08/16 20:59 09/18/16 20:57 40 MG Timolol Maleate (Timoptic-Xe 0.5% Oph Soln) 1 drops Q12 OPB 09/08/16 21:00 10/08/16 20:59 09/18/16 19:29 1 DROPS Lorazepam (Ativan Inj) 0.5 mg Q4H PRN IV 09/08/16 20:45 10/08/16 20:44 09/19/16 04:50 0.5 MG Magnesium Hydroxide (Milk Of Magnesia Susp) 30 ml Q6H PRN PO 09/08/16 20:45 10/08/16 20:44 Bisacodyl (Dulcolax Supp) 10 mg DAILY PRN [place] 09/08/16 20:45 10/08/16 20:44 Diphenhydramine HCl (Benadryl Inj) 25 mg Q4H PRN IV 09/08/16 20:45 10/08/16 20:44 09/16/16 02:33 25 MG Al Hydrox/Mg Hydrox/ Simethicone 15 ml 15 ml Q4H PRN PO 09/08/16 20:45 10/08/16 20:44 Promethazine HCl/ Sodium Chloride (Phenergan Inj/ Nss 50ml) 50.5 ml @ 202 mls/hr Q4H PRN IV 09/08/16 20:45 10/08/16 20:44 Ondansetron HCl (Zofran Inj) 4 mg Q6H PRN IV 09/08/16 20:45 10/08/16 20:44 09/09/16 04:50 4 MG Glucose (Glucose 40% Gel) UD PRN PO 09/08/16 20:45 10/08/16 20:44 Glucose (Glucose Chew Tab) 1 tabs UD PRN PO 09/08/16 20:45 10/08/16 20:44 Dextrose (Dextrose 50% 50ML Syringe) 50 ml UD PRN IV 09/08/16 20:45 10/08/16 20:44 Glucagon (Glucagon Inj) 1 mg UD PRN SQ 09/08/16 20:45 10/08/16 20:44 Heparin Sodium (Porcine) (Heparin 10 Unit/ ml 5 ml Flush) 5 ml PRN PRN FLUSH 09/09/16 12:45 10/09/16 12:44 09/10/16 15:27 5 ML Miconazole Nitrate (Desenex Powder) 1 appln PRN PRN EXT 09/11/16 15:00 10/11/16 14:59 Miscellaneous Information (Consult Glycemic Management Pharmacy) 1 ea UD N/A 09/12/16 17:14 10/12/16 17:13 Diltiazem HCl (Cardizem Tab) 60 mg QID PO 09/13/16 13:00 10/13/16 12:59 09/19/16 12:47 60 MG Insulin Glargine (Lantus Solostar Pen) SEE PROTOCOL TEXT HS SC 09/15/16 16:45 10/15/16 16:44 09/18/16 20:58 15 UNIT Morphine Sulfate (MoRPHine SULFATE INJ) 1 mg Q4H PRN IV 09/15/16 09:30 09/29/16 09:29 09/19/16 15:06 1 MG Insulin Human Regular (novoLIN-R) This entry serves as c... Q6 SC 09/16/16 12:00 10/16/16 11:59 09/19/16 12:44 4 UNITS Enteral Nutritional Formula (Fibersource HN) 1,265 ml UD NG 09/16/16 15:45 10/16/16 15:44 09/18/16 18:19 1,265 ML Brimonidine Tartrate 1 drops 1 drops BID OPB 09/16/16 21:00 10/16/16 20:59 09/18/16 19:29 1 DROPS Furosemide 20 mg/ Syringe 2 ml @ 4 mls/min BID17 IV 09/16/16 17:00 10/16/16 16:59 09/19/16 08:06 4 MLS/MIN Daptomycin 550 mg/ Sodium Chloride 61 ml @ 100 mls/hr DAILY@1600 IV 09/17/16 16:00 09/24/16 16:37 09/18/16 16:32 100 MLS/HR Caspofungin 50 mg/ Sodium Chloride 260 ml @ 250 mls/hr DAILY@0900 IV 09/18/16 09:00 09/27/16 08:59 09/19/16 11:37 250 MLS/HR Linezolid/Prmx (Zyvox / D5W/ Premixed D5W) 300 ml @ 300 mls/hr Q12H IV 09/17/16 12:00 10/01/16 11:59 09/19/16 12:45 300 MLS/HR Fluoxetine HCl (Prozac Soln) 10 mg QAM PO 09/17/16 10:30 10/17/16 10:29 09/19/16 07:55 10 MG Raspberry (Raspberry Syrup 5ml Cup) 5 ml QID PO 09/17/16 10:15 10/01/16 10:14 09/18/16 20:57 5 ML Albuterol/ Ipratropium (Duoneb) 3 ml Q4R INH 09/18/16 04:00 10/18/16 03:59 09/19/16 08:00 3 ML Insulin Human Regular SLIDING SCALE Q6 SC 09/18/16 18:00 10/18/16 17:59 09/19/16 12:45 3 UNITS Levofloxacin/Prmx (Levaquin / D5W/ Premixed D5W) 150 ml @ 100 mls/hr DAILY@1800 IV 09/18/16 18:00 09/25/16 17:59 09/18/16 18:05 100 MLS/HR Ipratropium [place] (Atrovent 0.02% 0.5MG/2.5ML Neb) 0.5 mg Q6R INH 09/18/16 21:00 10/18/16 20:59 09/19/16 14:34 0.5 MG Levalbuterol 1.25 mg 1.25 mg Q6R INH 09/18/16 21:00 10/18/16 20:59 09/19/16 14:34 1.25 MG Heparin Sodium/ Dextrose (Heparin 25,000 Unit/500ml D5W) 500 ml @ 11 mls/hr Q24H PRN IV 09/18/16 17:30 10/18/16 17:29 09/19/16 13:31 11 MLS/HR Vancomycin HCl (Vancomycin Oral Soln) 250 mg QID PO 09/19/16 09:00 09/27/16 08:59 09/19/16 12:47 250 MG I & O: 24-Hour Column 09/19/16 07:59 Intake Total 2553 ml Output Total 2550 ml Balance 3 ml Vital Signs: Date Time Temp Pulse Resp B/P Pulse Ox O2 Delivery O2 Flow Rate FiO2 09/19/16 15:12 35.9 75 22 116/60 98 Room Air 09/19/16 14:34 69 18 96 Nasal Cannula 3.0 09/19/16 12:22 36.4 81 20 140/77 99 Nasal Cannula 3.0 09/19/16 12:00 97 Nasal Cannula 3.0 09/19/16 08:00 99 Nasal Cannula 3.0 09/19/16 07:53 36.6 98 18 117/68 100 Nasal Cannula 3.0 09/19/16 07:13 85 18 100 Nasal Cannula 3.0 09/19/16 03:18 36.3 84 24 120/76 95 Nasal Cannula 2.0 09/19/16 00:37 36.4 82 23 121/72 98 Nasal Cannula 2.0 09/18/16 19:26 83 18 95 Nasal Cannula 2.0 09/18/16 16:12 72 18 98 Nasal Cannula 2.0 09/18/16 15:58 74 24 119/68 98 Nasal Cannula 2.0 Laboratory Results: Last 24 Hours Test 09/18/16 15:30 09/18/16 16:27 09/18/16 18:53 09/18/16 20:00 Bedside Glucose 91 mg/dl 119 mg/dl 169 mg/dl White Blood Count 42.83 K/uL Red Blood Count 3.41 M/uL Hemoglobin 10.5 g/dL Hematocrit 33.4 % Mean Corpuscular Volume 97.9 fL Mean Corpuscular Hemoglobin 30.8 pg Mean Corpuscular Hemoglobin Concent 31.4 g/dl RDW Standard Deviation 59.2 fL RDW Coefficient of Variation 17.4 % Platelet Count K/uL Mean Platelet Volume fL Nucleated RBC Absolute Count (auto) 0.14 K/uL Nucleated Red Blood Cells % 0.3 % Prothrombin Time 14.3 SECONDS Prothromb Time International Ratio 1.3 Activated Partial Thromboplast Time 28.6 SECONDS Partial Thromboplastin Ratio 1.1 Test 09/19/16 00:24 09/19/16 02:18 09/19/16 03:52 09/19/16 05:30 Bedside Glucose 193 mg/dl Activated Partial Thromboplast Time 264.9 SECONDS 31.8 SECONDS Partial Thromboplastin Ratio 10.2 1.2 White Blood Count 37.49 K/uL Red Blood Count 3.25 M/uL Hemoglobin 10.1 g/dL Hematocrit 31.9 % Mean Corpuscular Volume 98.2 fL Mean Corpuscular Hemoglobin 31.1 pg Mean Corpuscular Hemoglobin Concent 31.7 g/dl Platelet Count 84 K/uL Mean Platelet Volume 10.8 fL Neutrophils (%) (Auto) 90.1 % Lymphocytes (%) (Auto) 4.6 % Monocytes (%) (Auto) 3.6 % Eosinophils (%) (Auto) 0.1 % Basophils (%) (Auto) 0.1 % Neutrophils # (Auto) 33.83 K/uL Lymphocytes # (Auto) 1.71 K/uL Monocytes # (Auto) 1.34 K/uL Eosinophils # (Auto) 0.04 K/uL Basophils # (Auto) 0.02 K/uL RDW Standard Deviation 58.6 fL RDW Coefficient of Variation 17.2 % Immature Granulocyte % (Auto) 1.5 % Immature Granulocyte # (Auto) 0.55 K/uL Platelet Estimate DECREASED Anisocytosis PRESENT Sodium Level 141 mmol/L Potassium Level 3.5 mmol/L Chloride Level 102 mmol/L Carbon Dioxide Level 31 mmol/L Anion Gap 8.0 mmol/L Blood Urea Nitrogen 21 mg/dl Creatinine 0.70 mg/dl Est Creatinine Clear Calc Drug Dose 60.3 ml/min Estimated GFR () 94.8 Estimated GFR (Non- 81.8 BUN/Creatinine Ratio 29.6 Random Glucose 180 mg/dl Calcium Level 7.4 mg/dl Phosphorus Level 2.1 mg/dl Magnesium Level 1.7 mg/dl Total Bilirubin 0.4 mg/dl Aspartate Amino Transf (AST/SGOT) 13 U/L Alanine Aminotransferase (ALT/SGPT) 7 U/L Alkaline Phosphatase 61 U/L Total Protein 4.8 gm/dl Albumin 1.4 gm/dl Globulin 3.4 gm/dl Albumin/Globulin Ratio 0.4 Test 09/19/16 06:09 09/19/16 07:40 09/19/16 08:50 09/19/16 11:41 Bedside Glucose 189 mg/dl 200 mg/dl Activated Partial Thromboplast Time > 300.0 SECONDS 70.3 SECONDS Partial Thromboplastin Ratio > 11.0 2.7
[2016-09-19] MEDS: DAPTOmycin IV 550 MG in SODIUM CHLORIDE 0.9% 50ML 50 ML IV SCH (16:03)
[2016-09-19] MEDS: FIBERSOURCE HN 1000ML BAG NG SCH ×2 (16:04)
[2016-09-19] MEDS: MICONAZOLE NITRATE POWDER 43 GM EXT PRN (16:04)
[2016-09-19] MEDS ORDERED: HEPARIN IV LOW DOSE NO BOLUS SCH (16:30)
[2016-09-19] MEDS: LEVOFLOXACIN / D5W 750 MG in PREMIXED IN D5W 150 ML IV SCH (17:16)
[2016-09-19] MEDS: ACETAMINOPHEN 325 MG TAB PO PRN (17:37)
[2016-09-19 17:47] LABS: PARTIAL THROMBOPLASTIN RATIO 1.2
--- NOTE | 2016-09-19 18:13 | Progress Note ---
Subjective Date of Service: Sep 19, 2016. Subjective Pt evaluation today including: conversation w/ patient, conversation w/ family , physical exam, chart review, lab review, conversation w/ document management consultant Problem List Medical Problems: (1) Abnormal EKG Status: Acute (2) Accidental drug ingestion Status: Acute (3) CHF (congestive heart failure) Status: Acute (4) Closed head injury Status: Acute (5) COPD exacerbation Status: Acute (6) Dysarthria Status: Acute (7) Facial cellulitis Status: Acute (8) Hypoxia Status: Acute (9) Leukocytosis Status: Acute (10) PNA (pneumonia) Status: Acute (11) Right leg weakness Status: Acute Review of Systems Respiratory: + shortness of breath detailed ROS is unobtainable due to slight confusion has SOB denies pain Medications Current Inpatient Medications Medications (Trade) Dose Ordered Sig/Jose Route Start Time Stop Time Status Last Admin Dose Admin Acetaminophen (Tylenol Tab) 650 mg Q4H PRN PO 09/08/16 20:45 10/08/16 20:44 09/19/16 17:37 650 MG Zolpidem Tartrate (Ambien Tab) 5 mg HSZ PRN PO 09/08/16 20:45 10/08/16 20:44 Simvastatin (Zocor Tab) 40 mg QPM PO 09/08/16 21:00 10/08/16 20:59 09/18/16 20:57 40 MG Timolol Maleate (Timoptic-Xe 0.5% Oph Soln) 1 drops Q12 OPB 09/08/16 21:00 10/08/16 20:59 09/18/16 19:29 1 DROPS Lorazepam (Ativan Inj) 0.5 mg Q4H PRN IV 09/08/16 20:45 10/08/16 20:44 09/19/16 04:50 0.5 MG Magnesium Hydroxide (Milk Of Magnesia Susp) 30 ml Q6H PRN PO 09/08/16 20:45 10/08/16 20:44 Bisacodyl (Dulcolax Supp) 10 mg DAILY PRN [place] 09/08/16 20:45 10/08/16 20:44 Diphenhydramine HCl (Benadryl Inj) 25 mg Q4H PRN IV 09/08/16 20:45 10/08/16 20:44 09/16/16 02:33 25 MG Al Hydrox/Mg Hydrox/ Simethicone 15 ml 15 ml Q4H PRN PO 09/08/16 20:45 10/08/16 20:44 Promethazine HCl/ Sodium Chloride (Phenergan Inj/ Nss 50ml) 50.5 ml @ 202 mls/hr Q4H PRN IV 09/08/16 20:45 10/08/16 20:44 Ondansetron HCl (Zofran Inj) 4 mg Q6H PRN IV 09/08/16 20:45 10/08/16 20:44 09/09/16 04:50 4 MG Glucose (Glucose 40% Gel) UD PRN PO 09/08/16 20:45 10/08/16 20:44 Glucose (Glucose Chew Tab) 1 tabs UD PRN PO 09/08/16 20:45 10/08/16 20:44 Dextrose (Dextrose 50% 50ML Syringe) 50 ml UD PRN IV 09/08/16 20:45 10/08/16 20:44 Glucagon (Glucagon Inj) 1 mg UD PRN SQ 09/08/16 20:45 10/08/16 20:44 Heparin Sodium (Porcine) (Heparin 10 Unit/ ml 5 ml Flush) 5 ml PRN PRN FLUSH 09/09/16 12:45 10/09/16 12:44 09/10/16 15:27 5 ML Miconazole Nitrate (Desenex Powder) 1 appln PRN PRN EXT 09/11/16 15:00 10/11/16 14:59 09/19/16 16:04 1 APPLN Miscellaneous Information (Consult Glycemic Management Pharmacy) 1 ea UD N/A 09/12/16 17:14 10/12/16 17:13 Diltiazem HCl (Cardizem Tab) 60 mg QID PO 09/13/16 13:00 10/13/16 12:59 09/19/16 17:17 60 MG Insulin Glargine (Lantus Solostar Pen) SEE PROTOCOL TEXT HS SC 09/15/16 16:45 10/15/16 16:44 09/18/16 20:58 15 UNIT Morphine Sulfate (MoRPHine SULFATE INJ) 1 mg Q4H PRN IV 09/15/16 09:30 09/29/16 09:29 09/19/16 15:06 1 MG Insulin Human Regular (novoLIN-R) This entry serves as c... Q6 SC 09/16/16 12:00 10/16/16 11:59 09/19/16 17:32 5 UNITS Enteral Nutritional Formula (Fibersource HN) 1,265 ml UD NG 09/16/16 15:45 10/16/16 15:44 09/19/16 16:04 1,000 ML Brimonidine Tartrate 1 drops 1 drops BID OPB 09/16/16 21:00 10/16/16 20:59 09/18/16 19:29 1 DROPS Furosemide 20 mg/ Syringe 2 ml @ 4 mls/min BID17 IV 09/16/16 17:00 10/16/16 16:59 09/19/16 17:16 4 MLS/MIN Daptomycin 550 mg/ Sodium Chloride 61 ml @ 100 mls/hr DAILY@1600 IV 09/17/16 16:00 09/24/16 16:37 09/19/16 16:03 100 MLS/HR Caspofungin 50 mg/ Sodium Chloride 260 ml @ 250 mls/hr DAILY@0900 IV 09/18/16 09:00 09/27/16 08:59 09/19/16 11:37 250 MLS/HR Linezolid/Prmx (Zyvox / D5W/ Premixed D5W) 300 ml @ 300 mls/hr Q12H IV 09/17/16 12:00 10/01/16 11:59 09/19/16 12:45 300 MLS/HR Fluoxetine HCl (Prozac Soln) 10 mg QAM PO 09/17/16 10:30 10/17/16 10:29 09/19/16 07:55 10 MG Raspberry (Raspberry Syrup 5ml Cup) 5 ml QID PO 09/17/16 10:15 10/01/16 10:14 09/18/16 20:57 5 ML Albuterol/ Ipratropium (Duoneb) 3 ml Q4R INH 09/18/16 04:00 10/18/16 03:59 09/19/16 08:00 3 ML Insulin Human Regular SLIDING SCALE Q6 SC 09/18/16 18:00 10/18/16 17:59 2/18/17 17:32 2 UNITS Levofloxacin/Prmx (Levaquin / D5W/ Premixed D5W) 150 ml @ 100 mls/hr DAILY@1800 IV 09/18/16 18:00 09/25/16 17:59 09/19/16 17:16 100 MLS/HR Ipratropium [place] (Atrovent 0.02% 0.5MG/2.5ML Neb) 0.5 mg Q6R INH 09/18/16 21:00 10/18/16 20:59 09/19/16 14:34 0.5 MG Levalbuterol 1.25 mg 1.25 mg Q6R INH 09/18/16 21:00 10/18/16 20:59 09/19/16 14:34 1.25 MG Heparin Sodium/ Dextrose (Heparin 25,000 Unit/500ml D5W) 500 ml @ 11 mls/hr Q24H PRN IV 09/18/16 17:30 10/18/16 17:29 09/19/16 13:31 11 MLS/HR Vancomycin HCl (Vancomycin Oral Soln) 250 mg QID PO 09/19/16 09:00 09/27/16 08:59 09/19/16 17:15 250 MG Objective Vital Signs Date Time Temp Pulse Resp B/P Pulse Ox O2 Delivery O2 Flow Rate FiO2 09/19/16 15:12 35.9 75 22 116/60 98 Room Air 09/19/16 14:34 69 18 96 Nasal Cannula 3.0 09/19/16 12:22 36.4 81 20 140/77 99 Nasal Cannula 3.0 09/19/16 12:00 97 Nasal Cannula 3.0 09/19/16 08:00 99 Nasal Cannula 3.0 09/19/16 07:53 36.6 98 18 117/68 100 Nasal Cannula 3.0 09/19/16 07:13 85 18 100 Nasal Cannula 3.0 09/19/16 03:18 36.3 84 24 120/76 95 Nasal Cannula 2.0 09/19/16 00:37 36.4 82 23 121/72 98 Nasal Cannula 2.0 09/18/16 19:26 83 18 95 Nasal Cannula 2.0 Physical Exam General Appearance: no apparent distress Eyes: normal inspection, EOMI ENT: normal ENT inspection, hearing grossly normal Neck: supple Respiratory/Chest: + decreased breath sounds, + crackles, + rales Cardiovascular: regular rate, rhythm, no edema, + systolic murmur Abdomen: normal bowel sounds, non tender, soft, no organomegaly Extremities: normal range of motion, non-tender, normal inspection, no pedal edema, no calf tenderness Neurologic/Psychiatric: athletic monitor II-XII nml as tested, no motor/sensory deficits, + pertinent finding (slightly confused) Laboratory Results Last 24 Hours Test 09/18/16 18:53 09/18/16 20:00 09/19/16 00:24 09/19/16 02:18 White Blood Count 42.83 K/uL Red Blood Count 3.41 M/uL Hemoglobin 10.5 g/dL Hematocrit 33.4 % Mean Corpuscular Volume 97.9 fL Mean Corpuscular Hemoglobin 30.8 pg Mean Corpuscular Hemoglobin Concent 31.4 g/dl RDW Standard Deviation 59.2 fL RDW Coefficient of Variation 17.4 % Platelet Count K/uL Mean Platelet Volume fL Nucleated RBC Absolute Count (auto) 0.14 K/uL Nucleated Red Blood Cells % 0.3 % Prothrombin Time 14.3 SECONDS Prothromb Time International Ratio 1.3 Activated Partial Thromboplast Time 28.6 SECONDS 264.9 SECONDS Partial Thromboplastin Ratio 1.1 10.2 Bedside Glucose 169 mg/dl 193 mg/dl Test 09/19/16 03:52 09/19/16 05:30 09/19/16 06:09 09/19/16 07:40 Activated Partial Thromboplast Time 31.8 SECONDS > 300.0 SECONDS Partial Thromboplastin Ratio 1.2 > 11.0 White Blood Count 37.49 K/uL Red Blood Count 3.25 M/uL Hemoglobin 10.1 g/dL Hematocrit 31.9 % Mean Corpuscular Volume 98.2 fL Mean Corpuscular Hemoglobin 31.1 pg Mean Corpuscular Hemoglobin Concent 31.7 g/dl Platelet Count 84 K/uL Mean Platelet Volume 10.8 fL Neutrophils (%) (Auto) 90.1 % Lymphocytes (%) (Auto) 4.6 % Monocytes (%) (Auto) 3.6 % Eosinophils (%) (Auto) 0.1 % Basophils (%) (Auto) 0.1 % Neutrophils # (Auto) 33.83 K/uL Lymphocytes # (Auto) 1.71 K/uL Monocytes # (Auto) 1.34 K/uL Eosinophils # (Auto) 0.04 K/uL Basophils # (Auto) 0.02 K/uL RDW Standard Deviation 58.6 fL RDW Coefficient of Variation 17.2 % Immature Granulocyte % (Auto) 1.5 % Immature Granulocyte # (Auto) 0.55 K/uL Platelet Estimate DECREASED Anisocytosis PRESENT Sodium Level 141 mmol/L Potassium Level 3.5 mmol/L Chloride Level 102 mmol/L Carbon Dioxide Level 31 mmol/L Anion Gap 8.0 mmol/L Blood Urea Nitrogen 21 mg/dl Creatinine 0.70 mg/dl Est Creatinine Clear Calc Drug Dose 60.3 ml/min Estimated GFR () 94.8 Estimated GFR (Non- 81.8 BUN/Creatinine Ratio 29.6 Random Glucose 180 mg/dl Calcium Level 7.4 mg/dl Phosphorus Level 2.1 mg/dl Magnesium Level 1.7 mg/dl Total Bilirubin 0.4 mg/dl Aspartate Amino Transf (AST/SGOT) 13 U/L Alanine Aminotransferase (ALT/SGPT) 7 U/L Alkaline Phosphatase 61 U/L Total Protein 4.8 gm/dl Albumin 1.4 gm/dl Globulin 3.4 gm/dl Albumin/Globulin Ratio 0.4 Bedside Glucose 189 mg/dl Test 09/19/16 08:50 09/19/16 11:41 09/19/16 17:05 09/19/16 17:28 Activated Partial Thromboplast Time 70.3 SECONDS 32.0 SECONDS Partial Thromboplastin Ratio 2.7 1.2 Bedside Glucose 200 mg/dl 178 mg/dl Assessment and Plan MRSA bacteremia / Cx remains positive -leukocytosis, stable -D/W Dr. Ornelas; baseline CPK is 26 dapto to 8mg/kg / zyvox for synergistic effect , changed PICC line 09/17 CT chest/abd and pelvis, showed B/L pneumonia, large pleural effusion ? empyema , consult refrigerator car icer, consider thoracocentesis fungal blood Cx sent 09/16, empirically on caspofungin -echo to r/o vegetations. not stable for SADIE , consider repeat TTE in one week Left facial cellulitis/left parotitis/left masseter muscle infection/left inframandibular infection and sepsis/ persistent bacteremia (WBC, HR) present on admission S/P 2 CT neck without contrast and MRI neck with da also showed no abscess or stone currently on dapto/zyvox continue lactinex lemon q1hr while awake moist heat 20mins/hr Acute hypoxic respiratory failure, Aspiration / pneumonia (HCAP versus Aspiration) / large pleural effusion consult refrigerator car icer D/W Dr. Barrett, hold plavix for planed thoracocentesis or at least needle sample for R/O empyema initiate bronchodilators chest PT systolic cardiomyopathy with CHF exacerbation -appearance of takutsubo's - check troponin, follow. no s/s CHF, may need cardiology involvement but right now appearing stable DC IVF, start lasix 20mg IV BID afib/RVR -rate controlled- transition back from IV to PO dilt -hold xarelto, heparin drip from tomorrow metabolic encephalopathy / delirium, improved -due to pain, meds, poor sleep, hospital environment, continue to monitor -Decrease morphine and ativan doses Dysphagia -possible aspiration, poor oral intake, painful swallowing -place NGT , lower rate of TF, has refeeding syndrome -D/W Daughter and next of Kin who is agreeable to the plan, also patient gave permission to discuss the case with her granddaughter CAD/hypertension/TIA/CVA-- continue clopidogrel / Xarelto continue diltiazem extended release heart (increased to 180) mg by mouth daily continue losartan 25 mg by mouth twice a day, y. hold triamterene/HCTZ 37.5/ 25 daily until PO intake improves, but follow BP Diabetes mellitus--hold metformin 500, pharmacy glycemic consult given need for ongoing steroids (currently on drip) COPD--continue Symbicort 160/4.5 2 puffs twice a day, nebs prn, including for cough Depression--continue fluoxetine 10 mg by mouth every morning. Hypercholesterolemia--continue simvastatin 40 mg by mouth every afternoon. Glaucoma--continue Alphagan P ophthalmic solution 1 drop OPB twice a day, and timolol GFS 0.5% one drop OPB every 12 hours. Continued [facility] stay due to: abnormal vital signs, multiple IV medications needed
[2016-09-19] MEDS: SIMVASTATIN 40 MG TAB PO SCH (20:47)
[2016-09-19] MEDS: INSULIN GLARGINE SOLOSTAR 100 UNITS/ML 3 ML PEN SC SCH (20:49)
[2016-09-20] VITALS (12 sets, daily range): BP systolic 112–138; BP diastolic 62–80; PULSE 71–99; TEMP 36.4–36.8; O2SAT 94–99
[2016-09-20] MEDS: INSULIN HUMAN REGULAR SC SCH ×8 (00:06→18:25)
[2016-09-20 00:22] LABS: PARTIAL THROMBOPLASTIN RATIO 3.5
[2016-09-20] MEDS: IPRATROPIUM BROMIDE NEB SOLN 0.02% 2.5 ML VIAL INH SCH ×5 (01:52→19:31)
[2016-09-20] MEDS: ALBUT/IPRATROP 3MG/0.5MG NEB 3 ML VIAL INH SCH ×4 (01:53→13:55)
[2016-09-20] MEDS: LEVALBUTEROL 1.25MG/0.5ML NEB INH SCH ×5 (01:53→19:31)
[2016-09-20 07:24] LABS: HEMATOCRIT 32.2 % (37-47); MEAN CORPUSCULAR HEMOGLOBIN 30.7 pg (25-34); MEAN CORPUSCULAR HGB CONC 31.7 g/dl (32-36); RED BLOOD COUNT 3.32 M/uL (4.2-5.4)
[2016-09-20 07:33] LABS: PARTIAL THROMBOPLASTIN RATIO 1.3
[2016-09-20 07:55] LABS: BUN/CREATININE RATIO 25.5 (10-20); CALCIUM 7.4 mg/dl (8.5-10.1); CREATININE 0.6 mg/dl (0.60-1.20); MAGNESIUM 1.6 mg/dl (1.8-2.4); POTASSIUM 3.2 mmol/L (3.5-5.1)
[2016-09-20 07:58] LABS: ALB/GLOB RATIO 0.4 (0.9-2); PHOSPHORUS 2.2 mg/dl (2.5-4.9)
[2016-09-20] MEDS: CASPOFUNGIN INJ 50 MG in SODIUM CHLORIDE 0.9% 250ML 250 ML IV SCH (08:03)
[2016-09-20] MEDS: FUROSEMIDE INJ 20 MG in SYRINGE 0 ML IV SCH ×2 (08:04→17:25)
[2016-09-20] MEDS: TIMOLOL GFS 0.5% OPH SOLN 74 DROPS/5 ML BTL OPB SCH ×2 (08:04→21:28)
[2016-09-20] MEDS: MoRPHine SULFATE 2 MG/ML CARP IV PRN ×2 (08:04→19:28)
[2016-09-20 08:05] LABS: MEAN PLATELET VOLUME 10.6 fL (7.4-10.4); PLATELET COUNT 77 K/uL (130-400)
[2016-09-20] MEDS: BRIMONIDINE TARTRATE-P 0.15% 5 ML BTL OPB SCH ×2 (08:05→21:28)
[2016-09-20] MEDS: FLUOXETINE HCL 20 MG/5 ML PO SCH (08:05)
[2016-09-20 08:06] LABS: ANISOCYTOSIS PRESENT; BASO % 0.1 %; BASO ABS # 0.02 K/uL (0-0.2); COMPLETE YES; EOS % 0.1 %; IG% 1.2 %; MONO % 4.9 %; NEUT % 91.7 %; PLT ESTIMATE DECREASED
[2016-09-20] MEDS: DILTIAZEM HCL 60 MG TAB PO SCH ×4 (08:06→21:28)
[2016-09-20] MEDS: RASPBERRY SYRUP 5 ML UDP PO SCH ×4 (08:07→21:29)
[2016-09-20] MEDS: VANCOMYCIN HCL 250 MG/5 ML SOLN PO SCH ×4 (08:07→21:31)
[2016-09-20] MEDS ORDERED: HEPARIN IV BOLUS 4,000 UNIT in SYRINGE 0 ML IV ONE (09:30)
[2016-09-20] MEDS: LORAZEPAM 2 MG/ML 1 ML VIAL IV PRN ×2 (11:12→19:28)
[2016-09-20] MEDS: ACETAMINOPHEN 325 MG TAB PO PRN (11:13)
[2016-09-20] MEDS: LINEZOLID / D5W 600 MG in PREMIXED IN D5W 300 ML IV SCH ×2 (12:00)
[2016-09-20] MEDS ORDERED: POTASSIUM PHOS 3 MMOL/1 ML INFUSION IV STA (12:48)
[2016-09-20] MEDS ORDERED: MAGNESIUM OXIDE 400 MG TAB PO ONE (13:00)
--- NOTE | 2016-09-20 13:10 | Progress Note ---
Subjective Date of Service: Sep 20, 2016. Subjective Pt evaluation today including: conversation w/ patient, conversation w/ family , physical exam, chart review, lab review, review of inpatient medication list Problem List Medical Problems: (1) Abnormal EKG Status: Acute (2) Accidental drug ingestion Status: Acute (3) CHF (congestive heart failure) Status: Acute (4) Closed head injury Status: Acute (5) COPD exacerbation Status: Acute (6) Dysarthria Status: Acute (7) Facial cellulitis Status: Acute (8) Hypoxia Status: Acute (9) Leukocytosis Status: Acute (10) PNA (pneumonia) Status: Acute (11) Right leg weakness Status: Acute Review of Systems ROS is unobtainable due to change in mental status Medications Current Inpatient Medications Medications (Trade) Dose Ordered Sig/Jose Route Start Time Stop Time Status Last Admin Dose Admin Acetaminophen (Tylenol Tab) 650 mg Q4H PRN PO 09/08/16 20:45 10/08/16 20:44 09/20/16 11:13 650 MG Zolpidem Tartrate (Ambien Tab) 5 mg HSZ PRN PO 09/08/16 20:45 10/08/16 20:44 Simvastatin (Zocor Tab) 40 mg QPM PO 09/08/16 21:00 10/08/16 20:59 09/19/16 20:47 40 MG Timolol Maleate (Timoptic-Xe 0.5% Oph Soln) 1 drops Q12 OPB 09/08/16 21:00 10/08/16 20:59 09/20/16 08:04 1 DROPS Lorazepam (Ativan Inj) 0.5 mg Q4H PRN IV 09/08/16 20:45 10/08/16 20:44 09/20/16 11:12 0.5 MG Magnesium Hydroxide (Milk Of Magnesia Susp) 30 ml Q6H PRN PO 09/08/16 20:45 10/08/16 20:44 Bisacodyl (Dulcolax Supp) 10 mg DAILY PRN IN 09/08/16 20:45 10/08/16 20:44 Diphenhydramine HCl (Benadryl Inj) 25 mg Q4H PRN IV 09/08/16 20:45 10/08/16 20:44 09/16/16 02:33 25 MG Al Hydrox/Mg Hydrox/ Simethicone 15 ml 15 ml Q4H PRN PO 09/08/16 20:45 10/08/16 20:44 Promethazine HCl/ Sodium Chloride (Phenergan Inj/ Nss 50ml) 50.5 ml @ 202 mls/hr Q4H PRN IV 09/08/16 20:45 10/08/16 20:44 Ondansetron HCl (Zofran Inj) 4 mg Q6H PRN IV 09/08/16 20:45 10/08/16 20:44 09/09/16 04:50 4 MG Glucose (Glucose 40% Gel) UD PRN PO 09/08/16 20:45 10/08/16 20:44 Glucose (Glucose Chew Tab) 1 tabs UD PRN PO 09/08/16 20:45 10/08/16 20:44 Dextrose (Dextrose 50% 50ML Syringe) 50 ml UD PRN IV 09/08/16 20:45 10/08/16 20:44 Glucagon (Glucagon Inj) 1 mg UD PRN SQ 09/08/16 20:45 10/08/16 20:44 Heparin Sodium (Porcine) (Heparin 10 Unit/ ml 5 ml Flush) 5 ml PRN PRN FLUSH 09/09/16 12:45 10/09/16 12:44 09/10/16 15:27 5 ML Miconazole Nitrate (Desenex Powder) 1 appln PRN PRN EXT 09/11/16 15:00 10/11/16 14:59 09/19/16 16:04 1 APPLN Miscellaneous Information (Consult Glycemic Management Pharmacy) 1 ea UD N/A 09/12/16 17:14 10/12/16 17:13 Diltiazem HCl (Cardizem Tab) 60 mg QID PO 09/13/16 13:00 10/13/16 12:59 09/20/16 08:06 60 MG Insulin Glargine (Lantus Solostar Pen) SEE PROTOCOL TEXT HS SC 09/15/16 16:45 10/15/16 16:44 09/19/16 20:49 15 UNIT Morphine Sulfate (MoRPHine SULFATE INJ) 1 mg Q4H PRN IV 09/15/16 09:30 09/29/16 09:29 09/20/16 08:04 1 MG Insulin Human Regular (novoLIN-R) This entry serves as c... Q6 SC 09/16/16 12:00 10/16/16 11:59 09/20/16 05:39 5 UNITS Enteral Nutritional Formula (Fibersource HN) 1,265 ml UD NG 09/16/16 15:45 10/16/16 15:44 09/19/16 16:04 1,000 ML Brimonidine Tartrate 1 drops 1 drops BID OPB 09/16/16 21:00 10/16/16 20:59 09/20/16 08:05 1 DROPS Furosemide 20 mg/ Syringe 2 ml @ 4 mls/min BID17 IV 09/16/16 17:00 10/16/16 16:59 09/20/16 08:04 4 MLS/MIN Daptomycin 550 mg/ Sodium Chloride 61 ml @ 100 mls/hr DAILY@1600 IV 09/17/16 16:00 09/24/16 16:37 09/19/16 16:03 100 MLS/HR Caspofungin 50 mg/ Sodium Chloride 260 ml @ 250 mls/hr DAILY@0900 IV 09/18/16 09:00 09/27/16 08:59 09/20/16 08:03 250 MLS/HR Linezolid/Prmx (Zyvox / D5W/ Premixed D5W) 300 ml @ 300 mls/hr Q12H IV 09/17/16 12:00 10/01/16 11:59 09/20/16 00:00 300 MLS/HR Fluoxetine HCl (Prozac Soln) 10 mg QAM PO 09/17/16 10:30 10/17/16 10:29 09/20/16 08:05 10 MG Raspberry (Raspberry Syrup 5ml Cup) 5 ml QID PO 09/17/16 10:15 10/01/16 10:14 09/20/16 08:07 5 ML Albuterol/ Ipratropium (Duoneb) 3 ml Q4R INH 09/18/16 04:00 10/18/16 03:59 09/19/16 08:00 3 ML Insulin Human Regular SLIDING SCALE Q6 SC 09/18/16 18:00 10/18/16 17:59 09/19/16 17:32 2 UNITS Levofloxacin/Prmx (Levaquin / D5W/ Premixed D5W) 150 ml @ 100 mls/hr DAILY@1800 IV 09/18/16 18:00 09/25/16 17:59 09/19/16 17:16 100 MLS/HR Ipratropium [place] (Atrovent 0.02% 0.5MG/2.5ML Neb) 0.5 mg Q6R INH 09/18/16 21:00 10/18/16 20:59 09/20/16 07:19 0.5 MG Levalbuterol 1.25 mg 1.25 mg Q6R INH 09/18/16 21:00 10/18/16 20:59 09/20/16 07:19 1.25 MG Heparin Sodium/ Dextrose (Heparin 25,000 Unit/500ml D5W) 500 ml @ 13 mls/hr Q24H PRN IV 09/18/16 17:30 10/18/16 17:29 09/19/16 19:17 13 MLS/HR Vancomycin HCl (Vancomycin Oral Soln) 250 mg QID PO 09/19/16 09:00 09/27/16 08:59 09/20/16 08:07 250 MG Objective Vital Signs Date Time Temp Pulse Resp B/P Pulse Ox O2 Delivery O2 Flow Rate FiO2 09/20/16 08:42 36.7 72 18 118/67 96 Nasal Cannula 3.0 09/20/16 08:00 Nasal Cannula 3.0 09/20/16 07:28 99 18 95 Nasal Cannula 3.0 09/20/16 04:10 36.4 85 20 127/69 98 Nasal Cannula 3.0 09/20/16 04:00 94 Room Air 09/20/16 00:01 36.8 77 20 123/80 99 Nasal Cannula 3.0 09/19/16 23:59 Room Air 09/19/16 20:00 94 Room Air 09/19/16 19:35 36.8 69 20 107/65 98 Nasal Cannula 2.0 09/19/16 19:05 72 18 94 Nasal Cannula 3.0 09/19/16 16:00 99 Nasal Cannula 3.0 09/19/16 15:12 35.9 75 22 116/60 98 Room Air 09/19/16 14:34 69 18 96 Nasal Cannula 3.0 Physical Exam General Appearance: + mild distress Eyes: normal inspection, EOMI ENT: normal ENT inspection, TMs normal Neck: supple, + pertinent finding (large B/L parotid swelling L>R) Respiratory/Chest: chest non-tender, lungs clear, normal breath sounds, no respiratory distress Cardiovascular: regular rate, rhythm, no edema, no gallop, no JVD Abdomen: normal bowel sounds, non tender, soft, no organomegaly Extremities: normal range of motion, non-tender, normal inspection, no pedal edema Neurologic/Psychiatric: coil cutter II-XII nml as tested, no motor/sensory deficits, normal mood/affect, + pertinent finding (lethargic) Skin: normal color, warm/dry, no rash Laboratory Results Last 24 Hours Test 09/19/16 17:05 09/19/16 17:28 09/19/16 23:30 09/20/16 00:05 Activated Partial Thromboplast Time 32.0 SECONDS 90.5 SECONDS Partial Thromboplastin Ratio 1.2 3.5 Bedside Glucose 178 mg/dl 142 mg/dl Test 09/20/16 05:36 09/20/16 07:11 09/20/16 11:45 Bedside Glucose 139 mg/dl 100 mg/dl White Blood Count 29.50 K/uL Red Blood Count 3.32 M/uL Hemoglobin 10.2 g/dL Hematocrit 32.2 % Mean Corpuscular Volume 97.0 fL Mean Corpuscular Hemoglobin 30.7 pg Mean Corpuscular Hemoglobin Concent 31.7 g/dl Platelet Count 77 K/uL Mean Platelet Volume 10.6 fL Neutrophils (%) (Auto) 91.7 % Lymphocytes (%) (Auto) 2.0 % Monocytes (%) (Auto) 4.9 % Eosinophils (%) (Auto) 0.1 % Basophils (%) (Auto) 0.1 % Neutrophils # (Auto) 27.03 K/uL Lymphocytes # (Auto) 0.60 K/uL Monocytes # (Auto) 1.46 K/uL Eosinophils # (Auto) 0.03 K/uL Basophils # (Auto) 0.02 K/uL RDW Standard Deviation 56.5 fL RDW Coefficient of Variation 17.1 % Immature Granulocyte % (Auto) 1.2 % Immature Granulocyte # (Auto) 0.36 K/uL Platelet Estimate DECREASED Anisocytosis PRESENT Activated Partial Thromboplast Time 33.8 SECONDS Partial Thromboplastin Ratio 1.3 Sodium Level 138 mmol/L Potassium Level 3.2 mmol/L Chloride Level 96 mmol/L Carbon Dioxide Level 35 mmol/L Anion Gap 7.0 mmol/L Blood Urea Nitrogen 15 mg/dl Creatinine 0.60 mg/dl Est Creatinine Clear Calc Drug Dose 70.3 ml/min Estimated GFR () 99.8 Estimated GFR (Non- 86.1 BUN/Creatinine Ratio 25.5 Random Glucose 121 mg/dl Calcium Level 7.4 mg/dl Phosphorus Level 2.2 mg/dl Magnesium Level 1.6 mg/dl Total Bilirubin 0.4 mg/dl Aspartate Amino Transf (AST/SGOT) 21 U/L Alanine Aminotransferase (ALT/SGPT) 10 U/L Alkaline Phosphatase 65 U/L Total Protein 5.5 gm/dl Albumin 1.5 gm/dl Globulin 4.0 gm/dl Albumin/Globulin Ratio 0.4 Assessment and Plan MRSA bacteremia / Cx remains positive (last positive blood Cx was 09/17) -leukocytosis,improving baseline CPK is 26 will repeat in one week dapto to 8mg/kg / zyvox for synergistic effect , changed PICC line 09/17 CT chest/abd and pelvis, showed B/L pneumonia, large pleural effusion ? empyema , consult apprenticeship consultant, consider thoracocentesis (D/W Dr. De Leon, plavix is on hold and xarelto is switched to heparin drip) fungal blood Cx sent 09/16, empirically on caspofungin (with the improvement of WBCs, I am hesitant to stop especially that fungal Cx sensitivity is very high, will defer decision to Dr. Ornelas ) -echo to r/o vegetations. not stable for SADIE , consider repeat TTE in one week order new blood Cx 09/20 2 episodes of diarrhea on 09/17, started Vanco NGT empirically, also will not hurt to stay on it B/L Moderate to large pleural effusions with dense bibasilar consolidation, possible aspiration, levofloxacin was added for Gram negative coverage Left facial cellulitis/left parotitis/left masseter muscle infection/left inframandibular infection and sepsis/ persistent bacteremia (WBC, HR) present on admission S/P 2 CT neck without contrast and MRI neck with da also showed no abscess or stone currently on dapto/zyvox continue lactinex lemon q1hr while awake moist heat 20mins/hr Acute hypoxic respiratory failure, Aspiration / pneumonia (HCAP versus Aspiration) / large pleural effusion consult apprenticeship consultant D/W Dr. Barrett, hold plavix for planed thoracocentesis or at least needle sample for R/O empyema initiate bronchodilators chest PT systolic cardiomyopathy with CHF exacerbation -appearance of takutsubo's - check troponin, follow. no s/s CHF, may need cardiology involvement but right now appearing stable DC IVF, continue lasix 20mg IV BID afib/RVR -rate controlled- transition back from IV to PO dilt -held xarelto 09/17, continue heparin drip metabolic encephalopathy / delirium, improved -due to pain, meds, poor sleep, hospital environment, continue to monitor -Decrease morphine and ativan doses Dysphagia -possible aspiration, poor oral intake, painful swallowing -place NGT , lower rate of TF, has refeeding syndrome -D/W Daughter and next of Kin who is agreeable to the plan, also patient gave permission to discuss the case with her granddaughter CAD/hypertension/TIA/CVA-- continue clopidogrel / Xarelto continue diltiazem extended release heart (increased to 180) mg by mouth daily continue losartan 25 mg by mouth twice a day, y. hold triamterene/HCTZ 37.5/ 25 daily until PO intake improves, but follow BP Diabetes mellitus--hold metformin 500, pharmacy glycemic consult given need for ongoing steroids (currently on drip) COPD--continue Symbicort 160/4.5 2 puffs twice a day, nebs prn, including for cough, also on Ativan/xopenex nebulizer Depression--continue fluoxetine 10 mg by mouth every morning. Hypercholesterolemia--continue simvastatin 40 mg by mouth every afternoon. Glaucoma--continue Alphagan P ophthalmic solution 1 drop OPB twice a day, and timolol GFS 0.5% one drop OPB every 12 hours. Continued [facility] stay due to: abnormal vital signs, multiple IV medications needed
[2016-09-20] MEDS ORDERED: NURSING VERBAL MED ORDER ONE (13:15)
[2016-09-20] MEDS ORDERED: CHLORASEPTIC 1.4% SOLN 180 ML BTL MT PRN (13:30)
[2016-09-20] MEDS ORDERED: POTASSIUM PHOSPHATE INJ 9 MMOL in SODIUM CHLORIDE 0.9% 250ML 250 ML IV SCH (13:30)
[2016-09-20] MEDS: DAPTOmycin IV 550 MG in SODIUM CHLORIDE 0.9% 50ML 50 ML IV SCH (16:00)
[2016-09-20] MEDS: DiphenhydrAMINE HCL 50 MG/ML VIAL IV PRN (16:43)
[2016-09-20 17:03] LABS: PARTIAL THROMBOPLASTIN RATIO 2.3
[2016-09-20] MEDS: LEVOFLOXACIN / D5W 750 MG in PREMIXED IN D5W 150 ML IV SCH (17:25)
[2016-09-20] MEDS: SIMVASTATIN 40 MG TAB PO SCH (21:29)
[2016-09-20] MEDS: INSULIN GLARGINE SOLOSTAR 100 UNITS/ML 3 ML PEN SC SCH (21:31)
[2016-09-20] MEDS: HEPARIN 25,000 UNIT/500ML D5W 500 ML IV PRN (21:32)
[2016-09-21] VITALS (11 sets, daily range): BP systolic 115–150; BP diastolic 57–88; PULSE 67–98; TEMP 35.6–36.7; O2SAT 92–99
[2016-09-21] MEDS: LINEZOLID / D5W 600 MG in PREMIXED IN D5W 300 ML IV SCH ×2 (00:43→13:29)
[2016-09-21] MEDS: INSULIN HUMAN REGULAR SC SCH ×8 (00:47→18:27)
[2016-09-21] MEDS: MoRPHine SULFATE 2 MG/ML CARP IV PRN ×2 (00:49→17:07)
[2016-09-21] MEDS: LORAZEPAM 2 MG/ML 1 ML VIAL IV PRN ×4 (02:35→19:26)
[2016-09-21] MEDS: IPRATROPIUM BROMIDE NEB SOLN 0.02% 2.5 ML VIAL INH SCH ×4 (02:45→19:52)
[2016-09-21] MEDS: LEVALBUTEROL 1.25MG/0.5ML NEB INH SCH ×4 (02:45→19:52)
[2016-09-21 06:08] LABS: PARTIAL THROMBOPLASTIN RATIO 1.7
[2016-09-21 06:16] LABS: HEMATOCRIT 32.6 % (37-47); MEAN CELL VOLUME 97.3 fL (80-100); MEAN CORPUSCULAR HGB CONC 31.9 g/dl (32-36); MEAN PLATELET VOLUME 11.2 fL (7.4-10.4); PLATELET COUNT 103 K/uL (130-400); RED BLOOD COUNT 3.35 M/uL (4.2-5.4); WHITE BLOOD COUNT 30.65 K/uL (4.8-10.8)
[2016-09-21 06:20] LABS: BASO % 0.1 %; BASO ABS # 0.02 K/uL (0-0.2); COMPLETE YES; EOS % 0.2 %; IG% 0.8 %; LYMPH % 3.8 %; LYMPH ABS # 1.17 K/uL (1.2-3.4); MONO % 3.2 %; NEUT % 91.9 %
[2016-09-21 06:21] LABS: BUN/CREATININE RATIO 20.5 (10-20); CALCIUM 7.5 mg/dl (8.5-10.1); CREATININE 0.61 mg/dl (0.60-1.20); MAGNESIUM 1.5 mg/dl (1.8-2.4); POTASSIUM 3.4 mmol/L (3.5-5.1)
[2016-09-21 06:24] LABS: ALB/GLOB RATIO 0.4 (0.9-2); PHOSPHORUS 2.7 mg/dl (2.5-4.9)
[2016-09-21] MEDS ORDERED: HEPARIN IV BOLUS 2,000 UNIT in SYRINGE 0 ML IV ONE (07:30)
[2016-09-21] MEDS: HEPARIN 25,000 UNIT/500ML D5W 500 ML IV PRN ×2 (08:00→09:00)
[2016-09-21] MEDS: FUROSEMIDE INJ 20 MG in SYRINGE 0 ML IV SCH ×2 (08:37→16:55)
[2016-09-21] MEDS: FLUOXETINE HCL 20 MG/5 ML PO SCH (08:38)
[2016-09-21] MEDS: RASPBERRY SYRUP 5 ML UDP PO SCH ×4 (08:38→21:11)
[2016-09-21] MEDS: DILTIAZEM HCL 60 MG TAB PO SCH ×4 (08:38→21:11)
[2016-09-21] MEDS: BRIMONIDINE TARTRATE-P 0.15% 5 ML BTL OPB SCH ×2 (08:39→21:10)
[2016-09-21] MEDS: TIMOLOL GFS 0.5% OPH SOLN 74 DROPS/5 ML BTL OPB SCH ×2 (08:39→21:10)
[2016-09-21] MEDS: VANCOMYCIN HCL 250 MG/5 ML SOLN PO SCH ×4 (08:39→21:12)
[2016-09-21] MEDS: CASPOFUNGIN INJ 50 MG in SODIUM CHLORIDE 0.9% 250ML 250 ML IV SCH (09:00)
--- NOTE | 2016-09-21 09:40 | Medical Student: [facility] ---
Med Student Progress Note Date of Service Sep 21, 2016. Subjective Pt evaluation today including: conversation w/ patient, conversation w/ family , physical exam, chart review, lab review, review of inpatient medication list This is an 80 y/o female with a complicated pmh who is being treated for persistent bacteremia and cellulitis. Cultures have grown gram positive cocci as well as MRSA, so antibiotics have been adjusted accordingly. WBC up since yesterday, now at 30.65. Today, patient's family notes that she seems worse than yesterday. They state that she had a stronger voice and more strength yesterday, and was able to 'cough up sputum' more effectively. Today she is weak and unable to cough up anything or speak. She is oriented to person and place and in visible distress today. Parotitis b/l is still evident, although seems to be slightly decreased. Per pulm, will consider thoracentesis if pleural effusions do not resolve in next few days. She has no new complaints. Review of Systems Notes: Complete ROS cannot be completed due to patient's mental status. Objective Vital Signs Date Time Temp Pulse Resp B/P Pulse Ox O2 Delivery O2 Flow Rate FiO2 09/21/16 08:16 36.5 98 20 144/88 94 Nasal Cannula 4.0 09/21/16 07:21 98 18 98 Nasal Cannula 3.0 09/21/16 04:00 95 Nasal Cannula 2.0 09/21/16 03:30 36.7 96 28 150/67 94 Nasal Cannula 4.0 09/21/16 00:40 36.6 87 27 135/70 92 Nasal Cannula 4.0 09/20/16 23:59 95 Nasal Cannula 2.0 09/20/16 20:00 95 Nasal Cannula 2.0 09/20/16 19:32 83 18 94 Nasal Cannula 3.0 09/20/16 18:53 36.4 78 20 124/62 99 Nasal Cannula 3.0 09/20/16 16:00 Nasal Cannula 3.0 09/20/16 15:12 36.6 76 20 114/65 98 Nasal Cannula 3.0 09/20/16 13:55 79 18 95 Nasal Cannula 3.0 09/20/16 12:46 36.7 85 16 138/77 99 Nasal Cannula 4.0 09/20/16 12:00 Nasal Cannula 3.0 Physical Exam General Appearance: + moderate distress Neck: + adenopathy present, + pertinent finding (significant parotitis b/l, worse on left side ) Respiratory/Chest: + decreased breath sounds (lower lobes decreased breath sounds ), + rhonchi (coarse rhonchi throughout ), + wheezing Cardiovascular: no JVD, no murmur, + irregularly irregular Abdomen: normal bowel sounds, non tender, soft, no organomegaly, no pulsatile mass Extremities: non-tender, normal inspection, no pedal edema, no calf tenderness Neurologic/Psychiatric: alert, normal mood/affect (appropriate mood, oriented to person, place ), oriented x 3 Laboratory Results Last 24 Hours Test 09/20/16 11:45 09/20/16 16:31 09/20/16 18:21 09/21/16 00:44 Bedside Glucose 100 mg/dl 170 mg/dl 149 mg/dl Activated Partial Thromboplast Time 58.5 SECONDS Partial Thromboplastin Ratio 2.3 Test 09/21/16 05:37 09/21/16 06:11 White Blood Count 30.65 K/uL Red Blood Count 3.35 M/uL Hemoglobin 10.4 g/dL Hematocrit 32.6 % Mean Corpuscular Volume 97.3 fL Mean Corpuscular Hemoglobin 31.0 pg Mean Corpuscular Hemoglobin Concent 31.9 g/dl Platelet Count 103 K/uL Mean Platelet Volume 11.2 fL Neutrophils (%) (Auto) 91.9 % Lymphocytes (%) (Auto) 3.8 % Monocytes (%) (Auto) 3.2 % Eosinophils (%) (Auto) 0.2 % Basophils (%) (Auto) 0.1 % Neutrophils # (Auto) 28.16 K/uL Lymphocytes # (Auto) 1.17 K/uL Monocytes # (Auto) 0.98 K/uL Eosinophils # (Auto) 0.06 K/uL Basophils # (Auto) 0.02 K/uL RDW Standard Deviation 58.5 fL RDW Coefficient of Variation 17.2 % Immature Granulocyte % (Auto) 0.8 % Immature Granulocyte # (Auto) 0.26 K/uL Red Blood Cell Morphology Unremarkable Activated Partial Thromboplast Time 44.9 SECONDS Partial Thromboplastin Ratio 1.7 Sodium Level 137 mmol/L Potassium Level 3.4 mmol/L Chloride Level 93 mmol/L Carbon Dioxide Level 37 mmol/L Anion Gap 7.0 mmol/L Blood Urea Nitrogen 12 mg/dl Creatinine 0.61 mg/dl Est Creatinine Clear Calc Drug Dose 69.1 ml/min Estimated GFR () 99.2 Estimated GFR (Non- 85.6 BUN/Creatinine Ratio 20.5 Random Glucose 163 mg/dl Calcium Level 7.5 mg/dl Phosphorus Level 2.7 mg/dl Magnesium Level 1.5 mg/dl Total Bilirubin 0.4 mg/dl Aspartate Amino Transf (AST/SGOT) 18 U/L Alanine Aminotransferase (ALT/SGPT) 9 U/L Alkaline Phosphatase 62 U/L Total Protein 5.6 gm/dl Albumin 1.5 gm/dl Globulin 4.1 gm/dl Albumin/Globulin Ratio 0.4 Bedside Glucose 163 mg/dl Medications Medications Administered Medications (Trade) Dose Ordered Sig/Jose Route Start Time Stop Time Status Last Admin Dose Admin Morphine Sulfate (MoRPHine SULFATE INJ) 4 mg NOW STAT IV 09/08/16 18:22 09/08/16 18:23 DC 09/08/16 18:44 4 MG Ondansetron HCl (Zofran Inj) 4 mg NOW STAT IV 09/08/16 18:22 09/08/16 18:23 DC 09/08/16 18:44 4 MG Levofloxacin (Levaquin / D5W) 500 mg NOW STAT IV 09/08/16 18:33 09/08/16 18:35 DC 09/08/16 19:35 500 MG Metronidazole (Flagyl / Nss) 500 mg NOW STAT IV 09/08/16 18:33 09/08/16 18:35 DC 09/08/16 19:29 500 MG Acetaminophen (Tylenol Tab) 650 mg Q4H PRN PO 09/08/16 20:45 10/08/16 20:44 09/20/16 11:13 650 MG Clopidogrel Bisulfate (plAVix TAB) 75 mg QAM PO 09/09/16 09:00 09/14/16 20:49 DC 09/14/16 08:56 75 MG Lorazepam (Ativan Tab) 1 mg HS PRN PO 09/08/16 20:45 09/15/16 09:31 DC 09/14/16 23:24 1 MG Rivaroxaban (Xarelto Tab) 15 mg QDD PO 09/09/16 17:00 09/14/16 20:49 DC 09/14/16 17:42 15 MG Simvastatin (Zocor Tab) 40 mg QPM PO 09/08/16 21:00 10/08/16 20:59 09/20/16 21:29 40 MG Timolol Maleate (Timoptic-Xe 0.5% Oph Soln) 1 drops Q12 OPB 09/08/16 21:00 10/08/16 20:59 09/21/16 08:39 1 DROPS Ferrous Gluconate (Ferrous Gluconate Tab) 324 mg DAILY PO 09/09/16 09:00 09/17/16 09:56 DC 09/16/16 09:23 324 MG Fluoxetine HCl 10 mg 10 mg QAM PO 09/09/16 09:00 09/17/16 09:56 DC 09/16/16 09:23 10 MG Vancomycin HCl 900 mg/Sodium Chloride 268 ml @ 125 mls/hr Q24H IV 09/09/16 21:00 09/10/16 09:28 DC 09/09/16 21:00 125 MLS/HR Levofloxacin/Prmx (Levaquin / D5W/ Premixed D5W) 50 ml @ 50 mls/hr DAILY@2000 IV 09/09/16 20:00 09/15/16 14:35 DC 09/14/16 20:46 50 MLS/HR Lorazepam (Ativan Inj) 0.5 mg Q4H PRN IV 09/08/16 20:45 10/08/16 20:44 09/21/16 02:35 0.5 MG Diphenhydramine HCl (Benadryl Inj) 25 mg Q4H PRN IV 09/08/16 20:45 10/08/16 20:44 09/20/16 16:43 25 MG Ondansetron HCl (Zofran Inj) 4 mg Q6H PRN IV 09/08/16 20:45 10/08/16 20:44 09/09/16 04:50 4 MG Insulin Aspart (novoLOG ASPART) SLIDING SCALE If C... ACHS SC 09/08/16 21:00 09/16/16 10:51 DC 09/15/16 21:31 1 UNITS Morphine Sulfate (MoRPHine SULFATE INJ) 4 mg NOW STAT IV 09/08/16 20:47 09/08/16 20:48 DC 09/08/16 20:47 4 MG Metoclopramide HCl 10 mg 10 mg NOW STAT IV 09/08/16 20:47 09/08/16 20:48 DC 09/08/16 20:47 10 MG Vancomycin HCl/ Sodium Chloride (Vancomycin Inj/ Nss 250ml) 276 ml @ 125 mls/hr NOW ONCE IV 09/08/16 22:30 09/09/16 00:42 DC 09/08/16 22:33 125 MLS/HR Morphine Sulfate (MoRPHine SULFATE INJ) 2 mg Q2H PRN IV 09/08/16 23:00 09/15/16 09:31 DC 09/15/16 05:21 2 MG Morphine Sulfate (MoRPHine SULFATE INJ) 4 mg Q2H PRN IV 09/08/16 23:00 09/15/16 09:31 DC 09/12/16 12:27 2 MG Morphine Sulfate (MoRPHine SULFATE INJ) 4 mg STK-MED ONCE .ROUTE 09/08/16 23:02 09/08/16 23:04 DC 09/08/16 23:07 4 MG Diltiazem HCl 180 mg 180 mg DAILY PO 09/09/16 09:00 09/12/16 10:06 DC 09/12/16 08:22 180 MG Magnesium Sulfate/ Prmx (Magnesium Sulfate/Premixed D5W) 100 ml @ 100 mls/hr Q1H IV 09/09/16 08:30 09/09/16 11:29 DC 09/09/16 11:41 100 MLS/HR Potassium Chloride 20 meq 20 meq NOW STAT PO 09/09/16 07:41 09/09/16 08:09 DC 09/09/16 08:55 20 MEQ Sodium Chloride 1,000 ml @ 999 mls/hr Q1H1M IV 09/09/16 13:00 09/09/16 14:00 DC 09/09/16 12:44 999 MLS/HR Potassium Chloride/Sodium Chloride (1/2 Nss + 20meq KCl 1000ml) 1,000 ml @ 80 mls/hr [id number] IV 09/09/16 14:00 09/11/16 09:03 DC 09/11/16 04:17 80 MLS/HR Heparin Sodium (Porcine) (Heparin 10 Unit/ ml 5 ml Flush) 5 ml PRN PRN FLUSH 09/09/16 12:45 10/09/16 12:44 09/10/16 15:27 5 ML Albuterol/ Ipratropium 3 ml 3 ml QIDR INH 09/09/16 20:00 09/19/16 11:12 DC 09/18/16 16:07 3 ML Metronidazole 500 mg/Prmx 100 ml @ 100 mls/hr Q8@0200,1000,1800 IV 09/10/16 10:00 09/15/16 14:37 DC 09/15/16 09:20 100 MLS/HR Vancomycin HCl 900 mg/Sodium Chloride 268 ml @ 125 mls/hr Q18H IV 09/10/16 15:00 09/11/16 10:52 DC 09/11/16 09:11 125 MLS/HR Dexamethasone Sodium Phosphate 10 mg/Syringe 2.5 ml @ 1 mls/min 1700 ONCE IV 09/10/16 17:00 09/10/16 17:02 DC 09/10/16 18:01 1 MLS/MIN Sodium Chloride (Nss 1000ml) 1,000 ml @ 75 mls/hr [id number] IV 09/11/16 09:15 09/16/16 16:41 DC 09/16/16 14:36 75 MLS/HR Miconazole Nitrate 1 appln 1 appln PRN PRN EXT 09/11/16 15:00 10/11/16 14:59 09/19/16 16:04 1 APPLN Daptomycin/Sodium Chloride (Cubicin IV/Nss 50ml) 57 ml @ 100 mls/hr DAILY@1600 IV 09/11/16 17:30 09/17/16 09:02 DC 09/16/16 16:28 100 MLS/HR Insulin Glargine (Lantus Solostar Pen) 5 unit HS SC 09/11/16 21:00 09/12/16 17:20 DC 09/11/16 21:15 5 UNIT Diltiazem HCl 5 mg 5 mg TODAY@1120 IV 09/12/16 11:20 09/12/16 12:00 DC 09/12/16 11:31 5 MG Diltiazem HCl 125 mg/Dextrose 125 ml @ 5 mls/hr Q24H PRN IV 09/12/16 11:30 09/13/16 10:00 DC 09/13/16 03:30 5 MLS/HR Dexamethasone Sodium Phosphate/ Syringe (Decadron Inj/ Syringe) .5 ml @ 1 mls/min TODAY@1730 ONCE IV 09/12/16 17:30 09/12/16 17:32 DC 09/12/16 18:33 1 MLS/MIN Insulin Glargine (Lantus Solostar Pen) 10 unit HS SC 09/12/16 21:00 09/13/16 13:00 DC 09/12/16 20:34 10 UNIT Insulin Aspart (novoLOG ASPART) SLIDING SCALE If C... 0200 SC 09/13/16 02:00 09/13/16 13:13 DC 09/13/16 02:20 5 UNITS Diltiazem HCl (Cardizem Tab) 60 mg QID PO 09/13/16 13:00 10/13/16 12:59 09/21/16 08:38 60 MG Diltiazem HCl (Cardizem Tab) 60 mg 0930 ONCE PO 09/13/16 09:30 09/13/16 09:31 DC 09/13/16 10:07 60 MG Insulin Glargine (Lantus Solostar Pen) HS SC 09/13/16 21:00 09/15/16 08:46 DC 09/14/16 20:50 10 UNIT Insulin Glargine (Lantus Solostar Pen) 5 unit Mo@0900 SC 09/14/16 09:00 09/14/16 12:00 DC 09/14/16 09:02 5 UNIT Heparin Sodium (Porcine) (Heparin Sq 5000 Unit/0.5ml) 5,000 unit Q12 SQ 09/14/16 23:00 09/15/16 09:25 DC 09/14/16 23:28 5,000 UNIT Insulin Glargine (Lantus Solostar Pen) SEE PROTOCOL TEXT HS SC 09/15/16 16:45 10/15/16 16:44 09/20/16 21:31 15 UNIT Clopidogrel Bisulfate (plAVix TAB) 75 mg QAM PO 09/16/16 09:00 09/19/16 12:56 DC 09/19/16 07:56 75 MG Rivaroxaban (Xarelto Tab) 15 mg DAILYBD PO 09/16/16 16:15 09/18/16 16:24 DC 09/17/16 16:14 15 MG Morphine Sulfate (MoRPHine SULFATE INJ) 1 mg Q4H PRN IV 09/15/16 09:30 09/29/16 09:29 09/21/16 00:49 1 MG Enteral Nutritional Formula (Fibersource HN) 1,000 ml UD NG 09/15/16 12:45 09/16/16 16:44 DC 09/15/16 15:10 1,000 ML Insulin Human Regular (novoLIN-R) SLIDING SCALE Q6 SC 09/16/16 12:00 09/17/16 18:07 DC 09/17/16 12:55 7 UNITS Insulin Human Regular (novoLIN-R) This entry serves as c... Q6 SC 09/16/16 12:00 10/16/16 11:59 09/21/16 06:27 1 UNITS Enteral Nutritional Formula (Fibersource HN) 1,265 ml UD NG 09/16/16 15:45 10/16/16 15:44 09/19/16 16:04 1,000 ML Brimonidine Tartrate 1 drops 1 drops BID OPB 09/16/16 21:00 10/16/16 20:59 09/21/16 08:39 1 DROPS Furosemide 20 mg/ Syringe 2 ml @ 4 mls/min BID17 IV 09/16/16 17:00 10/16/16 16:59 09/21/16 08:37 4 MLS/MIN Insulin Human Regular 5 units/ Syringe 0.05 ml @ 1 mls/min TODAY@0800 ONCE IV 09/17/16 08:00 09/17/16 08:01 DC 09/17/16 09:05 1 MLS/MIN Daptomycin 550 mg/ Sodium Chloride 61 ml @ 100 mls/hr DAILY@1600 IV 09/17/16 16:00 09/24/16 16:37 09/20/16 16:00 100 MLS/HR Caspofungin 70 mg/ Sodium Chloride 260 ml @ 250 mls/hr TODAY@0930 ONCE IV 09/17/16 09:30 09/17/16 10:32 DC 09/17/16 11:36 250 MLS/HR Caspofungin 50 mg/ Sodium Chloride 260 ml @ 250 mls/hr DAILY@0900 IV 09/18/16 09:00 09/27/16 08:59 09/20/16 08:03 250 MLS/HR Linezolid/Prmx (Zyvox / D5W/ Premixed D5W) 300 ml @ 300 mls/hr Q12H IV 09/17/16 12:00 10/01/16 11:59 09/21/16 00:43 300 MLS/HR Vancomycin HCl (Vancomycin Oral Soln) 500 mg QID PO 09/17/16 10:15 09/19/16 07:17 DC 09/18/16 20:57 500 MG Fluoxetine HCl (Prozac Soln) 10 mg QAM PO 09/17/16 10:30 10/17/16 10:29 09/21/16 08:38 10 MG Raspberry 5 ml 5 ml QID PO 09/17/16 10:15 10/01/16 10:14 09/21/16 08:38 5 ML Insulin Human Regular 5 units/ Syringe 0.05 ml @ 1 mls/min TODAY@1400 ONCE IV 09/17/16 14:00 09/17/16 14:01 DC 09/17/16 14:07 1 MLS/MIN Insulin Human Regular 7 unit/ Syringe 7 ml @ 1 mls/min TODAY@1830 IV 09/17/16 18:30 09/17/16 18:36 DC 09/17/16 18:54 1 MLS/MIN Insulin Human Regular/Sodium Chloride (novoLIN-R/Nss 250ml) 252.5 ml @ 0 mls/hr DAILY@1130 IV 09/17/16 18:30 09/18/16 15:33 DC 09/18/16 10:15 8.5 MLS/HR Albuterol/ Ipratropium 3 ml 3 ml Q4R INH 09/18/16 04:00 09/20/16 14:46 DC 09/20/16 13:55 3 ML Potassium Phosphate 21 mmol/ Sodium Chloride 507 ml @ 144.857 mls/hr TODAY@0800 ONCE IV 09/18/16 08:00 09/18/16 11:29 DC 09/18/16 09:23 144.857 MLS/HR Magnesium Sulfate/ Prmx (Magnesium Sulfate/Premixed D5W) 100 ml @ 100 mls/hr Q1H IV 09/18/16 08:00 09/18/16 09:59 DC 09/18/16 09:23 100 MLS/HR Miscellaneous Information (Pending Order) 1 ea NOW STAT N/A 09/18/16 07:37 09/18/16 07:38 DC 09/18/16 08:00 1 EA Insulin Human Regular SLIDING SCALE Q6 SC 09/18/16 18:00 10/18/16 17:59 09/21/16 06:29 4 UNITS Levofloxacin/Prmx (Levaquin / D5W/ Premixed D5W) 150 ml @ 100 mls/hr DAILY@1800 IV 09/18/16 18:00 09/25/16 17:59 09/20/16 17:25 100 MLS/HR Ipratropium [place] (Atrovent 0.02% 0.5MG/2.5ML Neb) 0.5 mg Q6R INH 09/18/16 21:00 10/18/16 20:59 09/21/16 07:21 0.5 MG Levalbuterol 1.25 mg 1.25 mg Q6R INH 09/18/16 21:00 10/18/16 20:59 09/21/16 07:21 1.25 MG Heparin Sodium/ Dextrose 500 ml @ 14 mls/hr Q24H PRN IV 09/18/16 17:30 10/18/16 17:29 09/21/16 09:00 15 MLS/HR Heparin Sodium (Porcine) 4000 unit/Syringe 4 ml @ 10 mls/min NOW ONCE IV 09/19/16 04:30 09/19/16 04:31 DC 09/19/16 04:49 10 MLS/MIN Magnesium Sulfate/ Prmx (Magnesium Sulfate/Premixed D5W) 100 ml @ 100 mls/hr NOW STAT IV 09/19/16 07:21 09/19/16 08:20 DC 09/19/16 07:47 100 MLS/HR Vancomycin HCl 250 mg 250 mg QID PO 09/19/16 09:00 09/27/16 08:59 09/21/16 08:39 250 MG Potassium Phosphate 9 mmol/ Sodium Chloride 253 ml @ 80 mls/hr TODAY@0800 ONCE IV 09/19/16 08:00 09/19/16 11:09 DC 09/19/16 08:06 80 MLS/HR Heparin Sodium (Porcine) 4000 unit/Syringe 4 ml @ 10 mls/min 1900 ONCE IV 09/19/16 19:00 09/19/16 19:01 DC 09/19/16 19:17 10 MLS/MIN Heparin Sodium (Porcine)/Syringe (Heparin Iv Bolus/Syringe) 4 ml @ 10 mls/min 0930 ONCE IV 09/20/16 09:30 09/20/16 09:31 DC 09/20/16 09:30 10 MLS/MIN Magnesium Oxide 400 mg 400 mg 1300 ONCE PO 09/20/16 13:00 09/20/16 13:01 DC 09/20/16 13:00 400 MG Potassium Phosphate 9 mmol/ Sodium Chloride 253 ml @ 126.5 mls/ hr TODAY@1330 IV 09/20/16 13:30 09/20/16 15:29 DC 09/20/16 13:30 126.5 MLS/HR Heparin Sodium (Porcine)/Syringe (Heparin Iv Bolus/Syringe) 2 ml @ 10 mls/min NOW ONCE IV 09/21/16 07:30 09/21/16 07:31 DC 09/21/16 08:54 10 MLS/MIN Assessment and Plan Assessment and Plan: This is an 80 y/o female with complicated pmh who is being treated for persistent bacteremia, facial cellulitis/parotitis. MRSA bacteremia / Cx remains positive (last positive blood Cx was 09/18) -leukocytosis back up from 29 to 30 today -baseline CPK is 26 will repeat in one week -Daptomycin IV -Linezolid IV -Vancomycin QID PO 250 mg via NGT -Levaquin added for gram negative coverage -changed PICC line 09/17 -echo to r/o vegetations. consider repeat TTE this week to r/o other sources of infection -Order new blood culture today B/L Moderate to large pleural effusions with dense bibasilar consolidation aspiration vs. HAP vs. worsening CHF with severe MR -CT chest/abd and pelvis, showed B/L pneumonia, large pleural effusion, empyema -Per pulmonology, consider thoracocentesis in few days if not resolving. -hold plavix and xarelto, continue on heparin drip -continue bronchodilators -high risk for IFI, continue caspofungin empirically -ABX as per above Left facial cellulitis/left parotitis/left masseter muscle infection/left inframandibular infection, right parotitis, and sepsis/ persistent bacteremia -S/P 2 CT neck without contrast and MRI neck with da also showed no abscess or stone -showing some improvement but continues to persist. May consider ENT consult and possible surgical debridement. -continue abx as per above -continue lactinex probiotics -encourage lemon q1hr while awake -moist heat 20mins/hr -pain control Delirium, improved -due to pain, meds, poor sleep, hospital environment, continue to monitor -Monitor morphine and ativan doses Atrial fibrillation/CVA -hold Xarelto, hold plavix -Heparin drip per pulmonology HTN, CHF -diltiazem extended release heart 180 mg PO -losartan 25 mg PO BID -continue clopidogrel -hold triamterene/HCTZ 37.5/25 daily until PO intake improves, but follow BP -CHF Stable, monitor troponins Diabetes mellitus- -hold metformin 500 mg PO TID - begin sliding scale NovoLog -appreciate glycemic pharm consult COPD -continue Symbicort 160/4.5 2 puffs twice a day -Xopenex PRN q2hrs . Depression -continue fluoxetine 10 mg PO every morning Hypercholesterolemia -continue simvastatin 40 mg PO Glaucoma -continue Alphagan P ophthalmic solution 1 drop OPB BID -timolol GFS 0.5% one drop OPB q12hrs Continued [facility] stay due to: abnormal vital signs, multiple IV medications needed
[2016-09-21] MEDS ORDERED: POTASSIUM CHLR 20 MEQ / WTR 20 MEQ in PREMIXED WATER 100 ML IV ONE (09:45)
--- NOTE | 2016-09-21 10:29 | DIAGNOSTIC IMAGING REPORT ---
KUB CLINICAL HISTORY: Perforation. COMPARISON STUDY: CT of the abdomen and pelvis September 17, 2016. FINDINGS: The tip of the nasogastric tube projects over the pylorus. The bowel gas pattern is normal. Pelvic calcifications represent phleboliths. Sensitivity for detection of free air or significant diminished on this supine exam. There may be a small amount of gas within the bladder. IMPRESSION: 1. Tip of nasogastric tube projects over the pylorus. 2. Normal bowel gas pattern. No evidence for a bowel obstruction. 3. Small amount of suspected gas within the bladder which is likely related to recent catheter placement. Electronically signed by: Sergio Ferguson M.D. 09/21/2016 10:28 AM Dictated Date/Time: 09/21/2016 10:23 AM
[2016-09-21] MEDS ORDERED: FIBERSOURCE HN 1000ML BAG NG SCH ×2 (10:45)
[2016-09-21] MEDS: MAGNESIUM SULFATE 1GM / D5W 1 GM in PREMIXED IN D5W 100 ML IV SCH ×2 (11:07→11:57)
--- NOTE | 2016-09-21 11:11 | Pulmonology Progress Note ---
Pulmonary Progress Note Date of Service Sep 21, 2016. Attending Dr. Barrett Subjective Denies pain, cough or dyspnea. Objective 80-yo female admitted to [facility] 09/08/16 with left facial cellulitis, MRSA bacteremia, and bilateral pleural effusion. PMHx includes: Diastolic cardiac dysfunction, bronchiectasis, COPD (FEV1: 53%) atrial fibrillation (on rivaroxaban), hyperlipidemia, hypertension, lung nodule , and CVA. Prior pulmonary cultures: pseudomonas aeruginosa (bronchoscopy - 2014, tx ciprofloxacin), Group B Beta Strep (sputum: 08/18 & 10/13), few aspergillus (sputum: 08/16). Former tobacco: 50-pack year, quit 2008. Patient admitted to [facility] 09/08/16 with left sided facial pain. W/U notable for involvement of parotitis, masseter, inframandibular without abscess. Blood cultures isolated MRSA (09/09 through 09/19). Echocardiogram 09/08/16: significant reduction in LV function compared to prior, EF 25-30%, MR/TR and small ASV. She was treated with broad spectrum antibiotic and followed by ID (Vancomycin, daptomycin, linezolid, Levaquin, and caspofungin). CT C/A/P 09/17/16: moderate- large pleural effusion Rt > Left with mucoid material of the RLL and mid- tracheal ? aspiration, and cardiomegaly. Also noted some ? tracheal collapse/ narrowing, and anasarca. 09/19/16 pulmonary consulted in consideration for thoracentesis and bronchoscopy. She was not felt to be stable for )bronchoscopy at that time. Thoracentesis pending clearance of clopidogrel (last 09/19). Today: - WBC: 30.65, Hgb/Hct: 10.4/32.6, plts: 103 - Lactic acid: 1.6, PTT: 1.7, K: 3.4, CO2: 37 - Weight: 65.4kg, No BM documented this stay - O2: 2-4LPM: 92-98% Physical Exam: Constitutional: Frail elderly female lying in hospital bed. Generalized weakness Head: + NGT FiberSource @ 30 and Nasal cannula Mouth: moist mucous membranes. Edentulous Neck: fullness of left neck/head marked without erythema Respiratory: transmitted upper airway sounds. Bilateral rhonchi. Reduced and absent at bases. CV: regular rate. Warm peripherally. +1 DP on right. Thready DP on left. Abdomen: Soft, non-tender. active BS all 4-quadrants : newsome catheter draining clear yellow urine MSK/Extremities: Moving LE bilaterally, mild dependent edema Neurologic: Awake, answering questions yes/no. Follows commands appropriately. Assessment & Plan 80-year-old female admitted with parotitis, MRSA bacteremia and bilateral pleural effusions: 1. Bilateral Pleural Effusion with hypoxia and likely hypoventilation: - Plavix held 09/19: anticipate thoracentesis 09/25 however may consider earlier depending on clinical status 2. Suspected aspiration: - Swallow evaluation when improved - NGT for nutrition 3. No BM: - C.diff pending - KUB without obstruction 4. COPD: - Q6-hour levalbuterol-ipratropium - Add BID nebulized Budesonide 5. MRSA bacteremia: Consideration of bronchoscopy by Dr. Barrett for pulmonary source. No date at this time. Patient seen and plan reviewed and agreed on. Data Medications: Current Inpatient Medications Medications (Trade) Dose Ordered Sig/Jose Route Start Time Stop Time Status Last Admin Dose Admin Acetaminophen (Tylenol Tab) 650 mg Q4H PRN PO 09/08/16 20:45 10/08/16 20:44 09/20/16 11:13 650 MG Zolpidem Tartrate (Ambien Tab) 5 mg HSZ PRN PO 09/08/16 20:45 10/08/16 20:44 Simvastatin (Zocor Tab) 40 mg QPM PO 09/08/16 21:00 10/08/16 20:59 09/20/16 21:29 40 MG Timolol Maleate (Timoptic-Xe 0.5% Oph Soln) 1 drops Q12 OPB 09/08/16 21:00 10/08/16 20:59 09/21/16 08:39 1 DROPS Lorazepam (Ativan Inj) 0.5 mg Q4H PRN IV 09/08/16 20:45 10/08/16 20:44 09/21/16 02:35 0.5 MG Magnesium Hydroxide (Milk Of Magnesia Susp) 30 ml Q6H PRN PO 09/08/16 20:45 10/08/16 20:44 Bisacodyl (Dulcolax Supp) 10 mg DAILY PRN SC 09/08/16 20:45 10/08/16 20:44 Diphenhydramine HCl (Benadryl Inj) 25 mg Q4H PRN IV 09/08/16 20:45 10/08/16 20:44 09/20/16 16:43 25 MG Al Hydrox/Mg Hydrox/ Simethicone 15 ml 15 ml Q4H PRN PO 09/08/16 20:45 10/08/16 20:44 Promethazine HCl/ Sodium Chloride (Phenergan Inj/ Nss 50ml) 50.5 ml @ 202 mls/hr Q4H PRN IV 09/08/16 20:45 10/08/16 20:44 Ondansetron HCl (Zofran Inj) 4 mg Q6H PRN IV 09/08/16 20:45 10/08/16 20:44 09/09/16 04:50 4 MG Glucose (Glucose 40% Gel) UD PRN PO 09/08/16 20:45 10/08/16 20:44 Glucose (Glucose Chew Tab) 1 tabs UD PRN PO 09/08/16 20:45 10/08/16 20:44 Dextrose (Dextrose 50% 50ML Syringe) 50 ml UD PRN IV 09/08/16 20:45 10/08/16 20:44 Glucagon (Glucagon Inj) 1 mg UD PRN SQ 09/08/16 20:45 10/08/16 20:44 Heparin Sodium (Porcine) (Heparin 10 Unit/ ml 5 ml Flush) 5 ml PRN PRN FLUSH 09/09/16 12:45 10/09/16 12:44 09/10/16 15:27 5 ML Miconazole Nitrate (Desenex Powder) 1 appln PRN PRN EXT 09/11/16 15:00 10/11/16 14:59 09/19/16 16:04 1 APPLN Miscellaneous Information (Consult Glycemic Management Pharmacy) 1 ea UD N/A 09/12/16 17:14 10/12/16 17:13 Diltiazem HCl (Cardizem Tab) 60 mg QID PO 09/13/16 13:00 10/13/16 12:59 09/21/16 08:38 60 MG Insulin Glargine (Lantus Solostar Pen) SEE PROTOCOL TEXT HS SC 09/15/16 16:45 10/15/16 16:44 09/20/16 21:31 15 UNIT Morphine Sulfate (MoRPHine SULFATE INJ) 1 mg Q4H PRN IV 09/15/16 09:30 09/29/16 09:29 09/21/16 00:49 1 MG Insulin Human Regular (novoLIN-R) This entry serves as c... Q6 SC 09/16/16 12:00 10/16/16 11:59 09/21/16 06:27 1 UNITS Brimonidine Tartrate 1 drops 1 drops BID OPB 09/16/16 21:00 10/16/16 20:59 09/21/16 08:39 1 DROPS Furosemide 20 mg/ Syringe 2 ml @ 4 mls/min BID17 IV 09/16/16 17:00 10/16/16 16:59 09/21/16 08:37 4 MLS/MIN Daptomycin 550 mg/ Sodium Chloride 61 ml @ 100 mls/hr DAILY@1600 IV 09/17/16 16:00 09/24/16 16:37 09/20/16 16:00 100 MLS/HR Caspofungin 50 mg/ Sodium Chloride 260 ml @ 250 mls/hr DAILY@0900 IV 09/18/16 09:00 09/27/16 08:59 09/21/16 09:00 250 MLS/HR Linezolid/Prmx (Zyvox / D5W/ Premixed D5W) 300 ml @ 300 mls/hr Q12H IV 09/17/16 12:00 10/01/16 11:59 09/21/16 00:43 300 MLS/HR Fluoxetine HCl (Prozac Soln) 10 mg QAM PO 09/17/16 10:30 10/17/16 10:29 09/21/16 08:38 10 MG Raspberry (Raspberry Syrup 5ml Cup) 5 ml QID PO 09/17/16 10:15 10/01/16 10:14 09/21/16 08:38 5 ML Insulin Human Regular SLIDING SCALE Q6 SC 09/18/16 18:00 10/18/16 17:59 09/21/16 06:29 4 UNITS Levofloxacin/Prmx (Levaquin / D5W/ Premixed D5W) 150 ml @ 100 mls/hr DAILY@1800 IV 09/18/16 18:00 09/25/16 17:59 09/20/16 17:25 100 MLS/HR Ipratropium [place] (Atrovent 0.02% 0.5MG/2.5ML Neb) 0.5 mg Q6R INH 09/18/16 21:00 10/18/16 20:59 09/21/16 07:21 0.5 MG Levalbuterol 1.25 mg 1.25 mg Q6R INH 09/18/16 21:00 10/18/16 20:59 09/21/16 07:21 1.25 MG Heparin Sodium/ Dextrose (Heparin 25,000 Unit/500ml D5W) 500 ml @ 14 mls/hr Q24H PRN IV 09/18/16 17:30 10/18/16 17:29 09/21/16 09:00 15 MLS/HR Vancomycin HCl (Vancomycin Oral Soln) 250 mg QID PO 09/19/16 09:00 09/27/16 08:59 09/21/16 08:39 250 MG Phenol 2 sprays 2 sprays UD PRN MT 09/20/16 13:30 10/20/16 13:29 Potassium Chloride 20 meq/ Prmx 100 ml @ 50 mls/hr TODAY@0945 ONCE IV 09/21/16 09:45 09/21/16 11:44 Magnesium Sulfate/ Prmx (Magnesium Sulfate/Premixed D5W) 100 ml @ 100 mls/hr Q1H IV 09/21/16 09:45 09/21/16 11:44 Enteral Nutritional Formula (Fibersource HN) 1,000 ml UD NG 09/21/16 10:45 10/21/16 10:44 I & O: 24-Hour Column 09/21/16 07:59 Intake Total 2771 ml Output Total 2825 ml Balance -54 ml Vital Signs: Date Time Temp Pulse Resp B/P Pulse Ox O2 Delivery O2 Flow Rate FiO2 09/21/16 08:16 36.5 98 20 144/88 94 Nasal Cannula 4.0 09/21/16 07:21 98 18 98 Nasal Cannula 3.0 09/21/16 04:00 95 Nasal Cannula 2.0 09/21/16 03:30 36.7 96 28 150/67 94 Nasal Cannula 4.0 09/21/16 00:40 36.6 87 27 135/70 92 Nasal Cannula 4.0 09/20/16 23:59 95 Nasal Cannula 2.0 09/20/16 20:00 95 Nasal Cannula 2.0 09/20/16 19:32 83 18 94 Nasal Cannula 3.0 09/20/16 18:53 36.4 78 20 124/62 99 Nasal Cannula 3.0 09/20/16 16:00 Nasal Cannula 3.0 09/20/16 15:12 36.6 76 20 114/65 98 Nasal Cannula 3.0 09/20/16 13:55 79 18 95 Nasal Cannula 3.0 09/20/16 12:46 36.7 85 16 138/77 99 Nasal Cannula 4.0 09/20/16 12:00 Nasal Cannula 3.0 Laboratory Results: Last 24 Hours Test 09/20/16 11:45 09/20/16 16:31 09/20/16 18:21 09/21/16 00:44 Bedside Glucose 100 mg/dl 170 mg/dl 149 mg/dl Activated Partial Thromboplast Time 58.5 SECONDS Partial Thromboplastin Ratio 2.3 Test 09/21/16 05:37 09/21/16 06:11 09/21/16 10:12 White Blood Count 30.65 K/uL Red Blood Count 3.35 M/uL Hemoglobin 10.4 g/dL Hematocrit 32.6 % Mean Corpuscular Volume 97.3 fL Mean Corpuscular Hemoglobin 31.0 pg Mean Corpuscular Hemoglobin Concent 31.9 g/dl Platelet Count 103 K/uL Mean Platelet Volume 11.2 fL Neutrophils (%) (Auto) 91.9 % Lymphocytes (%) (Auto) 3.8 % Monocytes (%) (Auto) 3.2 % Eosinophils (%) (Auto) 0.2 % Basophils (%) (Auto) 0.1 % Neutrophils # (Auto) 28.16 K/uL Lymphocytes # (Auto) 1.17 K/uL Monocytes # (Auto) 0.98 K/uL Eosinophils # (Auto) 0.06 K/uL Basophils # (Auto) 0.02 K/uL RDW Standard Deviation 58.5 fL RDW Coefficient of Variation 17.2 % Immature Granulocyte % (Auto) 0.8 % Immature Granulocyte # (Auto) 0.26 K/uL Red Blood Cell Morphology Unremarkable Activated Partial Thromboplast Time 44.9 SECONDS Partial Thromboplastin Ratio 1.7 Sodium Level 137 mmol/L Potassium Level 3.4 mmol/L Chloride Level 93 mmol/L Carbon Dioxide Level 37 mmol/L Anion Gap 7.0 mmol/L Blood Urea Nitrogen 12 mg/dl Creatinine 0.61 mg/dl Est Creatinine Clear Calc Drug Dose 69.1 ml/min Estimated GFR () 99.2 Estimated GFR (Non- 85.6 BUN/Creatinine Ratio 20.5 Random Glucose 163 mg/dl Calcium Level 7.5 mg/dl Phosphorus Level 2.7 mg/dl Magnesium Level 1.5 mg/dl Total Bilirubin 0.4 mg/dl Aspartate Amino Transf (AST/SGOT) 18 U/L Alanine Aminotransferase (ALT/SGPT) 9 U/L Alkaline Phosphatase 62 U/L Total Protein 5.6 gm/dl Albumin 1.5 gm/dl Globulin 4.1 gm/dl Albumin/Globulin Ratio 0.4 Bedside Glucose 163 mg/dl Lactic Acid Level 1.6 mmol/L
--- NOTE | 2016-09-21 14:43 | Progress Note ---
Subjective Date of Service: Sep 21, 2016. Subjective Pt evaluation today including: conversation w/ patient, conversation w/ family , physical exam, chart review, lab review pt seen in follow up, more awake today, receiving neb on my exam. family at bedside. remains with elevated wbc, but overall improved, now 30 (41 last week) . C diff ordered but no BM, was placed on emperic po vanco pending this. Blood cultures from 09/18 still + with gpc 1/2 sets. no repeats done. placed on levaquin last week secondary to effusion, for potential drainage later this week , pulm following, placed on caspo emperically last week pending cultures for ? fungemia, high risk on nutrition and broad spectrum abx. remains on dapto and zyvox. Afebrile. still with pain in left face, mostly left ear, no repeat imaging over weekend. remaining ros limited but negative. Problem List Medical Problems: (1) Abnormal EKG Status: Acute (2) Accidental drug ingestion Status: Acute (3) CHF (congestive heart failure) Status: Acute (4) Closed head injury Status: Acute (5) COPD exacerbation Status: Acute (6) Dysarthria Status: Acute (7) Facial cellulitis Status: Acute (8) Hypoxia Status: Acute (9) Leukocytosis Status: Acute (10) PNA (pneumonia) Status: Acute (11) Right leg weakness Status: Acute Objective Vital Signs Date Time Temp Pulse Resp B/P Pulse Ox O2 Delivery O2 Flow Rate FiO2 09/21/16 12:00 Room Air 09/21/16 11:20 36.6 67 16 115/69 99 Room Air 09/21/16 08:16 36.5 98 20 144/88 94 Nasal Cannula 4.0 09/21/16 08:00 Room Air 09/21/16 07:21 98 18 98 Nasal Cannula 3.0 09/21/16 04:00 95 Nasal Cannula 2.0 09/21/16 03:30 36.7 96 28 150/67 94 Nasal Cannula 4.0 09/21/16 00:40 36.6 87 27 135/70 92 Nasal Cannula 4.0 09/20/16 23:59 95 Nasal Cannula 2.0 09/20/16 20:00 95 Nasal Cannula 2.0 09/20/16 19:32 83 18 94 Nasal Cannula 3.0 09/20/16 18:53 36.4 78 20 124/62 99 Nasal Cannula 3.0 09/20/16 16:00 Nasal Cannula 3.0 09/20/16 15:12 36.6 76 20 114/65 98 Nasal Cannula 3.0 Physical Exam General Appearance: WD/WN Eyes: + pertinent finding (icteric) Neck: + pertinent finding (still with left neck swelling, tenderness, size unchnaged, no erythema no warmth) Respiratory/Chest: + decreased breath sounds, + rhonchi Cardiovascular: regular rate, rhythm, no edema Abdomen: non tender, soft Neurologic/Psychiatric: alert Skin: normal color Laboratory Results Item Value Date Time Blood Culture - Preliminary Resulted 09/18/16 1207 Blood NO GROWTH TO DATE. Blood Culture - Preliminary Resulted 09/18/16 1200 Blood Staphylococcus Aureus Blood Culture - Preliminary Resulted 09/17/16 1150 Blood Staphylococcus Aureus Blood Culture - Preliminary Resulted 09/17/16 1135 Blood Staphylococcus Aureus Blood Culture - Preliminary Resulted 09/16/16 0841 Blood Staphylococcus Aureus Blood Culture - Preliminary Resulted 09/16/16 0830 Blood Staphylococcus Aureus Blood Culture - Final Complete 09/10/16 1328 Blood Staphylococcus Aureus Blood Culture - Final Complete 09/09/16 1215 Blood Staphylococcus Aureus Catheter Tip Culture - Final Complete 09/17/16 0000 Catheter Tip Picc Line NO GROWTH Last 24 Hours Test 09/20/16 16:31 09/20/16 18:21 09/21/16 00:44 09/21/16 05:37 Activated Partial Thromboplast Time 58.5 SECONDS 44.9 SECONDS Partial Thromboplastin Ratio 2.3 1.7 Bedside Glucose 170 mg/dl 149 mg/dl White Blood Count 30.65 K/uL Red Blood Count 3.35 M/uL Hemoglobin 10.4 g/dL Hematocrit 32.6 % Mean Corpuscular Volume 97.3 fL Mean Corpuscular Hemoglobin 31.0 pg Mean Corpuscular Hemoglobin Concent 31.9 g/dl Platelet Count 103 K/uL Mean Platelet Volume 11.2 fL Neutrophils (%) (Auto) 91.9 % Lymphocytes (%) (Auto) 3.8 % Monocytes (%) (Auto) 3.2 % Eosinophils (%) (Auto) 0.2 % Basophils (%) (Auto) 0.1 % Neutrophils # (Auto) 28.16 K/uL Lymphocytes # (Auto) 1.17 K/uL Monocytes # (Auto) 0.98 K/uL Eosinophils # (Auto) 0.06 K/uL Basophils # (Auto) 0.02 K/uL RDW Standard Deviation 58.5 fL RDW Coefficient of Variation 17.2 % Immature Granulocyte % (Auto) 0.8 % Immature Granulocyte # (Auto) 0.26 K/uL Red Blood Cell Morphology Unremarkable Sodium Level 137 mmol/L Potassium Level 3.4 mmol/L Chloride Level 93 mmol/L Carbon Dioxide Level 37 mmol/L Anion Gap 7.0 mmol/L Blood Urea Nitrogen 12 mg/dl Creatinine 0.61 mg/dl Est Creatinine Clear Calc Drug Dose 69.1 ml/min Estimated GFR () 99.2 Estimated GFR (Non- 85.6 BUN/Creatinine Ratio 20.5 Random Glucose 163 mg/dl Calcium Level 7.5 mg/dl Phosphorus Level 2.7 mg/dl Magnesium Level 1.5 mg/dl Total Bilirubin 0.4 mg/dl Aspartate Amino Transf (AST/SGOT) 18 U/L Alanine Aminotransferase (ALT/SGPT) 9 U/L Alkaline Phosphatase 62 U/L Total Protein 5.6 gm/dl Albumin 1.5 gm/dl Globulin 4.1 gm/dl Albumin/Globulin Ratio 0.4 Test 09/21/16 06:11 09/21/16 10:12 09/21/16 11:04 09/21/16 14:00 Bedside Glucose 163 mg/dl 174 mg/dl Lactic Acid Level 1.6 mmol/L Assessment and Plan (1) Staphylococcus aureus septicemia Assessment & Plan: persistent bacteremia on multiple abx, doubt lungs are a factor in persistent + cultures. will repeat again today. Would suggest re-eval by ENT as I suspect this is source, she may require surgical exploration/ debridement for adequate source control. continue dapto/zyvox. LFTs nml. If no yeast tomorrow, will stop caspo. picc out and tip negative to date. doubt c diff as she is not having diarrhea. She can not have contrast, potential that collection not visualized on non contrast study. (2) Facial cellulitis Status: Acute (3) Leukocytosis Continued [facility] stay due to: abnormal vital signs, multiple IV medications needed
--- NOTE | 2016-09-21 15:29 | Pharmacy Progress Note ---
Glycemic: Assessment & Plan Date of Service Sep 21, 2016. Assessment & Plan The patient received 40 units of insulin on 09/19, 30 units on 09/20. BSGs ranging 149 - 174 mg/dl over the past 24hrs. Patient still on heparin drip, multiple IV antibiotics, and Fibersource at 30 ml/hr (goal rate). * Basal insulin: Lantus every hs per protocol if BSG is less than 100, give 8 units if BSG is 100 or greater, give 15 units * Correctional Insulin: Regular Correction per scale q6h Goal Range: Low 100 mg/dL - High 140 mg/dL Correction Factor: 25 mg/dL/unit * Prandial insulin: Regular insulin 4 units q6h in addition to correction, hold if tube feeding is held BSGs continue to improve, no changes needed to inpatient regimen at this time. Pharmacy will continue to monitor patient daily and write orders per [facility] inpatient glycemic control protocol. Thanks. * Please note that the plan above was derived based on current level of insulin resistance and hospital stress. These recommendations are appropriate for inpatient admission only. Plan of care upon discharge will need to be reassessed to avoid potential outpatient hypo/hyperglycemia.
[2016-09-21 15:37] LABS: PARTIAL THROMBOPLASTIN RATIO 2.5
[2016-09-21] MEDS: DAPTOmycin IV 550 MG in SODIUM CHLORIDE 0.9% 50ML 50 ML IV SCH (16:55)
[2016-09-21] MEDS: LEVOFLOXACIN / D5W 750 MG in PREMIXED IN D5W 150 ML IV SCH (18:19)
[2016-09-21] MEDS: MICONAZOLE NITRATE POWDER 43 GM EXT PRN (18:43)
[2016-09-21] MEDS: BUDESONIDE 0.5 MG/2 ML VIAL (PULMICORT) INH SCH (19:52)
--- NOTE | 2016-09-21 20:54 | Progress Note ---
Subjective Subjective Date of Service: Sep 21, 2016. Pt evaluation today including: conversation w/ patient, conversation w/ family , physical exam, chart review, review of studies, review of inpatient medication list Notes: feels tired, weak Problem List Medical Problems: (1) Abnormal EKG Status: Acute (2) Accidental drug ingestion Status: Acute (3) CHF (congestive heart failure) Status: Acute (4) Closed head injury Status: Acute (5) COPD exacerbation Status: Acute (6) Dysarthria Status: Acute (7) Facial cellulitis Status: Acute (8) Hypoxia Status: Acute (9) Leukocytosis Status: Acute (10) PNA (pneumonia) Status: Acute (11) Right leg weakness Status: Acute Review of Systems Constitutional: No fever ENT: No hearing loss Respiratory: No cough Cardiac: No chest pain Abdomen: No pain Female : No dysuria Neurologic: No memory loss Psychiatric: No depression symptoms Endo: No fatigue Physical Exam Vital Signs Vital Signs Past 24 Hours: Date Time Temp Pulse Resp B/P Pulse Ox O2 Delivery O2 Flow Rate FiO2 09/21/16 20:00 Room Air 09/21/16 19:52 84 18 99 Nasal Cannula 2.0 09/21/16 19:21 36.4 70 20 116/57 97 Nasal Cannula 3.0 Humidified Oxygen 09/21/16 16:00 Room Air 09/21/16 15:16 35.6 74 20 124/75 97 Nasal Cannula 3.5 09/21/16 14:13 86 18 99 Nasal Cannula 4.0 09/21/16 12:00 Room Air 09/21/16 11:20 36.6 67 16 115/69 99 Room Air 09/21/16 08:16 36.5 98 20 144/88 94 Nasal Cannula 4.0 09/21/16 08:00 Room Air 09/21/16 07:21 98 18 98 Nasal Cannula 3.0 09/21/16 04:00 95 Nasal Cannula 2.0 09/21/16 03:30 36.7 96 28 150/67 94 Nasal Cannula 4.0 09/21/16 00:40 36.6 87 27 135/70 92 Nasal Cannula 4.0 09/20/16 23:59 95 Nasal Cannula 2.0 Physical Exam: General Appearance: WD/WN, no apparent distress Eyes: bilateral eyes normal inspection ENT: hearing grossly normal, pharynx normal Neck: supple, no JVD Respiratory/Chest: lungs clear, no respiratory distress Cardiovascular: no gallop Abdomen: normal bowel sounds Extremities: normal range of motion Neurologic/Psychiatric: alert Skin: warm/dry Medications Medications: Current Inpatient Medications Medications (Trade) Dose Ordered Sig/Jose Route Start Time Stop Time Status Last Admin Dose Admin Acetaminophen (Tylenol Tab) 650 mg Q4H PRN PO 09/08/16 20:45 10/08/16 20:44 09/20/16 11:13 650 MG Zolpidem Tartrate (Ambien Tab) 5 mg HSZ PRN PO 09/08/16 20:45 10/08/16 20:44 Simvastatin (Zocor Tab) 40 mg QPM PO 09/08/16 21:00 10/08/16 20:59 09/20/16 21:29 40 MG Timolol Maleate (Timoptic-Xe 0.5% Oph Soln) 1 drops Q12 OPB 09/08/16 21:00 10/08/16 20:59 09/21/16 08:39 1 DROPS Lorazepam (Ativan Inj) 0.5 mg Q4H PRN IV 09/08/16 20:45 10/08/16 20:44 09/21/16 19:26 0.5 MG Magnesium Hydroxide (Milk Of Magnesia Susp) 30 ml Q6H PRN PO 09/08/16 20:45 10/08/16 20:44 Bisacodyl (Dulcolax Supp) 10 mg DAILY PRN FL 09/08/16 20:45 10/08/16 20:44 Diphenhydramine HCl (Benadryl Inj) 25 mg Q4H PRN IV 09/08/16 20:45 10/08/16 20:44 09/20/16 16:43 25 MG Al Hydrox/Mg Hydrox/ Simethicone 15 ml 15 ml Q4H PRN PO 09/08/16 20:45 10/08/16 20:44 Promethazine HCl/ Sodium Chloride (Phenergan Inj/ Nss 50ml) 50.5 ml @ 202 mls/hr Q4H PRN IV 09/08/16 20:45 10/08/16 20:44 Ondansetron HCl (Zofran Inj) 4 mg Q6H PRN IV 09/08/16 20:45 10/08/16 20:44 09/09/16 04:50 4 MG Glucose (Glucose 40% Gel) UD PRN PO 09/08/16 20:45 10/08/16 20:44 Glucose (Glucose Chew Tab) 1 tabs UD PRN PO 09/08/16 20:45 10/08/16 20:44 Dextrose (Dextrose 50% 50ML Syringe) 50 ml UD PRN IV 09/08/16 20:45 10/08/16 20:44 Glucagon (Glucagon Inj) 1 mg UD PRN SQ 09/08/16 20:45 10/08/16 20:44 Heparin Sodium (Porcine) (Heparin 10 Unit/ ml 5 ml Flush) 5 ml PRN PRN FLUSH 09/09/16 12:45 10/09/16 12:44 09/10/16 15:27 5 ML Miconazole Nitrate (Desenex Powder) 1 appln PRN PRN EXT 09/11/16 15:00 10/11/16 14:59 09/21/16 18:43 1 APPLN Miscellaneous Information (Consult Glycemic Management Pharmacy) 1 ea UD N/A 09/12/16 17:14 10/12/16 17:13 Diltiazem HCl (Cardizem Tab) 60 mg QID PO 09/13/16 13:00 10/13/16 12:59 09/21/16 16:55 60 MG Insulin Glargine (Lantus Solostar Pen) SEE PROTOCOL TEXT HS SC 09/15/16 16:45 10/15/16 16:44 09/20/16 21:31 15 UNIT Morphine Sulfate (MoRPHine SULFATE INJ) 1 mg Q4H PRN IV 09/15/16 09:30 09/29/16 09:29 09/21/16 17:07 1 MG Insulin Human Regular (novoLIN-R) This entry serves as c... Q6 SC 09/16/16 12:00 10/16/16 11:59 09/21/16 18:27 4 UNITS Brimonidine Tartrate 1 drops 1 drops BID OPB 09/16/16 21:00 10/16/16 20:59 09/21/16 08:39 1 DROPS Furosemide 20 mg/ Syringe 2 ml @ 4 mls/min BID17 IV 09/16/16 17:00 10/16/16 16:59 09/21/16 16:55 4 MLS/MIN Daptomycin 550 mg/ Sodium Chloride 61 ml @ 100 mls/hr DAILY@1600 IV 09/17/16 16:00 09/24/16 16:37 09/21/16 16:55 100 MLS/HR Caspofungin 50 mg/ Sodium Chloride 260 ml @ 250 mls/hr DAILY@0900 IV 09/18/16 09:00 09/27/16 08:59 09/21/16 09:00 250 MLS/HR Linezolid/Prmx (Zyvox / D5W/ Premixed D5W) 300 ml @ 300 mls/hr Q12H IV 09/17/16 12:00 10/01/16 11:59 09/21/16 13:29 300 MLS/HR Fluoxetine HCl (Prozac Soln) 10 mg QAM PO 09/17/16 10:30 10/17/16 10:29 09/21/16 08:38 10 MG Raspberry (Raspberry Syrup 5ml Cup) 5 ml QID PO 09/17/16 10:15 10/01/16 10:14 09/21/16 16:55 5 ML Insulin Human Regular SLIDING SCALE Q6 SC 09/18/16 18:00 10/18/16 17:59 09/21/16 18:26 3 UNITS Levofloxacin/Prmx (Levaquin / D5W/ Premixed D5W) 150 ml @ 100 mls/hr DAILY@1800 IV 09/18/16 18:00 09/25/16 17:59 09/21/16 18:19 100 MLS/HR Ipratropium [place] (Atrovent 0.02% 0.5MG/2.5ML Neb) 0.5 mg Q6R INH 09/18/16 21:00 10/18/16 20:59 09/21/16 19:52 0.5 MG Levalbuterol 1.25 mg 1.25 mg Q6R INH 09/18/16 21:00 10/18/16 20:59 09/21/16 19:52 1.25 MG Heparin Sodium/ Dextrose (Heparin 25,000 Unit/500ml D5W) 500 ml @ 14 mls/hr Q24H PRN IV 09/18/16 17:30 10/18/16 17:29 09/21/16 09:00 15 MLS/HR Vancomycin HCl (Vancomycin Oral Soln) 250 mg QID PO 09/19/16 09:00 09/27/16 08:59 09/21/16 16:55 250 MG Phenol (Chloraseptic 1.4% [place]) 2 sprays UD PRN MT 09/20/16 13:30 10/20/16 13:29 Enteral Nutritional Formula (Fibersource HN) 1,000 ml UD NG 09/21/16 10:45 10/21/16 10:44 Budesonide (Pulmicort Respules 0.5MG/ 2ML Neb Soln) 0.5 mg BIDR INH 09/21/16 20:00 10/21/16 19:59 09/21/16 19:52 0.5 MG Laboratory Data Labs: Last 24 Hours Test 09/21/16 00:44 09/21/16 05:37 09/21/16 06:11 09/21/16 10:12 Bedside Glucose 149 mg/dl 163 mg/dl White Blood Count 30.65 K/uL Red Blood Count 3.35 M/uL Hemoglobin 10.4 g/dL Hematocrit 32.6 % Mean Corpuscular Volume 97.3 fL Mean Corpuscular Hemoglobin 31.0 pg Mean Corpuscular Hemoglobin Concent 31.9 g/dl Platelet Count 103 K/uL Mean Platelet Volume 11.2 fL Neutrophils (%) (Auto) 91.9 % Lymphocytes (%) (Auto) 3.8 % Monocytes (%) (Auto) 3.2 % Eosinophils (%) (Auto) 0.2 % Basophils (%) (Auto) 0.1 % Neutrophils # (Auto) 28.16 K/uL Lymphocytes # (Auto) 1.17 K/uL Monocytes # (Auto) 0.98 K/uL Eosinophils # (Auto) 0.06 K/uL Basophils # (Auto) 0.02 K/uL RDW Standard Deviation 58.5 fL RDW Coefficient of Variation 17.2 % Immature Granulocyte % (Auto) 0.8 % Immature Granulocyte # (Auto) 0.26 K/uL Red Blood Cell Morphology Unremarkable Activated Partial Thromboplast Time 44.9 SECONDS Partial Thromboplastin Ratio 1.7 Sodium Level 137 mmol/L Potassium Level 3.4 mmol/L Chloride Level 93 mmol/L Carbon Dioxide Level 37 mmol/L Anion Gap 7.0 mmol/L Blood Urea Nitrogen 12 mg/dl Creatinine 0.61 mg/dl Est Creatinine Clear Calc Drug Dose 69.1 ml/min Estimated GFR () 99.2 Estimated GFR (Non- 85.6 BUN/Creatinine Ratio 20.5 Random Glucose 163 mg/dl Calcium Level 7.5 mg/dl Phosphorus Level 2.7 mg/dl Magnesium Level 1.5 mg/dl Total Bilirubin 0.4 mg/dl Aspartate Amino Transf (AST/SGOT) 18 U/L Alanine Aminotransferase (ALT/SGPT) 9 U/L Alkaline Phosphatase 62 U/L Total Protein 5.6 gm/dl Albumin 1.5 gm/dl Globulin 4.1 gm/dl Albumin/Globulin Ratio 0.4 Lactic Acid Level 1.6 mmol/L Test 09/21/16 11:04 09/21/16 14:25 09/21/16 18:17 Bedside Glucose 174 mg/dl 199 mg/dl Activated Partial Thromboplast Time 64.7 SECONDS Partial Thromboplastin Ratio 2.5 Assessment and Plan A 80 yo female here with MRSA bacteremia / Cx remains positive (last positive blood Cx was 09/17) leukocytosis,improving baseline CPK is 26 will repeat in one week dapto to 8mg/kg / zyvox for synergistic effect , changed PICC line 09/17 CT chest/abd and pelvis, showed B/L pneumonia, large pleural effusion ? empyema , consult real estate sales associate, consider thoracocentesis (D/W Dr. De Leon, plavix is on hold and xarelto is switched to heparin drip) caspofungin stopped as per Dr. Ornelas echo to r/o vegetations. repeat TTE order new blood Cx 09/20, awaiting results 2 episodes of diarrhea on 09/17, started Vanco NGT empirically, also will not hurt to stay on it, check Cdiff cultures B/L Moderate to large pleural effusions with dense bibasilar consolidation, possible aspiration, levofloxacin was added for Gram negative coverage Left facial cellulitis/left parotitis/left masseter muscle infection/left inframandibular infection and sepsis/ persistent bacteremia (WBC, HR) present on admission S/P 2 CT neck without contrast and MRI neck with da also showed no abscess or stone currently on dapto/zyvox continue lactinex lemon q1hr while awake moist heat 20mins/hr Acute hypoxic respiratory failure, Aspiration / pneumonia (HCAP versus Aspiration) / large pleural effusion consult real estate sales associate D/W Dr. Barrett, hold plavix for planed thoracocentesis or at least needle sample for R/O empyema initiate bronchodilators chest PT systolic cardiomyopathy with CHF exacerbation appearance of takutsubo's - check troponin, follow. no s/s CHF, may need cardiology involvement but right now appearing stable DC IVF, continue lasix 20mg IV BID afib/RVR rate controlled- transition back from IV to PO dilt held xarelto 09/17, continue heparin drip metabolic encephalopathy / delirium, improved due to pain, meds, poor sleep, hospital environment, continue to monitor Decrease morphine and ativan doses Dysphagia possible aspiration, poor oral intake, painful swallowing place NGT , lower rate of TF, has refeeding syndrome D/W Daughter and next of Kin who is agreeable to the plan, also patient gave permission to discuss the case with her granddaughter CAD/hypertension/TIA/CVA-- continue clopidogrel / Xarelto continue diltiazem extended release heart (increased to 180) mg by mouth daily continue losartan 25 mg by mouth twice a day, hold triamterene/HCTZ 37.5/25 daily until PO intake improves, but follow BP Diabetes mellitus type 2 hold metformin 500, pharmacy glycemic consult given need for ongoing steroids ( currently on drip) COPD, continue Symbicort 160/4.5 2 puffs twice a day, nebs prn, including for cough, also on Ativan/xopenex nebulizer Depression, continue fluoxetine 10 mg by mouth every morning. Hypercholesterolemia, continue simvastatin 40 mg by mouth every afternoon. Glaucoma, continue Alphagan P ophthalmic solution 1 drop OPB twice a day, and timolol GFS 0.5% one drop OPB every 12 hours. Continued [facility] stay due to: abnormal vital signs, multiple IV medications needed
[2016-09-21] MEDS: SIMVASTATIN 40 MG TAB PO SCH (21:13)
[2016-09-22] VITALS (15 sets, daily range): BP systolic 107–145; BP diastolic 62–77; PULSE 70–93; TEMP 36.4–36.5; O2SAT 90–100
[2016-09-22] MEDS: LINEZOLID / D5W 600 MG in PREMIXED IN D5W 300 ML IV SCH ×2 (00:09→14:22)
[2016-09-22] MEDS: INSULIN GLARGINE SOLOSTAR 100 UNITS/ML 3 ML PEN SC SCH (00:11)
[2016-09-22] MEDS: INSULIN HUMAN REGULAR SC SCH ×8 (00:12→18:29)
[2016-09-22] MEDS: IPRATROPIUM BROMIDE NEB SOLN 0.02% 2.5 ML VIAL INH SCH ×4 (02:31→19:17)
[2016-09-22] MEDS: LEVALBUTEROL 1.25MG/0.5ML NEB INH SCH ×4 (02:31→19:17)
[2016-09-22] MEDS: BUDESONIDE 0.5 MG/2 ML VIAL (PULMICORT) INH SCH ×2 (07:11→19:17)
[2016-09-22 07:58] LABS: HEMATOCRIT 29.3 % (37-47); MEAN CELL VOLUME 95.4 fL (80-100); MEAN CORPUSCULAR HEMOGLOBIN 30.6 pg (25-34); MEAN CORPUSCULAR HGB CONC 32.1 g/dl (32-36); RED BLOOD COUNT 3.07 M/uL (4.2-5.4)
[2016-09-22 08:08] LABS: MEAN PLATELET VOLUME 10.2 fL (7.4-10.4); PLATELET COUNT 93 K/uL (130-400)
[2016-09-22 08:26] LABS: BASO ABS # 0.01 K/uL (0-0.2); BUN/CREATININE RATIO 18.6 (10-20); CALCIUM 7.9 mg/dl (8.5-10.1); COMPLETE YES; CREATININE 0.57 mg/dl (0.60-1.20); EOS % 0.2 %; IG% 0.7 %; LYMPH % 5.6 %; LYMPH ABS # 1.19 K/uL (1.2-3.4); NEUT % 92.5 %; VACUOLIZATION 1+
[2016-09-22] MEDS: BRIMONIDINE TARTRATE-P 0.15% 5 ML BTL OPB SCH ×2 (08:32→20:55)
[2016-09-22] MEDS: FUROSEMIDE INJ 20 MG in SYRINGE 0 ML IV SCH ×2 (08:32→16:11)
[2016-09-22] MEDS: TIMOLOL GFS 0.5% OPH SOLN 74 DROPS/5 ML BTL OPB SCH ×2 (08:33→20:55)
[2016-09-22] MEDS: FLUOXETINE HCL 20 MG/5 ML PO SCH (08:33)
[2016-09-22] MEDS: DILTIAZEM HCL 60 MG TAB PO SCH ×4 (08:33→20:55)
[2016-09-22] MEDS: CASPOFUNGIN INJ 50 MG in SODIUM CHLORIDE 0.9% 250ML 250 ML IV SCH (08:35)
--- NOTE | 2016-09-22 09:28 | Medical Student: [facility] ---
Med Student Progress Note Date of Service Sep 22, 2016. Subjective Pt evaluation today including: conversation w/ patient, conversation w/ family , physical exam, chart review This is an 80 y/o female with complicated pmh who is being treated for persistent bacteremia and facial cellulitis. Overall, she is better today compared to yesterday per family. She is oriented x3 and family thinks her voice is stronger today. They say she is more alert. During exam she is awake and coughing up sputum, head of the bed is elevated and patient is moving around. She is complaining about the SCD's and wants them removed. She is breathing comfortably and appears in mild distress due to discomfort from pain. Family is in agreeance with thoracocentesis later this week pending clearance of clopidogrel. Of note, patient has not yet had a BM. C. diff culture is negative, and KUB does not demonstrate obstruction. Patient denies fever, chills , chest pain. Limited review of systems is negative. Review of Systems Constitutional: No chills, No fever Respiratory: + cough, + sputum Cardiac: No chest pain Abdomen: No diarrhea Objective Vital Signs Date Time Temp Pulse Resp B/P Pulse Ox O2 Delivery O2 Flow Rate FiO2 09/22/16 08:15 36.4 88 24 145/69 98 Nasal Cannula 2.0 09/22/16 07:11 75 18 96 Nasal Cannula 2.0 09/22/16 04:00 96 Humidified Oxygen 3.0 09/22/16 03:25 36.4 75 20 119/73 96 Humidified Oxygen 3.0 09/22/16 02:31 86 18 96 Nasal Cannula 3.0 09/21/16 23:59 96 Humidified Oxygen 3.0 09/21/16 23:59 36.4 75 24 126/68 96 Humidified Oxygen 3.0 09/21/16 20:00 Room Air 09/21/16 19:52 84 18 99 Nasal Cannula 2.0 09/21/16 19:21 36.4 70 20 116/57 97 Nasal Cannula 3.0 Humidified Oxygen 09/21/16 16:00 Room Air 09/21/16 15:16 35.6 74 20 124/75 97 Nasal Cannula 3.5 09/21/16 14:13 86 18 99 Nasal Cannula 4.0 09/21/16 12:00 Room Air 09/21/16 11:20 36.6 67 16 115/69 99 Room Air Physical Exam General Appearance: + mild distress Neck: thyroid normal, no JVD, + adenopathy present Respiratory/Chest: no accessory muscle use, + decreased breath sounds (at bases ), + rhonchi (bilateral) Cardiovascular: no gallop, no JVD, no murmur, + irregularly irregular, + pertinent finding (pedal edema reported by nursing staff ) Abdomen: normal bowel sounds, non tender, soft, no organomegaly Neurologic/Psychiatric: alert, normal mood/affect, oriented x 3 Skin: normal color, warm/dry Lymphatic: no adenopathy Laboratory Results Last 24 Hours Test 09/21/16 10:12 09/21/16 11:04 09/21/16 14:25 09/21/16 18:17 Lactic Acid Level 1.6 mmol/L Bedside Glucose 174 mg/dl 199 mg/dl Activated Partial Thromboplast Time 64.7 SECONDS Partial Thromboplastin Ratio 2.5 Test 09/22/16 00:04 09/22/16 05:24 09/22/16 07:50 Bedside Glucose 158 mg/dl 147 mg/dl White Blood Count 21.20 K/uL Red Blood Count 3.07 M/uL Hemoglobin 9.4 g/dL Hematocrit 29.3 % Mean Corpuscular Volume 95.4 fL Mean Corpuscular Hemoglobin 30.6 pg Mean Corpuscular Hemoglobin Concent 32.1 g/dl Platelet Count 93 K/uL Mean Platelet Volume 10.2 fL Neutrophils (%) (Auto) 92.5 % Lymphocytes (%) (Auto) 5.6 % Monocytes (%) (Auto) 1.0 % Eosinophils (%) (Auto) 0.2 % Basophils (%) (Auto) 0.0 % Neutrophils # (Auto) 19.59 K/uL Lymphocytes # (Auto) 1.19 K/uL Monocytes # (Auto) 0.22 K/uL Eosinophils # (Auto) 0.04 K/uL Basophils # (Auto) 0.01 K/uL RDW Standard Deviation 56.2 fL RDW Coefficient of Variation 16.9 % Immature Granulocyte % (Auto) 0.7 % Immature Granulocyte # (Auto) 0.15 K/uL Toxic Vacuolation 1+ Activated Partial Thromboplast Time 52.0 SECONDS Partial Thromboplastin Ratio 2.0 Sodium Level 135 mmol/L Potassium Level 3.0 mmol/L Chloride Level 88 mmol/L Carbon Dioxide Level 39 mmol/L Anion Gap 8.0 mmol/L Blood Urea Nitrogen 11 mg/dl Creatinine 0.57 mg/dl Est Creatinine Clear Calc Drug Dose 74.0 ml/min Estimated GFR () 101.5 Estimated GFR (Non- 87.6 BUN/Creatinine Ratio 18.6 Random Glucose 121 mg/dl Calcium Level 7.9 mg/dl Medications Medications Administered Medications (Trade) Dose Ordered Sig/Jose Route Start Time Stop Time Status Last Admin Dose Admin Morphine Sulfate (MoRPHine SULFATE INJ) 4 mg NOW STAT IV 09/08/16 18:22 09/08/16 18:23 DC 09/08/16 18:44 4 MG Ondansetron HCl (Zofran Inj) 4 mg NOW STAT IV 09/08/16 18:22 09/08/16 18:23 DC 09/08/16 18:44 4 MG Levofloxacin (Levaquin / D5W) 500 mg NOW STAT IV 09/08/16 18:33 09/08/16 18:35 DC 09/08/16 19:35 500 MG Metronidazole (Flagyl / Nss) 500 mg NOW STAT IV 09/08/16 18:33 09/08/16 18:35 DC 09/08/16 19:29 500 MG Acetaminophen (Tylenol Tab) 650 mg Q4H PRN PO 09/08/16 20:45 10/08/16 20:44 09/20/16 11:13 650 MG Clopidogrel Bisulfate (plAVix TAB) 75 mg QAM PO 09/09/16 09:00 09/14/16 20:49 DC 09/14/16 08:56 75 MG Lorazepam (Ativan Tab) 1 mg HS PRN PO 09/08/16 20:45 09/15/16 09:31 DC 09/14/16 23:24 1 MG Rivaroxaban (Xarelto Tab) 15 mg QDD PO 09/09/16 17:00 09/14/16 20:49 DC 09/14/16 17:42 15 MG Simvastatin (Zocor Tab) 40 mg QPM PO 09/08/16 21:00 10/08/16 20:59 09/21/16 21:13 40 MG Timolol Maleate (Timoptic-Xe 0.5% Oph Soln) 1 drops Q12 OPB 09/08/16 21:00 3/9/17 20:59 09/22/16 08:33 1 DROPS Ferrous Gluconate (Ferrous Gluconate Tab) 324 mg DAILY PO 09/09/16 09:00 09/17/16 09:56 DC 09/16/16 09:23 324 MG Fluoxetine HCl 10 mg 10 mg QAM PO 09/09/16 09:00 09/17/16 09:56 DC 09/16/16 09:23 10 MG Vancomycin HCl 900 mg/Sodium Chloride 268 ml @ 125 mls/hr Q24H IV 09/09/16 21:00 09/10/16 09:28 DC 09/09/16 21:00 125 MLS/HR Levofloxacin/Prmx (Levaquin / D5W/ Premixed D5W) 50 ml @ 50 mls/hr DAILY@2000 IV 09/09/16 20:00 09/15/16 14:35 DC 09/14/16 20:46 50 MLS/HR Lorazepam (Ativan Inj) 0.5 mg Q4H PRN IV 09/08/16 20:45 10/08/16 20:44 09/21/16 19:26 0.5 MG Diphenhydramine HCl (Benadryl Inj) 25 mg Q4H PRN IV 09/08/16 20:45 10/08/16 20:44 09/20/16 16:43 25 MG Ondansetron HCl (Zofran Inj) 4 mg Q6H PRN IV 09/08/16 20:45 10/08/16 20:44 09/09/16 04:50 4 MG Insulin Aspart (novoLOG ASPART) SLIDING SCALE If C... ACHS SC 09/08/16 21:00 09/16/16 10:51 DC 09/15/16 21:31 1 UNITS Morphine Sulfate (MoRPHine SULFATE INJ) 4 mg NOW STAT IV 09/08/16 20:47 09/08/16 20:48 DC 09/08/16 20:47 4 MG Metoclopramide HCl 10 mg 10 mg NOW STAT IV 09/08/16 20:47 09/08/16 20:48 DC 09/08/16 20:47 10 MG Vancomycin HCl/ Sodium Chloride (Vancomycin Inj/ Nss 250ml) 276 ml @ 125 mls/hr NOW ONCE IV 09/08/16 22:30 2/8/17 00:42 DC 09/08/16 22:33 125 MLS/HR Morphine Sulfate (MoRPHine SULFATE INJ) 2 mg Q2H PRN IV 09/08/16 23:00 09/15/16 09:31 DC 09/15/16 05:21 2 MG Morphine Sulfate (MoRPHine SULFATE INJ) 4 mg Q2H PRN IV 09/08/16 23:00 09/15/16 09:31 DC 09/12/16 12:27 2 MG Morphine Sulfate (MoRPHine SULFATE INJ) 4 mg STK-MED ONCE .ROUTE 09/08/16 23:02 09/08/16 23:04 DC 09/08/16 23:07 4 MG Diltiazem HCl 180 mg 180 mg DAILY PO 09/09/16 09:00 09/12/16 10:06 DC 09/12/16 08:22 180 MG Magnesium Sulfate/ Prmx (Magnesium Sulfate/Premixed D5W) 100 ml @ 100 mls/hr Q1H IV 09/09/16 08:30 09/09/16 11:29 DC 09/09/16 11:41 100 MLS/HR Potassium Chloride 20 meq 20 meq NOW STAT PO 09/09/16 07:41 09/09/16 08:09 DC 09/09/16 08:55 20 MEQ Sodium Chloride 1,000 ml @ 999 mls/hr Q1H1M IV 09/09/16 13:00 09/09/16 14:00 DC 09/09/16 12:44 999 MLS/HR Potassium Chloride/Sodium Chloride (1/2 Nss + 20meq KCl 1000ml) 1,000 ml @ 80 mls/hr [id number] IV 09/09/16 14:00 09/11/16 09:03 DC 09/11/16 04:17 80 MLS/HR Heparin Sodium (Porcine) (Heparin 10 Unit/ ml 5 ml Flush) 5 ml PRN PRN FLUSH 09/09/16 12:45 10/09/16 12:44 09/10/16 15:27 5 ML Albuterol/ Ipratropium 3 ml 3 ml QIDR INH 09/09/16 20:00 09/19/16 11:12 DC 09/18/16 16:07 3 ML Metronidazole 500 mg/Prmx 100 ml @ 100 mls/hr Q8@0200,1000,1800 IV 09/10/16 10:00 09/15/16 14:37 DC 09/15/16 09:20 100 MLS/HR Vancomycin HCl 900 mg/Sodium Chloride 268 ml @ 125 mls/hr Q18H IV 09/10/16 15:00 09/11/16 10:52 DC 09/11/16 09:11 125 MLS/HR Dexamethasone Sodium Phosphate 10 mg/Syringe 2.5 ml @ 1 mls/min 1700 ONCE IV 09/10/16 17:00 09/10/16 17:02 DC 09/10/16 18:01 1 MLS/MIN Sodium Chloride (Nss 1000ml) 1,000 ml @ 75 mls/hr [id number] IV 09/11/16 09:15 09/16/16 16:41 DC 09/16/16 14:36 75 MLS/HR Miconazole Nitrate 1 appln 1 appln PRN PRN EXT 09/11/16 15:00 10/11/16 14:59 09/21/16 18:43 1 APPLN Daptomycin/Sodium Chloride (Cubicin IV/Nss 50ml) 57 ml @ 100 mls/hr DAILY@1600 IV 09/11/16 17:30 09/17/16 09:02 DC 09/16/16 16:28 100 MLS/HR Insulin Glargine (Lantus Solostar Pen) 5 unit HS SC 09/11/16 21:00 09/12/16 17:20 DC 09/11/16 21:15 5 UNIT Diltiazem HCl 5 mg 5 mg TODAY@1120 IV 09/12/16 11:20 09/12/16 12:00 DC 09/12/16 11:31 5 MG Diltiazem HCl 125 mg/Dextrose 125 ml @ 5 mls/hr Q24H PRN IV 09/12/16 11:30 09/13/16 10:00 DC 09/13/16 03:30 5 MLS/HR Dexamethasone Sodium Phosphate/ Syringe (Decadron Inj/ Syringe) 2.5 ml @ 1 mls/min TODAY@1730 ONCE IV 09/12/16 17:30 09/12/16 17:32 DC 09/12/16 18:33 1 MLS/MIN Insulin Glargine (Lantus Solostar Pen) 10 unit HS SC 09/12/16 21:00 09/13/16 13:00 DC 09/12/16 20:34 10 UNIT Insulin Aspart (novoLOG ASPART) SLIDING SCALE If C... 0200 NM 09/13/16 02:00 09/13/16 13:13 DC 09/13/16 02:20 5 UNITS Diltiazem HCl (Cardizem Tab) 60 mg QID PO 09/13/16 13:00 10/13/16 12:59 09/22/16 08:33 60 MG Diltiazem HCl (Cardizem Tab) 60 mg 0930 ONCE PO 09/13/16 09:30 09/13/16 09:31 DC 09/13/16 10:07 60 MG Insulin Glargine (Lantus Solostar Pen) HS NM 09/13/16 21:00 09/15/16 08:46 DC 09/14/16 20:50 10 UNIT Insulin Glargine (Lantus Solostar Pen) 5 unit Mo@0900 NM 09/14/16 09:00 09/14/16 12:00 DC 09/14/16 09:02 5 UNIT Heparin Sodium (Porcine) (Heparin Sq 5000 Unit/0.5ml) 5,000 unit Q12 SQ 09/14/16 23:00 09/15/16 09:25 DC 09/14/16 23:28 5,000 UNIT Insulin Glargine (Lantus Solostar Pen) SEE PROTOCOL TEXT HS NM 09/15/16 16:45 10/15/16 16:44 09/22/16 00:11 15 UNIT Clopidogrel Bisulfate (plAVix TAB) 75 mg QAM PO 09/16/16 09:00 09/19/16 12:56 DC 09/19/16 07:56 75 MG Rivaroxaban (Xarelto Tab) 15 mg DAILYBD PO 09/16/16 16:15 09/18/16 16:24 DC 09/17/16 16:14 15 MG Morphine Sulfate (MoRPHine SULFATE INJ) 1 mg Q4H PRN IV 09/15/16 09:30 09/29/16 09:29 09/21/16 17:07 1 MG Enteral Nutritional Formula (Fibersource HN) 1,000 ml UD NG 09/15/16 12:45 09/16/16 16:44 DC 09/15/16 15:10 1,000 ML Insulin Human Regular (novoLIN-R) SLIDING SCALE Q6 SC 09/16/16 12:00 09/17/16 18:07 DC 09/17/16 12:55 7 UNITS Insulin Human Regular (novoLIN-R) This entry serves as c... Q6 SC 09/16/16 12:00 10/16/16 11:59 09/22/16 05:27 4 UNITS Enteral Nutritional Formula (Fibersource HN) 1,265 ml UD NG 09/16/16 15:45 09/21/16 10:45 DC 09/19/16 16:04 1,000 ML Brimonidine Tartrate 1 drops 1 drops BID OPB 09/16/16 21:00 10/16/16 20:59 09/22/16 08:32 1 DROPS Furosemide 20 mg/ Syringe 2 ml @ 4 mls/min BID17 IV 09/16/16 17:00 10/16/16 16:59 09/22/16 08:32 4 MLS/MIN Insulin Human Regular 5 units/ Syringe 0.05 ml @ 1 mls/min TODAY@0800 ONCE IV 09/17/16 08:00 09/17/16 08:01 DC 09/17/16 09:05 1 MLS/MIN Daptomycin 550 mg/ Sodium Chloride 61 ml @ 100 mls/hr DAILY@1600 IV 09/17/16 16:00 09/24/16 16:37 09/21/16 16:55 100 MLS/HR Caspofungin 70 mg/ Sodium Chloride 260 ml @ 250 mls/hr TODAY@0930 ONCE IV 09/17/16 09:30 09/17/16 10:32 DC 09/17/16 11:36 250 MLS/HR Caspofungin 50 mg/ Sodium Chloride 260 ml @ 250 mls/hr DAILY@0900 IV 09/18/16 09:00 09/27/16 08:59 09/22/16 08:35 250 MLS/HR Linezolid/Prmx (Zyvox / D5W/ Premixed D5W) 300 ml @ 300 mls/hr Q12H IV 09/17/16 12:00 10/01/16 11:59 09/22/16 00:09 300 MLS/HR Vancomycin HCl (Vancomycin Oral Soln) 500 mg QID PO 09/17/16 10:15 09/19/16 07:17 DC 09/18/16 20:57 500 MG Fluoxetine HCl (Prozac Soln) 10 mg QAM PO 09/17/16 10:30 10/17/16 10:29 09/22/16 08:33 10 MG Raspberry 5 ml 5 ml QID PO 09/17/16 10:15 10/01/16 10:14 09/21/16 21:11 5 ML Insulin Human Regular 5 units/ Syringe 0.05 ml @ 1 mls/min TODAY@1400 ONCE IV 09/17/16 14:00 09/17/16 14:01 DC 09/17/16 14:07 1 MLS/MIN Insulin Human Regular 7 unit/ Syringe 7 ml @ 1 mls/min TODAY@1830 IV 09/17/16 18:30 09/17/16 18:36 DC 09/17/16 18:54 1 MLS/MIN Insulin Human Regular/Sodium Chloride (novoLIN-R/Nss 250ml) 252.5 ml @ 0 mls/hr DAILY@1130 IV 09/17/16 18:30 09/18/16 15:33 DC 09/18/16 10:15 8.5 MLS/HR Albuterol/ Ipratropium 3 ml 3 ml Q4R INH 09/18/16 04:00 09/20/16 14:46 DC 09/20/16 13:55 3 ML Potassium Phosphate 21 mmol/ Sodium Chloride 507 ml @ 144.857 mls/hr TODAY@0800 ONCE IV 09/18/16 08:00 09/18/16 11:29 DC 09/18/16 09:23 144.857 MLS/HR Magnesium Sulfate/ Prmx (Magnesium Sulfate/Premixed D5W) 100 ml @ 100 mls/hr Q1H IV 09/18/16 08:00 09/18/16 09:59 DC 09/18/16 09:23 100 MLS/HR Miscellaneous Information (Pending Order) 1 ea NOW STAT N/A 09/18/16 07:37 09/18/16 07:38 DC 09/18/16 08:00 1 EA Insulin Human Regular SLIDING SCALE Q6 SC 09/18/16 18:00 10/18/16 17:59 09/22/16 05:28 1 UNITS Levofloxacin/Prmx (Levaquin / D5W/ Premixed D5W) 150 ml @ 100 mls/hr DAILY@1800 IV 09/18/16 18:00 09/25/16 17:59 09/21/16 18:19 100 MLS/HR Ipratropium [place] (Atrovent 0.02% 0.5MG/2.5ML Neb) 0.5 mg Q6R INH 09/18/16 21:00 10/18/16 20:59 09/22/16 07:11 0.5 MG Levalbuterol 1.25 mg 1.25 mg Q6R INH 09/18/16 21:00 10/18/16 20:59 09/22/16 07:11 1.25 MG Heparin Sodium/ Dextrose 500 ml @ 14 mls/hr Q24H PRN IV 09/18/16 17:30 10/18/16 17:29 09/21/16 09:00 15 MLS/HR Heparin Sodium (Porcine) 4000 unit/Syringe 4 ml @ 10 mls/min NOW ONCE IV 09/19/16 04:30 09/19/16 04:31 DC 09/19/16 04:49 10 MLS/MIN Magnesium Sulfate/ Prmx (Magnesium Sulfate/Premixed D5W) 100 ml @ 100 mls/hr NOW STAT IV 09/19/16 07:21 09/19/16 08:20 DC 09/19/16 07:47 100 MLS/HR Vancomycin HCl 250 mg 250 mg QID PO 09/19/16 09:00 09/27/16 08:59 09/21/16 21:12 250 MG Potassium Phosphate 9 mmol/ Sodium Chloride 253 ml @ 80 mls/hr TODAY@0800 ONCE IV 09/19/16 08:00 09/19/16 11:09 DC 09/19/16 08:06 80 MLS/HR Heparin Sodium (Porcine) 4000 unit/Syringe 4 ml @ 10 mls/min 1900 ONCE IV 09/19/16 19:00 09/19/16 19:01 DC 09/19/16 19:17 10 MLS/MIN Heparin Sodium (Porcine)/Syringe (Heparin Iv Bolus/Syringe) 4 ml @ 10 mls/min 0930 ONCE IV 09/20/16 09:30 09/20/16 09:31 DC 09/20/16 09:30 10 MLS/MIN Magnesium Oxide 400 mg 400 mg 1300 ONCE PO 09/20/16 13:00 09/20/16 13:01 DC 09/20/16 13:00 400 MG Potassium Phosphate 9 mmol/ Sodium Chloride 253 ml @ 126.5 mls/ hr TODAY@1330 IV 09/20/16 13:30 09/20/16 15:29 DC 09/20/16 13:30 126.5 MLS/HR Heparin Sodium (Porcine) 2000 unit/Syringe 2 ml @ 10 mls/min NOW ONCE IV 09/21/16 07:30 09/21/16 07:31 DC 09/21/16 08:54 10 MLS/MIN Potassium Chloride 20 meq/ Prmx 100 ml @ 50 mls/hr TODAY@0945 ONCE IV 09/21/16 09:45 09/21/16 11:44 DC 09/21/16 11:05 50 MLS/HR Magnesium Sulfate/ Prmx (Magnesium Sulfate/Premixed D5W) 100 ml @ 100 mls/hr Q1H IV 09/21/16 09:45 09/21/16 11:44 DC 09/21/16 11:57 100 MLS/HR Budesonide (Pulmicort Respules 0.5MG/ 2ML Neb Soln) 0.5 mg BIDR INH 09/21/16 20:00 10/21/16 19:59 09/22/16 07:11 0.5 MG Assessment and Plan Assessment and Plan: This is an 80 year old female with persistent bacteremia and facial cellulitis. MRSA bacteremia / Cx remains positive (last positive blood Cx was 09/18) -leukocytosis trending down from 30.65 --> 21.20 -baseline CPK is 26 will repeat in one week -Daptomycin IV -Linezolid IV -Vancomycin QID PO 250 mg via NGT -Levaquin added for gram negative coverage -changed PICC line 09/17 -echo to r/o vegetations. consider repeat TTE this week to r/o other sources of infection -Order new blood culture today B/L Moderate to large pleural effusions with dense bibasilar consolidation aspiration vs. HAP vs. worsening CHF with severe MR -CT chest/abd and pelvis, showed B/L pneumonia, large pleural effusion, empyema -Per pulmonology, consider thoracocentesis in few days if not resolving.Pending clopidogrel clearance, anticipate on 09/25 -hold plavix and xarelto, continue on heparin drip -Caspofungin d/c per Dr. Onofre. No cultures growing yeast. -ABX as per above Left facial cellulitis/left parotitis/left masseter muscle infection/left inframandibular infection, right parotitis, and sepsis/ persistent bacteremia -S/P 2 CT neck without contrast and MRI neck with da also showed no abscess or stone -showing some improvement but continues to persist. -consider ENT consult and possible surgical debridement. -continue abx as per above -continue lactinex probiotics -encourage lemon q1hr while awake -moist heat 20mins/hr -pain control Delirium, improved -due to pain, meds, poor sleep, hospital environment, continue to monitor -Monitor morphine and ativan doses Constipation, improved -C. diff negative -KUB not showing obstruction -Patient had 2 bowel movements yesterday -Continue dulcolax and milk of magnesia Atrial fibrillation/CVA -hold Xarelto, hold plavix -Heparin drip per pulmonology HTN, CHF -diltiazem extended release heart 180 mg PO -losartan 25 mg PO BID -continue clopidogrel -hold triamterene/HCTZ 37.5/25 daily until PO intake improves, but follow BP -CHF Stable, monitor troponins Diabetes mellitus- -hold metformin 500 mg PO TID - begin sliding scale NovoLog -appreciate glycemic pharm consult COPD -continue Symbicort 160/4.5 2 puffs twice a day -Xopenex PRN q2hrs . Depression -continue fluoxetine 10 mg PO every morning Hypercholesterolemia -continue simvastatin 40 mg PO Glaucoma -continue [place] P ophthalmic solution 1 drop OPB BID -timolol GFS 0.5% one drop OPB q12hrs Continued [facility] stay due to: abnormal vital signs, multiple IV medications needed
[2016-09-22] MEDS: LORAZEPAM 2 MG/ML 1 ML VIAL IV PRN ×2 (09:53→21:01)
[2016-09-22] MEDS ORDERED: NURSING VERBAL MED ORDER ONE ×2 (10:15→14:30)
[2016-09-22] MEDS: HEPARIN 25,000 UNIT/500ML D5W 500 ML IV PRN (10:27)
[2016-09-22] MEDS ORDERED: LOPERAMIDE LIQUID 1MG/7.5ML 120ML BTL NG PRN (12:15)
[2016-09-22] MEDS: MoRPHine SULFATE 2 MG/ML CARP IV PRN ×2 (12:39→19:49)
[2016-09-22] MEDS ORDERED: POTASSIUM CHLORIDE 10 MEQ TABCR PO STA (13:48)
[2016-09-22] MEDS ORDERED: POTASSIUM CHLR 20 MEQ / WTR 20 MEQ in PREMIXED WATER 100 ML IV ONE (14:00)
--- NOTE | 2016-09-22 14:28 | Pharmacy Progress Note ---
Glycemic Control: Progress Nt Date of Service Sep 22, 2016. Scope Glycemic Pharmacist consulted by Dr Vanegas on 09/12/16 for glycemic control and to write orders per [facility] inpatient glycemic control protocol. Objective Accuchecks BSG (last 24hrs): Test 09/21/16 18:17 09/22/16 00:04 09/22/16 05:24 09/22/16 07:50 Bedside Glucose 199 mg/dl (70-90) 158 mg/dl (70-90) 147 mg/dl (70-90) Random Glucose 121 mg/dl (70-99) Test 09/22/16 12:04 Bedside Glucose 169 mg/dl (70-90) Laboratory Data (last 24hrs) Test 09/22/16 07:50 Anion Gap 8.0 mmol/L BUN/Creatinine Ratio 18.6 Blood Urea Nitrogen 11 mg/dl Creatinine 0.57 mg/dl Potassium Level 3.0 mmol/L Sodium Level 135 mmol/L White Blood Count 21.20 K/uL Red Blood Count 3.07 M/uL Hemoglobin 9.4 g/dL Hematocrit 29.3 % Mean Corpuscular Volume 95.4 fL Mean Corpuscular Hemoglobin 30.6 pg Mean Corpuscular Hemoglobin Concent 32.1 g/dl Platelet Count 93 K/uL Mean Platelet Volume 10.2 fL Neutrophils (%) (Auto) 92.5 % Lymphocytes (%) (Auto) 5.6 % Monocytes (%) (Auto) 1.0 % Eosinophils (%) (Auto) 0.2 % Basophils (%) (Auto) 0.0 % Neutrophils # (Auto) 19.59 K/uL Lymphocytes # (Auto) 1.19 K/uL Monocytes # (Auto) 0.22 K/uL Eosinophils # (Auto) 0.04 K/uL Basophils # (Auto) 0.01 K/uL HbA1c: 9% 08/22/16 Recent Pertinent Medications Outpatient Anti-diabetic Regimen: * Metformin 500mg TID * A1c = 9 % 08/22/16 The patient is currently receiving: * Basal insulin: Lantus 15 units every 24 hours -- dosed at bedtime ; give 1/2 dose (8 units) if BSG less than 100 * Correctional Insulin: REGULAR insulin Correction per scale Q 6 hours Goal Range: Low 100 mg/dL - High 140 mg/dL Correction Factor: 25 mg/dL/unit * Prandial insulin: Regular insulin 4 units SQ 6 hrs to cover carbs in Fibersource TF @ 30ccc/hr * Oral Agents: None currently Risk Factors for Insulin Resistance: * Infection: facial cellulitis, parotiditis, masseter muscle infxn, MRSA bacteremia; receiving daptomycin + levofloxacin + linezolid IV + caspofungin * Diet: Fibersource TF @ 30cc/hr (delivers 29gm CHO every 6 hours) Assessment & Plan ASSESSMENT: 09/22/16 * Glycemic control remains acceptable; BSGs have ranged 121-199 over the last 24 hrs (only 1 BSG above 180) * Total daily insulin requirements have been 30-40 units/day with current stessors/diet * Fasting BSG 121 this AM with 15 units of Lantus on board. All points to the current Lantus dose being appropriate. This is the 4th day of Lantus at this dose. * Tube feeds continue at the same rate and the ordered Regular insulin for TF coverage has prevented BSGs from climbing PLAN FOR INPATIENT GLYCEMIC CONTROL: * Continue Lantus 15 units Q HS; give 1/2 dose (8 units) if BSG less than 100 * Continuing correction factor of 25 mg/dl/unit * Continuing Regular insulin Q 6 hrs to cover carbs delivered in continuous Fibersource HN feeds * 4 units Q 6 hrs for feeds running at 30cc/hr (which is her current goal) * Continuing goal range of Low 100 mg/dL - High 140 mg/dL * Please note that the plan above was derived based on current level of insulin resistance and hospital stress. These recommendations are appropriate for inpatient admission only. Plan of care upon discharge will need to be reassessed to avoid potential outpatient hypo/hyperglycemia. Thank you.
[2016-09-22] MEDS ORDERED: POTASSIUM CHLORIDE 20 MEQ/15 ML UDC PO ONE (14:30)
[2016-09-22] MEDS: CHOLESTYRAMINE LIGHT 4 GM PKT NG SCH ×2 (14:32→21:37)
[2016-09-22] MEDS: POTASSIUM CHLORIDE INJ 40 MEQ in SODIUM CHLORIDE 0.9% 1000ML 1,000 ML IV SCH (14:34)
--- NOTE | 2016-09-22 14:49 | Progress Note ---
Subjective Date of Service: Sep 22, 2016. Subjective All blood cultures to date + MRSA 09/09-09/18 with exception of 09/11 culture. wbc remains elevated but decreased today, now 21. c diff negative. remains on multiple abx. Awaiting re eval ENT. 09/22 blood cultures pending, remains afebrile. Problem List Medical Problems: (1) Abnormal EKG Status: Acute (2) Accidental drug ingestion Status: Acute (3) CHF (congestive heart failure) Status: Acute (4) Closed head injury Status: Acute (5) COPD exacerbation Status: Acute (6) Dysarthria Status: Acute (7) Facial cellulitis Status: Acute (8) Hypoxia Status: Acute (9) Leukocytosis Status: Acute (10) PNA (pneumonia) Status: Acute (11) Right leg weakness Status: Acute Objective Vital Signs Date Time Temp Pulse Resp B/P Pulse Ox O2 Delivery O2 Flow Rate FiO2 09/22/16 12:25 36.5 85 27 107/62 94 Nasal Cannula 5.0 Humidified Oxygen 09/22/16 12:00 96 Humidified Oxygen 3.0 09/22/16 08:15 36.4 88 24 145/69 98 Nasal Cannula 2.0 09/22/16 08:00 96 Humidified Oxygen 3.0 09/22/16 07:11 75 18 96 Nasal Cannula 2.0 09/22/16 04:00 96 Humidified Oxygen 3.0 09/22/16 03:25 36.4 75 20 119/73 96 Humidified Oxygen 3.0 09/22/16 02:31 86 18 96 Nasal Cannula 3.0 09/21/16 23:59 96 Humidified Oxygen 3.0 09/21/16 23:59 36.4 75 24 126/68 96 Humidified Oxygen 3.0 09/21/16 20:00 Room Air 09/21/16 19:52 84 18 99 Nasal Cannula 2.0 09/21/16 19:21 36.4 70 20 116/57 97 Nasal Cannula 3.0 Humidified Oxygen 09/21/16 16:00 Room Air 09/21/16 15:16 35.6 74 20 124/75 97 Nasal Cannula 3.5 Laboratory Results Item Value Date Time C.difficile Toxin B Gene (PCR) - Final Complete 09/21/16 1840 Stool No C. difficile toxin B gene detected Blood Culture - Preliminary Resulted 09/18/16 1200 Blood Staphylococcus Aureus Blood Culture - Final Complete 09/09/16 1215 Blood Staphylococcus Aureus Last 24 Hours Test 09/21/16 18:17 09/22/16 00:04 09/22/16 05:24 09/22/16 07:50 Bedside Glucose 199 mg/dl 158 mg/dl 147 mg/dl White Blood Count 21.20 K/uL Red Blood Count 3.07 M/uL Hemoglobin 9.4 g/dL Hematocrit 29.3 % Mean Corpuscular Volume 95.4 fL Mean Corpuscular Hemoglobin 30.6 pg Mean Corpuscular Hemoglobin Concent 32.1 g/dl Platelet Count 93 K/uL Mean Platelet Volume 10.2 fL Neutrophils (%) (Auto) 92.5 % Lymphocytes (%) (Auto) 5.6 % Monocytes (%) (Auto) 1.0 % Eosinophils (%) (Auto) 0.2 % Basophils (%) (Auto) 0.0 % Neutrophils # (Auto) 19.59 K/uL Lymphocytes # (Auto) 1.19 K/uL Monocytes # (Auto) 0.22 K/uL Eosinophils # (Auto) 0.04 K/uL Basophils # (Auto) 0.01 K/uL RDW Standard Deviation 56.2 fL RDW Coefficient of Variation 16.9 % Immature Granulocyte % (Auto) 0.7 % Immature Granulocyte # (Auto) 0.15 K/uL Toxic Vacuolation 1+ Activated Partial Thromboplast Time 52.0 SECONDS Partial Thromboplastin Ratio 2.0 Sodium Level 135 mmol/L Potassium Level 3.0 mmol/L Chloride Level 88 mmol/L Carbon Dioxide Level 39 mmol/L Anion Gap 8.0 mmol/L Blood Urea Nitrogen 11 mg/dl Creatinine 0.57 mg/dl Est Creatinine Clear Calc Drug Dose 74.0 ml/min Estimated GFR () 101.5 Estimated GFR (Non- 87.6 BUN/Creatinine Ratio 18.6 Random Glucose 121 mg/dl Calcium Level 7.9 mg/dl Test 09/22/16 12:04 Bedside Glucose 169 mg/dl Assessment and Plan (1) Staphylococcus aureus septicemia Assessment & Plan: follow repeat cultures, pending, no yeast identified, stop caspo, stop po vanco c diff negative. needs adequate source control, suspect she will require surgical debridement, if unable to undergo here, suggest transfer (2) Facial cellulitis Status: Acute (3) Leukocytosis Continued [facility] stay due to: abnormal vital signs, multiple IV medications needed
[2016-09-22] MEDS: DAPTOmycin IV 550 MG in SODIUM CHLORIDE 0.9% 50ML 50 ML IV SCH (16:51)
[2016-09-22] MEDS ORDERED: INSULIN GLARGINE SOLOSTAR 100 UNITS/ML 3 ML PEN SC SCH (18:00)
[2016-09-22] MEDS: LEVOFLOXACIN / D5W 750 MG in PREMIXED IN D5W 150 ML IV SCH (19:08)
--- NOTE | 2016-09-22 20:26 | Progress Note ---
Subjective Subjective Date of Service: Sep 22, 2016. Pt evaluation today including: conversation w/ patient, conversation w/ family , physical exam, chart review, review of studies, review of inpatient medication list Notes: confusion this afternoon Problem List Medical Problems: (1) Abnormal EKG Status: Acute (2) Accidental drug ingestion Status: Acute (3) CHF (congestive heart failure) Status: Acute (4) Closed head injury Status: Acute (5) COPD exacerbation Status: Acute (6) Dysarthria Status: Acute (7) Facial cellulitis Status: Acute (8) Hypoxia Status: Acute (9) Leukocytosis Status: Acute (10) PNA (pneumonia) Status: Acute (11) Right leg weakness Status: Acute Review of Systems Constitutional: No fever ENT: No hearing loss Respiratory: No cough Abdomen: No pain Neurologic: No memory loss Endo: No fatigue Physical Exam Vital Signs Vital Signs Past 24 Hours: Date Time Temp Pulse Resp B/P Pulse Ox O2 Delivery O2 Flow Rate FiO2 09/22/16 19:51 36.5 80 21 135/77 98 Nasal Cannula 3.0 09/22/16 19:18 91 18 96 Nasal Cannula 3.0 09/22/16 16:00 96 Humidified Oxygen 3.0 09/22/16 15:44 36.4 70 28 131/71 90 Nasal Cannula 3.0 09/22/16 13:28 93 18 100 Nasal Cannula 5.0 09/22/16 12:25 36.5 85 27 107/62 94 Nasal Cannula 5.0 Humidified Oxygen 09/22/16 12:00 96 Humidified Oxygen 3.0 09/22/16 08:15 36.4 88 24 145/69 98 Nasal Cannula 2.0 09/22/16 08:00 96 Humidified Oxygen 3.0 09/22/16 07:11 75 18 96 Nasal Cannula 2.0 09/22/16 04:00 96 Humidified Oxygen 3.0 09/22/16 03:25 36.4 75 20 119/73 96 Humidified Oxygen 3.0 09/22/16 02:31 86 18 96 Nasal Cannula 3.0 09/21/16 23:59 96 Humidified Oxygen 3.0 09/21/16 23:59 36.4 75 24 126/68 96 Humidified Oxygen 3.0 Physical Exam: General Appearance: no apparent distress Eyes: bilateral eyes normal inspection ENT: hearing grossly normal Neck: supple Respiratory/Chest: chest non-tender Cardiovascular: regular rate, rhythm Abdomen: normal bowel sounds Extremities: normal range of motion Neurologic/Psychiatric: + disoriented Skin: normal color Medications Medications: Current Inpatient Medications Medications (Trade) Dose Ordered Sig/Jose Route Start Time Stop Time Status Last Admin Dose Admin Acetaminophen (Tylenol Tab) 650 mg Q4H PRN PO 09/08/16 20:45 10/08/16 20:44 09/20/16 11:13 650 MG Zolpidem Tartrate (Ambien Tab) 5 mg HSZ PRN PO 09/08/16 20:45 10/08/16 20:44 Simvastatin (Zocor Tab) 40 mg QPM PO 09/08/16 21:00 10/08/16 20:59 09/21/16 21:13 40 MG Timolol Maleate (Timoptic-Xe 0.5% Oph Soln) 1 drops Q12 OPB 09/08/16 21:00 10/08/16 20:59 09/22/16 08:33 1 DROPS Lorazepam (Ativan Inj) 0.5 mg Q4H PRN IV 09/08/16 20:45 10/08/16 20:44 09/22/16 09:53 0.5 MG Magnesium Hydroxide (Milk Of Magnesia Susp) 30 ml Q6H PRN PO 09/08/16 20:45 10/08/16 20:44 Bisacodyl (Dulcolax Supp) 10 mg DAILY PRN IN 09/08/16 20:45 10/08/16 20:44 Diphenhydramine HCl (Benadryl Inj) 25 mg Q4H PRN IV 09/08/16 20:45 10/08/16 20:44 09/20/16 16:43 25 MG Al Hydrox/Mg Hydrox/ Simethicone 15 ml 15 ml Q4H PRN PO 09/08/16 20:45 10/08/16 20:44 Promethazine HCl/ Sodium Chloride (Phenergan Inj/ Nss 50ml) 50.5 ml @ 202 mls/hr Q4H PRN IV 09/08/16 20:45 10/08/16 20:44 Ondansetron HCl (Zofran Inj) 4 mg Q6H PRN IV 09/08/16 20:45 10/08/16 20:44 09/09/16 04:50 4 MG Glucose (Glucose 40% Gel) UD PRN PO 09/08/16 20:45 10/08/16 20:44 Glucose (Glucose Chew Tab) 1 tabs UD PRN PO 09/08/16 20:45 10/08/16 20:44 Dextrose (Dextrose 50% 50ML Syringe) 50 ml UD PRN IV 09/08/16 20:45 10/08/16 20:44 Glucagon (Glucagon Inj) 1 mg UD PRN SQ 09/08/16 20:45 10/08/16 20:44 Heparin Sodium (Porcine) (Heparin 10 Unit/ ml 5 ml Flush) 5 ml PRN PRN FLUSH 09/09/16 12:45 10/09/16 12:44 09/10/16 15:27 5 ML Miconazole Nitrate (Desenex Powder) 1 appln PRN PRN EXT 09/11/16 15:00 10/11/16 14:59 09/21/16 18:43 1 APPLN Miscellaneous Information (Consult Glycemic Management Pharmacy) 1 ea UD N/A 09/12/16 17:14 10/12/16 17:13 Diltiazem HCl (Cardizem Tab) 60 mg QID PO 09/13/16 13:00 10/13/16 12:59 09/22/16 14:27 60 MG Morphine Sulfate (MoRPHine SULFATE INJ) 1 mg Q4H PRN IV 09/15/16 09:30 09/29/16 09:29 09/22/16 19:49 1 MG Insulin Human Regular (novoLIN-R) This entry serves as c... Q6 SC 09/16/16 12:00 10/16/16 11:59 09/22/16 18:29 4 UNITS Brimonidine Tartrate 1 drops 1 drops BID OPB 09/16/16 21:00 10/16/16 20:59 09/22/16 08:32 1 DROPS Furosemide 20 mg/ Syringe 2 ml @ 4 mls/min BID17 IV 09/16/16 17:00 10/16/16 16:59 09/22/16 16:11 4 MLS/MIN Daptomycin 550 mg/ Sodium Chloride 61 ml @ 100 mls/hr DAILY@1600 IV 09/17/16 16:00 09/24/16 16:37 09/22/16 16:51 100 MLS/HR Linezolid/Prmx (Zyvox / D5W/ Premixed D5W) 300 ml @ 300 mls/hr Q12H IV 09/17/16 12:00 10/01/16 11:59 09/22/16 14:22 300 MLS/HR Fluoxetine HCl (Prozac Soln) 10 mg QAM PO 09/17/16 10:30 10/17/16 10:29 09/22/16 08:33 10 MG Insulin Human Regular SLIDING SCALE Q6 SC 09/18/16 18:00 10/18/16 17:59 09/22/16 18:00 2 UNITS Levofloxacin/Prmx (Levaquin / D5W/ Premixed D5W) 150 ml @ 100 mls/hr DAILY@1800 IV 09/18/16 18:00 09/25/16 17:59 09/22/16 19:08 100 MLS/HR Ipratropium [place] (Atrovent 0.02% 0.5MG/2.5ML Neb) 0.5 mg Q6R INH 09/18/16 21:00 10/18/16 20:59 09/22/16 19:17 0.5 MG Levalbuterol 1.25 mg 1.25 mg Q6R INH 09/18/16 21:00 10/18/16 20:59 09/22/16 19:17 1.25 MG Heparin Sodium/ Dextrose (Heparin 25,000 Unit/500ml D5W) 500 ml @ 14 mls/hr Q24H PRN IV 09/18/16 17:30 10/18/16 17:29 09/22/16 10:27 14 MLS/HR Phenol (Chloraseptic 1.4% [place]) 2 sprays UD PRN MT 09/20/16 13:30 10/20/16 13:29 Enteral Nutritional Formula (Fibersource HN) 1,000 ml UD NG 09/21/16 10:45 10/21/16 10:44 09/22/16 19:49 1,000 ML Budesonide (Pulmicort Respules 0.5MG/ 2ML Neb Soln) 0.5 mg BIDR INH 09/21/16 20:00 10/21/16 19:59 09/22/16 19:17 0.5 MG Insulin Glargine (Lantus Solostar Pen) SEE PROTOCOL TEXT DAILY@1800 SC 09/22/16 18:00 10/22/16 17:59 09/22/16 18:00 15 UNIT Cholestyramine Resin (Questran Powder Light) 4 gm BID@10,22 NG 09/22/16 13:00 10/22/16 12:59 Loperamide HCl 2 mg 2 mg PRN PRN NG 09/22/16 12:15 10/22/16 12:14 Potassium Chloride/Sodium Chloride (KCl Inj/Nss 1000ml) 1,020 ml @ 80 mls/hr [id number] IV 09/22/16 14:30 10/22/16 14:29 09/22/16 14:34 80 MLS/HR Laboratory Data Labs: Last 24 Hours Test 09/22/16 00:04 09/22/16 05:24 09/22/16 07:50 09/22/16 12:04 Bedside Glucose 158 mg/dl 147 mg/dl 169 mg/dl White Blood Count 21.20 K/uL Red Blood Count 3.07 M/uL Hemoglobin 9.4 g/dL Hematocrit 29.3 % Mean Corpuscular Volume 95.4 fL Mean Corpuscular Hemoglobin 30.6 pg Mean Corpuscular Hemoglobin Concent 32.1 g/dl Platelet Count 93 K/uL Mean Platelet Volume 10.2 fL Neutrophils (%) (Auto) 92.5 % Lymphocytes (%) (Auto) 5.6 % Monocytes (%) (Auto) 1.0 % Eosinophils (%) (Auto) 0.2 % Basophils (%) (Auto) 0.0 % Neutrophils # (Auto) 19.59 K/uL Lymphocytes # (Auto) 1.19 K/uL Monocytes # (Auto) 0.22 K/uL Eosinophils # (Auto) 0.04 K/uL Basophils # (Auto) 0.01 K/uL RDW Standard Deviation 56.2 fL RDW Coefficient of Variation 16.9 % Immature Granulocyte % (Auto) 0.7 % Immature Granulocyte # (Auto) 0.15 K/uL Toxic Vacuolation 1+ Activated Partial Thromboplast Time 52.0 SECONDS Partial Thromboplastin Ratio 2.0 Sodium Level 135 mmol/L Potassium Level 3.0 mmol/L Chloride Level 88 mmol/L Carbon Dioxide Level 39 mmol/L Anion Gap 8.0 mmol/L Blood Urea Nitrogen 11 mg/dl Creatinine 0.57 mg/dl Est Creatinine Clear Calc Drug Dose 74.0 ml/min Estimated GFR () 101.5 Estimated GFR (Non- 87.6 BUN/Creatinine Ratio 18.6 Random Glucose 121 mg/dl Calcium Level 7.9 mg/dl Test 09/22/16 17:51 Bedside Glucose 189 mg/dl Assessment and Plan A 80 yo female here with MRSA bacteremia / Cx remains positive (last positive blood Cx was 09/17) consulted ENT to determine source of bacteremia leukocytosis,improving baseline CPK is 26 will repeat in one week dapto to 8mg/kg / zyvox for synergistic effect , changed PICC line 09/17 CT chest/abd and pelvis, showed B/L pneumonia, large pleural effusion ? empyema , consult travel specialist, consider thoracocentesis (D/W Dr. De Leon, plavix is on hold and xarelto is switched to heparin drip) caspofungin stopped as per Dr. Ornelas echo to r/o vegetations. 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 Barrett, hold plavix for planed thoracocentesis on wednesday or at least needle sample for R/O empyema initiate bronchodilators chest PT systolic cardiomyopathy with CHF exacerbation appearance of takutsubo's - check troponin, follow. no s/s CHF, may need cardiology involvement but right now appearing stable hold lasix 20mg IV BID due to dehydration afib/RVR rate controlled- transition back from IV to PO diltiazem held xarelto 09/17, continue heparin drip metabolic encephalopathy / delirium, improved due to pain, meds, poor sleep, hospital environment, continue to monitor Decrease morphine and ativan doses Dysphagia possible aspiration, poor oral intake, painful swallowing place NGT , lower rate of TF, has refeeding syndrome D/W Daughter and next of Kin who is agreeable to the plan, also patient gave permission to discuss the case with her granddaughter CAD/hypertension/TIA/CVA-- continue clopidogrel / Xarelto continue diltiazem extended release heart (increased to 180) mg by mouth daily continue losartan 25 mg by mouth twice a day, hold triamterene/HCTZ 37.5/25 daily until PO intake improves, but follow BP Diabetes mellitus type 2 hold metformin 500, pharmacy glycemic consult given need for ongoing steroids ( currently on drip) COPD, continue Symbicort 160/4.5 2 puffs twice a day, nebs prn, including for cough, also on Ativan/xopenex nebulizer Depression, continue fluoxetine 10 mg by mouth every morning. Hypercholesterolemia, continue simvastatin 40 mg by mouth every afternoon. Glaucoma, continue Alphagan P ophthalmic solution 1 drop OPB twice a day, and timolol GFS 0.5% one drop OPB every 12 hours. FULL Code Continued [facility] stay due to: abnormal vital signs, multiple IV medications needed
[2016-09-22] MEDS: SIMVASTATIN 40 MG TAB PO SCH (20:56)
[2016-09-22] MEDS: ACETAMINOPHEN 325 MG TAB PO PRN (21:02)
[2016-09-23] VITALS (9 sets, daily range): BP systolic 110–129; BP diastolic 63–89; PULSE 63–84; TEMP 35–36.4; O2SAT 80–98
[2016-09-23] MEDS: LINEZOLID / D5W 600 MG in PREMIXED IN D5W 300 ML IV SCH ×2 (00:16→12:42)
[2016-09-23] MEDS: INSULIN HUMAN REGULAR SC SCH ×4 (00:21→05:56)
[2016-09-23] MEDS: IPRATROPIUM BROMIDE NEB SOLN 0.02% 2.5 ML VIAL INH SCH ×2 (02:55→05:27)
[2016-09-23] MEDS: LEVALBUTEROL 1.25MG/0.5ML NEB INH SCH ×2 (02:55→05:27)
[2016-09-23] MEDS: POTASSIUM CHLORIDE INJ 40 MEQ in SODIUM CHLORIDE 0.9% 1000ML 1,000 ML IV SCH (03:35)
[2016-09-23] MEDS ORDERED: POTASSIUM CHLR 10 MEQ / WTR 10 MEQ in PREMIXED WATER 100 ML IV SCH (04:45)
[2016-09-23 05:08] LABS: PARTIAL THROMBOPLASTIN RATIO 2.1
[2016-09-23 05:16] LABS: ALB/GLOB RATIO 0.4 (0.9-2); BUN/CREATININE RATIO 23.5 (10-20); CALCIUM 7.7 mg/dl (8.5-10.1); CREATININE 0.62 mg/dl (0.60-1.20); HEMATOCRIT 26.2 % (37-47); MAGNESIUM 1.6 mg/dl (1.8-2.4); MEAN CELL VOLUME 100.4 fL (80-100); MEAN CORPUSCULAR HEMOGLOBIN 31.4 pg (25-34); MEAN CORPUSCULAR HGB CONC 31.3 g/dl (32-36); MEAN PLATELET VOLUME 10.9 fL (7.4-10.4); PHOSPHORUS 3.5 mg/dl (2.5-4.9); PLATELET COUNT 95 K/uL (130-400); POTASSIUM 4.6 mmol/L (3.5-5.1); RED BLOOD COUNT 2.61 M/uL (4.2-5.4)
--- NOTE | 2016-09-23 05:28 | Progress Note ---
Progress Note I was paged at approximately 04:15. Patient was noted to be desaturating hypoxic. I arrived at the to the bedside to assess the patient: SUBJECTIVE: Patient was asleep, confused, does wake to sternal rub but is not oriented and cannot endorse presence or absence of symptoms OBJECTIVE: - Item Value Date Time Oxygen Delivery Method Venturi Mask 09/23/16399 Oxygen Delivery Method Venturi Mask 09/23/16399 Oxygen Flow Rate 8.0 L/min 09/23/16399 Vital Signs Label Value Date Time Bedside Pulse Oximetry 92 % 09/23/16399 Blood Pressure Assessment 129/89 09/23/16399 Location Right Arm Source NIBP Position Sitting Respiratory Rate 28 H 09/23/16399 Pulse 80 09/23/16399 Location Right Brachial Rhythm Regular Patient Temperature 36.4 C. 09/23/16399 Temperature Source Oral 09/23/16399 Gen. inspection: Patient is not in distress, somnolent Oxygen saturations 99% on nonrebreather mask Respiratory: And expiratory wheezing bilaterally coarse breath sounds, no crackles ASSESSMENT/PLAN: 80-year-old female with desaturation, transitional nasal cannula to nonrebreather. Symptomatically appears comfortable and not in any distress. This has happened to me previously at nighttime which she transiently desaturates, requires escalation respiratory support but eventually can be weaned back down fairly quickly back to nasal cannula as. I'm uncertain of the cause at this time. Possibilities include trace aspiration, apnea, PEs. She is noted to have pleural effusions, though its unusual to me that she transiently desaturated in a non-positional fashion. Seems unlikely that it is a pneumonia given that its transient and the same goes for acute CHF exacerbation. I did speak with the daughter yadira and did inform her the situation but did reassure her that her mother remained stable at this time. I did reiterate the question what to do in the event that the desaturations persisted and she needed escalation in her respiratory care specifically the need for BiPAP and in an emergent situation potentially intubation and ventilation. Daughter could not give me a clear answer regarding emergent resuscitative efforts, though she has expressed that long-term she would not like her mother to be on a ventilator. However given that we cannot predict how long any patient would need to be on a ventilator, daughter still wants her mother to be acutely resuscitated if needed in an emergent situation. I will continue to follow her through the night and will defer to her primary day team to consider initiating discussion about goals of care.
[2016-09-23] MEDS: MAGNESIUM SULFATE 1GM / D5W 1 GM in PREMIXED IN D5W 100 ML IV SCH ×2 (05:44→06:47)
[2016-09-23] MEDS ORDERED: NURSING VERBAL MED ORDER ONE ×2 (06:00→18:00)
--- NOTE | 2016-09-23 07:32 | DIAGNOSTIC IMAGING REPORT ---
CHEST ONE VIEW PORTABLE CLINICAL HISTORY: HYPOXIA COMPARISON STUDY: 09/18/2016 FINDINGS: There is a nasogastric tube which passes into the stomach. The cardiac and mediastinal contours remain stable. There is a left-sided PICC catheter which projects over the left axilla. There are persistent moderate bilateral pleural effusions with bilateral lower lobe atelectasis/consolidation. There is mild pulmonary vascular congestion.[ IMPRESSION: 1. Cardiomegaly and mild pulmonary vascular congestion 2. Persistent moderate bilateral pleural effusions with bibasal atelectasis/consolidation Electronically signed by: Mars Albrecht M.D. 09/23/2016 7:31 AM Dictated Date/Time: 09/23/2016 7:30 AM
[2016-09-23] MEDS: BRIMONIDINE TARTRATE-P 0.15% 5 ML BTL OPB SCH ×2 (08:30→21:01)
[2016-09-23] MEDS: TIMOLOL GFS 0.5% OPH SOLN 74 DROPS/5 ML BTL OPB SCH ×2 (08:30→21:00)
[2016-09-23] MEDS: DILTIAZEM HCL 60 MG TAB PO SCH (08:31)
[2016-09-23] MEDS: FLUOXETINE HCL 20 MG/5 ML PO SCH (08:32)
[2016-09-23] MEDS: LORAZEPAM 2 MG/ML 1 ML VIAL IV PRN ×3 (11:11→17:58)
[2016-09-23] MEDS: CHOLESTYRAMINE LIGHT 4 GM PKT NG SCH (11:11)
--- NOTE | 2016-09-23 11:19 | Progress Note ---
Subjective Date of Service: Sep 23, 2016. Subjective Pt evaluation today including: conversation w/ patient, conversation w/ family , chart review, lab review pt seen in follow up, multiple family present at bedside. had episode of resp distress overnight, on nrb. awake at time during my visit, asking for water. She remains on broad spectrum abx for persistent MRSA sepsis, most recent blood cultures from 09/22 pending. all others dating back to 09/09 + with exception of culture dated 09/11. She is afebrile. wbc mildly better today, 20. lfts nml. has been on high dose dapto 8mg/kg and zyvox for anti toxin effect for prolonged time and remains bacteremic. I did explain to family that she remains with infection despite multiple days of high dose abx. She can not have contrast and this has impeded previous scans, family states today they do not know reaction to dye. She now is much more lethargic requiring increased O2, family states she has refused previous discussions regarding thorocenthesis, she remains with effusions on cxr today and atelectasis, explained to family that this may be contributing to increased resp distress overnight. ENT eval requested again yesterday by primary, await findings. Family is concerned with new resp distress she may not tolerated procedures at this time. I was asked by family to continue discussions outside of room as it was felt discussing her care in the room was upsetting the patient. She has not had repeat cpk in some time while on high dose dapto. Problem List Medical Problems: (1) Abnormal EKG Status: Acute (2) Accidental drug ingestion Status: Acute (3) CHF (congestive heart failure) Status: Acute (4) Closed head injury Status: Acute (5) COPD exacerbation Status: Acute (6) Dysarthria Status: Acute (7) Facial cellulitis Status: Acute (8) Hypoxia Status: Acute (9) Leukocytosis Status: Acute (10) PNA (pneumonia) Status: Acute (11) Right leg weakness Status: Acute Objective Vital Signs Date Time Temp Pulse Resp B/P Pulse Ox O2 Delivery O2 Flow Rate FiO2 09/23/16 08:00 97 Non-Rebreather 8.0 09/23/16 07:35 35.0 84 24 110/63 97 Non-Rebreather 09/23/16 07:33 36.4 79 18 119/63 97 High Flow Oxygen 09/23/16 05:23 77 18 95 Non-Rebreather 09/23/16 04:00 36.4 80 28 129/89 92 Venturi Mask 09/23/16 04:00 92 Venturi Mask 8.0 09/23/16 02:55 78 18 80 Nasal Cannula 3.0 09/23/16 00:01 94 Nasal Cannula 3.0 09/22/16 23:10 36.4 76 26 125/72 94 Nasal Cannula 3.0 09/22/16 20:00 98 Nasal Cannula 3.0 09/22/16 19:51 36.5 80 21 135/77 98 Nasal Cannula 3.0 09/22/16 19:18 91 18 96 Nasal Cannula 3.0 09/22/16 16:00 96 Humidified Oxygen 3.0 09/22/16 15:44 36.4 70 28 131/71 90 Nasal Cannula 3.0 09/22/16 13:28 93 18 100 Nasal Cannula 5.0 09/22/16 12:25 36.5 85 27 107/62 94 Nasal Cannula 5.0 Humidified Oxygen 09/22/16 12:00 96 Humidified Oxygen 3.0 Physical Exam General Appearance: + pertinent finding (on nrb, more lethargic today) ENT: + pertinent finding (feeding tube in place) Respiratory/Chest: + respiratory distress Extremities: no pedal edema Skin: normal color Comments: essentially no change in size of neck mass, less warmth and erythema for some time but remains painful and large Laboratory Results Item Value Date Time Blood Culture - Preliminary Resulted 09/18/16 1200 Blood Staphylococcus Aureus Last 24 Hours Test 09/22/16 12:04 09/22/16 17:51 09/23/16 00:09 09/23/16 04:40 Bedside Glucose 169 mg/dl 189 mg/dl 204 mg/dl White Blood Count 20.10 K/uL Red Blood Count 2.61 M/uL Hemoglobin 8.2 g/dL Hematocrit 26.2 % Mean Corpuscular Volume 100.4 fL Mean Corpuscular Hemoglobin 31.4 pg Mean Corpuscular Hemoglobin Concent 31.3 g/dl RDW Standard Deviation 59.0 fL RDW Coefficient of Variation 16.8 % Platelet Count 95 K/uL Mean Platelet Volume 10.9 fL Activated Partial Thromboplast Time 53.4 SECONDS Partial Thromboplastin Ratio 2.1 Sodium Level 134 mmol/L Potassium Level 4.6 mmol/L Chloride Level 88 mmol/L Carbon Dioxide Level 40 mmol/L Anion Gap 6.0 mmol/L Blood Urea Nitrogen 15 mg/dl Creatinine 0.62 mg/dl Est Creatinine Clear Calc Drug Dose 68.0 ml/min Estimated GFR () 98.7 Estimated GFR (Non- 85.2 BUN/Creatinine Ratio 23.5 Random Glucose 201 mg/dl Calcium Level 7.7 mg/dl Phosphorus Level 3.5 mg/dl Magnesium Level 1.6 mg/dl Total Bilirubin 0.3 mg/dl Aspartate Amino Transf (AST/SGOT) 24 U/L Alanine Aminotransferase (ALT/SGPT) 12 U/L Alkaline Phosphatase 51 U/L Total Protein 5.5 gm/dl Albumin 1.6 gm/dl Globulin 3.9 gm/dl Albumin/Globulin Ratio 0.4 Test 09/23/16 05:30 09/23/16 05:51 09/23/16 11:00 Procalcitonin 0.13 ng/mL Bedside Glucose 211 mg/dl Assessment and Plan (1) Staphylococcus aureus septicemia Assessment & Plan: She has pending cultures from 09/22, explained to family these results are not yet back but she will remain on abx. I had long discussion with family in room and in hallway with daughter and 2 other family members as well. I did explain to the family that she remains with + cultures despite multiple days of effective therapy for mrsa, she has been placed on higher doses with no effect. I do not feel she has had adequate source control. She has undergone multiple ct scans and mri of neck with no clear abscess but she has had no contrast due to reported allergy. She has had ct c/a/p (again no contrast) to look for another metastatic site of infection and were negative as well. she did have tte earlier this admission which was negative, repeat pending. she has had picc removal with culture of tip (negative) with no effect on blood culture results. I do feel she would benefit from an infection standpoint from surgical debridement of her neck/parotid as I feel this is the source of infection. I do not believe that her effusions are a source for persistent infection. ENT eval pending. Her family is concerned at this point if she would tolerate any additional procedures, she has had increased sob/resp distress overnight. I am concerned that she will not clear her blood cultures with abx alone as she has not yet done so despite multiple IV abx at high dose. will repeat cpk today as she has been on prolonged high dose dapto, lfts nml. c diff negative. continue with supportive care. will follow. answered family questions. updated. (2) Facial cellulitis Status: Acute (3) Leukocytosis Continued [facility] stay due to: abnormal vital signs, multiple IV medications needed
--- NOTE | 2016-09-23 11:28 | Pulmonology Progress Note ---
Pulmonary Progress Note Date of Service Sep 23, 2016. Attending Matheus Barrett Subjective patient obtunded Objective 80-yo female admitted to [facility] 09/08/16 with left facial cellulitis, MRSA bacteremia, and bilateral pleural effusion. PMHx includes: Diastolic cardiac dysfunction, bronchiectasis, COPD (FEV1: 53%) atrial fibrillation (on rivaroxaban), hyperlipidemia, hypertension, lung nodule , and CVA. Prior pulmonary cultures: pseudomonas aeruginosa (bronchoscopy - 2014, tx ciprofloxacin), Group B Beta Strep (sputum: 08/18 & 10/13), few aspergillus (sputum: 08/16). Former tobacco: 50-pack year, quit 2008. Patient admitted to [facility] 09/08/16 with left sided facial pain. W/U notable for involvement of parotitis, masseter, inframandibular without abscess. Blood cultures isolated MRSA (09/09 through 09/19). Echocardiogram 09/08/16: significant reduction in LV function compared to prior, EF 25-30%, MR/TR and small ASV. She was treated with broad spectrum antibiotic and followed by ID (Vancomycin, daptomycin, linezolid, Levaquin, and caspofungin). CT C/A/P 09/17/16: moderate- large pleural effusion Rt > Left with mucoid material of the RLL and mid- tracheal ? aspiration, and cardiomegaly. Also noted some ? tracheal collapse/ narrowing, and anasarca. 09/19/16 pulmonary consulted in consideration for thoracentesis and bronchoscopy. She was not felt to be stable for )bronchoscopy at that time. Thoracentesis pending clearance of clopidogrel (last 09/19). labs reviewed Physical Exam: Constitutional: obtunded Head: + NGT FiberSource @ 30 and Nasal cannula Mouth: moist mucous membranes. Edentulous Neck: fullness of left neck/head marked without erythema Respiratory: decreased BS at the basis bilaterally CV: regular rate. Warm peripherally. +1 DP on right. Thready DP on left. Abdomen: Soft, non-tender. active BS all 4-quadrants : newsome catheter draining clear yellow urine MSK/Extremities: mild dependent edema Assessment & Plan 80-year-old female admitted with parotitis, MRSA bacteremia and bilateral pleural effusions: 1. Bilateral Pleural Effusion with hypoxia and likely hypoventilation: I had a long conversation with the patient's family and at this time they would like to move toward hospice care. i will sign-off Data Medications: Current Inpatient Medications Medications (Trade) Dose Ordered Sig/Jose Route Start Time Stop Time Status Last Admin Dose Admin Acetaminophen (Tylenol Tab) 650 mg Q4H PRN PO 09/08/16 20:45 10/08/16 20:44 09/22/16 21:02 650 MG Zolpidem Tartrate (Ambien Tab) 5 mg HSZ PRN PO 09/08/16 20:45 10/08/16 20:44 Simvastatin (Zocor Tab) 40 mg QPM PO 09/08/16 21:00 10/08/16 20:59 09/22/16 20:56 40 MG Timolol Maleate (Timoptic-Xe 0.5% Oph Soln) 1 drops Q12 OPB 09/08/16 21:00 10/08/16 20:59 09/23/16 08:30 1 DROPS Lorazepam (Ativan Inj) 0.5 mg Q4H PRN IV 09/08/16 20:45 10/08/16 20:44 09/23/16 11:11 0.5 MG Magnesium Hydroxide (Milk Of Magnesia Susp) 30 ml Q6H PRN PO 09/08/16 20:45 10/08/16 20:44 Bisacodyl (Dulcolax Supp) 10 mg DAILY PRN [place] 09/08/16 20:45 10/08/16 20:44 Diphenhydramine HCl (Benadryl Inj) 25 mg Q4H PRN IV 09/08/16 20:45 10/08/16 20:44 09/20/16 16:43 25 MG Al Hydrox/Mg Hydrox/ Simethicone 15 ml 15 ml Q4H PRN PO 09/08/16 20:45 10/08/16 20:44 Promethazine HCl/ Sodium Chloride (Phenergan Inj/ Nss 50ml) 50.5 ml @ 202 mls/hr Q4H PRN IV 09/08/16 20:45 10/08/16 20:44 Ondansetron HCl (Zofran Inj) 4 mg Q6H PRN IV 09/08/16 20:45 10/08/16 20:44 09/09/16 04:50 4 MG Glucose (Glucose 40% Gel) UD PRN PO 09/08/16 20:45 10/08/16 20:44 Glucose (Glucose Chew Tab) 1 tabs UD PRN PO 09/08/16 20:45 10/08/16 20:44 Dextrose (Dextrose 50% 50ML Syringe) 50 ml UD PRN IV 09/08/16 20:45 10/08/16 20:44 Glucagon (Glucagon Inj) 1 mg UD PRN SQ 09/08/16 20:45 10/08/16 20:44 Heparin Sodium (Porcine) (Heparin 10 Unit/ ml 5 ml Flush) 5 ml PRN PRN FLUSH 09/09/16 12:45 10/09/16 12:44 09/10/16 15:27 5 ML Miconazole Nitrate (Desenex Powder) 1 appln PRN PRN EXT 09/11/16 15:00 10/11/16 14:59 09/21/16 18:43 1 APPLN Miscellaneous Information (Consult Glycemic Management Pharmacy) 1 ea UD N/A 09/12/16 17:14 10/12/16 17:13 Diltiazem HCl (Cardizem Tab) 60 mg QID PO 09/13/16 13:00 10/13/16 12:59 09/23/16 08:31 60 MG Morphine Sulfate (MoRPHine SULFATE INJ) 1 mg Q4H PRN IV 09/15/16 09:30 09/29/16 09:29 09/22/16 19:49 1 MG Insulin Human Regular (novoLIN-R) This entry serves as c... Q6 SC 09/16/16 12:00 10/16/16 11:59 09/23/16 05:56 4 UNITS Brimonidine Tartrate 1 drops 1 drops BID OPB 09/16/16 21:00 10/16/16 20:59 09/23/16 08:30 1 DROPS Furosemide 20 mg/ Syringe 2 ml @ 4 mls/min BID17 IV 09/16/16 17:00 10/16/16 16:59 Future Hold 09/22/16 16:11 4 MLS/MIN Daptomycin 550 mg/ Sodium Chloride 61 ml @ 100 mls/hr DAILY@1600 IV 09/17/16 16:00 09/24/16 16:37 09/22/16 16:51 100 MLS/HR Linezolid/Prmx (Zyvox / D5W/ Premixed D5W) 300 ml @ 300 mls/hr Q12H IV 09/17/16 12:00 10/01/16 11:59 09/23/16 00:16 300 MLS/HR Fluoxetine HCl (Prozac Soln) 10 mg QAM PO 09/17/16 10:30 10/17/16 10:29 09/23/16 08:32 10 MG Insulin Human Regular SLIDING SCALE Q6 SC 09/18/16 18:00 10/18/16 17:59 09/23/16 05:56 3 UNITS Levofloxacin/Prmx (Levaquin / D5W/ Premixed D5W) 150 ml @ 100 mls/hr DAILY@1800 IV 09/18/16 18:00 09/25/16 17:59 09/22/16 19:08 100 MLS/HR Ipratropium [place] (Atrovent 0.02% 0.5MG/2.5ML Neb) 0.5 mg Q6R INH 09/18/16 21:00 10/18/16 20:59 09/23/16 05:27 0.5 MG Levalbuterol 1.25 mg 1.25 mg Q6R INH 09/18/16 21:00 10/18/16 20:59 09/23/16 05:27 1.25 MG Heparin Sodium/ Dextrose (Heparin 25,000 Unit/500ml D5W) 500 ml @ 14 mls/hr Q24H PRN IV 09/18/16 17:30 10/18/16 17:29 09/22/16 10:27 14 MLS/HR Phenol (Chloraseptic 1.4% [place]) 2 sprays UD PRN MT 09/20/16 13:30 10/20/16 13:29 Enteral Nutritional Formula (Fibersource HN) 1,000 ml UD NG 09/21/16 10:45 10/21/16 10:44 09/22/16 19:49 1,000 ML Budesonide (Pulmicort Respules 0.5MG/ 2ML Neb Soln) 0.5 mg BIDR INH 09/21/16 20:00 10/21/16 19:59 09/22/16 19:17 0.5 MG Insulin Glargine (Lantus Solostar Pen) SEE PROTOCOL TEXT DAILY@1800 SC 09/22/16 18:00 10/22/16 17:59 09/22/16 18:00 15 UNIT Cholestyramine Resin (Questran Powder Light) 4 gm BID@10,22 NG 09/22/16 13:00 10/22/16 12:59 09/23/16 11:11 4 GM Loperamide HCl (Imodium A-D Liquid) 2 mg PRN PRN NG 09/22/16 12:15 10/22/16 12:14 I & O: 24-Hour Column 09/23/16 08:00 Intake Total 3348 ml Output Total 800 ml Balance 2548 ml Vital Signs: Date Time Temp Pulse Resp B/P Pulse Ox O2 Delivery O2 Flow Rate FiO2 09/23/16 11:17 Non-Rebreather 09/23/16 08:00 97 Non-Rebreather 8.0 09/23/16 07:35 35.0 84 24 110/63 97 Non-Rebreather 09/23/16 07:33 36.4 79 18 119/63 97 High Flow Oxygen 09/23/16 05:23 77 18 95 Non-Rebreather 09/23/16 04:00 36.4 80 28 129/89 92 Venturi Mask 09/23/16 04:00 92 Venturi Mask 8.0 09/23/16 02:55 78 18 80 Nasal Cannula 3.0 09/23/16 00:01 94 Nasal Cannula 3.0 09/22/16 23:10 36.4 76 26 125/72 94 Nasal Cannula 3.0 09/22/16 20:00 98 Nasal Cannula 3.0 09/22/16 19:51 36.5 80 21 135/77 98 Nasal Cannula 3.0 09/22/16 19:18 91 18 96 Nasal Cannula 3.0 09/22/16 16:00 96 Humidified Oxygen 3.0 09/22/16 15:44 36.4 70 28 131/71 90 Nasal Cannula 3.0 09/22/16 13:28 93 18 100 Nasal Cannula 5.0 09/22/16 12:25 36.5 85 27 107/62 94 Nasal Cannula 5.0 Humidified Oxygen 09/22/16 12:00 96 Humidified Oxygen 3.0 Laboratory Results: Last 24 Hours Test 09/22/16 12:04 09/22/16 17:51 09/23/16 00:09 09/23/16 04:40 Bedside Glucose 169 mg/dl 189 mg/dl 204 mg/dl White Blood Count 20.10 K/uL Red Blood Count 2.61 M/uL Hemoglobin 8.2 g/dL Hematocrit 26.2 % Mean Corpuscular Volume 100.4 fL Mean Corpuscular Hemoglobin 31.4 pg Mean Corpuscular Hemoglobin Concent 31.3 g/dl RDW Standard Deviation 59.0 fL RDW Coefficient of Variation 16.8 % Platelet Count 95 K/uL Mean Platelet Volume 10.9 fL Activated Partial Thromboplast Time 53.4 SECONDS Partial Thromboplastin Ratio 2.1 Sodium Level 134 mmol/L Potassium Level 4.6 mmol/L Chloride Level 88 mmol/L Carbon Dioxide Level 40 mmol/L Anion Gap 6.0 mmol/L Blood Urea Nitrogen 15 mg/dl Creatinine 0.62 mg/dl Est Creatinine Clear Calc Drug Dose 68.0 ml/min Estimated GFR () 98.7 Estimated GFR (Non- 85.2 BUN/Creatinine Ratio 23.5 Random Glucose 201 mg/dl Calcium Level 7.7 mg/dl Phosphorus Level 3.5 mg/dl Magnesium Level 1.6 mg/dl Total Bilirubin 0.3 mg/dl Aspartate Amino Transf (AST/SGOT) 24 U/L Alanine Aminotransferase (ALT/SGPT) 12 U/L Alkaline Phosphatase 51 U/L Total Protein 5.5 gm/dl Albumin 1.6 gm/dl Globulin 3.9 gm/dl Albumin/Globulin Ratio 0.4 Test 09/23/16 05:30 09/23/16 05:51 09/23/16 11:00 Procalcitonin 0.13 ng/mL Bedside Glucose 211 mg/dl
[2016-09-23] MEDS ORDERED: GLUCAGON FOR INJ 1 MG VIAL SQ PRN (11:45)
[2016-09-23] MEDS ORDERED: GLUCOSE 40% GEL 15 GM TUBE PO PRN (11:45)
[2016-09-23] MEDS ORDERED: GLUCOSE 10 TABS/TUBE PO PRN (11:45)
[2016-09-23] MEDS ORDERED: DEXTROSE 50% 50 ML SYR IV PRN (11:45)
[2016-09-23 12:13] LABS: MAGNESIUM 2.3 mg/dl (1.8-2.4)
[2016-09-23] MEDS: MoRPHine SULFATE 2 MG/ML CARP IV PRN ×3 (13:02→20:59)
[2016-09-23] MEDS: INSULIN ASPART 100 UNITS/ML 3 ML PEN SC SCH ×2 (16:30→21:00)
--- NOTE | 2016-09-23 17:26 | Progress Note ---
Subjective Subjective Date of Service: Sep 23, 2016. Pt evaluation today including: conversation w/ patient, conversation w/ family , physical exam, chart review, review of studies, conversation w/ income tax consultant ( francisca), review of inpatient medication list Notes: ROS is limited due to patient condition Problem List Medical Problems: (1) Abnormal EKG Status: Acute (2) Accidental drug ingestion Status: Acute (3) CHF (congestive heart failure) Status: Acute (4) Closed head injury Status: Acute (5) COPD exacerbation Status: Acute (6) Dysarthria Status: Acute (7) Facial cellulitis Status: Acute (8) Hypoxia Status: Acute (9) Leukocytosis Status: Acute (10) PNA (pneumonia) Status: Acute (11) Right leg weakness Status: Acute Review of Systems Constitutional: No fever ENT: No hearing loss Respiratory: No cough Female : No dysuria Endo: + fatigue Physical Exam Vital Signs Vital Signs Past 24 Hours: Date Time Temp Pulse Resp B/P Pulse Ox O2 Delivery O2 Flow Rate FiO2 09/23/16 14:17 36.4 63 20 98 8.0 09/23/16 12:00 Non-Rebreather 8.0 09/23/16 11:30 36.4 63 20 120/72 98 High Flow Oxygen 09/23/16 11:17 Non-Rebreather 09/23/16 08:00 97 Non-Rebreather 8.0 09/23/16 07:35 35.0 84 24 110/63 97 Non-Rebreather 09/23/16 07:33 36.4 79 18 119/63 97 High Flow Oxygen 09/23/16 05:23 77 18 95 Non-Rebreather 09/23/16 04:00 36.4 80 28 129/89 92 Venturi Mask 09/23/16 04:00 92 Venturi Mask 8.0 09/23/16 02:55 78 18 80 Nasal Cannula 3.0 09/23/16 00:01 94 Nasal Cannula 3.0 09/22/16 23:10 36.4 76 26 125/72 94 Nasal Cannula 3.0 09/22/16 20:00 98 Nasal Cannula 3.0 09/22/16 19:51 36.5 80 21 135/77 98 Nasal Cannula 3.0 09/22/16 19:18 91 18 96 Nasal Cannula 3.0 Physical Exam: General Appearance: WD/WN, no apparent distress Eyes: bilateral eyes normal inspection ENT: hearing grossly normal Neck: supple Respiratory/Chest: + decreased breath sounds, + crackles Cardiovascular: regular rate, rhythm Abdomen: normal bowel sounds Extremities: normal range of motion Neurologic/Psychiatric: chemical packager II-XII nml as tested Skin: warm/dry Medications Medications: Current Inpatient Medications Medications (Trade) Dose Ordered Sig/Jose Route Start Time Stop Time Status Last Admin Dose Admin Acetaminophen (Tylenol Tab) 650 mg Q4H PRN PO 09/08/16 20:45 10/08/16 20:44 09/22/16 21:02 650 MG Zolpidem Tartrate (Ambien Tab) 5 mg HSZ PRN PO 09/08/16 20:45 10/08/16 20:44 Timolol Maleate (Timoptic-Xe 0.5% Oph Soln) 1 drops Q12 OPB 09/08/16 21:00 10/08/16 20:59 09/23/16 08:30 1 DROPS Lorazepam (Ativan Inj) 0.5 mg Q4H PRN IV 09/08/16 20:45 10/08/16 20:44 09/23/16 14:29 0.5 MG Bisacodyl (Dulcolax Supp) 10 mg DAILY PRN [place] 09/08/16 20:45 10/08/16 20:44 Al Hydrox/Mg Hydrox/Simethicone (Maalox Max Susp) 15 ml Q4H PRN PO 09/08/16 20:45 10/08/16 20:44 Ondansetron HCl (Zofran Inj) 4 mg Q6H PRN IV 09/08/16 20:45 10/08/16 20:44 09/09/16 04:50 4 MG Morphine Sulfate (MoRPHine SULFATE INJ) 1 mg Q4H PRN IV 09/15/16 09:30 09/29/16 09:29 09/23/16 13:02 1 MG Brimonidine Tartrate 1 drops 1 drops BID OPB 09/16/16 21:00 10/16/16 20:59 09/23/16 08:30 1 DROPS Daptomycin 550 mg/ Sodium Chloride 61 ml @ 100 mls/hr DAILY@1600 IV 09/17/16 16:00 09/24/16 16:37 09/22/16 16:51 100 MLS/HR Linezolid 600 mg/ Prmx 300 ml @ 300 mls/hr Q12H IV 09/17/16 12:00 10/01/16 11:59 09/23/16 12:42 300 MLS/HR Levofloxacin/Prmx (Levaquin / D5W/ Premixed D5W) 150 ml @ 100 mls/hr DAILY@1800 IV 09/18/16 18:00 09/25/16 17:59 09/22/16 19:08 100 MLS/HR Phenol (Chloraseptic 1.4% [place]) 2 sprays UD PRN MT 09/20/16 13:30 10/20/16 13:29 Insulin Glargine (Lantus Solostar Pen) 10 unit DAILY@1800 SC 09/23/16 18:00 10/23/16 17:59 Insulin Aspart (novoLOG ASPART) SLIDING SCALE G... ACHS SC 09/23/16 16:15 10/23/16 16:14 Glucose (Glucose 40% Gel) 15-30 GRAMS 15 GRAMS... UD PRN PO 09/23/16 11:45 10/23/16 11:44 Glucose (Glucose Chew Tab) 4-8 Tablets 4 Tabl... UD PRN PO 09/23/16 11:45 10/23/16 11:44 Dextrose (Dextrose 50% 50ML Syringe) 25-50ML OF 50% DW IV FOR... UD PRN IV 09/23/16 11:45 10/23/16 11:44 Glucagon (Glucagon Inj) 1 mg UD PRN SQ 09/23/16 11:45 10/23/16 11:44 Laboratory Data Labs: Last 24 Hours Test 09/22/16 17:51 09/23/16 00:09 09/23/16 04:40 09/23/16 05:30 Bedside Glucose 189 mg/dl 204 mg/dl White Blood Count 20.10 K/uL Red Blood Count 2.61 M/uL Hemoglobin 8.2 g/dL Hematocrit 26.2 % Mean Corpuscular Volume 100.4 fL Mean Corpuscular Hemoglobin 31.4 pg Mean Corpuscular Hemoglobin Concent 31.3 g/dl RDW Standard Deviation 59.0 fL RDW Coefficient of Variation 16.8 % Platelet Count 95 K/uL Mean Platelet Volume 10.9 fL Activated Partial Thromboplast Time 53.4 SECONDS Partial Thromboplastin Ratio 2.1 Sodium Level 134 mmol/L Potassium Level 4.6 mmol/L Chloride Level 88 mmol/L Carbon Dioxide Level 40 mmol/L Anion Gap 6.0 mmol/L Blood Urea Nitrogen 15 mg/dl Creatinine 0.62 mg/dl Est Creatinine Clear Calc Drug Dose 68.0 ml/min Estimated GFR () 98.7 Estimated GFR (Non- 85.2 BUN/Creatinine Ratio 23.5 Random Glucose 201 mg/dl Calcium Level 7.7 mg/dl Phosphorus Level 3.5 mg/dl Magnesium Level 1.6 mg/dl Total Bilirubin 0.3 mg/dl Aspartate Amino Transf (AST/SGOT) 24 U/L Alanine Aminotransferase (ALT/SGPT) 12 U/L Alkaline Phosphatase 51 U/L Total Protein 5.5 gm/dl Albumin 1.6 gm/dl Globulin 3.9 gm/dl Albumin/Globulin Ratio 0.4 Procalcitonin 0.13 ng/mL Test 09/23/16 05:51 09/23/16 11:20 09/23/16 11:38 09/23/16 16:25 Bedside Glucose 211 mg/dl 183 mg/dl 139 mg/dl Magnesium Level 2.3 mg/dl Total Creatine Kinase 52 U/L Assessment and Plan A 80 yo female here with MRSA bacteremia / Cx remains positive (last positive blood Cx was 09/17) consulted ENT to determine source of bacteremia in the beginning of admission ( no note, but recommended no surgical intervention due to absent of abscess and continue abx) cont dapto to 8mg/kg / zyvox for synergistic effect , changed PICC line 09/17 CT chest/abd and pelvis, showed B/L pneumonia, large pleural effusion ? empyema , consult typing secretary, consider thoracocentesis (D/W Dr. Barrett, plavix is on hold and xarelto is switched to heparin drip) caspofungin stopped as per Dr. Ornelas echo to r/o vegetations. - negative for vegetations 2 episodes of diarrhea on 09/17, stopped Vanco due to Cdiff negative cultures B/L Moderate to large pleural effusions with dense bibasilar consolidation, possible aspiration, levofloxacin for Gram negative coverage delirium, likely sec to dehydration, received IVF Hypokalemia sec to diarrhea, improved with replacement Diarrhea, sec to TF-Nutrisource, improved, rectal tube inserted Left facial cellulitis/left parotitis/left masseter muscle infection/left inframandibular infection and sepsis/ persistent bacteremia (WBC, HR) present on admission S/P 2 CT neck without contrast and MRI neck with da also showed no abscess or stone currently on dapto/zyvox Acute hypoxic respiratory failure, Aspiration / pneumonia (HCAP versus Aspiration) / large pleural effusion consulted typing secretary D/W Dr. Barrett, patient and family refused thoracocentesis systolic cardiomyopathy with CHF exacerbation appearance of takutsubo's - check troponin, follow. no s/s CHF, hold lasix 20mg IV BID due to dehydration afib/RVR held xarelto 09/17 metabolic encephalopathy / delirium, due to pain, meds, poor sleep, hospital environment, continue to monitor Dysphagia possible aspiration, poor oral intake, painful swallowing restart oral feeding for comfort, remove NG tube, stop TF CAD/hypertension/TIA/CVA-- stop all meds due to hospice Diabetes mellitus type 2 cont ISS and Accuchecks, may need insulin glargine if sugars remains high Glaucoma, continue Alphagan P ophthalmic solution 1 drop OPB twice a day, and timolol GFS 0.5% one drop OPB every 12 hours. met with family and patient, decided to proceed with hospice, based on deterioration of her symptoms and general well being, will continue abx and rectal tube, o2, stop al meds prolonging suffering and start morphine and Ativan prn transfer to DNR Continued [facility] stay due to: abnormal vital signs, multiple IV medications needed
[2016-09-23] MEDS: DAPTOmycin IV 550 MG in SODIUM CHLORIDE 0.9% 50ML 50 ML IV SCH (17:51)
[2016-09-23] MEDS ORDERED: INSULIN GLARGINE SOLOSTAR 100 UNITS/ML 3 ML PEN SC SCH (18:00)
[2016-09-23] MEDS: LEVOFLOXACIN / D5W 750 MG in PREMIXED IN D5W 150 ML IV SCH (18:40)
[2016-09-23] MEDS ORDERED: LORAZEPAM 2 MG/ML 1 ML VIAL IV PRN (20:45)
[2016-09-23] MEDS ORDERED: LORAZEPAM INJ 0.5 MG in SYRINGE 0.75 ML IV PRN (21:00)
[2016-09-24] MEDS: LINEZOLID / D5W 600 MG in PREMIXED IN D5W 300 ML IV SCH (00:04)
[2016-09-24] MEDS: MoRPHine SULFATE 2 MG/ML CARP IV PRN (00:13)
--- NOTE | 2016-09-24 01:33 | Death Pronouncement Note ---
Pronouncement Note Date & Time of Sep 24, 2016. 01:30 Pronouncement At time of pronouncement the patients pupils were fixed and dilated, there was no spontaneous respiratory effort, no palpable pulse, no audible heart tones, and no response to pain or voice. Nursing has phone the family who will come at the bedside to be with the patient.
--- NOTE | 2016-09-24 08:03 | Death Summary ---
Summary of Admission Date Sep 08, 2016 at 20:32 Date & Time of Sep 24, 2016. 01:30 Cause of asphyxia secondary to hypoxic respiratory failure due to pulmonary effusions Secondary Diagnoses bacteremia Hospital Course A 80 yo female here with MRSA bacteremia / Cx remains positive (last positive blood Cx was 09/17) consulted ENT to determine source of bacteremia in the beginning of admission ( no note, but recommended no surgical intervention due to absent of abscess and continue abx) received dapto to 8mg/kg / zyvox for synergistic effect , changed PICC line 09/17 CT chest/abd and pelvis, showed B/L pneumonia, large pleural effusion ? empyema , consult window decorator, consider thoracocentesis (D/W Dr. Barrett, plavix is on hold and xarelto is switched to heparin drip) caspofungin stopped as per Dr. Ornelas echo to r/o vegetations. - negative for vegetations 2 episodes of diarrhea on 09/17, stopped Vanco due to Cdiff negative cultures B/L Moderate to large pleural effusions with dense bibasilar consolidation, possible aspiration, levofloxacin for Gram negative coverage, patient refused thoracentesis, family supported delirium, likely sec to dehydration, received IVF Hypokalemia sec to diarrhea, improved with replacement Diarrhea, sec to TF-Nutrisource, improved, rectal tube inserted Left facial cellulitis/left parotitis/left masseter muscle infection/left inframandibular infection and sepsis/ persistent bacteremia (WBC, HR) present on admission S/P 2 CT neck without contrast and MRI neck with da also showed no abscess or stone received dapto/zyvox Acute hypoxic respiratory failure, Aspiration / pneumonia (HCAP versus Aspiration) / large pleural effusion consulted window decorator D/W Dr. Barrett, patient and family refused thoracocentesis systolic cardiomyopathy with CHF exacerbation appearance of takutsubo's - check troponin, follow. no s/s CHF, hold lasix 20mg IV BID due to dehydration afib/RVR held xarelto 09/17 metabolic encephalopathy / delirium, due to pain, meds, poor sleep, hospital environment Dysphagia possible aspiration, poor oral intake, painful swallowing restarted oral feeding for comfort, removed NG tube, stopped TF when became comfort measures only CAD/hypertension/TIA/CVA-- stop all meds due to hospice Diabetes mellitus type 2 cont ISS and Accuchecks, received insulin glargine Glaucoma, continue Alphagan P ophthalmic solution 1 drop OPB twice a day, and timolol GFS 0.5% one drop OPB every 12 hours. met with family and patient, decided to proceed with hospice, based on deterioration of her symptoms and general well being, we continued abx and rectal tube, o2, stop all meds prolonging suffering and started morphine and Ativan prn transferred to 4e DNR patient pronounced at 1:30 am on 09/24/16
== END 2016-09-24 04:30 | disposition expired | DRG 871 ==
LOC: ENRESERVTM → CANRESERV → ENRESERVDT → C.EDB 15:30 → C.MS2W 20:32 → UNDOADMIN 20:32 → C.MS2W 09-11 23:44 → EDBEDREQ 09-12 10:23 → C.MSICU 09-12 11:10 → C.MS2W 09-12 11:10 → C.MSICU 09-12 17:42 → C.2E 09-12 17:42 → C.4E 09-23 14:51
PROVIDERS: ADMIT Hospitalist; ATTEND Hospitalist
DX: A41.01 Sepsis due to Methicillin susceptible Staphylococcus aureus (principal); G93.41 Metabolic encephalopathy; J96.01 Acute respiratory failure with hypoxia; J69.0 Pneumonitis due to inhalation of food and vomit; E87.1 Hypo-osmolality and hyponatremia; L03.211 Cellulitis of face; I42.9 Cardiomyopathy, unspecified; E46 Unspecified protein-calorie malnutrition; Q21.1 Atrial septal defect; E11.9 Type 2 diabetes mellitus without complications; J44.9 Chronic obstructive pulmonary disease, unspecified; I48.2 Chronic atrial fibrillation; I10 Essential (primary) hypertension; Z87.891 Personal history of nicotine dependence; Z80.9 Family history of malignant neoplasm, unspecified; Z82.49 Family history of ischemic heart disease and other diseases of the circulatory system; Z83.3 Family history of diabetes mellitus; Z88.0 Allergy status to penicillin; Z88.8 Allergy status to other drugs, medicaments and biological substances; Z88.5 Allergy status to narcotic agent; Z91.041 Radiographic dye allergy status; Z79.899 Other long term (current) drug therapy; Z79.01 Long term (current) use of anticoagulants; Z79.84 Long term (current) use of oral hypoglycemic drugs; K11.20 Sialoadenitis, unspecified; I25.10 Atherosclerotic heart disease of native coronary artery without angina pectoris; E78.00 Pure hypercholesterolemia, unspecified; Z86.73 Personal history of transient ischemic attack (TIA), and cerebral infarction without residual deficits; F32.9 Major depressive disorder, single episode, unspecified; H40.9 Unspecified glaucoma; Z79.02 Long term (current) use of antithrombotics/antiplatelets; I50.9 Heart failure, unspecified; D69.6 Thrombocytopenia, unspecified; E87.5 Hyperkalemia; E83.42 Hypomagnesemia; R13.10 Dysphagia, unspecified; Z68.25 Body mass index [BMI] 25.0-25.9, adult; Z51.5 Encounter for palliative care; Z66 Do not resuscitate; I08.1 Rheumatic disorders of both mitral and tricuspid valves; E87.6 Hypokalemia; R19.7 Diarrhea, unspecified; F03.90 Unspecified dementia, unspecified severity, without behavioral disturbance, psychotic disturbance, mood disturbance, and anxiety